=== PATIENT | male | born 1950 | race American Indian/Alaskan Native ===

== ENCOUNTER 2017-09-20 09:09 | Inpatient (IN) | payer MEDICARE ==
[2017-09-20 10:04] LABS: Basophils % (Auto) 0.7 % (0.0-1.8); Eosinophils % (Auto) 0.6 % (0.0-4.3); Hematocrit 33.1 % (35.5-45.6); Hemoglobin 10.3 gm/dl (11.8-15.2); Mean Corpuscular HGB Conc 31 % (32-34); Mean Corpuscular Hemoglobin 27 pg (28-32); Mean Corpuscular Volume 88 fl (84-94); Platelet Count 229 K/mm3 (140-440); Red Blood Count 3.78 M/mm3 (3.65-5.03); Red Cell Distribution Width 14.8 % (13.2-15.2); White Blood Count 13.7 K/mm3 (4.5-11.0)
[2017-09-20 10:17] LABS: Partial Thromboplastin Time 24.7 Sec. (24.2-36.6)
[2017-09-20 10:20] LABS: Alanine Aminotransferase 12 units/L (7-56); Albumin 3.2 g/dL (3.9-5); Albumin/Globulin Ratio 1.1 %; Alkaline Phosphatase 75 units/L (35-129); Anion Gap 20 mmol/L; BUN/Creatinine Ratio 40; Blood Urea Nitrogen 40 mg/dL (9-20); Calcium 8.3 mg/dL (8.4-10.2); Carbon Dioxide 22 mmol/L (22-30); Chloride 107.4 mmol/L (98-107); Glucose 129 mg/dL (75-100); Potassium 3.9 mmol/L (3.6-5.0); Sodium 145 mmol/L (137-145); Total Protein 6.2 g/dL (6.3-8.2)
[2017-09-20] MEDS ORDERED: NACL 0.9% 1000 ML 1,000 ML IV ONE (11:32)
[2017-09-20] MEDS ORDERED: PROTONIX IV ONE (11:32)
--- NOTE | 2017-09-20 12:27 | XRay Report ---
AP CHEST: HISTORY: Hypertension Compared to 06/20/16. Severe emphysematous changes are noted. No evidence for pneumonia, pleural effusion or pneumothorax. Normal heart size and pulmonary vascularity. The thoracic cage is intact. IMPRESSION: Emphysema. No acute process.
[2017-09-20] MEDS ORDERED: TYLENOL PO PRN (15:50)
[2017-09-20] MEDS ORDERED: PROVENTIL IH PRN (15:50)
[2017-09-20] MEDS ORDERED: ZOFRAN IV PRN (15:50)
[2017-09-20] MEDS ORDERED: DULCOLAX PR PRN (15:50)
[2017-09-20] MEDS ORDERED: MILK OF MAGNESIA PO PRN (15:50)
--- NOTE | 2017-09-20 19:26 | Emergency Department Report ---
ED General Adult HPI - General Chief complaint: GI Bleed Stated complaint: GI BLEED Time Seen by Provider: 09/20/17 11:32 Source: patient, EMS Mode of arrival: Stretcher Limitations: No Limitations - History of Present Illness Initial comments: The patient is a rather poor historian. He states that last night he vomited blood. This a.m. he noticed that it was quite dark. He states he's never had this before. He does not complain of abdominal pain. No he's been previously prescribed iron in the past. He appears to be on Plavix. He is a very poor historian and does not know the names of any of his medicines. He thinks he is on a blood thinner but I think this refers to Plavix. Patient states that 3 weeks ago he had a chest tube in his right lung as well as some kind of procedure on his lungs. He describes it as a removal of the "disc of the lung". In any case he has a history of COPD. He denies any previous history of endoscopy. He has had bronchoscopy apparently as well as a possible thorascopic procedure. -: hour(s) - Related Data Home Medications Medication Instructions Recorded Confirmed Last Taken Albuterol Sulfate [Albuterol 0.63% 1 puff INHALATION Q4H 09/20/17 09/20/17 Unknown NEBS] AtorvaSTATin [Lipitor] 20 mg PO DAILY 09/20/17 09/20/17 Unknown Clopidogrel [Plavix] 75 mg PO DAILY 09/20/17 09/20/17 Unknown Diltiazem [Cardizem] 90 mg PO TID 09/20/17 09/20/17 Unknown Fluticasone/Ivxiegkkvu84/21Mcg 1 puff IH BID 09/20/17 09/20/17 Unknown [Advair HFA 45/21 mcg] Gabapentin [Neurontin] 300 mg PO Q8H 09/20/17 09/20/17 Unknown Isosorbide Dinitrate [Isordil] 40 mg PO Q8H 09/20/17 09/20/17 Unknown Lisinopril [Zestril TAB] 40 mg PO DAILY 09/20/17 09/20/17 Unknown Sertraline [Zoloft] 25 mg PO DAILY 09/20/17 09/20/17 Unknown Tiotropium [Spiriva] 18 mcg IH DAILY 09/20/17 09/20/17 Unknown Previous Rx's Medication Instructions Recorded Last Taken Type Ferrous Sulfate [Feosol 325 MG tab] 325 mg PO DAILY #30 tablet 12/03/15 Unknown Rx Allergies Allergy/AdvReac Type Severity Reaction Status Date / Time No Known Allergies Allergy Verified 11/26/15 18:55 ED Review of Systems ROS: Stated complaint: GI BLEED Other details as noted in HPI Constitutional: denies: chills, fever Eyes: denies: eye pain, eye discharge, vision change ENT: denies: ear pain, throat pain Respiratory: denies: cough, shortness of breath, wheezing Cardiovascular: denies: chest pain, palpitations Endocrine: no symptoms reported Gastrointestinal: vomiting, hematemesis, melena. denies: abdominal pain, nausea , diarrhea Genitourinary: denies: urgency, dysuria Musculoskeletal: denies: back pain, joint swelling, arthralgia Skin: denies: rash, lesions Neurological: denies: headache, weakness, paresthesias Psychiatric: denies: anxiety, depression Hematological/Lymphatic: denies: easy bleeding, easy bruising ED Past Medical Hx - Past Medical History Hx Hypertension: Yes Hx CVA: Yes (Right eye affected) Hx Heart Attack/AMI: Yes Hx Congestive Heart Failure: No Hx Diabetes: No Hx Deep Vein Thrombosis: No Hx Asthma: No Hx COPD: Yes Additional medical history: Emphysema. CAD - Surgical History Hx Coronary Stent: Yes Hx Pacemaker: No Hx Internal Defibrillator: No Additional Surgical History: Eye surgery - Social History Smoking Status: Unknown if ever smoked Substance Use Type: None - Medications Home Medications: Home Medications Medication Instructions Recorded Confirmed Last Taken Type Ferrous Sulfate [Feosol 325 MG tab] 325 mg PO DAILY #30 tablet 12/03/15 Unknown Rx Albuterol Sulfate [Albuterol 0.63% 1 puff INHALATION Q4H 09/20/17 09/20/17 Unknown History NEBS] AtorvaSTATin [Lipitor] 20 mg PO DAILY 09/20/17 09/20/17 Unknown History Clopidogrel [Plavix] 75 mg PO DAILY 09/20/17 09/20/17 Unknown History Diltiazem [Cardizem] 90 mg PO TID 09/20/17 09/20/17 Unknown History Fluticasone/Dgoaivdtnf61/21Mcg 1 puff IH BID 09/20/17 09/20/17 Unknown History [Advair HFA 45/21 mcg] Gabapentin [Neurontin] 300 mg PO Q8H 09/20/17 09/20/17 Unknown History Isosorbide Dinitrate [Isordil] 40 mg PO Q8H 09/20/17 09/20/17 Unknown History Lisinopril [Zestril TAB] 40 mg PO DAILY 09/20/17 09/20/17 Unknown History Sertraline [Zoloft] 25 mg PO DAILY 09/20/17 09/20/17 Unknown History Tiotropium [Spiriva] 18 mcg IH DAILY 09/20/17 09/20/17 Unknown History ED Physical Exam - General Limitations: No Limitations General appearance: alert, in no apparent distress - Head Head exam: Present: atraumatic, normocephalic - Eye Eye exam: Present: normal appearance, PERRL, EOMI. Absent: scleral icterus - ENT ENT exam: Present: mucous membranes moist - Neck Neck exam: Present: normal inspection - Respiratory Respiratory exam: Present: normal lung sounds bilaterally. Absent: respiratory distress - Cardiovascular Cardiovascular Exam: Present: regular rate, normal rhythm. Absent: systolic murmur, diastolic murmur, rubs, gallop - GI/Abdominal GI/Abdominal exam: Present: soft, normal bowel sounds. Absent: distended, tenderness, guarding, rebound, rigid - Rectal Rectal exam: Present: deferred - Extremities Exam Extremities exam: Present: normal inspection - Back Exam Back exam: Present: normal inspection - Neurological Exam Neurological exam: Present: alert, oriented X3, CN II-XII intact. Absent: motor sensory deficit - Psychiatric Psychiatric exam: Present: normal affect, normal mood - Skin Skin exam: Present: warm, dry, intact, normal color. Absent: rash ED Course Vital Signs 09/20/17 09/20/17 09/20/17 09:35 10:30 11:30 Temperature 98.4 F Pulse Rate 78 68 73 Respiratory 16 16 16 Rate Blood Pressure 123/57 Blood Pressure 97/44 102/50 [Right] O2 Sat by Pulse 97 100 100 Oximetry 09/20/17 09/20/17 09/20/17 12:02 13:30 18:28 Temperature 98.5 F 99.4 F Pulse Rate 78 82 Respiratory 16 16 Rate Blood Pressure Blood Pressure 103/49 102/51 [Right] O2 Sat by Pulse 100 100 Oximetry - Reevaluation(s) Reevaluation #1: IV fluids Protonix, admission to the hospital service for further care and evaluation of apparent upper GI bleeding. 09/20/17 19:26 ED Medical Decision Making - Lab Data Result diagrams: 09/20/17 09:41 09/20/17 09:41 Laboratory Results - last 24 hr 09/20/17 09/20/17 09/20/17 09:41 09:41 09:41 WBC 13.7 H RBC 3.78 Hgb 10.3 L Hct 33.1 L MCV 88 MCH 27 L MCHC 31 L RDW 14.8 Plt Count 229 Lymph % (Auto) 16.2 [place] % (Auto) 4.1 Eos % (Auto) 0.6 Baso % (Auto) 0.7 Lymph # 2.2 [place] # 0.6 Eos # 0.1 Baso # 0.1 Seg Neutrophils % 78.4 H Seg Neutrophils # 10.7 H PT 13.7 INR 1.00 APTT 24.7 Sodium 145 Potassium 3.9 Chloride 107.4 H Carbon Dioxide 22 Anion Gap 20 BUN 40 H Creatinine 1.0 Estimated GFR > 60 BUN/Creatinine Ratio 40 Glucose 129 H Calcium 8.3 L Total Bilirubin 0.30 AST 11 ALT 12 Alkaline Phosphatase 75 Total Protein 6.2 L Albumin 3.2 L Albumin/Globulin Ratio 1.1 Lipase Blood Type Antibody Screen 09/20/17 09/20/17 09:41 09:41 WBC RBC Hgb Hct MCV MCH MCHC RDW Plt Count Lymph % (Auto) [place] % (Auto) Eos % (Auto) Baso % (Auto) Lymph # [place] # Eos # Baso # Seg Neutrophils % Seg Neutrophils # PT INR APTT Sodium Potassium Chloride Carbon Dioxide Anion Gap BUN Creatinine Estimated GFR BUN/Creatinine Ratio Glucose Calcium Total Bilirubin AST ALT Alkaline Phosphatase Total Protein Albumin Albumin/Globulin Ratio Lipase 9 L Blood Type A POSITIVE Antibody Screen Negative - EKG Data -: EKG Interpreted by Me EKG shows normal: sinus rhythm, axis, intervals, QRS complexes, ST-T waves - EKG Data Interpretation: other (1 PVC noted. Somewhat low voltage. Left anterior fascicular block.) - Radiology Data interpreted by me: Chest x-ray perhaps shows some volume loss on the right and chronic changes. No acute processes seen. Critical care attestation.: If time is entered above; I have spent that time in minutes in the direct care of this critically ill patient, excluding procedure time. ED Disposition Clinical Impression: Upper GI bleeding, Prerenal azotemia Anemia Qualifiers: Anemia type: unspecified type Qualified Code(s): D64.9 - Anemia, unspecified Disposition: OP ADMIT IP TO THIS HOSP Is pt being admited?: Yes Does the pt Need Aspirin: No (contraindicated GI bleeding on Plavix) Condition: Stable Referrals: PRIMARY CARE, [Primary Care Provider] - 3-5 Days
[2017-09-20] MEDS: ZITHROMAX 500 MG in NACL 0.9% 250ML 250 ML IV SCH (20:48)
[2017-09-20] MEDS: MORPHINE IV PRN (21:58)
[2017-09-21] MEDS: MORPHINE IV PRN ×4 (02:07→21:38)
[2017-09-21] MEDS ORDERED: MORPHINE IM ONE (02:34)
[2017-09-21 04:35] LABS: Creatine Kinase MB 1.9 ng/mL (0.0-4.0)
[2017-09-21 05:05] LABS: Creatine Kinase 90 units/L (55-170)
--- NOTE | 2017-09-21 07:23 | History and Physical Report ---
History of Present Illness Date of admission: 09/20/17 15:50 Chief complaint: Barbara been coughing History of present illness: 66 YO Male with COPD, CVA, CAD s/p stent placement, [place] presents to ED for evaluation. Pt states that he has experienced productive cough with increased volume of clear sputum as well as shortness of breath over the past week, with worsening symptoms over the past 2 days. Pt states that he "vomited blood" overnight and presents to ED for evaluation. Pt denies fever, chills, CP, Palpitations, Abdominal pain, BRBPR, recent ill contacts, prolonged travel/ immobility, leg swelling, calf pain, individual/family history of DVT/PE. Pt stats that he had a lung procedure 3 weeks ago at [facility]. Pt describes VATS as well as a bronchoscopy. Pt seen and evaluated in ED and found to have COPD exacerbation. Pt admitted to medical floor. Past History Past Medical History: acute [place], CAD, COPD, stroke Past Surgical History: Other (Stent, VATS) Social history: single Family history: hypertension Medications and Allergies Allergies Allergy/AdvReac Type Severity Reaction Status Date / Time No Known Allergies Allergy Verified 11/26/15 18:55 Home Medications Medication Instructions Recorded Confirmed Last Taken Type Ferrous Sulfate [Feosol 325 MG tab] 325 mg PO DAILY #30 tablet 12/03/15 Unknown Rx Albuterol Sulfate [Albuterol 0.63% 1 puff INHALATION Q4H 09/20/17 09/20/17 Unknown History NEBS] AtorvaSTATin [Lipitor] 20 mg PO DAILY 09/20/17 09/20/17 Unknown History Clopidogrel [Plavix] 75 mg PO DAILY 09/20/17 09/20/17 Unknown History Diltiazem [Cardizem] 90 mg PO TID 09/20/17 09/20/17 Unknown History Fluticasone/Eunujepeqs50/21Mcg 1 puff IH BID 09/20/17 09/20/17 Unknown History [Advair HFA 45/21 mcg] Gabapentin [Neurontin] 300 mg PO Q8H 09/20/17 09/20/17 Unknown History Isosorbide Dinitrate [Isordil] 40 mg PO Q8H 09/20/17 09/20/17 Unknown History Lisinopril [Zestril TAB] 40 mg PO DAILY 09/20/17 09/20/17 Unknown History Sertraline [Zoloft] 25 mg PO DAILY 09/20/17 09/20/17 Unknown History Tiotropium [Spiriva] 18 mcg IH DAILY 09/20/17 09/20/17 Unknown History Active Meds: Active Medications Acetaminophen (Tylenol) 650 mg PO Q4H PRN PRN Reason: Pain MILD(1-3)/Fever >100.5/FINNEGAN Albuterol (Proventil) 2.5 mg IH Q4HRT PRN PRN Reason: Shortness Of Breath Last Admin: 09/20/17 21:20 Dose: 2.5 mg Bisacodyl (Dulcolax) 10 mg ND QDAY PRN PRN Reason: Constipation unrelieved by [facility] Azithromycin 500 mg/ Sodium (Chloride) 250 mls @ 250 mls/hr IV Q24H RICARDO Last Admin: 09/20/17 20:48 Dose: 250 mls/hr Magnesium Hydroxide (Milk Of Magnesia) 30 ml PO Q4H PRN PRN Reason: Constipation Morphine Sulfate (Morphine) 2 mg IV Q4H PRN PRN Reason: Pain, Moderate (4-6) Last Admin: 09/21/17 02:07 Dose: 2 mg Ondansetron HCl (Zofran) 4 mg IV Q8H PRN PRN Reason: N/V unrelieved by Reglan Review of Systems Constitutional: other (vomited blood) Ears, nose, mouth and throat: no ear pain, no ear discharge, no tinnitis, no decreased hearing Cardiovascular: no chest pain, no orthopnea, no palpitations, no rapid/ irregular heart beat, no edema Respiratory: cough with sputum, excessive sputum, shortness of breath Gastrointestinal: no abdominal pain, no nausea, no vomiting, no diarrhea, no constipation, no change in bowel habits, no hematemesis Genitourinary Male: no hematuria, no flank pain, no discharge Rectal: no pain, no incontinence, no bleeding Musculoskeletal: no neck stiffness, no neck pain, no shooting arm pain, no arm numbness/tingling Integumentary: no rash, no pruritis, no redness, no sores, no wounds Neurological: no transient paralysis, no paralysis, no weakness, no parathesias , no numbness Psychiatric: no anxiety, no memory loss, no change in sleep habits, no sleep disturbances, no insomnia, no hypersomnia Endocrine: no cold intolerance, no heat intolerance, no polyphagia, no excessive thirst, no polydipsia, no polyuria Hematologic/Lymphatic: no easy bruising, no easy bleeding Allergic/Immunologic: no urticaria, no allergic rhinitis, no wheezing Exam - Constitutional Vitals: Temp Pulse Resp BP Pulse Ox 98.8 F 89 20 110/51 95 09/21/17 04:04 09/21/17 04:00 09/21/17 04:04 09/21/17 04:04 09/21/17 04:00 General appearance: Present: mild distress - EENT Eyes: Present: PERRL ENT: hearing intact, clear oral mucosa - Neck Neck: Present: supple, normal ROM - Respiratory Respiratory effort: normal Respiratory: bilateral: CTA - Cardiovascular Heart Sounds: Present: S1 & S2. Absent: rub, click - Extremities Extremities: pulses symmetrical, No edema Peripheral Pulses: within normal limits - Abdominal General gastrointestinal: Present: soft, non-tender, non-distended, normal bowel sounds Male genitourinary: Present: normal - Integumentary Integumentary: Present: clear, warm, dry - Musculoskeletal Musculoskeletal: gait normal, strength equal bilaterally - Psychiatric Psychiatric: appropriate mood/affect, intact judgment & insight - Neurologic Neurologic: CNII-XII intact, moves all extremities Results - Labs CBC & Chem 7: 09/20/17 09:41 09/20/17 09:41 Labs: Abnormal lab results 09/20/17 09/20/17 09/20/17 Range/Units 09:41 09:41 09:41 WBC 13.7 H (4.5-11.0) K/mm3 Hgb 10.3 L (11.8-15.2) gm/dl Hct 33.1 L (35.5-45.6) % MCH 27 L (28-32) pg MCHC 31 L (32-34) % Seg Neutrophils % 78.4 H (40.0-70.0) % Seg Neutrophils # 10.7 H (1.8-7.7) K/mm3 Chloride 107.4 H (98-107) mmol/L BUN 40 H (9-20) mg/dL Glucose 129 H (75-100) mg/dL Calcium 8.3 L (8.4-10.2) mg/dL Total Protein 6.2 L (6.3-8.2) g/dL Albumin 3.2 L (3.9-5) g/dL Lipase 9 L (13-60) units/L Assessment and Plan - Patient Problems (1) COPD exacerbation Current Visit: No Status: Acute Plan to address problem: Supplemental oxygen, nebs, IV steroid therapy, incentive spirometry, NIPPV as clinically indicated (2) CAD (coronary artery disease) Current Visit: Yes Status: Acute Qualifiers: Coronary Disease-Associated Artery/Lesion type: [place] artery [place] vs. transplanted heart: [place] heart Associated angina: without angina Qualified Code(s): I25.10 - Atherosclerotic heart disease of [place] coronary artery without angina pectoris Plan to address problem: Statin therapy, low cholesterol diet, risk factor reduction, (3) Upper GI bleeding Current Visit: Yes Status: Acute Plan to address problem: Suspect possible remnant from VATS/Bronchoscopy. No recurrent bleeding, CT angio chest, (4) Acute respiratory failure Current Visit: No Status: Acute Plan to address problem: Supplemental oxygen, nebs, aspiration precautions, incentive spirometry, (5) DVT prophylaxis Current Visit: Yes Status: Acute
[2017-09-21 07:37] LABS: Creatine Kinase MB 1.8 ng/mL (0.0-4.0)
[2017-09-21 08:03] LABS: Creatine Kinase 86 units/L (55-170)
[2017-09-21] MEDS ORDERED: NACL ONE (08:20)
--- NOTE | 2017-09-21 08:53 | Cat Scan Report ---
CTA CHEST: HISTORY: Dyspnea. COMPARISON: 06/16/16. TECHNIQUE: Helical CT in 1.25mm intervals following IV contrast. Pulmonary embolus protocol. Sagittal and coronal reformatted images. Rotational MIP images. FINDINGS: Contrast bolus is satisfactory. No pulmonary embolus is identified. Thyroid gland: Normal. Tracheobronchial tree: Normal. Esophagus: Normal. Heart: Normal. Pericardium: Normal. Mediastinum: Normal. Lung Minor: Severe emphysematous changes are identified bilaterally. No evidence for mass, pneumonia or pneumothorax. Pleural Spaces: Small layering right pleural effusion is noted. Musculoskeletal: No fracture or suspicious bony lesion is identified. IMPRESSION: No evidence for pulmonary embolus. Severe emphysema. Small right pleural effusion.
--- NOTE | 2017-09-21 14:21 | Progress Note ---
Assessment and Plan Assessment and plan: 66 YO Male with COPD, CVA, CAD s/p stent placement, [place] presents to ED for evaluation. Pt states that he has experienced productive cough with increased volume of clear sputum as well as shortness of breath over the past week, with worsening symptoms over the past 2 days. Pt states that he "vomited blood" overnight and presents to ED for evaluation. Pt denies fever, chills, CP, Palpitations, Abdominal pain, BRBPR, recent ill contacts, prolonged travel/ immobility, leg swelling, calf pain, individual/family history of DVT/PE. Pt stats that he had a lung procedure 3 weeks ago at [facility]. Pt describes VATS as well as a bronchoscopy. Pt seen and evaluated in ED and found to have COPD exacerbation. Upper GI bleeding Suspect possible remnant from VATS/Bronchoscopy. Chest CTA revealed emphysema and small right pleural effusion, no evidence of pulmonary embolus GI consulted Anemia ? from GI bleed GI consulted, will transfuse if Hgb <7 COPD exacerbation Supplemental oxygen PRN Pt on Duoneb and albuterol PRN Incentive spirometry, NIPPV as clinically indicated CAD (coronary artery disease) Continue statin therapy low cholesterol diet, risk factor reduction Acute respiratory failure Supplemental oxygen, nebs, aspiration precautions, incentive spirometry Chest Pain Z[place]ma WNL S/p TX and stents cardiology consulted Mild protein malnutrition Nutrition consulted DVT prophylaxis SCDs History Interval history: Patient was seen and examined. He complains of substernal chest pain 7-8 out of 10 sharp 1 day with no radiation. Patient states that he's never experienced this pain before. He denies shortness of breath, nausea, vomiting. Hospitalist Physical - Constitutional Vitals: Temp Pulse Resp BP Pulse Ox 99.1 F 77 18 110/51 98 09/21/17 13:03 09/21/17 13:03 09/21/17 13:03 09/21/17 13:03 09/21/17 13:03 General appearance: Present: no acute distress - EENT Eyes: Present: PERRL, EOM intact ENT: hearing intact, clear oral mucosa - Neck Neck: Present: supple, normal ROM - Respiratory Respiratory effort: normal Respiratory: bilateral: CTA - Cardiovascular Rhythm: regular Heart Sounds: Present: S1 & S2 - Extremities Extremities: no ischemia, No edema Peripheral Pulses: within normal limits - Abdominal General gastrointestinal: soft, non-tender - Integumentary Integumentary: Present: clear, warm, dry - Psychiatric Psychiatric: appropriate mood/affect, cooperative - Neurologic Neurologic: CNII-XII intact, moves all extremities - Allied Health Allied health notes reviewed: nursing Results - Labs CBC & Chem 7: 09/20/17 09:41 12 09:41 Labs: Laboratory Last Values WBC 13.7 K/mm3 (4.5-11.0) H 09/20/17 09:41 RBC 3.78 M/mm3 (3.65-5.03) 09/20/17 09:41 Hgb 10.3 gm/dl (11.8-15.2) L 09/20/17 09:41 Hct 33.1 % (35.5-45.6) L 09/20/17 09:41 MCV 88 fl (84-94) 09/20/17 09:41 MCH 27 pg (28-32) L 09/20/17 09:41 MCHC 31 % (32-34) L 09/20/17 09:41 RDW 14.8 % (13.2-15.2) 09/20/17 09:41 Plt Count 229 K/mm3 (140-440) 09/20/17 09:41 Lymph % (Auto) 16.2 % (13.4-35.0) 09/20/17 09:41 [place] % (Auto) 4.1 % (0.0-7.3) 09/20/17 09:41 Eos % (Auto) 0.6 % (0.0-4.3) 09/20/17 09:41 Baso % (Auto) 0.7 % (0.0-1.8) 09/20/17 09:41 Lymph # 2.2 K/mm3 (1.2-5.4) 09/20/17 09:41 [place] # 0.6 K/mm3 (0.0-0.8) 09/20/17 09:41 Eos # 0.1 K/mm3 (0.0-0.4) 09/20/17 09:41 Baso # 0.1 K/mm3 (0.0-0.1) 09/20/17 09:41 Seg Neutrophils % 78.4 % (40.0-70.0) H 09/20/17 09:41 Seg Neutrophils # 10.7 K/mm3 (1.8-7.7) H 09/20/17 09:41 PT 13.7 Sec. (12.2-14.9) 09/20/17 09:41 INR 1.00 (0.87-1.13) 09/20/17 09:41 APTT 24.7 Sec. (24.2-36.6) 09/20/17 09:41 Sodium 145 mmol/L (137-145) 09/20/17 09:41 Potassium 3.9 mmol/L (3.6-5.0) 09/20/17 09:41 Chloride 107.4 mmol/L (98-107) H 09/20/17 09:41 Carbon Dioxide 22 mmol/L (22-30) 09/20/17 09:41 Anion Gap 20 mmol/L 09/20/17 09:41 BUN 40 mg/dL (9-20) H 09/20/17 09:41 Creatinine 1.0 mg/dL (0.8-1.5) 09/20/17 09:41 Estimated GFR > 60 ml/min 09/20/17 09:41 BUN/Creatinine Ratio 40 % 09/20/17 09:41 Glucose 129 mg/dL (75-100) H 09/20/17 09:41 Calcium 8.3 mg/dL (8.4-10.2) L 09/20/17 09:41 Total Bilirubin 0.30 mg/dL (0.1-1.2) 09/20/17 09:41 AST 11 units/L (5-40) 09/20/17 09:41 ALT 12 units/L (7-56) 09/20/17 09:41 Alkaline Phosphatase 75 units/L (35-129) 09/20/17 09:41 Total Creatine Kinase 86 units/L (55-170) 09/21/17 06:59 CK-MB (CK-2) 1.8 ng/mL (0.0-4.0) 09/21/17 06:59 CK-MB (CK-2) Rel Index 2.0 (0-4) 09/21/17 06:59 Troponin T < 0.010 ng/mL (0.00-0.029) 09/21/17 06:59 Total Protein 6.2 g/dL (6.3-8.2) L 09/20/17 09:41 Albumin 3.2 g/dL (3.9-5) L 09/20/17 09:41 Albumin/Globulin Ratio 1.1 % 09/20/17 09:41 Lipase 9 units/L (13-60) L 09/20/17 09:41 Blood Type A POSITIVE 09/20/17 09:41 Antibody Screen Negative 09/20/17 09:41 - Imaging and Cardiology Chest x-ray: report reviewed
[2017-09-21] MEDS: DUONEB *Not for PRN Use IH SCH ×3 (14:55→23:15)
[2017-09-21] MEDS: ZITHROMAX 500 MG in NACL 0.9% 250ML 250 ML IV SCH (17:43)
[2017-09-21 22:30] LABS: Creatine Kinase MB 2.6 ng/mL (0.0-4.0)
[2017-09-21 22:31] LABS: Creatine Kinase 107 units/L (55-170)
[2017-09-22] MEDS: MORPHINE IV PRN (03:20)
[2017-09-22] MEDS: DUONEB *Not for PRN Use IH SCH ×3 (08:00→18:34)
[2017-09-22 08:51] LABS: Hematocrit 28.4 % (35.5-45.6); Hemoglobin 9.3 gm/dl (11.8-15.2); Mean Corpuscular HGB Conc 33 % (32-34); Mean Corpuscular Hemoglobin 29 pg (28-32); Mean Corpuscular Volume 88 fl (84-94); Platelet Count 189 K/mm3 (140-440); Red Blood Count 3.23 M/mm3 (3.65-5.03); Red Cell Distribution Width 14.7 % (13.2-15.2); White Blood Count 6.4 K/mm3 (4.5-11.0)
[2017-09-22] MEDS: NEURONTIN PO SCH ×2 (08:57→15:53)
[2017-09-22] MEDS: FEOSOL PO SCH (09:00)
[2017-09-22] MEDS: PROTONIX PO SCH (09:00)
[2017-09-22] MEDS: ZOLOFT PO SCH (09:00)
[2017-09-22 09:10] LABS: Anion Gap 15 mmol/L; BUN/Creatinine Ratio 17; Blood Urea Nitrogen 17 mg/dL (9-20); Calcium 8.4 mg/dL (8.4-10.2); Carbon Dioxide 26 mmol/L (22-30); Chloride 106.1 mmol/L (98-107); Glucose 121 mg/dL (75-100); Potassium 3.9 mmol/L (3.6-5.0); Sodium 143 mmol/L (137-145)
--- NOTE | 2017-09-22 09:15 | Gastroenterology Consultation ---
<SOFIA HOYT - Last Filed: 09/22/17 09:47> History of Present Illness - Reason for Consult Consult date: 09/22/17 GI bleed Requesting physician: MIGUEL HERBERT - History of Present Illness Patient is a 66 y/o male with PMH of COPD, CVA, CAD (s/p stent placement), OR, and VATS who presented to ED for evaluation for cough, SOB, and vomiting blood. This morning pt was resting in bed. He reports vomiting bright red blood and having BM with dark bloody stool 2 days ago. He denies any further episodes of vomiting blood or having a BM since admission. Tolerated diet this am. No hx of PUD disease, liver disease, or previous EGD. Takes daily ASA and Plavix at home. Admits to active substernal CP that is described as intermittent, sharp, non-radiating, and improved with pain medication. Cardiology consult is pending. Denies fever, wt loss, SOB, dizziness, hemoptysis, abd pain, N/V, dysphagia, diarrhea, constipation, or hematochezia. Past History Past Medical History: acute OR, CAD, COPD, stroke Past Surgical History: Other (Stent, VATS) Social history: single, lives with family. denies: smoking, alcohol abuse Family history: hypertension Medications and Allergies Allergies Allergy/AdvReac Type Severity Reaction Status Date / Time No Known Allergies Allergy Verified 11/26/15 18:55 Home Medications Medication Instructions Recorded Confirmed Last Taken Type Ferrous Sulfate [Feosol 325 MG tab] 325 mg PO DAILY #30 tablet 12/03/15 Unknown Rx Albuterol Sulfate [Albuterol 0.63% 1 puff INHALATION Q4H 09/20/17 09/20/17 Unknown History NEBS] AtorvaSTATin [Lipitor] 20 mg PO DAILY 09/20/17 09/20/17 Unknown History Clopidogrel [Plavix] 75 mg PO DAILY 09/20/17 09/20/17 Unknown History Diltiazem [Cardizem] 90 mg PO TID 09/20/17 09/20/17 Unknown History Fluticasone/Rtiodftgke32/21Mcg 1 puff IH BID 09/20/17 09/20/17 Unknown History [Advair HFA 45/21 mcg] Gabapentin [Neurontin] 300 mg PO Q8H 09/20/17 09/20/17 Unknown History Isosorbide Dinitrate [Isordil] 40 mg PO Q8H 09/20/17 09/20/17 Unknown History Lisinopril [Zestril TAB] 40 mg PO DAILY 09/20/17 09/20/17 Unknown History Sertraline [Zoloft] 25 mg PO DAILY 09/20/17 09/20/17 Unknown History Tiotropium [Spiriva] 18 mcg IH DAILY 09/20/17 09/20/17 Unknown History Active Meds: Active Medications Acetaminophen (Tylenol) 650 mg PO Q4H PRN PRN Reason: Pain MILD(1-3)/Fever >100.5/FINNEGAN Albuterol (Proventil) 2.5 mg IH Q4HRT PRN PRN Reason: Shortness Of Breath Last Admin: 09/20/17 21:20 Dose: 2.5 mg Albuterol/Ipratropium (Duoneb *Not For Prn Use*) 1 ampul IH Q8HRT [facility] Last Admin: 09/21/17 23:15 Dose: 1 ampul Arformoterol Tartrate (Brovana Nebu) 15 mcg IH Q12HRT [facility] Atorvastatin Calcium (Lipitor) 20 mg PO QHS [facility] Bisacodyl (Dulcolax) 10 mg ND QDAY PRN PRN Reason: Constipation unrelieved by [facility] Budesonide (Pulmicort) 0.5 mg IH Q12HRT [facility] Clopidogrel Bisulfate (Plavix) 75 mg PO DAILY [facility] Last Admin: 09/22/17 09:00 Dose: 75 mg Ferrous Sulfate (Feosol) 325 mg PO DAILY [facility] Last Admin: 09/22/17 09:00 Dose: 325 mg Gabapentin (Neurontin) 300 mg PO Q8H [facility] Last Admin: 09/22/17 08:57 Dose: 300 mg Magnesium Hydroxide (Milk Of Magnesia) 30 ml PO Q4H PRN PRN Reason: Constipation Morphine Sulfate (Morphine) 2 mg IV Q4H PRN PRN Reason: Pain, Moderate (4-6) Last Admin: 09/22/17 03:20 Dose: 2 mg Ondansetron HCl (Zofran) 4 mg IV Q8H PRN PRN Reason: N/V unrelieved by Reglan Last Admin: 09/21/17 21:39 Dose: 4 mg Pantoprazole Sodium (Protonix) 40 mg PO QDAY [facility] Last Admin: 09/22/17 09:00 Dose: 40 mg Sertraline HCl (Zoloft) 25 mg PO DAILY [facility] Last Admin: 09/22/17 09:00 Dose: 25 mg Review of Systems - Review of Systems All systems: negative Cardiovascular: chest pain Gastrointestinal: hematemesis, melena Exam - Constitutional Vital Signs: Temp Pulse Resp BP Pulse Ox 98.5 F 65 18 113/47 99 09/22/17 07:59 09/22/17 07:59 09/22/17 07:59 09/22/17 07:59 09/22/17 07:59 General appearance: no acute distress, well-nourished - EENT Eyes: PERRL, EOM intact ENT: hearing intact - Respiratory Respiratory: bilateral: diminished - Cardiovascular Rhythm: regular Heart Sounds: Present: S1 & S2 - Gastrointestinal General gastrointestinal: Present: soft, non-tender, non-distended, normal bowel sounds - Integumentary Integumentary: Present: warm, dry - Neurologic Neurological: alert and oriented x3 - Labs CBC & Chem 7: 09/22/17 08:38 09/22/17 08:38 Lab Results: Laboratory Results - last 24 hr 09/21/17 09/22/17 09/22/17 21:49 08:38 08:38 WBC 6.4 RBC 3.23 L Hgb 9.3 L Hct 28.4 L MCV 88 MCH 29 MCHC 33 RDW 14.7 Plt Count 189 Sodium 143 Potassium 3.9 Chloride 106.1 Carbon Dioxide 26 Anion Gap 15 BUN 17 Creatinine 1.0 Estimated GFR > 60 BUN/Creatinine Ratio 17 Glucose 121 H Calcium 8.4 Total Creatine Kinase 107 CK-MB (CK-2) 2.6 CK-MB (CK-2) Rel Index 2.4 Troponin T < 0.010 Assessment and Plan 1.GI bleed 2.hematemesis 3.melena 4.CP 5.COPD 6.CAD -cardiac enzymes negative -chest x-ray showed emphysema but no acute process -CTA negative for PE -WBC-WNL -afebrile -cardiac consult pending -HGB 9.3-trending down -continue to monitor H/H and transfuse as needed -hold blood thinning medications -no active signs of bleeding overnight or this am -continue PPI -NPO after MN for possible EGD in am pending cardiac clearance -continue supportive care -will follow <DEANN JONES - Last Filed: 09/22/17 23:07> Medications and Allergies Active Meds: Active Medications Acetaminophen (Tylenol) 650 mg PO Q4H PRN PRN Reason: Pain MILD(1-3)/Fever >100.5/FINNEGAN Albuterol (Proventil) 2.5 mg IH Q4HRT PRN PRN Reason: Shortness Of Breath Last Admin: 09/20/17 21:20 Dose: 2.5 mg Albuterol/Ipratropium (Duoneb *Not For Prn Use*) 1 ampul IH Q8HRT [facility] Last Admin: 09/22/17 18:34 Dose: 1 ampul Arformoterol Tartrate (Brovana Nebu) 15 mcg IH Q12HRT [facility] Last Admin: 09/22/17 10:22 Dose: 15 mcg Atorvastatin Calcium (Lipitor) 20 mg PO QHS [facility] Bisacodyl (Dulcolax) 10 mg ND QDAY PRN PRN Reason: Constipation unrelieved by MOM Budesonide (Pulmicort) 0.5 mg IH Q12HRT [facility] Last Admin: 09/22/17 10:22 Dose: 0.5 mg Ferrous Sulfate (Feosol) 325 mg PO DAILY [facility] Last Admin: 09/22/17 09:00 Dose: 325 mg Gabapentin (Neurontin) 300 mg PO Q8H [facility] Last Admin: 09/22/17 15:53 Dose: 300 mg Magnesium Hydroxide (Milk Of Magnesia) 30 ml PO Q4H PRN PRN Reason: Constipation Morphine Sulfate (Morphine) 2 mg IV Q4H PRN PRN Reason: Pain, Moderate (4-6) Last Admin: 09/22/17 03:20 Dose: 2 mg Ondansetron HCl (Zofran) 4 mg IV Q8H PRN PRN Reason: N/V unrelieved by Reglan Last Admin: 09/21/17 21:39 Dose: 4 mg Oxycodone/Acetaminophen (Percocet 5/325) 1 tab PO Q6H PRN PRN Reason: Pain, Moderate (4-6) Pantoprazole Sodium (Protonix) 40 mg PO QDAY [facility] Last Admin: 09/22/17 09:00 Dose: 40 mg Sertraline HCl (Zoloft) 25 mg PO DAILY [facility] Last Admin: 09/22/17 09:00 Dose: 25 mg Exam - Constitutional Vital Signs: Temp Pulse Resp BP Pulse Ox 98.6 F 76 18 121/48 98 09/22/17 15:25 09/22/17 18:49 09/22/17 18:49 09/22/17 15:25 09/22/17 15:25 - Labs CBC & Chem 7: 09/22/17 08:38 09/22/17 08:38 Lab Results: Laboratory Results - last 24 hr 09/22/17 09/22/17 08:38 08:38 WBC 6.4 RBC 3.23 L Hgb 9.3 L Hct 28.4 L MCV 88 MCH 29 MCHC 33 RDW 14.7 Plt Count 189 Sodium 143 Potassium 3.9 Chloride 106.1 Carbon Dioxide 26 Anion Gap 15 BUN 17 Creatinine 1.0 Estimated GFR > 60 BUN/Creatinine Ratio 17 Glucose 121 H Calcium 8.4 Assessment and Plan Patient seen and examined. Agree with note by Sofia Hoyt. C/o dysphagia, hematemesis, hematochezia and cp/sob. await cardiology eval. no bleeding x 2 days. will need eventual work-up for symptoms and anemia (egd/colonoscopy). Will follow and determine timing based on clinical course/progress.
--- NOTE | 2017-09-22 09:37 | Event Note ---
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 We will defer to them for cardiac care.
[2017-09-22] MEDS ORDERED: PLAVIX PO SCH (10:00)
[2017-09-22] MEDS: PULMICORT IH SCH (10:22)
[2017-09-22] MEDS: BROVANA NEBU IH SCH (10:22)
--- NOTE | 2017-09-22 11:10 | Consultation ---
History of Present Illness Consult date: 09/22/17 Consult reason: chest pain Past History Past Medical History: acute MD, CAD, COPD, stroke Past Surgical History: Other (Stent, VATS) Social history: single, lives with family. denies: smoking, alcohol abuse Family history: hypertension Medications and Allergies Allergies Allergy/AdvReac Type Severity Reaction Status Date / Time No Known Allergies Allergy Verified 11/26/15 18:55 Home Medications Medication Instructions Recorded Confirmed Last Taken Type Ferrous Sulfate [Feosol 325 MG tab] 325 mg PO DAILY #30 tablet 12/03/15 Unknown Rx Albuterol Sulfate [Albuterol 0.63% 1 puff INHALATION Q4H 09/20/17 09/20/17 Unknown History NEBS] AtorvaSTATin [Lipitor] 20 mg PO DAILY 09/20/17 09/20/17 Unknown History Clopidogrel [Plavix] 75 mg PO DAILY 09/20/17 09/20/17 Unknown History Diltiazem [Cardizem] 90 mg PO TID 09/20/17 09/20/17 Unknown History Fluticasone/Exbqcdyrjo33/21Mcg 1 puff IH BID 09/20/17 09/20/17 Unknown History [Advair HFA 45/21 mcg] Gabapentin [Neurontin] 300 mg PO Q8H 09/20/17 09/20/17 Unknown History Isosorbide Dinitrate [Isordil] 40 mg PO Q8H 09/20/17 09/20/17 Unknown History Lisinopril [Zestril TAB] 40 mg PO DAILY 09/20/17 09/20/17 Unknown History Sertraline [Zoloft] 25 mg PO DAILY 09/20/17 09/20/17 Unknown History Tiotropium [Spiriva] 18 mcg IH DAILY 09/20/17 09/20/17 Unknown History Active Meds: Active Medications Acetaminophen (Tylenol) 650 mg PO Q4H PRN PRN Reason: Pain MILD(1-3)/Fever >100.5/FINNEGAN Albuterol (Proventil) 2.5 mg IH Q4HRT PRN PRN Reason: Shortness Of Breath Last Admin: 09/20/17 21:20 Dose: 2.5 mg Albuterol/Ipratropium (Duoneb *Not For Prn Use*) 1 ampul IH Q8HRT [facility] Last Admin: 09/22/17 08:00 Dose: Not Given Arformoterol Tartrate (Brovana Nebu) 15 mcg IH Q12HRT [facility] Last Admin: 09/22/17 10:22 Dose: 15 mcg Atorvastatin Calcium (Lipitor) 20 mg PO QHS [facility] Bisacodyl (Dulcolax) 10 mg DC QDAY PRN PRN Reason: Constipation unrelieved by MOM Budesonide (Pulmicort) 0.5 mg IH Q12HRT [facility] Last Admin: 09/22/17 10:22 Dose: 0.5 mg Clopidogrel Bisulfate (Plavix) 75 mg PO DAILY [facility] Last Admin: 09/22/17 09:00 Dose: 75 mg Ferrous Sulfate (Feosol) 325 mg PO DAILY [facility] Last Admin: 09/22/17 09:00 Dose: 325 mg Gabapentin (Neurontin) 300 mg PO Q8H [facility] Last Admin: 09/22/17 08:57 Dose: 300 mg Magnesium Hydroxide (Milk Of Magnesia) 30 ml PO Q4H PRN PRN Reason: Constipation Morphine Sulfate (Morphine) 2 mg IV Q4H PRN PRN Reason: Pain, Moderate (4-6) Last Admin: 09/22/17 03:20 Dose: 2 mg Ondansetron HCl (Zofran) 4 mg IV Q8H PRN PRN Reason: N/V unrelieved by Reglan Last Admin: 09/21/17 21:39 Dose: 4 mg Oxycodone/Acetaminophen (Percocet 5/325) 1 tab PO Q6H PRN PRN Reason: Pain, Moderate (4-6) Pantoprazole Sodium (Protonix) 40 mg PO QDAY [facility] Last Admin: 09/22/17 09:00 Dose: 40 mg Sertraline HCl (Zoloft) 25 mg PO DAILY [facility] Last Admin: 09/22/17 09:00 Dose: 25 mg Physical Examination Vital Signs Temp Pulse Resp BP Pulse Ox 98.4 F 78 16 123/57 97 09/20/17 09:35 09/20/17 09:35 09/20/17 09:35 09/20/17 09:35 09/20/17 09:35 Results 09/22/17 08:38 09/22/17 08:38 Cardiac Enzymes 09/21/17 Range/Units 21:49 CK-MB (CK-2) 2.6 (0.0-4.0) ng/mL CBC 09/22/17 Range/Units 08:38 WBC 6.4 (4.5-11.0) K/mm3 RBC 3.23 L (3.65-5.03) M/mm3 Hgb 9.3 L (11.8-15.2) gm/dl Hct 28.4 L (35.5-45.6) % Plt Count 189 (140-440) K/mm3 Comprehensive Metabolic Panel 09/22/17 Range/Units 08:38 Sodium 143 (137-145) mmol/L Potassium 3.9 (3.6-5.0) mmol/L Chloride 106.1 (98-107) mmol/L Carbon Dioxide 26 (22-30) mmol/L BUN 17 (9-20) mg/dL Creatinine 1.0 (0.8-1.5) mg/dL Glucose 121 H (75-100) mg/dL Calcium 8.4 (8.4-10.2) mg/dL Assessment and Plan Patient was admitted with vomitting blood/also having diarrhoea with blood.Had some chest pain after vomitting bllod.Needs gi w/u. Hence consulatation. Patient had cardiac evaluation including dobutamine echo06/2017 which was unremarkable,also had cardiac cath 07/28 with patent left circumflex stent, distal LAD,small has 80% lesion>medical therapy.his Plavix d/c'd few months ago. EKG showing S.R,no acute changes,cardiac enzymes x 3 negative. Considering above patient is stable cardiac haile and may proceed with GI w/ u.Continue medical therapy.
--- NOTE | 2017-09-22 16:09 | Progress Note ---
<ROSALIO MORENO - Last Filed: 09/22/17 16:05> Assessment and Plan Assessment and plan: 66 YO Male with COPD, CVA, CAD s/p stent placement, DE presents to ED for evaluation. Pt states that he has experienced productive cough with increased volume of clear sputum as well as shortness of breath over the past week, with worsening symptoms over the past 2 days. Pt states that he "vomited blood" overnight and presents to ED for evaluation. Pt denies fever, chills, CP, Palpitations, Abdominal pain, BRBPR, recent ill contacts, prolonged travel/ immobility, leg swelling, calf pain, individual/family history of DVT/PE. Pt stats that he had a lung procedure 3 weeks ago at [facility]. Pt describes VATS as well as a bronchoscopy. Pt seen and evaluated in ED and found to have COPD exacerbation. Upper GI bleeding Suspect possible remnant from VATS/Bronchoscopy. Chest CTA revealed emphysema and small right pleural effusion, no evidence of pulmonary embolus GI following EGD to be completed tomorrow Anemia ? from GI bleed will transfuse if Hgb <7 COPD exacerbation Resolved Supplemental oxygen PRN Pt on Duoneb and albuterol PRN Incentive spirometry, NIPPV as clinically indicated CAD (coronary artery disease) Continue statin therapy low cholesterol diet, risk factor reduction Acute respiratory failure Resolved Supplemental oxygen, nebs, aspiration precautions, incentive spirometry Chronic respiratory failure currently at baseline Chest Pain Zulema WNL S/p DE and stents cardiology consulted GI prophylaxis Protonix Mild protein malnutrition Nutrition consulted DVT prophylaxis SCDs History Interval history: Patient was seen and examined. He denies chest pain shortness of breath, nausea , vomiting. Hospitalist Physical - Constitutional Vitals: Temp Pulse Resp BP Pulse Ox 98.5 F 66 16 113/47 97 09/22/17 07:59 09/22/17 10:34 09/22/17 10:34 09/22/17 07:59 09/22/17 10:15 General appearance: Present: no acute distress - EENT Eyes: Present: PERRL, EOM intact ENT: hearing intact, clear oral mucosa - Neck Neck: Present: supple, normal ROM - Respiratory Respiratory effort: normal - Cardiovascular Rhythm: regular Heart Sounds: Present: S1 & S2 - Extremities Extremities: no ischemia, No edema Peripheral Pulses: within normal limits - Abdominal General gastrointestinal: soft, non-tender - Integumentary Integumentary: Present: clear, warm - Psychiatric Psychiatric: appropriate mood/affect - Neurologic Neurologic: CNII-XII intact, moves all extremities - Allied Health Allied health notes reviewed: nursing Results - Labs CBC & Chem 7: 09/22/17 08:38 09/22/17 08:38 Labs: Laboratory Last Values WBC 6.4 K/mm3 (4.5-11.0) 09/22/17 08:38 RBC 3.23 M/mm3 (3.65-5.03) L 09/22/17 08:38 Hgb 9.3 gm/dl (11.8-15.2) L 09/22/17 08:38 Hct 28.4 % (35.5-45.6) L 09/22/17 08:38 MCV 88 fl (84-94) 09/22/17 08:38 MCH 29 pg (28-32) 09/22/17 08:38 MCHC 33 % (32-34) 09/22/17 08:38 RDW 14.7 % (13.2-15.2) 09/22/17 08:38 Plt Count 189 K/mm3 (140-440) 09/22/17 08:38 Lymph % (Auto) 16.2 % (13.4-35.0) 09/20/17 09:41 [place] % (Auto) 4.1 % (0.0-7.3) 09/20/17 09:41 Eos % (Auto) 0.6 % (0.0-4.3) 09/20/17 09:41 Baso % (Auto) 0.7 % (0.0-1.8) 09/20/17 09:41 Lymph # 2.2 K/mm3 (1.2-5.4) 09/20/17 09:41 [place] # 0.6 K/mm3 (0.0-0.8) 09/20/17 09:41 Eos # 0.1 K/mm3 (0.0-0.4) 09/20/17 09:41 Baso # 0.1 K/mm3 (0.0-0.1) 09/20/17 09:41 Seg Neutrophils % 78.4 % (40.0-70.0) H 09/20/17 09:41 Seg Neutrophils # 10.7 K/mm3 (1.8-7.7) H 09/20/17 09:41 PT 13.7 Sec. (12.2-14.9) 09/20/17 09:41 INR 1.00 (0.87-1.13) 09/20/17 09:41 APTT 24.7 Sec. (24.2-36.6) 09/20/17 09:41 Sodium 143 mmol/L (137-145) 09/22/17 08:38 Potassium 3.9 mmol/L (3.6-5.0) 09/22/17 08:38 Chloride 106.1 mmol/L (98-107) 09/22/17 08:38 Carbon Dioxide 26 mmol/L (22-30) 09/22/17 08:38 Anion Gap 15 mmol/L 09/22/17 08:38 BUN 17 mg/dL (9-20) 09/22/17 08:38 Creatinine 1.0 mg/dL (0.8-1.5) 09/22/17 08:38 Estimated GFR > 60 ml/min 09/22/17 08:38 BUN/Creatinine Ratio 17 % 09/22/17 08:38 Glucose 121 mg/dL (75-100) H 09/22/17 08:38 Calcium 8.4 mg/dL (8.4-10.2) 09/22/17 08:38 Total Bilirubin 0.30 mg/dL (0.1-1.2) 09/20/17 09:41 AST 11 units/L (5-40) 09/20/17 09:41 ALT 12 units/L (7-56) 09/20/17 09:41 Alkaline Phosphatase 75 units/L (35-129) 09/20/17 09:41 Total Creatine Kinase 107 units/L (55-170) 09/21/17 21:49 CK-MB (CK-2) 2.6 ng/mL (0.0-4.0) 09/21/17 21:49 CK-MB (CK-2) Rel Index 2.4 (0-4) 09/21/17 21:49 Troponin T < 0.010 ng/mL (0.00-0.029) 09/21/17 21:49 Total Protein 6.2 g/dL (6.3-8.2) L 09/20/17 09:41 Albumin 3.2 g/dL (3.9-5) L 09/20/17 09:41 Albumin/Globulin Ratio 1.1 % 09/20/17 09:41 Lipase 9 units/L (13-60) L 09/20/17 09:41 Blood Type A POSITIVE 09/20/17 09:41 Antibody Screen Negative 09/20/17 09:41 <MIGUEL HERBERT M - Last Filed: 09/22/17 22:46> Hospitalist Physical - Constitutional Vitals: Temp Pulse Resp BP Pulse Ox 98.6 F 76 18 121/48 98 09/22/17 15:25 09/22/17 18:49 09/22/17 18:49 09/22/17 15:25 09/22/17 15:25 Results - Labs CBC & Chem 7: 09/22/17 08:38 09/22/17 08:38 Labs: Laboratory Last Values WBC 6.4 K/mm3 (4.5-11.0) 09/22/17 08:38 RBC 3.23 M/mm3 (3.65-5.03) L 09/22/17 08:38 Hgb 9.3 gm/dl (11.8-15.2) L 09/22/17 08:38 Hct 28.4 % (35.5-45.6) L 09/22/17 08:38 MCV 88 fl (84-94) 09/22/17 08:38 MCH 29 pg (28-32) 09/22/17 08:38 MCHC 33 % (32-34) 09/22/17 08:38 RDW 14.7 % (13.2-15.2) 09/22/17 08:38 Plt Count 189 K/mm3 (140-440) 09/22/17 08:38 Lymph % (Auto) 16.2 % (13.4-35.0) 09/20/17 09:41 [place] % (Auto) 4.1 % (0.0-7.3) 09/20/17 09:41 Eos % (Auto) 0.6 % (0.0-4.3) 09/20/17 09:41 Baso % (Auto) 0.7 % (0.0-1.8) 09/20/17 09:41 Lymph # 2.2 K/mm3 (1.2-5.4) 09/20/17 09:41 [place] # 0.6 K/mm3 (0.0-0.8) 09/20/17 09:41 Eos # 0.1 K/mm3 (0.0-0.4) 09/20/17 09:41 Baso # 0.1 K/mm3 (0.0-0.1) 09/20/17 09:41 Seg Neutrophils % 78.4 % (40.0-70.0) H 09/20/17 09:41 Seg Neutrophils # 10.7 K/mm3 (1.8-7.7) H 09/20/17 09:41 PT 13.7 Sec. (12.2-14.9) 09/20/17 09:41 INR 1.00 (0.87-1.13) 09/20/17 09:41 APTT 24.7 Sec. (24.2-36.6) 09/20/17 09:41 Sodium 143 mmol/L (137-145) 09/22/17 08:38 Potassium 3.9 mmol/L (3.6-5.0) 09/22/17 08:38 Chloride 106.1 mmol/L (98-107) 09/22/17 08:38 Carbon Dioxide 26 mmol/L (22-30) 09/22/17 08:38 Anion Gap 15 mmol/L 09/22/17 08:38 BUN 17 mg/dL (9-20) 09/22/17 08:38 Creatinine 1.0 mg/dL (0.8-1.5) 09/22/17 08:38 Estimated GFR > 60 ml/min 09/22/17 08:38 BUN/Creatinine Ratio 17 % 09/22/17 08:38 Glucose 121 mg/dL (75-100) H 09/22/17 08:38 Calcium 8.4 mg/dL (8.4-10.2) 09/22/17 08:38 Total Bilirubin 0.30 mg/dL (0.1-1.2) 09/20/17 09:41 AST 11 units/L (5-40) 09/20/17 09:41 ALT 12 units/L (7-56) 09/20/17 09:41 Alkaline Phosphatase 75 units/L (35-129) 09/20/17 09:41 Total Creatine Kinase 107 units/L (55-170) 09/21/17 21:49 CK-MB (CK-2) 2.6 ng/mL (0.0-4.0) 09/21/17 21:49 CK-MB (CK-2) Rel Index 2.4 (0-4) 09/21/17 21:49 Troponin T < 0.010 ng/mL (0.00-0.029) 09/21/17 21:49 Total Protein 6.2 g/dL (6.3-8.2) L 09/20/17 09:41 Albumin 3.2 g/dL (3.9-5) L 09/20/17 09:41 Albumin/Globulin Ratio 1.1 % 09/20/17 09:41 Lipase 9 units/L (13-60) L 09/20/17 09:41 Blood Type A POSITIVE 09/20/17 09:41 Antibody Screen Negative 09/20/17 09:41
[2017-09-23] MEDS: PULMICORT IH SCH ×3 (00:20→19:30)
[2017-09-23] MEDS: BROVANA NEBU IH SCH ×3 (00:20→19:30)
[2017-09-23] MEDS: DUONEB *Not for PRN Use IH SCH ×4 (00:20→19:30)
--- NOTE | 2017-09-23 00:21 | Consultation ---
HISTORY OF PRESENT ILLNESS: The patient is a 66-year-old gentleman being followed in our office by Dr. Romero, presented to the Emergency Room with complaints that at around 7 o'clock on the morning of admission, he had vomited bright red blood and also he had a bloody stool at the same time. Prior to this, the patient did not have any chest pain. After vomiting, he had some chest pain. The patient has 3 sets done at this time. The patient needs endoscopy done. Hence, a Cardiology consultation. The patient had EKG performed at this time. At this admission, which showed sinus rhythm, otherwise unremarkable. Three sets of cardiac enzymes are unremarkable. The patient's past medical history is significant for history of essential hypertension, longstanding history of chronic smoking up to 3 years ago. The patient has severe COPD, being seen by Dr. Davila. Underwent right thoracotomy with thoracoscopic lung volume reduction surgery on 08/20/2017, at [facility] along with therapeutic bronchoscopy. The patient had a cardiac evaluation done prior to that and the patient had IV dobutamine. Echocardiogram performed on 06/28/2017, which was unremarkable with ejection fraction going up from 60-80%. He had cardiac catheterization performed on 07/07/2017, at [facility], which showed 20% left main lesion. LAD distally, very small vessel showed 80% lesion, patent stent in the circumflex, RCA is small. I advised medical therapy. The patient had history of myocardial infarction with placement of a stent in 2011; apparently, he had a TIA versus stroke at the same time. Considering the patient had stent in 2011, which is [id number] stent, it was planned to stop the Plavix by Dr. Romero in the past. PHYSICAL EXAMINATION: GENERAL: The patient appears to be comfortable, in no acute distress, well developed, well nourished. HEENT: Conjunctivae pink. Sclerae anicteric. NECK: Supple, no JVD. HEART: Regular, probably S4, no S3, no significant murmurs. LUNGS: Clear. ABDOMEN: Benign. EXTREMITIES: Without edema. NEUROLOGIC: Alert, oriented at this time. MEDICATIONS: The patient's medication at this time included atorvastatin 20 mg a day, Feosol 325 mg a day, gabapentin, and Protonix in addition to Zoloft. The patient was also on clopidogrel 75 mg a day. LABORATORY DATA: Showed three sets of cardiac enzymes to be unremarkable. Both CPK and MB are unremarkable. Hemoglobin is 10.3 on 09/20/2017 and 9.3 today. FINAL IMPRESSION: 1. Vomiting of blood and passing blood through the rectum. 2. Known coronary artery disease with circumflex stent placement for acute myocardial infarction in 2011. 3. Cardiac workup done including cardiac catheterization done on 07/07/2017, and plan is to continue medical therapy. 4. Status post right thoracoscopic lung volume reduction for severe emphysema on 08/20/2017, at [facility]. 5. History of chronic smoking, history of chronic obstructive pulmonary disease, followed by Dr. Davila. 6. Hypertension. 7. History of transient ischemic attack versus stroke in 2011. At this time, the patient's cardiac status appears to be stable. He can hold the aspirin and Plavix for now and cardiac status appears to be stable. No further testing necessary at this point. The patient is stable to proceed with endoscopy. Thank you very much, Dr. Lema for asking us to see the patient. JOB# [id number] EDWIN/ARNOLDO
[2017-09-23 09:41] LABS: Hematocrit 25.8 % (35.5-45.6); Hemoglobin 8.5 gm/dl (11.8-15.2); Mean Corpuscular HGB Conc 33 % (32-34); Mean Corpuscular Hemoglobin 29 pg (28-32); Mean Corpuscular Volume 87 fl (84-94); Platelet Count 191 K/mm3 (140-440); Red Blood Count 2.96 M/mm3 (3.65-5.03); White Blood Count 7.1 K/mm3 (4.5-11.0)
--- NOTE | 2017-09-23 09:56 | Progress Note ---
Assessment and Plan Upper GI bleeding Chest pain secondary to GI Acute on chronic respiratory History of respiratory failure with hypoxemia Coronary disease with patent circumflex stent Hypertension Hyperlipidemia Recommend hemoglobin is decreased patient's blood pressure is stable off of BP medications hold antiplatelets therapy until cleared by GI cardiac enzymes negative patient has stable coronary arterial disease with normal LV function Subjective Date of service: 09/23/17 Principal diagnosis: vomiting blood Interval history: pt has no chest pain and sob is the same, no more vomiting. Objective Vital Signs Temp Pulse Pulse Pulse Resp Resp Resp 09/23/17 08:21 98.9 F 72 18 09/23/17 07:54 09/23/17 07:53 84 18 09/23/17 04:20 99.2 F 18 09/23/17 00:22 80 16 09/23/17 00:00 82 16 09/22/17 22:00 09/22/17 19:40 98.6 F 72 18 09/22/17 18:49 76 18 09/22/17 18:35 80 18 09/22/17 15:25 98.6 F 76 20 09/22/17 10:34 66 16 09/22/17 10:15 09/22/17 10:10 66 16 09/22/17 10:00 69 66 16 16 Resp BP Pulse Ox 09/23/17 08:21 108/52 99 09/23/17 07:54 94 09/23/17 07:53 09/23/17 04:20 114/45 09/23/17 00:22 09/23/17 00:00 09/22/17 22:00 96 09/22/17 19:40 109/46 98 09/22/17 18:49 09/22/17 18:35 09/22/17 15:25 121/48 98 09/22/17 10:34 09/22/17 10:15 97 09/22/17 10:10 09/22/17 10:00 16 99 - Physical Examination General: Appears Well HEENT: Positive: PERRL, EOMI Neck: Positive: neck supple Cardiac: Positive: Reg Rate and Rhythm Lungs: Positive: Decreased Breath Sounds Neuro: Positive: Grossly Intact Abdomen: Positive: Soft Skin: Positive: Clear Extremities: - Labs and Meds CBC 09/23/17 Range/Units 09:20 WBC 7.1 (4.5-11.0) K/mm3 RBC 2.96 L (3.65-5.03) M/mm3 Hgb 8.5 L (11.8-15.2) gm/dl Hct 25.8 L (35.5-45.6) % Plt Count 191 (140-440) K/mm3 - Imaging and Cardiology Echo: report reviewed (2016 normal lv function and no significant regurgitations ) Cardiac cath: report reviewed (07/2017 left main 20% LAD patent distally small caliber 80% circumflex stent patent RCA small patent normal LV function) - Telemetry EKG Rhythm: Sinus Rhythm
[2017-09-23] MEDS: NEURONTIN PO SCH ×2 (11:03→17:11)
[2017-09-23] MEDS: ZOLOFT PO SCH (11:04)
[2017-09-23] MEDS: PROTONIX PO SCH (11:04)
[2017-09-23] MEDS: FEOSOL PO SCH (11:04)
--- NOTE | 2017-09-23 12:12 | Gastroenterology Progress Note ---
Assessment and Plan - Patient Problems (1) Anemia Current Visit: Yes Status: Chronic Qualifiers: Anemia type: unspecified type Qualified Code(s): D64.9 - Anemia, unspecified Plan to address problem: - Associated hematemesis/hematochezia on admit, but resolved (and recent VATS at [place]). - Clinically stable, and cardiac status good (discussed with Dr Romero). - Given need for chronic DAPT therapy, and anemia with CAD, will plan EGD/ colonoscopy. - Plavix and ASA on hold for now. Subjective Date of service: 09/23/17 Principal diagnosis: Anemia Interval history: The patient is ambulating (in wheelchair) in the halls without distress. No emesis/hematemesis, or blood in the stool today. He says his breathing is much improved, and he has no N/V/abdominal pain. Objective - Constitutional Vitals: Temp Pulse Resp BP Pulse Ox 98.9 F 72 18 108/52 99 09/23/17 08:21 09/23/17 08:21 09/23/17 08:21 09/23/17 08:21 09/23/17 08:21 General appearance: no acute distress - EENT Eyes: PERRL, EOM intact - Respiratory Respiratory effort: normal Respiratory: bilateral: CTA (On 1L O2) - Cardiovascular Rhythm: regular Heart Sounds: Present: S1 & S2 - Gastrointestinal General gastrointestinal: Present: soft, non-tender, non-distended - Labs CBC & Chem 7: 09/23/17 09:20 09/22/17 08:38 Labs: Laboratory Results - last 24 hr 09/23/17 09:20 WBC 7.1 RBC 2.96 L Hgb 8.5 L Hct 25.8 L MCV 87 MCH 29 MCHC 33 RDW 15.0 Plt Count 191
--- NOTE | 2017-09-23 15:01 | Progress Note ---
Assessment and Plan Assessment and plan: 66 YO Male with COPD, CVA, CAD s/p stent placement, [place], sp recent VATS procedure , Lung volume reduction surgery. PW hematemesis and hematochezia, and chest pain GIB- likely from Upper GI tract continue PPI, planned for EGD Acute blood loss Anemia will transfuse if Hgb <7 COPD not in exacerbation, continue chronic meds and nebs TID Chest pain Zulema WNL likely from inflammation of gullet after prolonged vomiting cardiology consult given hx of CAD CAD (coronary artery disease) Continue statin therapy low cholesterol diet, risk factor reduction cardiology consulted Relative Hypotension BP has been running low, hold all BP meds for now Acute respiratory failure Resolved Supplemental oxygen, nebs, aspiration precautions, incentive spirometry Chronic respiratory failure currently at baseline GI prophylaxis Protonix Mild protein malnutrition Nutrition consulted DVT prophylaxis SCDs History Interval history: denies any CP, SOB, diarrhea, blood in stool or dizzyness RN states that BP has been running low Hospitalist Physical - Constitutional Vitals: Temp Pulse Resp BP Pulse Ox 99.3 F 65 20 116/59 100 09/23/17 14:54 09/23/17 14:54 09/23/17 14:54 09/23/17 14:54 09/23/17 14:54 General appearance: Present: no acute distress - EENT Eyes: Present: PERRL, EOM intact ENT: hearing intact, clear oral mucosa - Neck Neck: Present: supple, normal ROM - Respiratory Respiratory: bilateral: diminished - Cardiovascular Rhythm: regular Heart Sounds: Present: S1 & S2 - Extremities Extremities: no ischemia Peripheral Pulses: within normal limits - Abdominal General gastrointestinal: soft, non-tender - Integumentary Integumentary: Present: clear, warm - Psychiatric Psychiatric: appropriate mood/affect, intact judgment & insight - Neurologic Neurologic: CNII-XII intact, moves all extremities Results - Labs CBC & Chem 7: 09/23/17 09:20 09/24/17 09:31 Labs: Laboratory Last Values WBC 7.1 K/mm3 (4.5-11.0) 09/23/17 09:20 RBC 2.96 M/mm3 (3.65-5.03) L 09/23/17 09:20 Hgb 8.5 gm/dl (11.8-15.2) L 09/23/17 09:20 Hct 25.8 % (35.5-45.6) L 09/23/17 09:20 MCV 87 fl (84-94) 09/23/17 09:20 MCH 29 pg (28-32) 09/23/17 09:20 MCHC 33 % (32-34) 09/23/17 09:20 RDW 15.0 % (13.2-15.2) 09/23/17 09:20 Plt Count 191 K/mm3 (140-440) 09/23/17 09:20 Lymph % (Auto) 16.2 % (13.4-35.0) 09/20/17 09:41 [place] % (Auto) 4.1 % (0.0-7.3) 09/20/17 09:41 Eos % (Auto) 0.6 % (0.0-4.3) 09/20/17 09:41 Baso % (Auto) 0.7 % (0.0-1.8) 09/20/17 09:41 Lymph # 2.2 K/mm3 (1.2-5.4) 09/20/17 09:41 [place] # 0.6 K/mm3 (0.0-0.8) 09/20/17 09:41 Eos # 0.1 K/mm3 (0.0-0.4) 09/20/17 09:41 Baso # 0.1 K/mm3 (0.0-0.1) 09/20/17 09:41 Seg Neutrophils % 78.4 % (40.0-70.0) H 09/20/17 09:41 Seg Neutrophils # 10.7 K/mm3 (1.8-7.7) H 09/20/17 09:41 PT 13.7 Sec. (12.2-14.9) 09/20/17 09:41 INR 1.00 (0.87-1.13) 09/20/17 09:41 APTT 24.7 Sec. (24.2-36.6) 09/20/17 09:41 Sodium 143 mmol/L (137-145) 09/22/17 08:38 Potassium 3.9 mmol/L (3.6-5.0) 09/22/17 08:38 Chloride 106.1 mmol/L (98-107) 09/22/17 08:38 Carbon Dioxide 26 mmol/L (22-30) 09/22/17 08:38 Anion Gap 15 mmol/L 09/22/17 08:38 BUN 17 mg/dL (9-20) 09/22/17 08:38 Creatinine 1.0 mg/dL (0.8-1.5) 09/22/17 08:38 Estimated GFR > 60 ml/min 09/22/17 08:38 BUN/Creatinine Ratio 17 % 09/22/17 08:38 Glucose 121 mg/dL (75-100) H 09/22/17 08:38 Calcium 8.4 mg/dL (8.4-10.2) 09/22/17 08:38 Total Bilirubin 0.30 mg/dL (0.1-1.2) 09/20/17 09:41 AST 11 units/L (5-40) 09/20/17 09:41 ALT 12 units/L (7-56) 09/20/17 09:41 Alkaline Phosphatase 75 units/L (35-129) 09/20/17 09:41 Total Creatine Kinase 107 units/L (55-170) 09/21/17 21:49 CK-MB (CK-2) 2.6 ng/mL (0.0-4.0) 09/21/17 21:49 CK-MB (CK-2) Rel Index 2.4 (0-4) 09/21/17 21:49 Troponin T < 0.010 ng/mL (0.00-0.029) 09/21/17 21:49 Total Protein 6.2 g/dL (6.3-8.2) L 09/20/17 09:41 Albumin 3.2 g/dL (3.9-5) L 09/20/17 09:41 Albumin/Globulin Ratio 1.1 % 09/20/17 09:41 Lipase 9 units/L (13-60) L 09/20/17 09:41 Blood Type A POSITIVE 09/20/17 09:41 Antibody Screen Negative 09/20/17 09:41
[2017-09-23] MEDS: PERCOCET 5/325 PO PRN (17:10)
[2017-09-23] MEDS ORDERED: GOLYTELY PO ONE (17:30)
[2017-09-24] MEDS: NEURONTIN PO SCH ×2 (00:29→08:00)
--- NOTE | 2017-09-24 07:53 | Anesthesia Consultation ---
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,no residual deficits) Hx Psychiatric Problems: No - Gastrointestinal Hx Gastroesophageal Reflux Disease: No - Endocrine Hx End Stage Renal Disease: No - Hematic Hx Anemia: Yes (Hgb 8.5, T&S available) - Other Systems Hx Alcohol Use: No Hx Substance Use: No Hx Cancer: No <JAMESON OLIVER - Last Filed: 09/24/17 12:58> Anesthesia Consult and Med Hx - Airway Anesthetic Teeth Evaluation: Edentulous ROM Head & Neck: Adequate Mental/Hyoid Distance: Adequate Mallampati Class: Class I Intubation Access Assessment: Probably Good - Pulmonary Exam CTA: Yes - Cardiac Exam Cardiac Exam: RRR - Pulmonary Hx Respiratory Symptoms: Yes (emphasema, VAT couple month ago) Home Oxygen Therapy: Yes (1L/min after lung sx) - Additional Comments Anesthesia Medical History Comments: NAC
[2017-09-24] MEDS: PULMICORT IH SCH ×2 (08:07→20:17)
[2017-09-24] MEDS: BROVANA NEBU IH SCH ×2 (08:07→20:17)
[2017-09-24] MEDS: DUONEB *Not for PRN Use IH SCH ×3 (08:08→20:18)
[2017-09-24 10:05] LABS: Anion Gap 15 mmol/L; BUN/Creatinine Ratio 8; Blood Urea Nitrogen 7 mg/dL (9-20); Calcium 8.6 mg/dL (8.4-10.2); Carbon Dioxide 27 mmol/L (22-30); Chloride 105.8 mmol/L (98-107); Glucose 105 mg/dL (75-100); Potassium 3.8 mmol/L (3.6-5.0); Sodium 144 mmol/L (137-145)
--- NOTE | 2017-09-24 10:05 | Progress Note ---
Assessment and Plan Upper GI bleeding Chest pain secondary to GI Acute on chronic respiratory History of respiratory failure with hypoxemia Coronary disease with patent circumflex stent Hypertension Hyperlipidemia Recommend hemoglobin is decreased patient's blood pressure is lower, off of BP medications, consider transfusion of one unit of prbc hold antiplatelets therapy until cleared by GI cardiac enzymes negative patient has stable coronary arterial disease with normal LV function Subjective Date of service: 09/24/17 Principal diagnosis: Anemia Interval history: pt denies any chest pain Objective Vital Signs Temp Pulse Pulse Resp Resp Resp BP 09/24/17 08:36 69 16 09/24/17 08:10 09/24/17 08:08 91 H 18 09/24/17 08:02 98.4 F 63 18 116/54 09/24/17 04:09 97.8 F 20 96/35 09/23/17 22:00 65 20 09/23/17 20:27 68 09/23/17 19:40 72 16 09/23/17 19:30 71 16 09/23/17 14:54 99.3 F 65 20 116/59 Pulse Ox 09/24/17 08:36 09/24/17 08:10 100 09/24/17 08:08 09/24/17 08:02 100 09/24/17 04:09 09/23/17 22:00 09/23/17 20:27 99 09/23/17 19:40 09/23/17 19:30 99 09/23/17 14:54 100 - Physical Examination General: Appears Well HEENT: Positive: PERRL, EOMI Neck: Positive: neck supple Cardiac: Positive: Regular Rate Lungs: Positive: Decreased Breath Sounds Neuro: Positive: Grossly Intact Abdomen: Positive: Soft Skin: Positive: Clear Extremities: Absent: edema - Imaging and Cardiology Echo: report reviewed (2016 normal lv function and no significant regurgitations ) Cardiac cath: report reviewed (07/2017 left main 20% LAD patent distally small caliber 80% circumflex stent patent RCA small patent normal LV function) - Telemetry EKG Rhythm: Sinus Rhythm (no afib noted on tele)
[2017-09-24] MEDS ORDERED: NACL 0.9% 500 ML 500 ML IV ONE ×2 (10:06→16:00)
[2017-09-24] MEDS: PROTONIX PO SCH (10:09)
[2017-09-24] MEDS: FEOSOL PO SCH (10:09)
[2017-09-24] MEDS: ZOLOFT PO SCH (10:10)
--- NOTE | 2017-09-24 10:13 | Progress Note ---
Assessment and Plan Assessment and plan: 66 YO Male with COPD, CVA, CAD s/p stent placement, [place], sp recent VATS procedure , Lung volume reduction surgery. PW hematemesis and hematochezia, and chest pain GIB- likely from Upper GI tract continue PPI, sp EGD and C scope, shows erosive gastritis and hemorrhoids Acute blood loss Anemia has been hypotensive, so will transfuse one unit prbc COPD not in exacerbation, continue chronic meds and nebs TID Chest pain Zulema WNL likely from inflammation of gullet after prolonged vomiting case dw cardiology, ok for GI procedures, may restart aspirin, hold plavix CAD (coronary artery disease) Continue statin therapy low cholesterol diet, risk factor reduction cardiology consulted Relative Hypotension BP has been running low, hold all BP meds for now Acute respiratory failure Resolved Supplemental oxygen, nebs, aspiration precautions, incentive spirometry Chronic respiratory failure currently at baseline GI prophylaxis Protonix Mild protein malnutrition Nutrition consulted DVT prophylaxis SCDs Tentative dc home tomorrow if hg stable History Interval history: denies any CP, SOB, diarrhea, blood in stool or dizzyness RN states that BP has been running low Hospitalist Physical - Physical exam Narrative exam: General appearance: Present: no acute distress - EENT Eyes: Present: PERRL, EOM intact ENT: hearing intact, clear oral mucosa - Neck Neck: Present: supple, normal ROM - Respiratory Respiratory: bilateral: diminished - Cardiovascular Rhythm: regular Heart Sounds: Present: S1 & S2 - Extremities Extremities: no ischemia Peripheral Pulses: within normal limits - Abdominal General gastrointestinal: soft, non-tender - Integumentary Integumentary: Present: clear, warm - Psychiatric Psychiatric: appropriate mood/affect, intact judgment & insight - Neurologic Neurologic: CNII-XII intact, moves all extremities - Constitutional Vitals: Temp Pulse Resp BP Pulse Ox 98.4 F 69 16 116/54 100 09/24/17 08:02 09/24/17 08:36 09/24/17 08:36 09/24/17 08:02 09/24/17 08:10 General appearance: Present: no acute distress Results - Labs CBC & Chem 7: 09/23/17 09:20 09/24/17 09:31 Labs: Laboratory Last Values WBC 7.1 K/mm3 (4.5-11.0) 09/23/17 09:20 RBC 2.96 M/mm3 (3.65-5.03) L 09/23/17 09:20 Hgb 8.5 gm/dl (11.8-15.2) L 09/23/17 09:20 Hct 25.8 % (35.5-45.6) L 09/23/17 09:20 MCV 87 fl (84-94) 09/23/17 09:20 MCH 29 pg (28-32) 09/23/17 09:20 MCHC 33 % (32-34) 09/23/17 09:20 RDW 15.0 % (13.2-15.2) 09/23/17 09:20 Plt Count 191 K/mm3 (140-440) 09/23/17 09:20 Lymph % (Auto) 16.2 % (13.4-35.0) 09/20/17 09:41 [place] % (Auto) 4.1 % (0.0-7.3) 09/20/17 09:41 Eos % (Auto) 0.6 % (0.0-4.3) 09/20/17 09:41 Baso % (Auto) 0.7 % (0.0-1.8) 09/20/17 09:41 Lymph # 2.2 K/mm3 (1.2-5.4) 09/20/17 09:41 [place] # 0.6 K/mm3 (0.0-0.8) 09/20/17 09:41 Eos # 0.1 K/mm3 (0.0-0.4) 09/20/17 09:41 Baso # 0.1 K/mm3 (0.0-0.1) 09/20/17 09:41 Seg Neutrophils % 78.4 % (40.0-70.0) H 09/20/17 09:41 Seg Neutrophils # 10.7 K/mm3 (1.8-7.7) H 09/20/17 09:41 PT 13.7 Sec. (12.2-14.9) 09/20/17 09:41 INR 1.00 (0.87-1.13) 09/20/17 09:41 APTT 24.7 Sec. (24.2-36.6) 09/20/17 09:41 Sodium 144 mmol/L (137-145) 09/24/17 09:31 Potassium 3.8 mmol/L (3.6-5.0) 09/24/17 09:31 Chloride 105.8 mmol/L (98-107) 09/24/17 09:31 Carbon Dioxide 27 mmol/L (22-30) 09/24/17 09:31 Anion Gap 15 mmol/L 09/24/17 09:31 BUN 7 mg/dL (9-20) L 09/24/17 09:31 Creatinine 0.9 mg/dL (0.8-1.5) 09/24/17 09:31 Estimated GFR > 60 ml/min 09/24/17 09:31 BUN/Creatinine Ratio 8 % 09/24/17 09:31 Glucose 105 mg/dL (75-100) H 09/24/17 09:31 Calcium 8.6 mg/dL (8.4-10.2) 09/24/17 09:31 Total Bilirubin 0.30 mg/dL (0.1-1.2) 09/20/17 09:41 AST 11 units/L (5-40) 09/20/17 09:41 ALT 12 units/L (7-56) 09/20/17 09:41 Alkaline Phosphatase 75 units/L (35-129) 09/20/17 09:41 Total Creatine Kinase 107 units/L (55-170) 09/21/17 21:49 CK-MB (CK-2) 2.6 ng/mL (0.0-4.0) 09/21/17 21:49 CK-MB (CK-2) Rel Index 2.4 (0-4) 09/21/17 21:49 Troponin T < 0.010 ng/mL (0.00-0.029) 09/21/17 21:49 Total Protein 6.2 g/dL (6.3-8.2) L 09/20/17 09:41 Albumin 3.2 g/dL (3.9-5) L 09/20/17 09:41 Albumin/Globulin Ratio 1.1 % 09/20/17 09:41 Lipase 9 units/L (13-60) L 09/20/17 09:41 Blood Type A POSITIVE 09/20/17 09:41 Antibody Screen Negative 09/20/17 09:41
[2017-09-24] MEDS ORDERED: DIPRIVAN 10 MG/ML IV ONE ×2 (12:00→12:33)
[2017-09-24] MEDS ORDERED: KETALAR ONE (12:02)
[2017-09-24] MEDS ORDERED: WATER FOR IRRIG STERILE ONE (12:32)
--- NOTE | 2017-09-24 12:55 | Post Operative Note ---
Pre-op diagnosis: Anemia, GI bleed Post-op diagnosis: other (Hiatal hernia, gastritis, poor prep of colon, no active bleeding) Findings: 1. No blood in upper or lower GI tract (copious green stool in colon) 2. Mild erosive gastritis, cold bx of antrum 3. Medium hiatal hernia 4. Poor visualization of the colon from the cecum to the sigmoid (poor prep); no blood/clots/obstructing lesions 5. Grade II Internal hemorrhoids Procedure: EGD with cold biopsy and Colonoscopy Anesthesia: MAC Surgeon: ESTEBAN CARTER Estimated blood loss: minimal Pathology: list (1. Gastric antrum) Specimen disposition: to lab Condition: stable Disposition: floor (Recs: 1. Resume regular diet. 2. F/U in the clinic in a few weeks to repeat colonoscopy (and ?get capsule endoscopy if negative). 3. MVI daily therapy, and protonix daily therapy. 4. OK to resume plavix and ASA 81mg; patient should avoid all other NSAIDs.)
--- NOTE | 2017-09-24 13:20 | Operative Report ---
PROCEDURE PERFORMED: Esophagogastroduodenoscopy with cold biopsy and colonoscopy. PREOPERATIVE DIAGNOSES: Cryptogenic gastrointestinal bleeding and anemia. POSTOPERATIVE DIAGNOSES: No obvious bleeding, gastritis, hiatal hernia, poor visualization of the colon. ENDOSCOPIST: Petros Liang MD INSTRUMENT: [employer] video endoscope. MEDICATIONS: MAC anesthesia by Anesthesia Services. COMPLICATIONS: No apparent complications. ESTIMATED BLOOD LOSS: Minimal. SPECIMENS: Gastric antrum for gastritis. IMPLANTS: None. ASSISTANTS: None. CONDITION AT COMPLETION: Stable. TECHNIQUE: The patient was informed of the risks and benefits of the procedure. He signed the informed consent to proceed. He was placed in left lateral decubitus position. The above sedative medications were given. His vital signs remained stable throughout the procedure. The instrument was advanced from the mouth to the second portion of the duodenum under direct visualization. At that point, the bowel was insufflated and the endoscope was slowly withdrawn. The quality of preparation was poor in the colon with semisolid green stool throughout, but no obvious blood. FINDINGS: 1. No blood in the upper or lower GI tract; there was copious green stool throughout the colon. 2. Mild erosive gastritis in the stomach, status post cold biopsy. 3. Medium size hiatal hernia, but no evidence of Saravanan's ulcers. 4. Poor visualization of the colon from the cecum to the sigmoid due to poor intake of the preparation; there were no obvious obstructing mass lesions or large polyps and there was no evidence of blood or blood clots. 5. Grade 2 internal hemorrhoids. RECOMMENDATIONS: 1. Resume regular diet. 2. Follow up in the clinic in a few weeks to repeat the colonoscopy, and possibly get a capsule endoscopy if this is negative. 3. Multivitamin daily therapy as well as Protonix daily therapy. 4. Okay to resume Plavix and aspirin 81 mg per day; the patient should avoid all other nonsteroidal anti-inflammatory drugs. 5. Okay to discharge the patient home when tolerating his diet and his blood counts are stable. JOB# [id number] GENA/ARNOLDO
[2017-09-24] MEDS: THERAGRAN-M Tab PO SCH (15:41)
[2017-09-24] MEDS: PERCOCET 5/325 PO PRN (22:30)
[2017-09-25 05:40] LABS: Basophils % (Auto) 0.8 % (0.0-1.8); Eosinophils % (Auto) 2.9 % (0.0-4.3); Hematocrit 29.9 % (35.5-45.6); Hemoglobin 9.7 gm/dl (11.8-15.2); Mean Corpuscular HGB Conc 32 % (32-34); Mean Corpuscular Hemoglobin 29 pg (28-32); Mean Corpuscular Volume 88 fl (84-94); Platelet Count 218 K/mm3 (140-440); Red Blood Count 3.41 M/mm3 (3.65-5.03); Red Cell Distribution Width 15.2 % (13.2-15.2); White Blood Count 7.8 K/mm3 (4.5-11.0)
[2017-09-25] MEDS: PULMICORT IH SCH (07:44)
[2017-09-25] MEDS: BROVANA NEBU IH SCH (07:44)
[2017-09-25] MEDS: DUONEB *Not for PRN Use IH SCH (08:00)
[2017-09-25] MEDS: PERCOCET 5/325 PO PRN (09:19)
[2017-09-25] MEDS: THERAGRAN-M Tab PO SCH (09:19)
[2017-09-25] MEDS: PROTONIX PO SCH (09:19)
[2017-09-25] MEDS: ZOLOFT PO SCH (09:19)
[2017-09-25] MEDS ORDERED: HALFPRIN EC PO SCH (10:00)
[2017-09-25] MEDS ORDERED: PLAVIX PO SCH (10:00)
--- NOTE | 2017-09-25 11:26 | Progress Note ---
Assessment and Plan 66 YO Male with COPD, CVA, CAD s/p stent placement, [place], sp recent VATS procedure , Lung volume reduction surgery. PW hematemesis and hematochezia, and chest pain GIB- likely from Upper GI tract continue PPI, sp EGD and C scope, shows erosive gastritis and hemorrhoids Acute blood loss Anemia has been hypotensive, so will transfuse one unit prbc COPD not in exacerbation, continue chronic meds and nebs TID Chest pain Zulema WNL likely from inflammation of gullet after prolonged vomiting case dw cardiology, ok for GI procedures, may restart aspirin, hold plavix CAD (coronary artery disease) Continue statin therapy low cholesterol diet, risk factor reduction cardiology consulted Relative Hypotension BP has been running low, hold all BP meds for now Acute respiratory failure Resolved Supplemental oxygen, nebs, aspiration precautions, incentive spirometry Chronic respiratory failure currently at baseline GI prophylaxis Protonix Mild protein malnutrition Nutrition consulted DVT prophylaxis SCDs Tentative dc home tomorrow if hg stable History Interval history: denies any CP, SOB, diarrhea, blood in stool or dizzyness RN states that BP has been running low S/p EGD on 09/24/17 Hospitalist Physical - Physical exam Narrative exam: General appearance: Present: no acute distress - EENT Eyes: Present: PERRL, EOM intact ENT: hearing intact, clear oral mucosa - Neck Neck: Present: supple, normal ROM - Respiratory Respiratory: bilateral: diminished - Cardiovascular Rhythm: regular Heart Sounds: Present: S1 & S2 - Extremities Extremities: no ischemia Peripheral Pulses: within normal limits - Abdominal General gastrointestinal: soft, non-tender - Integumentary Integumentary: Present: clear, warm - Psychiatric Psychiatric: appropriate mood/affect, intact judgment & insight - Neurologic Neurologic: CNII-XII intact, moves all extremities - Constitutional Vitals: Subjective Date of service: 09/25/17 Principal diagnosis: Anemia Objective - Constitutional Vitals: Vital Signs - 12hr 09/24/17 09/25/17 09/25/17 23:30 07:45 08:01 Temperature Pulse Rate Pulse Rate [ 88 Anterior Bilateral Throughout] Respiratory 18 Rate Respiratory 16 Rate [Anterior Bilateral Throughout] Blood Pressure O2 Sat by Pulse 97 Oximetry 09/25/17 08:04 Temperature 98.9 F Pulse Rate 60 Pulse Rate [ Anterior Bilateral Throughout] Respiratory 18 Rate Respiratory Rate [Anterior Bilateral Throughout] Blood Pressure 128/62 O2 Sat by Pulse 99 Oximetry - Labs CBC & Chem 7: 09/25/17 05:10 09/24/17 09:31 Labs: Abnormal lab results 09/24/17 09/25/17 Range/Units 10:25 05:10 RBC 3.41 L (3.65-5.03) M/mm3 Hgb 9.7 L (11.8-15.2) gm/dl Hct 29.9 L (35.5-45.6) % [place] % (Auto) 8.2 H (0.0-7.3) % Crossmatch See Detail
--- NOTE | 2017-09-25 11:33 | Progress Note ---
Assessment and Plan Upper GI bleeding Chest pain secondary to GI Acute on chronic respiratory History of respiratory failure with hypoxemia Coronary disease with patent circumflex stent Hypertension Hyperlipidemia Recommend hemoglobin has increased after one unit of packed red blood cells. Blood pressure is stable continue holding off his Cardizem and lisinopril as per GI may restart low-dose aspirin and PPI patient may be discharged from cardiovascular review Subjective Date of service: 09/25/17 Principal diagnosis: Anemia Interval history: pt has no chest pain or sob Objective Vital Signs Temp Pulse Pulse Resp Resp BP Pulse Ox 09/25/17 08:04 98.9 F 60 18 128/62 99 09/25/17 08:01 88 16 09/25/17 07:45 97 09/24/17 23:30 18 09/24/17 22:30 20 09/24/17 22:00 77 09/24/17 20:36 85 15 09/24/17 20:23 98.2 F 77 20 119/57 97 09/24/17 20:19 99 09/24/17 20:00 85 18 09/24/17 18:56 98.6 F 83 18 85/62 96 09/24/17 18:30 99.2 F 76 18 105/48 98 09/24/17 18:00 98.5 F 78 18 126/49 98 09/24/17 17:30 98.7 F 78 18 125/56 99 09/24/17 17:00 98.3 F 81 18 123/63 99 09/24/17 16:30 98.1 F 77 18 120/54 100 09/24/17 16:15 98.8 F 73 10 L 118/47 100 09/24/17 16:09 76 100 09/24/17 16:08 98.8 F 75 20 118/47 99 09/24/17 15:27 98.6 F 75 18 116/50 100 09/24/17 14:39 89 18 09/24/17 14:24 68 18 09/24/17 13:20 62 18 126/59 98 09/24/17 13:05 68 20 106/51 99 09/24/17 12:50 98.7 F 67 21 102/51 100 09/24/17 12:20 98.5 F 70 12 122/59 99 - Physical Examination General: Appears Well HEENT: Positive: PERRL, EOMI Neck: Positive: neck supple Cardiac: Positive: Reg Rate and Rhythm Lungs: Positive: Decreased Breath Sounds Neuro: Positive: Grossly Intact Abdomen: Positive: Soft Skin: Positive: Clear Extremities: Absent: edema - Labs and Meds CBC 09/25/17 Range/Units 05:10 WBC 7.8 (4.5-11.0) K/mm3 RBC 3.41 L (3.65-5.03) M/mm3 Hgb 9.7 L (11.8-15.2) gm/dl Hct 29.9 L (35.5-45.6) % Plt Count 218 (140-440) K/mm3 Lymph # 2.6 (1.2-5.4) K/mm3 [place] # 0.6 (0.0-0.8) K/mm3 Eos # 0.2 (0.0-0.4) K/mm3 Baso # 0.1 (0.0-0.1) K/mm3 - Imaging and Cardiology Echo: report reviewed (2016 normal lv function and no significant regurgitations ) Cardiac cath: report reviewed (07/2017 left main 20% LAD patent distally small caliber 80% circumflex stent patent RCA small patent normal LV function)
--- NOTE | 2017-09-25 11:39 | Discharge Summary ---
Providers - Providers Date of Admission: 09/20/17 15:50 Date of discharge: 09/25/17 Attending physician: STELLA RAMON 09/21/17 11:59 Consult to Physician [CONS] Routine Consulting Provider: DEANN JONES Reason For Exam: gib Place consult to:: answering service Notified:: yes Phone number called:: [phone] If yes, spoke with:: sarah Time called:: 07:44 Comment:: best 09/21/17 12:02 Consult to Physician [CONS] Routine Consulting Provider: LISA LEE Reason For Exam: chest pain Place consult to:: placed on list Notified:: yes Was contact made?: Yes Time called:: 09:38 09/21/17 15:00 Consult to Dietitian/Nutrition [CONS] Routine Physician Instructions: Reason For Exam: Reason for Consult: Malnutrition Primary care physician: [employer] Hospitalization Condition: Stable Pertinent studies: CXR Chest CTA Procedures: EGD/colonoscopy Hospital course: 66 YO Male with COPD, CVA, CAD s/p stent placement, [place], sp recent VATS procedure , Lung volume reduction surgery. Presented with hematemesis and hematochezia, and chest pain. Discharge diagnosis and management: /GIB- likely from Upper GI tract continue PPI, s/p EGD and Colonoscopy, showed erosive gastritis and hemorrhoids /Acute blood loss Anemia has been hypotensive, s/p transfusion of one unit PRBC /COPD not in exacerbation, continue chronic meds and nebs TID /Chest pain Zulema was WNL likely from errossive esophagitis due to inflammation of esophagus after prolonged vomiting, biopsy obtained during EGD Restarted on aspirin per GI recommendation after EGD/colonoscopy Cardiology consulted and recommended medical Mx and outpt follow up /CAD (coronary artery disease) Continue statin therapy low cholesterol diet, risk factor reduction cardiology consulted BB and ACEI will be on hold for discharge but will be readdressed as outpt /Relative Hypotension BP has been running low, held all BP meds on discharge /Acute on chronic respiratory failure Resolved, t baseline on discharge. Managed with Supplemental oxygen, nebs, aspiration precautions, incentive spirometry /GI prophylaxis Protonix /Mild protein malnutrition Nutrition consulted /DVT prophylaxis SCDs Hospitalist Physical - Physical exam Narrative exam: General appearance: Present: no acute distress - EENT Eyes: Present: PERRL, EOM intact ENT: hearing intact, clear oral mucosa - Neck Neck: Present: supple, normal ROM - Respiratory Respiratory: bilateral: diminished - Cardiovascular Rhythm: regular Heart Sounds: Present: S1 & S2 - Extremities Extremities: no ischemia Peripheral Pulses: within normal limits - Abdominal General gastrointestinal: soft, non-tender - Integumentary Integumentary: Present: clear, warm - Psychiatric Psychiatric: appropriate mood/affect, intact judgment & insight - Neurologic Neurologic: CNII-XII intact, moves all extremities - Constitutional Vitals: Disposition: DC- TO HOME OR SELFCARE Time spent for discharge: 32 minutes Core Measure Documentation - Palliative Care Palliative Care/ Comfort Measures: Not Applicable - Core Measures Any of the following diagnoses?: history only Exam - Constitutional Vitals: Temp Pulse Resp BP Pulse Ox 98.9 F 60 18 128/62 99 09/25/17 08:04 09/25/17 08:04 09/25/17 08:04 09/25/17 08:04 09/25/17 08:04 Plan Activity: advance as tolerated Weight Bearing Status: Weight Bear as Tolerated Diet: low fat, low salt Additional Instructions: f/u with cardiology and GI in one to two weeks Follow up with: PRIMARY CARE, [Primary Care Provider] - 3-5 Days Forms: Accompanied Note Prescriptions: Aspirin EC [Aspirin Enteric Coated TAB] 81 mg PO QDAY #30 tablet
[2017-09-25 13:36] VITALS: BP 103/81
== END 2017-09-25 16:27 | disposition home or self-care (01) | DRG 377 ==
LOC: ED 09:09 → 2B-ACE 15:50
PROVIDERS: ADMIT Internal Medicine; ATTEND Internal Medicine
PROC: 0DB78ZX Excision of Stomach, Pylorus, Via Natural or Artificial Opening Endoscopic, Diagnostic (ICD-10-PCS; principal; 2017-09-24)
PROC: 0DJD8ZZ Inspection of Lower Intestinal Tract, Via Natural or Artificial Opening Endoscopic (ICD-10-PCS; 2017-09-24)
PROC: 30233N1 Transfusion of Nonautologous Red Blood Cells into Peripheral Vein, Percutaneous Approach (ICD-10-PCS; 2017-09-24)
DX: K29.01 Acute gastritis with bleeding (principal); J96.20 Acute and chronic respiratory failure, unspecified whether with hypoxia or hypercapnia; D62 Acute posthemorrhagic anemia; E44.1 Mild protein-calorie malnutrition; I25.10 Atherosclerotic heart disease of native coronary artery without angina pectoris; J44.9 Chronic obstructive pulmonary disease, unspecified; I95.89 Other hypotension; R79.89 Other specified abnormal findings of blood chemistry; I10 Essential (primary) hypertension; E78.5 Hyperlipidemia, unspecified; K44.9 Diaphragmatic hernia without obstruction or gangrene; K64.8 Other hemorrhoids; Z95.5 Presence of coronary angioplasty implant and graft; Z86.73 Personal history of transient ischemic attack (TIA), and cerebral infarction without residual deficits; I25.2 Old myocardial infarction; Z68.27 Body mass index [BMI] 27.0-27.9, adult; Z79.899 Other long term (current) drug therapy; Z82.49 Family history of ischemic heart disease and other diseases of the circulatory system; Z87.891 Personal history of nicotine dependence
CPT/HCPCS: 36415; 71010; 71275; 80048; 80053; 82550; 82553; 83690; 84484; 85025; 85027; 85610; 85730; 86850; 86900; 86901; 86920; 88305; 88342; 93005; 93010; 94640; 94760; 96361; 96374; A9270-GY; C9113; J0456; J2270; J2405; J2704; J7030; J7040; J7050; P9016; Q9967

== ENCOUNTER 2017-10-25 08:02 | Day surgery (SDC) | payer MEDICARE ==
[2017-10-25] MEDS ORDERED: NACL 0.9% 1000 ML 1,000 ML IV SCH (09:00)
--- NOTE | 2017-10-25 09:58 | Anesthesia Day of Surgery ---
Anesthesia Day of Surgery - Day of Surgery Patient Examined: Yes Patient H&P Reviewed: Yes Patient is NPO: Yes
[2017-10-25] MEDS ORDERED: XYLOCAINE MPF 2% ONE (10:00)
--- NOTE | 2017-10-25 10:00 | Anesthesia Consultation ---
Anesthesia Consult and Med Hx Date of service: 10/25/17 - Airway Anesthetic Teeth Evaluation: Poor ROM Head & Neck: Adequate Mental/Hyoid Distance: Adequate Mallampati Class: Class II Intubation Access Assessment: Probably Good - Pulmonary Exam CTA: Yes - Cardiac Exam Cardiac Exam: RRR - Pre-Operative Health Status ASA Pre-Surgery Classification: ASA4 Proposed Anesthetic Plan: IV Sedation - Pulmonary Hx Smoking: Yes Hx Asthma: No Hx Respiratory Symptoms: Yes (emphasema, VAT couple month ago) SOB: (SOB with activity) COPD: Yes Hx Pneumonia: Yes (HX) Hx Sleep Apnea: No (low risk EPHRAIM) - Cardiovascular System Hx Hypertension: Yes Hx Coronary Artery Disease: Yes Hx Heart Attack/AMI: Yes (3 YR AGO stents placed) Hx Angina: Yes Hx Pacemaker: No Hx Internal Defibrillator: No - Central Nervous System CVA: Yes (HX) Hx Psychiatric Problems: No - Gastrointestinal Hx Gastroesophageal Reflux Disease: No - Endocrine Hx End Stage Renal Disease: No - Hematic Hx Anemia: Yes - Other Systems Hx Alcohol Use: No Hx Substance Use: No Hx Cancer: No
[2017-10-25] MEDS ORDERED: DIPRIVAN 10 MG/ML IV ONE ×2 (10:15)
[2017-10-25] MEDS ORDERED: WATER FOR IRRIG STERILE IR ONE (10:31)
--- NOTE | 2017-10-25 10:59 | Post Operative Note ---
Pre-op diagnosis: iron deficiency anemia, constipation, screening Post-op diagnosis: other (small colon polyp removed, internal hemorrhoids) Findings: Colonoscopy with polypectomy (biopsy) 1. one small colon polyp removed 2. Internal hemorrhoids Procedure: Colonsocopy with polypectomy with cold biopsy forcep Anesthesia: MAC Surgeon: DEANN JONES Estimated blood loss: minimal Pathology: list (Jar A - ascending colon polyp) Specimen disposition: to lab Condition: stable Disposition: same day
--- NOTE | 2017-10-25 11:03 | Operative Report ---
Operative Report Operative Report: COLONOSCOPY PROCEDURE NOTE Date of procedure: 10/25/2017 Endoscopist: Eladio Luque Pre-op diagnosis: iron deficiency anemia, constipation, screening colonoscopy Post-op diagnosis: small colon polyp x 1 removed, internal hemorrhoids Anesthesia: MAC Complications: no immediate complications Estimated blood loss: minimal Procedure: After consent was obtained, the patient was placed in the left lateral decubitus position. The fujinon colonoscope was inserted into the patient's rectum under direct vision, and advanced to the cecum without difficulty. The patient tolerated the procedure well. The patient's vital signs were monitored continuously throughout the procedure. The quality of prep was good. The views of the mucosa were good. Findings: One small (~2 mm) sessile polyp in the ascending colon, removed with cold forcep biopsy. The polyp was retrieved. Internal hemorrhoids (moderate-large sized) were visualized on retroflexion view. Otherwise, the colon appeared normal. Impression: 1. Small colon polyp removed with cold biopsy forceps. 2. Internal hemorrhoids Recommendations: -follow-up pathology -hold iron (labs showed elevated iron levels with improved hct); monitor labs off iron -repeat colonoscopy in 5 years -return to GI clinic in 1 month (or as scheduled)
[2017-10-25 11:24] VITALS: BP 106/55
--- NOTE | 2017-10-25 11:36 | Post Anesthesia Evaluation ---
- Post Anesthesia Evaluation Patient Participated: Yes Airway Patent: Yes Stable Respiratory Function: Yes Nausea/Vomiting: No Temp > 96.8F: Yes Pain Manageable: Yes Adequeate Hydration: Yes Anesthesia Complications: No
== END 2017-10-25 08:03 | disposition home or self-care (01) ==
LOC: GIO 08:02
PROVIDERS: ATTEND Internal Medicine Gastroenterology
DX: R10.13 Epigastric pain (principal); K63.5 Polyp of colon; D50.9 Iron deficiency anemia, unspecified; K64.8 Other hemorrhoids; J45.909 Unspecified asthma, uncomplicated; I10 Essential (primary) hypertension; I25.10 Atherosclerotic heart disease of native coronary artery without angina pectoris; I25.2 Old myocardial infarction; E78.00 Pure hypercholesterolemia, unspecified; J43.9 Emphysema, unspecified; B19.20 Unspecified viral hepatitis C without hepatic coma; F41.9 Anxiety disorder, unspecified; F32.9 Major depressive disorder, single episode, unspecified; Z95.5 Presence of coronary angioplasty implant and graft; Z87.891 Personal history of nicotine dependence; Z79.899 Other long term (current) drug therapy
CPT/HCPCS: 45380; 88305; J2704; J7030

== ENCOUNTER 2018-01-17 13:29 | Inpatient (IN) | payer MEDICARE ==
[2018-01-17 13:59] LABS: Hemoglobin 14.4 gm/dl (11.8-15.2); Mean Corpuscular HGB Conc 31 % (32-34); Mean Corpuscular Volume 81 fl (84-94); Platelet Count 301 K/mm3 (140-440); Red Blood Count 5.67 M/mm3 (3.65-5.03); Red Cell Distribution Width 15.8 % (13.2-15.2)
[2018-01-17 14:01] LABS: Mean Corpuscular Hemoglobin 25 pg (28-32)
[2018-01-17 14:13] LABS: BUN/Creatinine Ratio 8; Blood Urea Nitrogen 10 mg/dL (9-20); Calcium 8.9 mg/dL (8.4-10.2); Hemolysis Index 13
[2018-01-17] MEDS ORDERED: DELTASONE PO ONE (14:21)
[2018-01-17] MEDS ORDERED: DUONEB *Not for PRN Use IH ONE (14:21)
[2018-01-17] MEDS ORDERED: ZITHROMAX PO ONE (14:21)
[2018-01-17] MEDS ORDERED: PROVENTIL IH ONE (14:21)
--- NOTE | 2018-01-17 14:27 | XRay Report ---
AP CHEST: HISTORY: Short of breath Patchy infiltrate has developed in the lingula since 09/20/17. Underlying emphysema is noted with bullous changes in the left upper lobe. No pleural effusion or pneumothorax. Normal heart size. IMPRESSION: Emphysema. Lingular pneumonia.
[2018-01-17 14:37] LABS: Eosinophils % (Manual) 0 % (0.0-4.3); Total Cells Counted 100
[2018-01-17 14:38] LABS: RBC Morphology Normal
--- NOTE | 2018-01-17 15:51 | Emergency Department Report ---
ED Shortness of Breath HPI - General Chief Complaint: Dyspnea/Respdistress Stated Complaint: TROUBLE BREATHING Time Seen by Provider: 01/17/18 14:21 Source: patient Mode of arrival: Wheelchair Limitations: No Limitations - History of Present Illness Initial Comments: Progressive onset shortness of breath for the past 24 hours. Worse with exertion. Associated with productive cough. Also similar to his COPD. Patient is on 1-3 L nasal cannula at home. Afebrile. No chest pain. - Related Data Home Medications Medication Instructions Recorded Confirmed Last Taken Albuterol Sulfate [Albuterol 0.63% 1 puff INHALATION Q4H 09/20/17 01/17/1801/16 NEBS] Gabapentin [Neurontin] 300 mg PO Q8H 09/20/17 01/17/18 01/16/18 Tiotropium [Spiriva] 18 mcg IH DAILY 09/20/17 01/17/18 01/16/18 AtorvaSTATin [Lipitor] 20 mg PO QHS 01/17/18 01/17/18 01/16/18 Diltiazem [CarDIZEM] 90 mg PO Q8H 01/17/18 01/17/18 01/16/18 Linaclotide [Linzess] 145 mcg PO QDAY 01/17/18 01/17/18 01/16/18 Sertraline [Zoloft] 25 mg PO QDAY 01/17/18 01/17/18 01/16/18 guaiFENesin [Guaifenesin] 400 mg PO DAILY 01/17/18 01/17/18 01/16/18 Previous Rx's Medication Instructions Recorded Last Taken Type Aspirin EC [Aspirin Enteric Coated 81 mg PO QDAY #30 tablet 09/25/17 01/16/18 Rx TAB] Allergies Allergy/AdvReac Type Severity Reaction Status Date / Time No Known Allergies Allergy Verified 01/17/18 13:34 ED Review of Systems ROS: Stated complaint: TROUBLE BREATHING Other details as noted in HPI Comment: All other systems reviewed and negative Respiratory: cough, shortness of breath, SOB with exertion ED Past Medical Hx - Past Medical History Hx Hypertension: Yes Hx CVA: Yes (Right eye affected) Hx Heart Attack/AMI: Yes (3 YR AGO stents placed) Hx Congestive Heart Failure: No Hx Diabetes: No Hx Deep Vein Thrombosis: No Hx Asthma: No Hx COPD: Yes Additional medical history: Emphysema. CAD - Surgical History Hx Coronary Stent: Yes (X1) Hx Pacemaker: No Hx Internal Defibrillator: No Additional Surgical History: Eye surgery - Social History Smoking Status: Never Smoker Substance Use Type: None - Medications Home Medications: Home Medications Medication Instructions Recorded Confirmed Last Taken Type Albuterol Sulfate [Albuterol 0.63% 1 puff INHALATION Q4H 09/20/17 01/17/1801/16 History NEBS] Gabapentin [Neurontin] 300 mg PO Q8H 09/20/17 01/17/18 01/16/18 History Tiotropium [Spiriva] 18 mcg IH DAILY 09/20/17 01/17/18 01/16/18 History Aspirin EC [Aspirin Enteric Coated 81 mg PO QDAY #30 tablet 09/25/17 01/17/18 Rx TAB] AtorvaSTATin [Lipitor] 20 mg PO QHS 01/17/18 01/17/18 01/16/18 History Diltiazem [CarDIZEM] 90 mg PO Q8H 01/17/18 01/17/18 01/16/18 History Linaclotide [Linzess] 145 mcg PO QDAY 01/17/18 01/17/18 01/16/18 History Sertraline [Zoloft] 25 mg PO QDAY 01/17/18 01/17/18 01/16/18 History guaiFENesin [Guaifenesin] 400 mg PO DAILY 01/17/18 01/17/18 01/16/18 History ED Physical Exam - General Limitations: No Limitations General appearance: alert, in no apparent distress - Head Head exam: Present: atraumatic, normocephalic - Eye Eye exam: Present: normal appearance - ENT ENT exam: Present: mucous membranes moist - Neck Neck exam: Present: normal inspection - Respiratory Respiratory exam: Present: normal lung sounds bilaterally. Absent: respiratory distress - Cardiovascular Cardiovascular Exam: Present: regular rate, normal rhythm. Absent: systolic murmur, diastolic murmur, rubs, gallop - GI/Abdominal GI/Abdominal exam: Present: soft, normal bowel sounds. Absent: tenderness - Rectal Rectal exam: Present: deferred - Extremities Exam Extremities exam: Present: normal inspection. Absent: pedal edema - Back Exam Back exam: Present: normal inspection - Neurological Exam Neurological exam: Present: alert, oriented X3 - Psychiatric Psychiatric exam: Present: normal affect, normal mood - Skin Skin exam: Present: warm, dry, intact, normal color. Absent: rash ED Course Vital Signs 01/17/18 01/17/18 01/17/18 13:34 13:57 14:00 Temperature 98.9 F Pulse Rate 98 H 90 89 Respiratory 38 H 12 16 Rate Blood Pressure 141/81 139/80 Blood Pressure [Right] O2 Sat by Pulse 94 92 Oximetry 01/17/18 01/17/18 01/17/18 14:16 14:30 14:46 Temperature Pulse Rate 87 86 86 Respiratory 20 19 22 Rate Blood Pressure 139/80 139/80 139/80 Blood Pressure [Right] O2 Sat by Pulse 92 90 91 Oximetry 01/17/18 01/17/18 15:00 15:06 Temperature 98.3 F Pulse Rate 85 85 Respiratory 14 14 Rate Blood Pressure 130/79 Blood Pressure 130/79 [Right] O2 Sat by Pulse 92 92 Oximetry ED Medical Decision Making - Lab Data Result diagrams: 01/17/18 13:45 01/17/18 13:45 - EKG Data -: EKG Interpreted by Ks EKG shows normal: sinus rhythm, intervals Rate: normal - EKG Data Interpretation: other (Q waves in III, aVF, TWI in V4-6) - Radiology Data Radiology results: report reviewed, image reviewed - Medical Decision Making 67-year-old male multiple quantities of presents with progressive onset shortness of breath. Patient is on his baseline level of oxygen. Lab work is unremarkable. EKG is nonischemic with a negative troponin. Chest x-ray shows concern for the lingular pneumonia. Patient was given breathing treatments with improvement of symptoms. He'll be started on prednisone, rocephin, azithromycin for treatment of his pneumonia. He has been admitted for further management. Critical care attestation.: If time is entered above; I have spent that time in minutes in the direct care of this critically ill patient, excluding procedure time. ED Disposition Clinical Impression: COPD (chronic obstructive pulmonary disease) Pneumonia Qualifiers: Pneumonia type: due to unspecified organism Laterality: left Lung location: upper lobe of lung Qualified Code(s): J18.9 - Pneumonia, unspecified organism Disposition: OP ADMIT IP TO THIS HOSP Is pt being admited?: Yes Does the pt Need Aspirin: No Condition: Stable Instructions: Chronic Obstructive Pulmonary Disease (ED), Bacterial Pneumonia ( ED)
[2018-01-17] MEDS ORDERED: NACL 0.9% 1000 ML 1,000 ML IV ONE (16:05)
[2018-01-17] MEDS ORDERED: ROCEPHIN/NS 1 GM/50 ML 1 GM/50 ML BAG IV ONE (16:05)
--- NOTE | 2018-01-17 16:14 | History and Physical Report ---
History of Present Illness Chief complaint: I cant breathe at all, and i keep coughing History of present illness: 67 YO Male with COPD, Chronic Respiratory Failure on 1-3Liters of home oxygen, CVA, CAD s/p stent placement, [place] presents to ED for evaluation. Pt states that he has experienced productive cough with increased volume of clear sputum as well as shortness of breath over the past 1 day, with worsening symptoms over the same time period. Pt denies fever, chills, CP, Palpitations, Abdominal pain , BRBPR, recent ill contacts, prolonged travel/immobility, leg swelling, calf pain, individual/family history of DVT/PE. Pt seen and evaluated in ED and found to have evidence of Sepsis secondary to Pneumonia, and Acute Hypoxemic Respiratory failure. Pt admitted to medical floor. Past History Past Medical History: CAD, COPD, stroke Past Surgical History: Other (Cardiac Stent, VATS, Eye Surgery) Social history: single. denies: smoking, alcohol abuse, prescription drug abuse Family history: hypertension Medications and Allergies Allergies Allergy/AdvReac Type Severity Reaction Status Date / Time No Known Allergies Allergy Verified 01/17/18 13:34 Home Medications Medication Instructions Recorded Confirmed Last Taken Type Albuterol Sulfate [Albuterol 0.63% 1 puff INHALATION Q4H 09/20/17 01/17/1801/16 History NEBS] Gabapentin [Neurontin] 300 mg PO Q8H 09/20/17 01/17/18 01/16/18 History Tiotropium [Spiriva] 18 mcg IH DAILY 09/20/17 01/17/18 01/16/18 History Aspirin EC [Aspirin Enteric Coated 81 mg PO QDAY #30 tablet 09/25/17 01/17/18 Rx TAB] AtorvaSTATin [Lipitor] 20 mg PO QHS 01/17/18 01/17/18 01/16/18 History Diltiazem [CarDIZEM] 90 mg PO Q8H 01/17/18 01/17/18 01/16/18 History Linaclotide [Linzess] 145 mcg PO QDAY 01/17/18 01/17/18 01/16/18 History Sertraline [Zoloft] 25 mg PO QDAY 01/17/18 01/17/18 01/16/18 History guaiFENesin [Guaifenesin] 400 mg PO DAILY 01/17/18 01/17/18 01/16/18 History Active Meds: Active Medications Ceftriaxone Sodium (Rocephin/Ns 1 Gm/50 Ml) 1 gm in 50 mls @ 100 mls/hr IV ONCE ONE; Protocol Stop: 01/17/18 16:34 Sodium Chloride (Nacl 0.9% 1000 Ml) 1,000 mls @ 999 mls/hr IV BOLUS ONE Stop: 01/17/18 17:05 Review of Systems Constitutional: no weight loss, no weight gain, no fever, no chills Ears, nose, mouth and throat: no ear pain, no ear discharge, no tinnitis, no decreased hearing, no nose pain, no nasal congestion, no nasal discharge Cardiovascular: no chest pain, no orthopnea, no palpitations, no rapid/ irregular heart beat, no edema, no syncope Respiratory: cough, cough with sputum, excessive sputum, shortness of breath, dyspnea on exertion Gastrointestinal: no abdominal pain, no nausea, no vomiting, no diarrhea, no constipation Genitourinary Male: no dysuria, no hematuria, no flank pain, no discharge, no urinary frequency, no urinary hesitancy Rectal: no pain, no incontinence, no bleeding Musculoskeletal: no neck stiffness, no neck pain, no shooting arm pain, no arm numbness/tingling, no low back pain, no shooting leg pain Integumentary: no rash, no pruritis, no redness, no sores, no wounds, no jaundice Neurological: no transient paralysis, no paralysis, no weakness, no parathesias , no numbness, no tingling, no seizures, no syncope Psychiatric: no anxiety, no memory loss, no change in sleep habits, no sleep disturbances, no insomnia, no hypersomnia, no change in appetite, no change in libido, no suicidal ideation, no disorientation Endocrine: no cold intolerance, no heat intolerance, no polyphagia, no excessive thirst, no polydipsia, no polyuria, no nocturia, no excessive sweating Hematologic/Lymphatic: no easy bruising, no easy bleeding, no lymphadenopathy, no lymphedema Allergic/Immunologic: no urticaria, no allergic rhinitis, no wheezing, no persistent infections, no anaphylaxis, no angioedema Exam - Constitutional Vitals: Temp Pulse Resp BP Pulse Ox 98.3 F 85 14 130/79 92 01/17/18 15:06 01/17/18 15:06 01/17/18 15:06 01/17/18 15:06 01/17/18 15:06 General appearance: Present: mild distress, obese - EENT Eyes: Present: PERRL ENT: hearing intact, clear oral mucosa - Neck Neck: Present: supple, normal ROM - Respiratory Respiratory effort: labored Respiratory: bilateral: diminished, rhonchi - Cardiovascular Heart Sounds: Present: S1 & S2. Absent: rub, click - Extremities Extremities: pulses symmetrical, No edema Peripheral Pulses: abnormal (capillary refill greater than 3.6 seconds) - Abdominal General gastrointestinal: Present: soft, non-tender, non-distended, normal bowel sounds Male genitourinary: Present: normal - Integumentary Integumentary: Present: clear, warm, dry, clammy, decreased turgor - Musculoskeletal Musculoskeletal: gait normal, strength equal bilaterally - Psychiatric Psychiatric: appropriate mood/affect, intact judgment & insight - Neurologic Neurologic: CNII-XII intact, moves all extremities Results - Labs CBC & Chem 7: 01/17/18 13:45 01/17/18 13:45 Labs: Abnormal lab results 01/17/18 01/17/18 Range/Units 13:45 13:45 WBC 15.3 H (4.5-11.0) K/mm3 RBC 5.67 H (3.65-5.03) M/mm3 Hct 46.0 H (35.5-45.6) % MCV 81 L (84-94) fl MCH 25 L (28-32) pg MCHC 31 L (32-34) % RDW 15.8 H (13.2-15.2) % Seg Neuts % (Manual) 84.0 H (40.0-70.0) % Lymphocytes % (Manual) 9.0 L (13.4-35.0) % Seg Neutrophils # Man 12.9 H (1.8-7.7) K/mm3 Monocytes # (Manual) 0.9 H (0.0-0.8) K/mm3 Basophils # (Manual) 0.2 H (0.0-0.1) K/mm3 Potassium 3.0 L (3.6-5.0) mmol/L Glucose 154 H (75-100) mg/dL Assessment and Plan - Patient Problems (1) Sepsis Current Visit: No Status: Acute Qualifiers: Sepsis type: sepsis due to unspecified organism Qualified Code(s): A41.9 - Sepsis, unspecified organism Plan to address problem: IV antibiotics, serial lactic acid level, CBC, Urinalysis, Chest X ray, monitor uop q shift, blood cultures, supportive care. (2) Pneumonia Current Visit: Yes Status: Acute Qualifiers: Pneumonia type: due to unspecified organism Laterality: left Lung location: upper lobe of lung Qualified Code(s): J18.9 - Pneumonia, unspecified organism Plan to address problem: IV antibiotics, supplemental oxygen, nebulizer therapy, Chest x ray, CBC, (3) Acute respiratory failure Current Visit: No Status: Acute Qualifiers: Respiratory failure complication: hypoxia Qualified Code(s): J96.01 - Acute respiratory failure with hypoxia Plan to address problem: supplemental oxygen, nebulizer therapy, NIPPV as clinically indicated, pulse oximetry, incentive spirometry, early ambulation, (4) COPD exacerbation Current Visit: No Status: Acute Plan to address problem: IV antibiotics, supplemental oxygen, nebulizer therapy, supportive care. hold steroids for now, reassess in AM. (5) DVT prophylaxis Current Visit: No Status: Acute Plan to address problem: SCD to BLE while in bed
[2018-01-17] MEDS ORDERED: VANCOMYCIN VIAL IV ONE (16:15)
[2018-01-17] MEDS ORDERED: ZOFRAN IV PRN (16:15)
[2018-01-17] MEDS ORDERED: NACL 0.9% 1000 ML IV ONE (16:15)
[2018-01-17] MEDS ORDERED: PROVENTIL IH PRN (16:15)
[2018-01-17] MEDS ORDERED: TYLENOL PO PRN (16:15)
[2018-01-17] MEDS ORDERED: SODIUM CHLORIDE FLUSH SYRINGE 10 ML IV PRN (16:15)
[2018-01-17] MEDS ORDERED: cefTRIAXone 1 GM in NACL 0.9% 20 ML IV ONE (16:30)
[2018-01-17] MEDS ORDERED: VANCOMYCIN 2,000 MG in NACL 0.9% 500 ML 500 ML IV ONE (16:45)
[2018-01-17] MEDS ORDERED: VANCOMYCIN PHARMACY TO DOSE IV SCH (17:00)
[2018-01-17] MEDS ORDERED: NACL 0.9% 1000 ML 1,000 ML ONE (17:46)
[2018-01-17] MEDS: CARDIZEM PO SCH (18:45)
[2018-01-17] MEDS: NEURONTIN PO SCH (18:47)
[2018-01-17] MEDS: SODIUM CHLORIDE FLUSH SYRINGE 10 ML IV SCH (21:40)
[2018-01-18] MEDS: CARDIZEM PO SCH ×3 (01:45→16:43)
[2018-01-18] MEDS: NEURONTIN PO SCH ×3 (01:46→16:43)
[2018-01-18] MEDS ORDERED: VANCOMYCIN 1,500 MG in NACL 0.9% 500 ML 500 ML IV SCH (04:00)
[2018-01-18] MEDS: SODIUM CHLORIDE FLUSH SYRINGE 10 ML IV SCH (09:19)
[2018-01-18] MEDS: NON-FORMULARY PO SCH (09:21)
[2018-01-18] MEDS: HALFPRIN EC PO SCH (09:21)
[2018-01-18] MEDS: ZOLOFT PO SCH (09:22)
[2018-01-18] MEDS: ROBITUSSIN PO SCH (09:55)
[2018-01-18] MEDS: cefTRIAXone 2 GM in NACL 0.9% 20 ML IV SCH (09:58)
[2018-01-18] MEDS ORDERED: NON-FORMULARY (Linaclotide [Linzess] 145 MCG) PO SCH (10:00)
[2018-01-18] MEDS ORDERED: NON-FORMULARY (Guaifenesin [Guaifenesin] 400 MG) PO SCH (10:00)
[2018-01-18] MEDS ORDERED: ZITHROMAX 500 MG in NACL 0.9% 250ML 250 ML IV SCH (10:00)
[2018-01-18] MEDS ORDERED: ROCEPHIN/NS 2 GM/100 ML 2 GM/100 ML BAG IV SCH (10:00)
[2018-01-18] MEDS ORDERED: LINZESS PO SCH (10:00)
[2018-01-18 10:39] LABS: BUN/Creatinine Ratio 13; Blood Urea Nitrogen 13 mg/dL (9-20); Calcium 8.3 mg/dL (8.4-10.2); Hemolysis Index 8
--- NOTE | 2018-01-18 13:40 | Progress Note ---
Assessment and Plan / Sepsis likely From PNA treat with IV antibiotics, trend lactic acid /Community acquired Pneumonia cont IV antibiotics / Acute on chronic respiratory failure placed on supplemental oxygen, nebulizer therapy, NIPPV as clinically indicated , cont pulse oximetry, incentive spirometry, early ambulation, /COPD exacerbation cont IV antibiotics, supplemental oxygen, nebulizer therapy, supportive care. add low dose steroid /Hypokalemia , replete and replace /DVT prophylaxis SCD to BLE while in bed Brief history: 67 YO Male with COPD, Chronic Respiratory Failure on 1-3Liters of home oxygen, CVA, CAD s/p stent placement, [place] presents to ED for evaluation. Pt states that he has experienced productive cough with increased volume of clear sputum as well as shortness of breath over the past 1 day, with worsening symptoms over the same time period. Radiological test: Chest x-ray: Findings suggestive of emphysema and lingular pneumonia Hospitalist Physical exam: GENERAL: well-developed and well-nourished lying on bed appeared to be in no discomfort. HEENT: Normocephalic. Atraumatic. No conjunctival congestion or icterus. Patient has moist mucous membranes. NECK: Supple. Trachea midline. CHEST/LUNGS: Clear to auscultated bilaterally, breathing nonlabored. No wheezes crackles or rhonchi. HEART/CARDIOVASCULAR: Regular in rate and rhythm. S1 and S2 positive. ABDOMEN: Abdomen is soft, nontender. Patient has normal bowel sounds. SKIN: There is no rash. Warm and dry. NEURO: No focal motor deficit. Follows command. MUSCULOSKELETAL: No joint effusion or tenderness. EXTRIMITY: No edema, no cyanosis or clubbing. PSYCH: Cooperative. Subjective Date of service: 01/18/18 Interval history: Patient seen and examined. Medical records and medication list reviewed. No acute event overnight noted by the RN. Patient denies any chest pain . Has difficulty breathing on exertion. Patient is tolerating diet. Discussed plan of care at bedside with patient. Objective - Constitutional Vitals: Vital Signs - 12hr 01/18/18 01/18/18 01/18/18 01:45 03:23 06:36 Temperature 99.2 F 98.2 F Pulse Rate 81 75 67 Respiratory 22 16 Rate Blood Pressure 155/63 137/69 Blood Pressure 131/72 [Right] O2 Sat by Pulse 95 98 Oximetry 04/19/18 04/19/18 08:41 10:00 Temperature Pulse Rate 63 65 Respiratory Rate Blood Pressure 135/69 Blood Pressure [Right] O2 Sat by Pulse Oximetry - Labs CBC & Chem 7: 01/17/18 13:45 01/18/18 09:33 Labs: Abnormal lab results 01/17/18 01/17/18 01/17/18 Range/Units 13:45 13:45 20:57 WBC 15.3 H (4.5-11.0) K/mm3 RBC 5.67 H (3.65-5.03) M/mm3 Hct 46.0 H (35.5-45.6) % MCV 81 L (84-94) fl MCH 25 L (28-32) pg MCHC 31 L (32-34) % RDW 15.8 H (13.2-15.2) % Seg Neuts % (Manual) 84.0 H (40.0-70.0) % Lymphocytes % (Manual) 9.0 L (13.4-35.0) % Seg Neutrophils # Man 12.9 H (1.8-7.7) K/mm3 Monocytes # (Manual) 0.9 H (0.0-0.8) K/mm3 Basophils # (Manual) 0.2 H (0.0-0.1) K/mm3 Potassium 3.0 L (3.6-5.0) mmol/L Glucose 154 H (75-100) mg/dL Lactic Acid 3.30 H* (0.7-2.0) mmol/L Calcium (8.4-10.2) mg/dL 01/17/18 01/18/18 01/18/18 Range/Units 23:25 00:47 09:33 WBC (4.5-11.0) K/mm3 RBC (3.65-5.03) M/mm3 Hct (35.5-45.6) % MCV (84-94) fl MCH (28-32) pg MCHC (32-34) % RDW (13.2-15.2) % Seg Neuts % (Manual) (40.0-70.0) % Lymphocytes % (Manual) (13.4-35.0) % Seg Neutrophils # Man (1.8-7.7) K/mm3 Monocytes # (Manual) (0.0-0.8) K/mm3 Basophils # (Manual) (0.0-0.1) K/mm3 Potassium 3.1 L (3.6-5.0) mmol/L Glucose 188 H (75-100) mg/dL Lactic Acid 2.90 H* 2.80 H* (0.7-2.0) mmol/L Calcium 8.3 L (8.4-10.2) mg/dL
[2018-01-18] MEDS ORDERED: K-DUR PO ONE (16:00)
[2018-01-18] MEDS: HumuLIN R SUB-Q SCH ×2 (16:37→23:27)
[2018-01-18] MEDS ORDERED: PROVENTIL IH ONE (16:50)
[2018-01-18] MEDS: SPIRIVA IH SCH (17:30)
[2018-01-18] MEDS ORDERED: PROVENTIL IH PRN (17:36)
[2018-01-18] MEDS ORDERED: PROVENTIL IH SCH ×2 (20:00)
[2018-01-18] MEDS: PROVENTIL IH SCH (21:45)
[2018-01-18] MEDS: LOVENOX SUB-Q SCH (23:42)
[2018-01-19] MEDS: CARDIZEM PO SCH ×3 (04:15→16:37)
[2018-01-19] MEDS: NEURONTIN PO SCH ×3 (04:17→16:37)
[2018-01-19] MEDS: SODIUM CHLORIDE FLUSH SYRINGE 10 ML IV SCH ×3 (04:17→22:40)
[2018-01-19 06:10] LABS: Basophils # (Auto) 0.1 K/mm3 (0.0-0.1); Basophils % (Auto) 0.8 % (0.0-1.8); Eosinophils # (Auto) 0.1 K/mm3 (0.0-0.4); Eosinophils % (Auto) 0.7 % (0.0-4.3); Hematocrit 40.5 % (35.5-45.6); Hemoglobin 12.7 gm/dl (11.8-15.2); Lymphocytes # (Auto) 2.1 K/mm3 (1.2-5.4); Lymphocytes % (Auto) 16.5 % (13.4-35.0); Mean Corpuscular HGB Conc 31 % (32-34); Mean Corpuscular Volume 81 fl (84-94); Monocytes # (Auto) 0.5 K/mm3 (0.0-0.8); Monocytes % (Auto) 4.3 % (0.0-7.3); Platelet Count 265 K/mm3 (140-440); Red Blood Count 4.99 M/mm3 (3.65-5.03); Red Cell Distribution Width 15.6 % (13.2-15.2)
[2018-01-19 06:15] LABS: Mean Corpuscular Hemoglobin 26 pg (28-32)
[2018-01-19 06:34] LABS: BUN/Creatinine Ratio 12; Blood Urea Nitrogen 11 mg/dL (9-20); Calcium 8.3 mg/dL (8.4-10.2); Hemolysis Index 6
[2018-01-19] MEDS: HumuLIN R SUB-Q SCH ×4 (07:12→22:45)
[2018-01-19] MEDS ORDERED: K-DUR PO ONE (08:28)
[2018-01-19] MEDS: PROVENTIL IH SCH ×3 (09:03→19:50)
[2018-01-19] MEDS: cefTRIAXone 2 GM in NACL 0.9% 20 ML IV SCH (09:17)
[2018-01-19] MEDS: HALFPRIN EC PO SCH (09:18)
[2018-01-19] MEDS: NON-FORMULARY PO SCH (09:18)
[2018-01-19] MEDS: ZITHROMAX PO SCH (09:19)
[2018-01-19] MEDS: ZOLOFT PO SCH (09:19)
[2018-01-19] MEDS: ROBITUSSIN PO SCH (09:20)
[2018-01-19] MEDS: DELTASONE PO SCH (09:23)
[2018-01-19] MEDS: K-DUR PO SCH (09:23)
[2018-01-19] MEDS: SPIRIVA IH SCH (12:35)
--- NOTE | 2018-01-19 17:09 | Progress Note ---
Assessment and Plan / Sepsis likely From PNA treat with IV antibiotics, trend lactic acid /Community acquired Pneumonia cont IV antibiotics / Acute on chronic respiratory failure placed on supplemental oxygen, nebulizer therapy, NIPPV as clinically indicated , cont pulse oximetry, incentive spirometry, early ambulation, /COPD exacerbation cont IV antibiotics, supplemental oxygen, nebulizer therapy, supportive care. cont low dose steroid /Hypokalemia , replete and replace /DVT prophylaxis SCD to BLE while in bed Brief history: 67 YO Male with COPD, Chronic Respiratory Failure on 1-3Liters of home oxygen, CVA, CAD s/p stent placement, CA presents to ED for evaluation. Pt states that he has experienced productive cough with increased volume of clear sputum as well as shortness of breath over the past 1 day, with worsening symptoms over the same time period. Radiological test: Chest x-ray: Findings suggestive of emphysema and lingular pneumonia Hospitalist Physical exam: GENERAL: well-developed and well-nourished lying on bed appeared to be in no discomfort. HEENT: Normocephalic. Atraumatic. No conjunctival congestion or icterus. Patient has moist mucous membranes. NECK: Supple. Trachea midline. CHEST/LUNGS: coarse BS to auscultated mainly on left, breathing nonlabored. No wheezes crackles or rhonchi. HEART/CARDIOVASCULAR: Regular in rate and rhythm. S1 and S2 positive. ABDOMEN: Abdomen is soft, nontender. Patient has normal bowel sounds. SKIN: There is no rash. Warm and dry. NEURO: No focal motor deficit. Follows command. MUSCULOSKELETAL: No joint effusion or tenderness. EXTRIMITY: No edema, no cyanosis or clubbing. PSYCH: Cooperative. Subjective Date of service: 01/19/18 Interval history: Patient seen and examined. Medical records and medication list reviewed. No acute event overnight noted by the RN. Patient denies any chest pain . still Has difficulty breathing on ambulation. Patient is tolerating diet. Discussed plan of care at bedside with patient. Objective - Constitutional Vitals: Vital Signs - 12hr 01/19/18 01/19/18 01/19/18 06:40 08:30 09:03 Temperature 98.6 F Pulse Rate 68 74 Pulse Rate [ 69 Anterior Bilateral Throughout] Respiratory 18 Rate Respiratory 18 Rate [Anterior Bilateral Throughout] Blood Pressure 143/89 Blood Pressure 148/80 [Right] O2 Sat by Pulse 97 98 Oximetry 01/19/18 01/19/18 01/19/18 09:13 10:00 10:14 Temperature Pulse Rate 68 Pulse Rate [ 71 Anterior Bilateral Throughout] Respiratory 20 Rate Respiratory 18 Rate [Anterior Bilateral Throughout] Blood Pressure Blood Pressure [Right] O2 Sat by Pulse 97 Oximetry 01/19/18 01/19/18 01/19/18 12:35 12:40 13:39 Temperature Pulse Rate Pulse Rate [ 73 71 64 Anterior Bilateral Throughout] Respiratory Rate Respiratory 18 18 18 Rate [Anterior Bilateral Throughout] Blood Pressure Blood Pressure [Right] O2 Sat by Pulse Oximetry 01/19/18 01/19/18 01/19/18 13:49 14:00 16:37 Temperature 98.5 F Pulse Rate 65 64 Pulse Rate [ 63 Anterior Bilateral Throughout] Respiratory 20 Rate Respiratory 20 Rate [Anterior Bilateral Throughout] Blood Pressure 138/69 144/79 Blood Pressure [Right] O2 Sat by Pulse 97 Oximetry - Labs CBC & Chem 7: 01/19/18 05:50 01/20/18 05:02 Labs: Abnormal lab results 01/19/18 01/19/18 01/19/18 Range/Units 05:50 05:50 07:14 WBC 12.6 H (4.5-11.0) K/mm3 MCV 81 L (84-94) fl MCH 26 L (28-32) pg MCHC 31 L (32-34) % RDW 15.6 H (13.2-15.2) % Seg Neutrophils % 77.7 H (40.0-70.0) % Seg Neutrophils # 9.8 H (1.8-7.7) K/mm3 Potassium 3.1 L (3.6-5.0) mmol/L Glucose 121 H (75-100) mg/dL POC Glucose 114 H (70-105) Calcium 8.3 L (8.4-10.2) mg/dL 01/19/18 01/19/18 Range/Units 11:19 16:26 WBC (4.5-11.0) K/mm3 MCV (84-94) fl MCH (28-32) pg MCHC (32-34) % RDW (13.2-15.2) % Seg Neutrophils % (40.0-70.0) % Seg Neutrophils # (1.8-7.7) K/mm3 Potassium (3.6-5.0) mmol/L Glucose (75-100) mg/dL POC Glucose 161 H 233 H (70-105) Calcium (8.4-10.2) mg/dL
[2018-01-19] MEDS: LOVENOX SUB-Q SCH (22:00)
[2018-01-20] MEDS: CARDIZEM PO SCH ×2 (00:54→09:22)
[2018-01-20] MEDS: NEURONTIN PO SCH ×2 (02:00→11:16)
[2018-01-20 05:44] LABS: BUN/Creatinine Ratio 13; Blood Urea Nitrogen 12 mg/dL (9-20); Calcium 8.5 mg/dL (8.4-10.2); Hemolysis Index 9
[2018-01-20] MEDS: PROVENTIL IH SCH ×2 (07:19→13:02)
[2018-01-20 07:51] VITALS: BP 145/77
[2018-01-20] MEDS: HumuLIN R SUB-Q SCH ×2 (08:16→11:19)
[2018-01-20] MEDS: ZITHROMAX PO SCH (09:21)
[2018-01-20] MEDS: ROBITUSSIN PO SCH (09:21)
[2018-01-20] MEDS: K-DUR PO SCH (09:23)
[2018-01-20] MEDS: NON-FORMULARY PO SCH (09:23)
[2018-01-20] MEDS: ZOLOFT PO SCH (09:23)
[2018-01-20] MEDS: DELTASONE PO SCH (09:23)
[2018-01-20] MEDS: SODIUM CHLORIDE FLUSH SYRINGE 10 ML IV SCH (09:24)
[2018-01-20] MEDS: SPIRIVA IH SCH (10:46)
[2018-01-20] MEDS: HALFPRIN EC PO SCH (11:16)
[2018-01-20] MEDS: cefTRIAXone 2 GM in NACL 0.9% 20 ML IV SCH (11:16)
--- NOTE | 2018-01-20 13:40 | Discharge Summary ---
Providers - Providers Date of Admission: 01/17/18 16:15 Date of discharge: 01/20/18 Attending physician: STELLA RAMON 01/19/18 08:30 Physical Therapy Evaluation and Treat [CONS] Routine Comment: Reason For Exam: physical weakness Primary care physician: DOBBY LOOM CHAIN PEGGER Hospitalization Condition: Stable Hospital course: Brief history: 67 YO Male with COPD, Chronic Respiratory Failure on 1-3Liters of home oxygen, CVA, CAD s/p stent placement, [place] presents to ED for evaluation. Pt states that he has experienced productive cough with increased volume of clear sputum as well as shortness of breath over the past 1 day, with worsening symptoms over the same time period. In the ER chest x-ray showed lingular pneumonia. He was placed on IV antibiotics, low-dose steroids and periodic scheduled nebulizer breathing treatment. Patient on 1 L home oxygen chronically. He stated that he was on 3 L oxygen but recently had right upper lobectomy lung surgery and following the surgery he is tolerating 1 L home oxygen. Patient was monitored clinically, his symptom improvement with provided treatment. Physical therapy was consulted for possible physical debility. Patient ambulated well without being short of breath on oxygen. He was discharged home in stable condition. He'll follow-up with his PCP in 1 week. Discharge diagnosis and management: / Sepsis likely From PNA treated with IV antibiotics, trended lactic acid /Community acquired Pneumonia Placed on IV antibiotics / Acute on chronic respiratory failure placed on supplemental oxygen, nebulizer therapy, NIPPV as clinically indicated , Monitored with pulse oximetry, incentive spirometry, supportive care with early ambulation, /COPD exacerbation Treated with IV antibiotics, supplemental oxygen, nebulizer therapy, low dose steroid /Hypokalemia , repleted and replace /DVT prophylaxis SCD to BLE while in bed Radiological test: Chest x-ray: Findings suggestive of emphysema and lingular pneumonia Hospitalist Physical exam: GENERAL: well-developed and well-nourished lying on bed appeared to be in no discomfort. HEENT: Normocephalic. Atraumatic. No conjunctival congestion or icterus. Patient has moist mucous membranes. NECK: Supple. Trachea midline. CHEST/LUNGS: coarse BS to auscultated mainly on left, breathing nonlabored. No wheezes crackles or rhonchi. HEART/CARDIOVASCULAR: Regular in rate and rhythm. S1 and S2 positive. ABDOMEN: Abdomen is soft, nontender. Patient has normal bowel sounds. SKIN: There is no rash. Warm and dry. NEURO: No focal motor deficit. Follows command. MUSCULOSKELETAL: No joint effusion or tenderness. EXTRIMITY: No edema, no cyanosis or clubbing. PSYCH: Cooperative. Disposition: [id number]/TX-06 HOME UNDER [facility] Time spent for discharge: 32 minutes Core Measure Documentation - Palliative Care Palliative Care/ Comfort Measures: Not Applicable - Core Measures Any of the following diagnoses?: history only Exam - Constitutional Vitals: Temp Pulse Resp BP Pulse Ox 98.7 F 61 18 145/77 97 01/20/18 07:11 01/20/18 10:51 01/20/18 10:51 01/20/18 09:22 01/20/18 10:00 Plan Activity: advance as tolerated Weight Bearing Status: Non-Weight Bearing Diet: low fat, low salt Durable Medical Equipment Needed Upon Discharge: Oxygen Follow up with: PRIMARY CARE, [Primary Care Provider] - 7 Days Prescriptions: Levofloxacin [Levaquin] 750 mg PO QDAY #4 tablet predniSONE [Deltasone] 40 mg PO QDAY #5 tablet
== END 2018-01-20 15:46 | disposition home health service (06) | DRG 871 ==
LOC: ED 13:29 → 2B-ACE 16:15
PROVIDERS: ADMIT Internal Medicine; ATTEND Internal Medicine
DX: A41.9 Sepsis, unspecified organism (principal); J18.9 Pneumonia, unspecified organism; J96.21 Acute and chronic respiratory failure with hypoxia; J44.1 Chronic obstructive pulmonary disease with (acute) exacerbation; J44.0 Chronic obstructive pulmonary disease with (acute) lower respiratory infection; I25.10 Atherosclerotic heart disease of native coronary artery without angina pectoris; E87.6 Hypokalemia; I10 Essential (primary) hypertension; Z86.73 Personal history of transient ischemic attack (TIA), and cerebral infarction without residual deficits; Z95.5 Presence of coronary angioplasty implant and graft; Z79.899 Other long term (current) drug therapy; I25.2 Old myocardial infarction; Z82.49 Family history of ischemic heart disease and other diseases of the circulatory system
CPT/HCPCS: 36415; 71045; 80048; 82140; 82962; 83036; 85007; 85025; 87040; 87205; 93005; 93010; 94640; 94760; 96361; 96365; 96375; A9270-GY; G8978-GP; G8979-GP; J0456; J0696; J1650; J1815; J3370; J7030; J7040; J7050; J7512

== ENCOUNTER 2018-10-25 09:55 | Day surgery (SDC) | payer MEDICARE ==
--- NOTE | 2018-10-25 10:53 | Anesthesia Consultation ---
Anesthesia Consult and Med Hx Date of service: 10/25/18 - Airway Anesthetic Teeth Evaluation: Good ROM Head & Neck: Adequate Mental/Hyoid Distance: Adequate Mallampati Class: Class III Intubation Access Assessment: Possibly Difficult - Pulmonary Exam CTA: Yes - Cardiac Exam Cardiac Exam: RRR - Pre-Operative Health Status ASA Pre-Surgery Classification: ASA4 Proposed Anesthetic Plan: MAC - Pulmonary Hx Smoking: Yes Hx Asthma: Yes Hx Respiratory Symptoms: Yes (emphasema, VATS 3mos ago) COPD: Yes Home Oxygen Therapy: Yes (1L) Hx Sleep Apnea: No (low risk EPHRAIM) - Cardiovascular System Hx Hypertension: Yes Hx Coronary Artery Disease: Yes (stent placed 1.5yrs ago; on ASA 81 qDay) Hx Heart Attack/AMI: Yes (3 yrs ago) Hx Angina: Yes (burning epigastric pain after eating) Hx Cardia Arrhythmia: No Hx Pacemaker: No Hx Internal Defibrillator: No - Central Nervous System CVA: Yes (3 yrs ago) Hx Psychiatric Problems: No - Gastrointestinal Hx Gastroesophageal Reflux Disease: Yes - Endocrine Hx Renal Disease: No Hx Liver Disease: No Hx Insulin Dependent Diabetes: Yes Hx Thyroid Disease: No - Other Systems Hx Substance Use: Yes Hx Obesity: No - Additional Comments Anesthesia Medical History Comments: In pre-procedure area, patient complains of burning epigastric pain. Nonradiating, no associated symptoms. Pain is similar to pain experienced after eating associated with esophageal disease. Currently low suspicion for cardiac etiology but will obtain 12-lead EKG prior to procedure given significant cardiac history. No hx anesthetic complications.
--- NOTE | 2018-10-25 10:53 | Anesthesia Day of Surgery ---
Anesthesia Day of Surgery - Day of Surgery Patient Examined: Yes Patient H&P Reviewed: Yes Patient is NPO: Yes
[2018-10-25] MEDS ORDERED: NACL 0.9% 1000 ML 1,000 ML IV SCH (11:00)
[2018-10-25] MEDS ORDERED: DIPRIVAN 10 MG/ML IV ONE (11:38)
--- NOTE | 2018-10-25 11:59 | Post Operative Note ---
Date of procedure: 10/25/18 Pre-op diagnosis: dysphagia Post-op diagnosis: same Findings: 1. Severe ulcerative esophagitis. Biopsied 2. Peptic stricture. Dilated 3. Hiatal hernia Procedure: EGD with biopsy and dilatation Anesthesia: MAC Surgeon: DEANN JONES Estimated blood loss: minimal Pathology: list (Jar A - esophageal biopsies) Specimen disposition: to lab Condition: stable Disposition: same day
--- NOTE | 2018-10-25 12:02 | Operative Report ---
Operative Report Operative Report: Esophagogastroduodenoscopy Procedure Report with Balloon dilatation and Biopsy Endoscopist: Eladio Luque Date of procedure: 10/25/2018 Pre-op diagnosis/indication: Dysphagia Post-op diagnosis: Severe ulcerative esophagitis, peptic stricture MEDICATIONS: MAC COMPLICATIONS: No immediate complications ESTIMATED BLOOD LOSS: Minimal DESCRIPTION OF PROCEDURE: After consent was obtained, the patient was placed in the left lateral decubitis position. The upper fujinon endoscope was passed with direct vision through the mouth and advanced to the 2nd portion of the duodenum without difficulty. The mucosal views were good. The patient tolerated the procedure well. The patient's vital signs were monitored continuously throughout the procedure. FINDINGS: There was severe ulcerative esophagitis with spontaneous bleeding throughout the esophagus. Biopsies were obtained. There was a peptic stricture in the lower third of the esophagus. Balloon dilatation was performed with 18-19-20mm balloon without immediate complications. There was a moderate sized hiatal hernia. The stomach and duodenum appeared normal. IMPRESSION: 1. Severe ulcerative esophagitis. Biopsied. 2. Peptic stricture. Dilated as above. 3. Hiatal hernia RECOMMENDATIONS: -follow-up pathology -increase PPI to BID dosing -follow-up in GI clinic as scheduled
[2018-10-25 12:55] VITALS: BP 126/57
== END 2018-10-25 09:56 | disposition home or self-care (01) ==
LOC: GIO 09:55
PROVIDERS: ATTEND Internal Medicine Gastroenterology
DX: K22.2 Esophageal obstruction (principal); K44.9 Diaphragmatic hernia without obstruction or gangrene; K22.10 Ulcer of esophagus without bleeding; I10 Essential (primary) hypertension; I25.2 Old myocardial infarction; E78.5 Hyperlipidemia, unspecified; D64.9 Anemia, unspecified; J44.9 Chronic obstructive pulmonary disease, unspecified; E10.65 Type 1 diabetes mellitus with hyperglycemia; I25.118 Atherosclerotic heart disease of native coronary artery with other forms of angina pectoris; E78.00 Pure hypercholesterolemia, unspecified; F32.9 Major depressive disorder, single episode, unspecified; F41.9 Anxiety disorder, unspecified; Z79.899 Other long term (current) drug therapy; Z79.84 Long term (current) use of oral hypoglycemic drugs; Z79.82 Long term (current) use of aspirin; Z87.891 Personal history of nicotine dependence; Z86.73 Personal history of transient ischemic attack (TIA), and cerebral infarction without residual deficits; Z98.890 Other specified postprocedural states; Z84.1 Family history of disorders of kidney and ureter
CPT/HCPCS: 43239; 43249; 88305; 88312; 88342; 93005; 93010; C1726; J2704; J7030; 88341

== ENCOUNTER 2019-01-07 13:36 | Inpatient (IN) | payer MEDICARE ==
--- NOTE | 2019-01-07 14:12 | Emergency Department Report ---
Blank Doc - Documentation Documentation: This is a 68-year-old male that presents with CP with SOB. Also has upper abd ominal pain. This initial assessment/diagnostic orders/clinical plan/treatment(s) is/are subject to change based on patient's health status, clinical progression and re- assessment by fellow clinical providers in the ED. Further treatment and workup at subsequent clinical providers discretion. Patient/guardians urged not to elope from the ED as their condition may be serious if not clinically assessed and managed. Initial orders include: 1- Patient sent to [facility] for further evaluation and treatment 2- Labs 3- CXR 4- EKG
[2019-01-07 14:40] LABS: Basophils # (Auto) 0.1 K/mm3 (0.0-0.1); Basophils % (Auto) 1.5 % (0.0-1.8); Eosinophils # (Auto) 0.2 K/mm3 (0.0-0.4); Eosinophils % (Auto) 2.6 % (0.0-4.3); Hematocrit 41.8 % (35.5-45.6); Hemoglobin 13.8 gm/dl (11.8-15.2); Lymphocytes # (Auto) 2.3 K/mm3 (1.2-5.4); Lymphocytes % (Auto) 34.4 % (13.4-35.0); Mean Corpuscular HGB Conc 33 % (32-34); Mean Corpuscular Volume 81 fl (84-94); Monocytes # (Auto) 0.6 K/mm3 (0.0-0.8); Monocytes % (Auto) 8.2 % (0.0-7.3); Platelet Count 307 K/mm3 (140-440); Red Blood Count 5.17 M/mm3 (3.65-5.03); Red Cell Distribution Width 16.7 % (13.2-15.2)
[2019-01-07 14:53] LABS: INR 0.94 (0.87-1.13)
[2019-01-07 14:54] LABS: Partial Thromboplastin Time 30.3 Sec. (24.2-36.6)
[2019-01-07 15:08] LABS: Alanine Aminotransferase 10 units/L (7-56); BUN/Creatinine Ratio 11; Blood Urea Nitrogen 12 mg/dL (9-20); Calcium 8.5 mg/dL (8.4-10.2); Hemolysis Index 6
--- NOTE | 2019-01-07 16:22 | XRay Report ---
PROCEDURE: XR CHEST ROUTINE 2V TECHNIQUE: Frontal and lateral views of the chest HISTORY: Chest Pain COMPARISONS: 01/17/2018 FINDINGS: The cardiomediastinal silhouette is normal in appearance. Mild hyperinflation. Reticular scarring at the bilateral lung bases and in the left upper lobe. No fo lana consolidation. No pleural effusion or pneumothorax. No acute bony or soft tissue abnormality IMPRESSION: No acute cardiopulmonary disease. Findings of COPD. This document is electronically signed by Re Benz MD., January 07 2019 04:20:12 PM ET
[2019-01-07] MEDS ORDERED: ZOFRAN IV ONE (21:39)
[2019-01-07] MEDS ORDERED: SUBLIMAZE IV ONE (21:39)
[2019-01-07] MEDS ORDERED: NACL 0.9% 1000 ML 1,000 ML IV ONE (21:40)
--- NOTE | 2019-01-07 21:46 | Emergency Department Report ---
HPI - General Chief Complaint: Chest Pain Time Seen by Provider: 01/07/19 14:10 - HPI HPI: Room 26 The patient is a 68-year-old male presenting with chief complaint of abdominal pain and inability to tolerate solid food. The patient states for the past 2 weeks he's been unable to tolerate solid food as he vomits it back up 5 minutes after ingestion. Patient complains of constant mid epigastric pain described as sharp and burning in nature. The patient states his bowel movements have been liquid for approximately one week. Patient denies history of fever. The patient states when he is drinks water he is able to keep it down but solid food leads to nausea and vomiting Location: Abdomen Duration: 2 weeks Quality: Sharp/Burning Severity: 10 Modifying factors: [see above] Context: [see above] Mode of transportation: [not driving] ED Past Medical Hx - Past Medical History Hx Hypertension: Yes Hx CVA: Yes (Right eye affected) Hx Heart Attack/AMI: Yes (3 yrs ago) Hx Diabetes: Yes Hx Asthma: Yes Hx COPD: Yes (home o2) Additional medical history: Emphysema. CAD - Surgical History Hx Coronary Stent: Yes (stent x1) Additional Surgical History: Eye surgery, RUL removed, bilateral lung surgery - Family History Family history: no significant - Social History Smoking Status: Former Smoker (none 5 years) Substance Use Type: None (denies illicit drug use) - Medications Home Medications: Home Medications Medication Instructions Recorded Confirmed Last Taken Type Albuterol Sulfate [Ventolin Hfa] 2 puff IH Q4-6H PRN 05/15/18 10/25/18 10/24/18 History ALBUTEROL NEB's [Proventil 0.083% 2.5 mg IH Q6H PRN #30 nebu 05/19/18 10/25/18 10/24/18 Rx NEBS] Acetaminophen [Acetaminophen TAB] 650 mg PO Q4H PRN #10 tablet 05/19/18 10/25/18 10/24/18 Rx Aspirin EC [Aspirin Enteric Coated 81 mg PO QDAY #30 tablet 05/19/18 10/25/18 10/24/18 Rx TAB] AtorvaSTATin [Lipitor] 20 mg PO QHS #30 tablet 05/19/18 10/25/18 10/24/18 Rx Fluticasone/Salmeterol [Advair 2 puff IH BID #1 blst.w.dev 05/19/18 10/25/18 10/24/18 Rx Diskus 100-50 mcg] Gabapentin [Neurontin] 300 mg PO Q8HR #90 capsule 05/19/18 10/25/18 10/24/18 Rx Insulin Glargine,Hum.rec.anlog 25 units SQ QHS #1 vial 05/19/18 10/25/18 10/24/18 Rx [Lantus] Linaclotide [Linzess] 145 mcg PO QDAY #10 tab 05/19/18 10/25/18 10/24/18 Rx PARoxetine [Paxil] 20 mg PO DAILY #30 tablet 05/19/18 10/25/18 10/24/18 Rx Ranitidine HCl [Zantac] 300 mg PO QDAY #30 tab 05/19/18 10/25/18 10/24/18 Rx Sertraline [Zoloft] 25 mg PO QDAY #30 tab 05/19/18 10/25/18 10/24/18 Rx dilTIAZem [Cardizem] 90 mg PO Q8HR #90 tablet 05/19/18 10/25/18 10/24/18 Rx Insulin Aspart [Novolog] 1 unit SQ ACHS PRN #100 ml 05/21/18 10/25/18 10/24/18 Rx Umeclidinium [place] [Incruse 1 puff INHALATION DAILY 10/25/18 10/25/18 10/24/18 History Ellipta] ED Review of Systems ROS: Stated complaint: TOP STOMACH PAIN Other details as noted in HPI Constitutional: denies: fever Eyes: denies: eye pain ENT: denies: throat pain Respiratory: no symptoms reported Cardiovascular: denies: chest pain Endocrine: no symptoms reported Gastrointestinal: abdominal pain, nausea, vomiting Genitourinary: denies: dysuria Musculoskeletal: denies: back pain Neurological: denies: headache Physical Exam - Physical Exam Vital Signs: Vital Signs 01/07/19 01/07/19 01/07/19 14:07 20:53 21:00 Temperature 98.7 F Pulse Rate 72 78 Respiratory 16 22 Rate Blood Pressure 122/81 169/79 O2 Sat by Pulse 100 95 98 Oximetry 01/07/19 01/07/19 21:16 21:30 Temperature Pulse Rate 76 Respiratory 14 15 Rate Blood Pressure 197/90 180/91 O2 Sat by Pulse 100 99 Oximetry Physical Exam: GENERAL: The patient is well-developed well-nourished male lying on stretcher appearing to be in moderate discomfort. [] HEENT: Normocephalic. Atraumatic. Extraocular motions are intact. Patient has moist mucous membranes. NECK: Supple. Trachea midline CHEST/LUNGS: Clear to auscultation. There is no respiratory distress noted. HEART/CARDIOVASCULAR: Regular. There is no tachycardia. There is no gallop rub or murmur. ABDOMEN: Abdomen is soft, with tenderness to palpation only in the epigastric region. Patient has normal bowel sounds. There is no abdominal distention. SKIN: There is no rash. There is no edema. There is no diaphoresis. NEURO: The patient is awake, alert, and oriented. The patient is cooperative. The patient has normal speech MUSCULOSKELETAL: There is no evidence of acute injury. ED Course Vital Signs 01/07/19 01/07/19 01/07/19 14:07 20:53 21:00 Temperature 98.7 F Pulse Rate 72 78 Respiratory 16 22 Rate Blood Pressure 122/81 169/79 O2 Sat by Pulse 100 95 98 Oximetry 01/07/19 01/07/19 21:16 21:30 Temperature Pulse Rate 76 Respiratory 14 15 Rate Blood Pressure 197/90 180/91 O2 Sat by Pulse 100 99 Oximetry ED Medical Decision Making - Lab Data Result diagrams: 01/07/19 14:15 01/07/19 14:15 - EKG Data -: EKG Interpreted by Mn EKG shows normal: sinus rhythm Rate: normal - EKG Data When compared to previous EKG there are: previous EKG unavailable Interpretation: unchanged when compared t ( 10/25/2018), nonspecific ST-T wave cici (T-wave inversions in leads V3, V4, V5, V6) - Radiology Data Radiology results: report reviewed (CT Abd Pelvis), image reviewed (CT Abd/pel) [facility] [address] [place] [address] Cat Scan Report Signed Patient: JOSSELYN BULL R#: [id number] : 1950 Acct:[id number] Age/Sex: 68 / M ADM Date: 01/07/19 Loc: ED Attending Dr: Ordering Physician: TOMMY MOORE MD Date of Service: 01/07/19 Procedure(s): CT abdomen pelvis w con Accession Number(s): [id number] cc: TOMMY MOORE MD PROCEDURE: CT ABDOMEN PELVIS W CON TECHNIQUE: Computerized axial tomography of the abdomen and pelvis was performed without intravenous contrast. Individualize dose optimization techniques were utilized for this exam CT DOSE LENGTH PRODUCT: mGycm HISTORY: Pain. Nausea and vomiting COMPARISONS: May 15, 2018 . FINDINGS: Visualized lower thorax: Fibrotic densities in the lower lungs. Large hiatal hernia. Liver: Diffuse enlargement. No dominant mass or biliary dilatation. Spleen: Normal size and attenuation. Gallbladder and biliary system: Normal. Pancreas: Normal. Adrenals: Normal. Kidneys: Normal. GI tract: No dilated loops of large or small bowel. Appendix is not enlarged . Lymph nodes and mesentery: Normal. Vasculature: Atherosclerotic calcifications.. Bladder: Normal. Reproductive organs: Normal. Peritoneum: No free fluid. Musculoskeletal structures: Degenerative change. Other: None. IMPRESSION: Large hiatal hernia. Hepatomegaly. No biliary dilatation. Atherosclerosis. This document is electronically signed by Ede Padilla MD., January 07 2019 11:11:02 PM ET Transcribed By: BRP Dictated By: EDE PADILLA MD Electronically Authenticated By: EDE PADILLA MD Signed Date/Time: 01/07/192311 DD/ 39 TD/TT: 01/07/192240 - Differential Diagnosis small bowel obstruction, peptic stricture, pancreatitis Critical care attestation.: If time is entered above; I have spent that time in minutes in the direct care of this critically ill patient, excluding procedure time. ED Disposition Clinical Impression: Unable to eat solid foods, Nausea and vomiting, Acute abdominal pain, Hypokalemia Disposition: OP ADMIT IP TO THIS HOSP Is pt being admited?: Yes Does the pt Need Aspirin: No Condition: Stable Referrals: PATEL FULLER MD [Primary Care Provider] - 3-5 Days
--- NOTE | 2019-01-07 23:12 | Cat Scan Report ---
PROCEDURE: CT ABDOMEN PELVIS W CON TECHNIQUE: Computerized axial tomography of the abdomen and pelvis was performed without intravenous contrast. Individualize dose optimization techniques were utilized for this exam CT DOSE LENGTH PRODUCT: mGycm HISTORY: Pain. Nausea and vomiting COMPARISONS: May 15, 2018 . FINDINGS: Visualized lower thorax: Fibrotic densities in the lower lungs. Large hiatal hernia. Liver: Diffuse enlargement. No dominant mass or biliary dilatation. Spleen: Normal size and attenuation. Gallbladder and biliary system: Normal. Pancreas: Normal. Adrenals: Normal. Kidneys: Normal. GI tract: No dilated loops of large or small bowel. Appendix is not enlarged . Lymph nodes and mesentery: Normal. Vasculature: Atherosclerotic calcifications.. Bladder: Normal. Reproductive organs: Normal. Peritoneum: No free fluid. Musculoskeletal structures: Degenerative change. Other: None. IMPRESSION: Large hiatal hernia. Hepatomegaly. No biliary dilatation. Atherosclerosis. This document is electronically signed by Adonay Padilla MD., January 07 2019 11:11:02 PM ET
--- NOTE | 2019-01-07 23:40 | History and Physical Report ---
History of Present Illness Date of examination: 01/07/19 History of present illness: 68-year-old man with a history of CVA, coronary artery disease, COPD, chronic respiratory failure, diabetes, hypertension plus emergency room with complaints of dysphagia to solid food, stated food gets stuck in his mid chest causing di scomfort in his epigastric area. His symptoms have been ongoing for 2-3 weeks. Admits to nausea and vomiting Review of systems Constitutional: no weight loss, chills, fever Ears, eyes, nose, mouth and throat: no nasal congestion, no nasal discharge, no sinus pressure, no vision change, no red eye. Neck: No neck pain or rigidity. Cardiovascular: no palpitations Respiratory: no cough, shortness of breath Gastrointestinal: no hematochezia, abdominal pain Genitourinary : no frequency , no hematuria Musculoskeletal: no joint swelling or muscle ache Integumentary: no rash, no pruritis Neurological: no parathesias, no focal weakness Endocrine: no cold or heat intolerance, no polyuria or polydipsia Hematologic/Lymphatic: no easy bruising, no easy bleeding, no gland swelling Allergic/Immunologic: no urticaria, no angioedema. PAST MEDICAL HISTORY:CVA, coronary artery disease, COPD, chronic respiratory failure, diabetes, hypertension PAST SURGICAL HISTORY: Hernia SOCIAL HISTORY: Denies alcohol, drugs, tobacco FAMILY HISTORY: Hypertension Medications and Allergies Allergies Allergy/AdvReac Type Severity Reaction Status Date / Time No Known Allergies Allergy Verified 05/15/18 10:42 Home Medications Medication Instructions Recorded Confirmed Last Taken Type ALBUTEROL NEB's [Proventil 0.083% 2.5 mg IH Q6H PRN #30 nebu 05/19/18 01/09/19 10/24/18 Rx NEBS] AtorvaSTATin [Lipitor] 20 mg PO QHS #30 tablet 05/19/18 01/09/19 10/24/18 Rx Fluticasone/Salmeterol [Advair 2 puff IH BID #1 blst.w.dev 05/19/18 01/09/19 10/24/18 Rx Diskus 100-50 mcg] Linaclotide [Linzess] 145 mcg PO QDAY #10 tab 05/19/18 01/09/19 10/24/18 Rx Sertraline [Zoloft] 25 mg PO QDAY #30 tab 05/19/18 01/09/19 10/24/18 Rx dilTIAZem [Cardizem] 90 mg PO Q8HR #90 tablet 05/19/18 01/09/19 10/24/18 Rx Gabapentin [Neurontin] 100 mg PO Q8H 01/09/19 01/09/19 Unknown History Insulin Aspart [NovoLOG Flexpen] 6 units SQ AC 01/09/19 01/09/19 Unknown History Insulin Glargine,Hum.rec.anlog 35 units SQ HS 01/09/19 01/09/19 Unknown History [Lantus Solostar] Pantoprazole [Protonix] 40 mg PO BID #60 tablet 01/09/19 Unknown Rx Sucralfate [Carafate] 1 gm PO ACHS 30 Days oral.liqd 01/09/19 Unknown Rx Umeclidinium [place] [Incruse 1 puff IH DAILY 01/09/19 01/09/19 Unknown History Ellipta] Ventolin HFA 2 puff INHALATION Q4H PRN 01/09/19 01/09/19 Unknown History Active Meds: Active Medications Potassium Chloride (Kcl 10meq/100ml) 10 meq in 100 mls @ 100 mls/hr IV Q1H RICARDO Stop: 01/08/19 03:44 Exam - Physical Exam Narrative exam: General Apperance: The patient lying in bed, breathing comfortable HEENT: Normocephalic, atraumatic. Pupils equally round and reactive to light, EOMI, no sclericterus or JVD or thyromegaly or nodule. , no carotid bruit, mucous membranes moist, no exudate or erythema Heart: S1-S2, regular is rhythm Lungs: Clear to auscultation bilaterally, breathing comfortable Abdomen: Positive bowel sounds, soft, nontender, nondistended, no organomegaly Extremities: No edema cyanosis clubbing Skin: no rash, nodule, warm and dry Neuro: cranial nerves 2-12 intact, speech is fluent, motor/sensory intact - Constitutional Vitals: Temp Pulse Resp BP Pulse Ox 98.7 F 76 15 180/91 99 01/07/19 14:07 01/07/19 21:16 01/07/19 21:30 01/07/19 21:30 01/07/19 21:30 Results - Labs CBC & Chem 7: 01/09/19 04:38 04/10/19 04:38 Labs: Abnormal lab results 01/07/19 01/07/19 Range/Units 14:15 14:15 RBC 5.17 H (3.65-5.03) M/mm3 MCV 81 L (84-94) fl MCH 27 L (28-32) pg RDW 16.7 H (13.2-15.2) % [place] % (Auto) 8.2 H (0.0-7.3) % Potassium 3.0 L (3.6-5.0) mmol/L Glucose 107 H (75-100) mg/dL Lipase 11 L (13-60) units/L - Imaging and Cardiology Chest x-ray: image reviewed CT scan - abdomen: report reviewed CT Scan - head: report reviewed Assessment and Plan Assessment Dysphagia to solid CVA coronary artery disease COPD chronic respiratory failure diabetes hypertension Plan Admit medicine IV fluids, consult GI IV hydralazine as needed for blood pressure control Dvt to prophylaxis
[2019-01-08] MEDS ORDERED: APRESOLINE IV ONE (00:46)
[2019-01-08] MEDS: KCL 10MEQ/100ML 10 MEQ/100 ML BAG IV SCH ×4 (00:52→05:41)
[2019-01-08] MEDS ORDERED: APRESOLINE ONE (00:53)
[2019-01-08] MEDS ORDERED: KCL 10MEQ/100ML 10 MEQ/100 ML BAG IV ONE (00:53)
[2019-01-08] MEDS ORDERED: TYLENOL PO PRN (03:54)
[2019-01-08] MEDS ORDERED: SODIUM CHLORIDE FLUSH SYRINGE 10 ML IV PRN (03:54)
[2019-01-08] MEDS ORDERED: ZOFRAN IV PRN (03:54)
[2019-01-08] MEDS ORDERED: APRESOLINE IV PRN ×2 (03:56→06:40)
[2019-01-08] MEDS ORDERED: NACL 0.45% 1000 ML 1,000 ML IV SCH (04:00)
[2019-01-08 07:09] LABS: Hemoglobin 12.9 gm/dl (11.8-15.2)
[2019-01-08 07:10] LABS: Basophils % (Auto) 0.6 % (0.0-1.8); Eosinophils # (Auto) 0.2 K/mm3 (0.0-0.4); Hematocrit 40.1 % (35.5-45.6); Lymphocytes # (Auto) 1.9 K/mm3 (1.2-5.4); Lymphocytes % (Auto) 27.8 % (13.4-35.0); Mean Corpuscular HGB Conc 32 % (32-34); Mean Corpuscular Volume 82 fl (84-94); Monocytes # (Auto) 0.7 K/mm3 (0.0-0.8); Monocytes % (Auto) 10.2 % (0.0-7.3); Platelet Count 270 K/mm3 (140-440); Red Cell Distribution Width 16.6 % (13.2-15.2)
[2019-01-08 07:32] LABS: BUN/Creatinine Ratio 10; Blood Urea Nitrogen 9 mg/dL (9-20); Calcium 8.2 mg/dL (8.4-10.2); Hemolysis Index 9
[2019-01-08] MEDS: MORPHINE IV PRN ×2 (08:08→14:15)
[2019-01-08] MEDS ORDERED: PROVENTIL IH PRN (10:05)
[2019-01-08] MEDS ORDERED: PROAIR IH PRN (10:05)
--- NOTE | 2019-01-08 10:09 | Progress Note ---
Assessment and Plan Assessment and plan: --Dysphagia; nothing by mouth status Follow-up GI evaluation and recommendation, follow endoscopy --History of esophageal stricture; status post dilatation GI following --Hypertension; moderate control, continue current antihypertensives and when necessary medications --Type 2 diabetes mellitus; Accu-Chek sliding scale coverage and ADA diet Insulin as needed --Diabetic neuropathy; on gabapentin --Dyslipidemia; continue lipid-lowering medication when patient is able to eat --History of COPD; oxygen nebulizers as needed --History of depression; continue antidepression medications --DVT prophylaxis; Lovenox Monitor the patient closely and adjust the management as needed Follow-up GI evaluation, endoscopy, possible discharge in 1-2 days if stable Plan of care reviewed with the patient and his nurse History Interval history: Patient seen and examined medical records reviewed Patient is admitted with dysphagia and GI evaluated the patient Possible endoscopy today, patient had esophageal strictures status post ventilation in the past Alert awake oriented 3, Vital signs noted Hospitalist Physical - Constitutional Vitals: Temp Pulse Resp BP Pulse Ox 99.2 F 68 18 124/94 98 01/08/19 08:23 01/08/19 08:23 01/08/19 08:23 01/08/19 08:23 01/08/19 08:23 General appearance: Present: no acute distress, well-nourished - EENT Eyes: Present: PERRL, EOM intact - Neck Neck: Present: supple, normal ROM - Respiratory Respiratory effort: normal Respiratory: bilateral: diminished, negative: rales, rhonchi, wheezing - Cardiovascular Rhythm: regular Heart Sounds: Present: S1 & S2 - Extremities Extremities: no ischemia, No edema - Abdominal General gastrointestinal: soft, non-tender, non-distended, normal bowel sounds - Integumentary Integumentary: Present: clear, warm - Psychiatric Psychiatric: appropriate mood/affect, cooperative - Neurologic Neurologic: moves all extremities Results - Labs CBC & Chem 7: 01/08/19 05:12 01/08/19 05:12 Labs: Laboratory Last Values WBC 6.7 K/mm3 (4.5-11.0) 01/08/19 05:12 RBC 4.90 M/mm3 (3.65-5.03) 01/08/19 05:12 Hgb 12.9 gm/dl (11.8-15.2) 01/08/19 05:12 Hct 40.1 % (35.5-45.6) 01/08/19 05:12 MCV 82 fl (84-94) L 01/08/19 05:12 MCH 26 pg (28-32) L 01/08/19 05:12 MCHC 32 % (32-34) 01/08/19 05:12 RDW 16.6 % (13.2-15.2) H 01/08/19 05:12 Plt Count 270 K/mm3 (140-440) 01/08/19 05:12 Lymph % (Auto) 27.8 % (13.4-35.0) 01/08/19 05:12 [place] % (Auto) 10.2 % (0.0-7.3) H 01/08/19 05:12 Eos % (Auto) 3.0 % (0.0-4.3) 01/08/19 05:12 Baso % (Auto) 0.6 % (0.0-1.8) 01/08/19 05:12 Lymph # 1.9 K/mm3 (1.2-5.4) 01/08/19 05:12 [place] # 0.7 K/mm3 (0.0-0.8) 01/08/19 05:12 Eos # 0.2 K/mm3 (0.0-0.4) 01/08/19 05:12 Baso # 0.0 K/mm3 (0.0-0.1) 01/08/19 05:12 Seg Neutrophils % 58.4 % (40.0-70.0) 01/08/19 05:12 Seg Neutrophils # 3.9 K/mm3 (1.8-7.7) 01/08/19 05:12 PT 13.1 Sec. (12.2-14.9) 01/07/19 14:15 INR 0.94 (0.87-1.13) 01/07/19 14:15 APTT 30.3 Sec. (24.2-36.6) 01/07/19 14:15 Sodium 147 mmol/L (137-145) H 01/08/19 05:12 Potassium 3.4 mmol/L (3.6-5.0) L 01/08/19 05:12 Chloride 108.8 mmol/L (98-107) H 01/08/19 05:12 Carbon Dioxide 25 mmol/L (22-30) 01/08/19 05:12 Anion Gap 17 mmol/L 01/08/19 05:12 BUN 9 mg/dL (9-20) 01/08/19 05:12 Creatinine 0.9 mg/dL (0.8-1.5) 01/08/19 05:12 Estimated GFR > 60 ml/min 01/08/19 05:12 BUN/Creatinine Ratio 10 % 01/08/19 05:12 Glucose 92 mg/dL (75-100) 01/08/19 05:12 POC Glucose 118 (70-105) H 01/07/19 22:49 Calcium 8.2 mg/dL (8.4-10.2) L 01/08/19 05:12 Total Bilirubin 0.50 mg/dL (0.1-1.2) 01/07/19 14:15 AST 14 units/L (5-40) 01/07/19 14:15 ALT 10 units/L (7-56) 01/07/19 14:15 Alkaline Phosphatase 99 units/L (35-129) 01/07/19 14:15 Troponin T < 0.010 ng/mL (0.00-0.029) 01/07/19 19:16 Total Protein 7.2 g/dL (6.3-8.2) 01/07/19 14:15 Albumin 4.0 g/dL (3.9-5) 01/07/19 14:15 Albumin/Globulin Ratio 1.3 % 01/07/19 14:15 Lipase 11 units/L (13-60) L 01/07/19 14:15 Active Medications - Current Medications Current Medications: Generic Name Dose Route Start Last Admin Trade Name Freq PRN Reason Stop Dose Admin Acetaminophen 650 mg 01/08/19 03:54 Tylenol PO Q4H PRN Pain MILD(1-3)/Fever >100.5/FINNEGAN Enoxaparin Sodium 40 mg 01/08/19 10:00 Lovenox SUB-Q QDAY RICARDO Hydralazine HCl 5 mg 01/08/19 03:56 Apresoline IV Q6H PRN Hypertension Hydralazine HCl 5 mg 01/08/19 06:40 Apresoline IV Q6H PRN Hypertension Sodium Chloride 1,000 mls @ 50 mls/hr 01/08/19 04:00 01/08/19 07:54 Nacl 0.45% 1000 Ml IV 50 mls/hr DIRECT RICARDO Administration Morphine Sulfate 2 mg 01/08/19 03:54 01/08/19 08:08 Morphine IV 2 mg Q4H PRN Administration Pain, Moderate (4-6) Ondansetron HCl 4 mg 01/08/19 03:54 Zofran IV Q4H PRN Nausea And Vomiting Sodium Chloride 10 ml 01/08/19 10:00 Sodium Chloride Flush Syringe 10 Ml IV BID RICARDO Sodium Chloride 10 ml 01/08/19 03:54 Sodium Chloride Flush Syringe 10 Ml IV PRN PRN LINE FLUSH
--- NOTE | 2019-01-08 10:59 | Gastroenterology Consultation ---
<AGUILAR QUINN - Last Filed: 01/08/19 11:24> History of Present Illness - Reason for Consult Consult date: 01/08/19 dysphagia, N/V Requesting physician: TOMMY MOORE - History of Present Illness Patient is a 68 y/o male with PMH of CVA, CAD, COPD, DM, and HTN who presented to ED with c/o epigastric pain and difficulty swallowing with inability to tolerate PO intake due to vomiting it back up ~5 mins after ingestion to which GI has been consulted. Patient is previously known to our service and is followed by Dr. Luque. He has a hx of a peptic structure with last EGD approximately 3 months ago on 10/25/2018 that revealed severe ulcerative esophagitis (bx results negative), hiatal hernia, and peptic structure that was dilated with 18-19-20 balloon. This morning patient was resting in bed w/o acute distress. He reports his dysphagia improved after dilation but began to reoccur about 1 month ago and has progressively gotten worse. Dysphagia is to solids only. Tolerates liquids. Admits to associated epigastric pain and N/V after PO intake but states weight has been stable. Denies fever, CP, SOB, odynophagia, signs of bleeding, or LGI symptoms. Has been compliant with taking daily PPI at home. Takes daily ASA but no other NSAIDs or blood thinning medications. Past History Past Medical History: other (as per HPI) Past Surgical History: Other (Coronary Stent, Eye surgery, RUL removed, bilateral lung surgery) Social history: other (former smoker) Family history: hypertension Medications and Allergies Allergies Allergy/AdvReac Type Severity Reaction Status Date / Time No Known Allergies Allergy Verified 05/15/18 10:42 Home Medications Medication Instructions Recorded Confirmed Last Taken Type Albuterol Sulfate [Ventolin Hfa] 2 puff IH Q4-6H PRN 05/15/18 10/25/18 10/24/18 History ALBUTEROL NEB's [Proventil 0.083% 2.5 mg IH Q6H PRN #30 nebu 05/19/18 10/25/18 10/24/18 Rx NEBS] Acetaminophen [Acetaminophen TAB] 650 mg PO Q4H PRN #10 tablet 05/19/18 10/25/18 10/24/18 Rx Aspirin EC [Aspirin Enteric Coated 81 mg PO QDAY #30 tablet 05/19/18 10/25/18 10/24/18 Rx TAB] AtorvaSTATin [Lipitor] 20 mg PO QHS #30 tablet 05/19/18 10/25/18 10/24/18 Rx Fluticasone/Salmeterol [Advair 2 puff IH BID #1 blst.w.dev 05/19/18 10/25/18 10/24/18 Rx Diskus 100-50 mcg] Gabapentin [Neurontin] 300 mg PO Q8HR #90 capsule 05/19/18 10/25/18 10/24/18 Rx Insulin Glargine,Hum.rec.anlog 25 units SQ QHS #1 vial 05/19/18 10/25/18 10/24/18 Rx [Lantus] Linaclotide [Linzess] 145 mcg PO QDAY #10 tab 05/19/18 10/25/18 10/24/18 Rx PARoxetine [Paxil] 20 mg PO DAILY #30 tablet 05/19/18 10/25/18 10/24/18 Rx Ranitidine HCl [Zantac] 300 mg PO QDAY #30 tab 05/19/18 10/25/18 10/24/18 Rx Sertraline [Zoloft] 25 mg PO QDAY #30 tab 05/19/18 10/25/18 10/24/18 Rx dilTIAZem [Cardizem] 90 mg PO Q8HR #90 tablet 05/19/18 10/25/18 10/24/18 Rx Insulin Aspart [Novolog] 1 unit SQ ACHS PRN #100 ml 05/21/18 10/25/18 10/24/18 Rx Umeclidinium [place] [Incruse 1 puff INHALATION DAILY 10/25/18 10/25/18 10/24/18 History Ellipta] Active Meds: Active Medications Acetaminophen (Tylenol) 650 mg PO Q4H PRN PRN Reason: Pain MILD(1-3)/Fever >100.5/[place]NEGAN Albuterol (Proventil) 2.5 mg IH Q6H PRN PRN Reason: Shortness Of Breath Arformoterol Tartrate (Brovana Nebu) 15 mcg IH Q12HRT RICARDO Budesonide (Pulmicort) 0.5 mg IH Q12HRT RICARDO Enoxaparin Sodium (Lovenox) 40 mg SUB-Q QDAY [facility] Hydralazine HCl (Apresoline) 5 mg IV Q6H PRN PRN Reason: Hypertension Hydralazine HCl (Apresoline) 5 mg IV Q6H PRN PRN Reason: Hypertension Dextrose (D5w) 1,000 mls @ 100 mls/hr IV DIRECT RICARDO Morphine Sulfate (Morphine) 2 mg IV Q4H PRN PRN Reason: Pain, Moderate (4-6) Last Admin: 01/08/19 08:08 Dose: 2 mg Documented by: Ondansetron HCl (Zofran) 4 mg IV Q4H PRN PRN Reason: Nausea And Vomiting Sodium Chloride (Sodium Chloride Flush Syringe 10 Ml) 10 ml IV BID RICARDO Sodium Chloride (Sodium Chloride Flush Syringe 10 Ml) 10 ml IV PRN PRN PRN Reason: LINE FLUSH medications reviewed/updated as required Review of Systems - Review of Systems All systems: negative Gastrointestinal: abdominal pain (epigastric), vomiting, other (dysphagia) Exam - Constitutional Vital Signs: Temp Pulse Resp BP Pulse Ox 99.2 F 68 18 124/94 98 01/08/19 08:23 01/08/19 08:23 01/08/19 08:23 01/08/19 08:23 01/08/19 08:23 General appearance: no acute distress - EENT Eyes: PERRL, EOM intact ENT: hearing intact - Respiratory Respiratory: bilateral: diminished - Cardiovascular Rhythm: regular - Gastrointestinal General gastrointestinal: Present: tender (mild TTP in epigastric area), non- distended, normal bowel sounds - Neurologic Neurological: alert and oriented x3 - Labs CBC & Chem 7: 01/08/19 05:12 01/08/19 05:12 Lab Results: Laboratory Results - last 24 hr 01/07/19 01/07/19 01/07/19 14:15 14:15 14:15 WBC 6.8 RBC 5.17 H Hgb 13.8 Hct 41.8 MCV 81 L MCH 27 L MCHC 33 RDW 16.7 H Plt Count 307 Lymph % (Auto) 34.4 [place] % (Auto) 8.2 H Eos % (Auto) 2.6 Baso % (Auto) 1.5 Lymph # 2.3 [place] # 0.6 Eos # 0.2 Baso # 0.1 Seg Neutrophils % 53.3 Seg Neutrophils # 3.6 PT 13.1 INR 0.94 APTT 30.3 Sodium 145 Potassium 3.0 L Chloride 106.5 Carbon Dioxide 26 Anion Gap 16 BUN 12 Creatinine 1.1 Estimated GFR > 60 BUN/Creatinine Ratio 11 Glucose 107 H POC Glucose Calcium 8.5 Total Bilirubin 0.50 AST 14 ALT 10 Alkaline Phosphatase 99 Troponin T < 0.010 Total Protein 7.2 Albumin 4.0 Albumin/Globulin Ratio 1.3 Lipase 11 L 01/07/19 01/07/19 01/08/19 19:16 22:49 05:12 WBC 6.7 RBC 4.90 Hgb 12.9 Hct 40.1 MCV 82 L MCH 26 L MCHC 32 RDW 16.6 H Plt Count 270 Lymph % (Auto) 27.8 [place] % (Auto) 10.2 H Eos % (Auto) 3.0 Baso % (Auto) 0.6 Lymph # 1.9 [place] # 0.7 Eos # 0.2 Baso # 0.0 Seg Neutrophils % 58.4 Seg Neutrophils # 3.9 PT INR APTT Sodium Potassium Chloride Carbon Dioxide Anion Gap BUN Creatinine Estimated GFR BUN/Creatinine Ratio Glucose POC Glucose 118 H Calcium Total Bilirubin AST ALT Alkaline Phosphatase Troponin T < 0.010 Total Protein Albumin Albumin/Globulin Ratio Lipase 01/08/19 05:12 WBC RBC Hgb Hct MCV MCH MCHC RDW Plt Count Lymph % (Auto) [place] % (Auto) Eos % (Auto) Baso % (Auto) Lymph # [place] # Eos # Baso # Seg Neutrophils % Seg Neutrophils # PT INR APTT Sodium 147 H Potassium 3.4 L Chloride 108.8 H Carbon Dioxide 25 Anion Gap 17 BUN 9 Creatinine 0.9 Estimated GFR > 60 BUN/Creatinine Ratio 10 Glucose 92 POC Glucose Calcium 8.2 L Total Bilirubin AST ALT Alkaline Phosphatase Troponin T Total Protein Albumin Albumin/Globulin Ratio Lipase Assessment and Plan 1.dysphagia 2.epigastric pain 3.inability to tolerate PO/vomiting 4.H/o esophageal stricture -INR 0.94 -WBC and H/H WNL -LFTs and lipase WNL -abd CT w/o acute process (large hiatal hernia, hepatomegaly, and atherosclerosi s) -EGD 10/25/2018 showed severe ulcerative esophagitis, moderate hiatal hernia, and peptic stricture -bx results negative -patient with a hx of dysphagia 2/2 esophageal stricture which improved after dilation in October as above but started to reoccur ~1 month ago with solids and has progressively worsened with now associated epigastric pain and vomiting after PO ingestion -etiology-likely 2/2 known peptic stricture -will schedule for EGD today with possible dilation -Keep NPO -resume daily PPI -continue supportive care -will follow <KATERINA WIGGINS - Last Filed: 01/08/19 21:05> Medications and Allergies Active Meds: Active Medications Acetaminophen (Tylenol) 650 mg PO Q4H PRN PRN Reason: Pain MILD(1-3)/Fever >100.5/[place]NE[place] Albuterol (Proventil) 2.5 mg IH Q6H PRN PRN Reason: Shortness Of Breath Arformoterol Tartrate (Brovana Nebu) 15 mcg IH Q12HRT RICARDO Last Admin: 01/08/19 11:31 Dose: 15 mcg Documented by: Budesonide (Pulmicort) 0.5 mg IH Q12HRT RICARDO Last Admin: 01/08/19 11:31 Dose: 0.5 mg Documented by: Enoxaparin Sodium (Lovenox) 40 mg SUB-Q QDAY RICARDO Last Admin: 01/08/19 13:47 Dose: Not Given Documented by: Guaifenesin (Guaifenesin Dm Syrup) 10 ml PO Q6HR PRN PRN Reason: Cough Last Admin: 01/08/19 14:31 Dose: 10 ml Documented by: Hydralazine HCl (Apresoline) 5 mg IV Q6H PRN PRN Reason: Hypertension Hydralazine HCl (Apresoline) 5 mg IV Q6H PRN PRN Reason: Hypertension Dextrose (D5w) 1,000 mls @ 100 mls/hr IV DIRECT RICARDO Last Admin: 01/08/19 11:13 Dose: 100 mls/hr Documented by: Sodium Chloride (Nacl 0.9% 1000 Ml) 1,000 mls @ 50 mls/hr IV DIRECT RICARDO Last Admin: 01/08/19 12:12 Dose: 50 mls/hr Documented by: Morphine Sulfate (Morphine) 2 mg IV Q4H PRN PRN Reason: Pain, Moderate (4-6) Last Admin: 01/08/19 14:15 Dose: 2 mg Documented by: Ondansetron HCl (Zofran) 4 mg IV Q4H PRN PRN Reason: Nausea And Vomiting Pantoprazole Sodium (Protonix) 40 mg IV BID [facility] Last Admin: 01/08/19 14:03 Dose: 40 mg Documented by: Sodium Chloride (Sodium Chloride Flush Syringe 10 Ml) 10 ml IV BID [facility] Last Admin: 01/08/19 14:06 Dose: 10 ml Documented by: Sodium Chloride (Sodium Chloride Flush Syringe 10 Ml) 10 ml IV PRN PRN PRN Reason: LINE FLUSH Sucralfate (Carafate) 1 gm PO ACHS [facility] Exam - Constitutional Vital Signs: Temp Pulse Resp BP Pulse Ox 98.0 F 67 18 162/89 97 01/08/19 19:49 01/08/19 13:38 01/08/19 19:49 01/08/19 19:49 01/08/19 15:00 - Labs CBC & Chem 7: 01/08/19 05:12 01/08/19 05:12 Lab Results: Laboratory Results - last 24 hr 01/07/19 01/08/19 01/08/19 22:49 05:12 05:12 WBC 6.7 RBC 4.90 Hgb 12.9 Hct 40.1 MCV 82 L MCH 26 L MCHC 32 RDW 16.6 H Plt Count 270 Lymph % (Auto) 27.8 [place] % (Auto) 10.2 H Eos % (Auto) 3.0 Baso % (Auto) 0.6 Lymph # 1.9 [place] # 0.7 Eos # 0.2 Baso # 0.0 Seg Neutrophils % 58.4 Seg Neutrophils # 3.9 Sodium 147 H Potassium 3.4 L Chloride 108.8 H Carbon Dioxide 25 Anion Gap 17 BUN 9 Creatinine 0.9 Estimated GFR > 60 BUN/Creatinine Ratio 10 Glucose 92 POC Glucose 118 H Calcium 8.2 L Assessment and Plan Patient seen and examined. I have reviewed the advanced practitioner's evaluation, assessment, and plan, and agree with them. I note the following additions: Patient with worsening dysphagia again, he reports had moderate improvement after initial dilation but symptoms returned. Abdomen soft and +BS. Differential includes ring/web/inflammation. Will proceed with EGD with likely dilation of the esophagus for further evaluation and treatment.
[2019-01-08] MEDS: D5W 1,000 ML IV SCH ×2 (11:13→23:02)
[2019-01-08] MEDS: PULMICORT IH SCH ×2 (11:31→21:23)
[2019-01-08] MEDS: BROVANA NEBU IH SCH ×2 (11:31→21:23)
[2019-01-08] MEDS ORDERED: NACL 0.9% 1000 ML 1,000 ML IV SCH (12:00)
[2019-01-08] MEDS ORDERED: VERSED ONE (12:26)
[2019-01-08] MEDS ORDERED: XYLOCAINE 2% INFILTRATI ONE (12:26)
[2019-01-08] MEDS ORDERED: DIPRIVAN 10 MG/ML IV ONE (12:26)
--- NOTE | 2019-01-08 12:46 | Operative Report ---
Operative Report Operative Report: DATE OF SERVICE: 01/08/19 SURGEON: Donaldo Ramos MD EGD with biopsy REPORT PREOPERATIVE DIAGNOSIS and POSTOPERATIVE DIAGNOSIS: dysphagia ESTIMATED BLOOD LOSS: minimal DESCRIPTION OF PROCEDURE: A high-resolution EGD scope was passed through the oropharynx, esophagus, stomach, and second portion of duodenum. The scope was carefully withdrawn. Retroflexion was performed in the stomach. At the end of the procedure, the scope was cleaned using normal technique. Vital signs monitored continuously throughout. SEDATION: Provided by Anesthesiology Services. COMPLICATIONS: None. FINDINGS: * No gross lesions in duodenum * Moderate erosive gastritis of the antrum. Biopsies were taken to rule out H. P ylori infection. A total of 6 biopsies were taken, 2 from the antrum, 1 from the incisura, 2 from the body. * Large 5cm hiatal hernia * GE junction at 39cm from the incisors * Severe LA Grade D esophagitis of the distal 7cm of the esophagus with spontaneous bleeding, severe friability and erythema and edema. Multiple biopsies taken. No rings/webs/strictures seen and did not have appearance of malignancy, most likely just severe acid reflux. Given extreme friability did not attempt dilation. * Remainder of the exam is normal RECOMMENDATIONS: * f/u path * full liquid diet * BID IV PPI order placed (once tolerating oral intake better can switch to PO BID dosing) * Carafate slurry 4 times daily (order placed) * Patient will follow up with Dr. Eladio Luque in 2 weeks
--- NOTE | 2019-01-08 13:37 | Anesthesia Day of Surgery ---
Anesthesia Day of Surgery - Day of Surgery Patient Examined: Yes Patient H&P Reviewed: Yes Patient is NPO: Yes Beta Blockers: No Cardiac Clearance: No
--- NOTE | 2019-01-08 13:38 | Anesthesia Consultation ---
Anesthesia Consult and Med Hx Date of service: 01/08/19 - Airway Anesthetic Teeth Evaluation: Edentulous ROM Head & Neck: Adequate Mental/Hyoid Distance: Adequate Mallampati Class: Class II Intubation Access Assessment: Probably Good - Pulmonary Exam CTA: Yes - Cardiac Exam Cardiac Exam: No Murmur - Pre-Operative Health Status ASA Pre-Surgery Classification: ASA3 Proposed Anesthetic Plan: MAC - Pulmonary Hx Smoking: Yes Hx Asthma: Yes Hx Respiratory Symptoms: Yes (emphysema, VATS 3mos ago) COPD: Yes (home o2) Hx Sleep Apnea: No (low risk EPHRAIM) - Cardiovascular System Hx Hypertension: Yes Hx Coronary Artery Disease: Yes (stent placed 4yrs ago; on ASA 81 qDay) Hx Heart Attack/AMI: Yes (4 yrs ago) Hx Angina: Yes (burning epigastric pain after eating) Hx Cardia Arrhythmia: No Hx Pacemaker: No Hx Internal Defibrillator: No - Central Nervous System CVA: Yes (3 yrs ago) Hx Psychiatric Problems: No - Gastrointestinal Hx Gastroesophageal Reflux Disease: Yes - Endocrine Hx Insulin Dependent Diabetes: Yes Hx Thyroid Disease: No - Hematic Hx Anemia: Yes - Other Systems Hx Substance Use: Yes Hx Obesity: No
[2019-01-08] MEDS: LOVENOX SUB-Q SCH (13:47)
[2019-01-08] MEDS: PROTONIX IV SCH ×2 (14:03→21:12)
[2019-01-08] MEDS: SODIUM CHLORIDE FLUSH SYRINGE 10 ML IV SCH ×2 (14:06→21:13)
[2019-01-08] MEDS: CARAFATE PO SCH ×2 (21:12)
[2019-01-08] MEDS ORDERED: FLUTICASONE IH SCH (22:00)
[2019-01-08] MEDS ORDERED: SALMETEROL IH SCH (22:00)
[2019-01-09] MEDS: MORPHINE IV PRN (00:40)
[2019-01-09 05:49] LABS: Basophils % (Auto) 0.6 % (0.0-1.8); Eosinophils # (Auto) 0.2 K/mm3 (0.0-0.4); Eosinophils % (Auto) 3.6 % (0.0-4.3); Hematocrit 39.1 % (35.5-45.6); Hemoglobin 12.7 gm/dl (11.8-15.2); Lymphocytes # (Auto) 2.2 K/mm3 (1.2-5.4); Lymphocytes % (Auto) 40.3 % (13.4-35.0); Mean Corpuscular HGB Conc 32 % (32-34); Mean Corpuscular Volume 82 fl (84-94); Monocytes # (Auto) 0.4 K/mm3 (0.0-0.8); Platelet Count 244 K/mm3 (140-440); Red Blood Count 4.76 M/mm3 (3.65-5.03); Red Cell Distribution Width 16.5 % (13.2-15.2)
[2019-01-09 06:06] LABS: BUN/Creatinine Ratio 7; Blood Urea Nitrogen 7 mg/dL (9-20); Calcium 8.4 mg/dL (8.4-10.2); Hemolysis Index 10
[2019-01-09] MEDS: CARAFATE PO SCH ×2 (07:42→11:48)
[2019-01-09 08:12] VITALS: BP 145/77
[2019-01-09] MEDS: PULMICORT IH SCH (08:15)
[2019-01-09] MEDS: BROVANA NEBU IH SCH (08:15)
[2019-01-09] MEDS: D5W 1,000 ML IV SCH (08:45)
[2019-01-09] MEDS: LOVENOX SUB-Q SCH (08:59)
[2019-01-09] MEDS: PROTONIX IV SCH (08:59)
[2019-01-09] MEDS: SODIUM CHLORIDE FLUSH SYRINGE 10 ML IV SCH (08:59)
--- NOTE | 2019-01-09 10:07 | Gastroenterology Progress Note ---
<AGUILAR QUINN - Last Filed: 01/09/19 10:08> Assessment and Plan 1.dysphagia 2.epigastric pain 3.inability to tolerate PO/vomiting 4.H/o esophageal stricture -WBC and H/H WNL -LFTs and lipase WNL -abd CT w/o acute process (large hiatal hernia, hepatomegaly, and atherosclerosis) -EGD 10/25/2018 showed severe ulcerative esophagitis, moderate hiatal hernia, and peptic stricture (bx results negative) -patient with a hx of dysphagia 2/2 esophageal stricture which improved after dilation in October as above but started to reoccur ~1 month ago with solids and has progressively worsened with now associated epigastric pain and vomiting after PO ingestion -s/p repeat EGD yesterday that showed moderate erosive gastritis, large 5cm hiatal hernia, and severe LA Grade D esophagitis of the distal esophagus with spontaneous bleeding/severe friability/erythema/edema (dilation not attempted) -bx results pending-f/u in clinic -clinically, patient reports some mild continued epigastric discomfort but is tolerating clear liquids with no N/V. -advance diet to full liquids and then to soft if tolerated, if can't tolerate stay on liquids until symptoms improve (consider supplements with ensure if needed) -continue PPI BID -continue Carafate -GERD diet/lifestyle modification discussed with patient -continue supportive care -patient is okay to be d/c per GI standpoint on current medications with f/u in clinic with Dr. Luque in ~2 weeks -will sign off, please call if needed Subjective Date of service: 01/09/19 Principal diagnosis: dysphagia, N/V Interval history: No acute distress. Tolerating clear liquids. Objective - Constitutional Vitals: Temp Pulse Resp BP Pulse Ox 98.1 F 63 18 145/77 97 01/09/19 07:43 01/09/19 07:43 01/09/19 07:43 01/09/19 07:43 01/09/19 07:43 General appearance: no acute distress - Respiratory Respiratory: bilateral: CTA - Cardiovascular Rhythm: regular - Gastrointestinal General gastrointestinal: Present: soft, non-tender, non-distended, normal bowel sounds - Neurologic Neurological: alert and oriented x3 - Labs CBC & Chem 7: 01/09/19 04:38 01/09/19 04:38 Labs: Laboratory Results - last 24 hr 01/08/19 01/09/19 01/09/19 22:06 04:38 04:38 WBC 5.5 RBC 4.76 Hgb 12.7 Hct 39.1 MCV 82 L MCH 27 L MCHC 32 RDW 16.5 H Plt Count 244 Lymph % (Auto) 40.3 H [place] % (Auto) 8.0 H Eos % (Auto) 3.6 Baso % (Auto) 0.6 Lymph # 2.2 [place] # 0.4 Eos # 0.2 Baso # 0.0 Seg Neutrophils % 47.5 Seg Neutrophils # 2.6 Sodium 142 Potassium 3.0 L Chloride 105.1 Carbon Dioxide 27 Anion Gap 13 BUN 7 L Creatinine 1.0 Estimated GFR > 60 BUN/Creatinine Ratio 7 Glucose 102 H POC Glucose 136 H Calcium 8.4 <KATERINA WIGGISN - Last Filed: 01/09/19 17:00> Assessment and Plan I have reviewed the advanced practitioner's evaluation, assessment, and plan, and agree with them. Objective - Constitutional Vitals: Temp Pulse Resp BP Pulse Ox 98.1 F 72 18 145/77 99 01/09/19 07:43 01/09/19 15:00 01/09/19 07:50 01/09/19 07:43 01/09/19 15:00 - Labs CBC & Chem 7: 01/09/19 04:38 01/09/19 04:38 Labs: Laboratory Results - last 24 hr 01/08/19 01/09/19 01/09/19 22:06 04:38 04:38 WBC 5.5 RBC 4.76 Hgb 12.7 Hct 39.1 MCV 82 L MCH 27 L MCHC 32 RDW 16.5 H Plt Count 244 Lymph % (Auto) 40.3 H [place] % (Auto) 8.0 H Eos % (Auto) 3.6 Baso % (Auto) 0.6 Lymph # 2.2 [place] # 0.4 Eos # 0.2 Baso # 0.0 Seg Neutrophils % 47.5 Seg Neutrophils # 2.6 Sodium 142 Potassium 3.0 L Chloride 105.1 Carbon Dioxide 27 Anion Gap 13 BUN 7 L Creatinine 1.0 Estimated GFR > 60 BUN/Creatinine Ratio 7 Glucose 102 H POC Glucose 136 H Calcium 8.4
--- NOTE | 2019-01-09 13:59 | Discharge Summary ---
Providers - Providers Date of Admission: 01/07/19 23:39 Date of discharge: 01/09/19 Attending physician: JOSIAH MCCRACKEN 01/07/19 23:28 Consult to Physician [CONS] Urgent Comment: called answ. serv./best Consulting Provider: DEANN JONES Physician Instructions: Reason For Exam: unable to tolerate solid food, nausea vomiting Primary care physician: PATEL FULLER MD Hospitalization Reason for admission: Dysphagia Condition: Stable Pertinent studies: CT abdomen and pelvis; large hiatal hernia hepatomegaly no biliary dilatation atherosclerosis chest x-ray; no acute abnormality. Findings of COPD, Procedures: EGD:01/08/2019 No gross lesions in duodenum * Moderate erosive gastritis of the antrum. Biopsies were taken to rule out H. Pylori infection. A total of 6 biopsies were taken, 2 from the antrum, 1 from the incisura, 2 from the body. * Large 5cm hiatal hernia * GE junction at 39cm from the incisors * Severe LA Grade D esophagitis of the distal 7cm of the esophagus with spontaneous bleeding, severe friability and erythema and edema. Multiple biopsies taken. No rings/webs/strictures seen and did not have appearance of malignancy, most likely just severe acid reflux. Given extreme friability did not attempt dilation. * Remainder of the exam is normal Hospital course: 68-year-old male patient with significant past medical history of esophageal stricture status post dilation in the past, hypertension type 2 diabetes mellitus coronary artery disease CVA was admitted through emergency room with the complaints of dysphagia to solid foods., The patient was symptomatically managed evaluation. She underwent EGD, with findings as mentioned above Started on clear liquids and rest to advance the diet as tolerated Today patient is comfortable tolerating clear to full liquids, no new complaints Vital signs reviewed physical examination at time of discharge is unremarkable Cleared by GI with recommendations of PPI twice a day and Carafate follow-up in the office in 2 weeks for further evaluation and management and to follow the biopsy results, Patient is hemodynamically and clinically stable at discharge Discharge diagnosis: --Dysphagia; nothing by mouth status Follow-up GI evaluation and recommendation, follow endoscopy --History of esophageal stricture; status post dilatation in the past --Hypertension; moderate control,on antihypertensives --Type 2 diabetes mellitus; Accu-Chek sliding scale coverage and ADA diet Insulin as needed --Diabetic neuropathy; on gabapentin --Dyslipidemia; continue lipid-lowering medication when patient is able to eat --History of COPD; oxygen nebulizers as needed --History of depression; continue antidepression medications Above GI to discharge Advance diet as tolerated Follow outpatient in 1-2 weeks Disposition: DC-01 TO HOME OR SELFCARE Time spent for discharge: 32 min Core Measure Documentation - Palliative Care Palliative Care/ Comfort Measures: Not Applicable - Core Measures Any of the following diagnoses?: none Exam - Constitutional Vitals: Temp Pulse Resp BP Pulse Ox 98.1 F 74 18 145/77 97 01/09/19 07:43 01/09/19 07:50 01/09/19 07:50 01/09/19 07:43 01/09/19 10:00 General appearance: Present: no acute distress, well-nourished - EENT Eyes: Present: PERRL, EOM intact - Neck Neck: Present: supple, normal ROM - Respiratory Respiratory effort: normal Respiratory: bilateral: diminished, negative: rales, rhonchi, wheezing - Extremities Extremities: no ischemia, pulses intact - Abdominal General gastrointestinal: Present: soft, non-tender, non-distended, normal bowel sounds - Integumentary Integumentary: Present: clear, warm - Musculoskeletal Musculoskeletal: strength equal bilaterally - Psychiatric Psychiatric: appropriate mood/affect, cooperative - Neurologic Neurologic: CNII-XII intact, moves all extremities Plan Activity: no restrictions Diet: other (soft diet and advance as tolerated) Additional Instructions: If you have severe difficulty swallowing or intractable nausea and vomiting contact M.D. or go to emergency room Follow up with: PATEL FULLER MD [Primary Care Provider] - 3-5 Days DEANN JONES MD [Staff Physician] - 7 Days Prescriptions: Sucralfate [Carafate] 1 gm PO ACHS 30 Days oral.liqd Pantoprazole [Protonix] 40 mg PO BID #60 tablet
[2019-01-09] MEDS ORDERED: K-DUR PO ONE (14:00)
== END 2019-01-09 16:00 | disposition home or self-care (01) | DRG 392 ==
LOC: ED 13:36 → 2B-ACE 23:39
PROVIDERS: ADMIT Internal Medicine; ATTEND Internal Medicine
PROC: 0DB58ZX Excision of Esophagus, Via Natural or Artificial Opening Endoscopic, Diagnostic (ICD-10-PCS; principal; 2019-01-08)
PROC: 0DB78ZX Excision of Stomach, Pylorus, Via Natural or Artificial Opening Endoscopic, Diagnostic (ICD-10-PCS; 2019-01-08)
PROC: 0DB68ZX Excision of Stomach, Via Natural or Artificial Opening Endoscopic, Diagnostic (ICD-10-PCS; 2019-01-08)
DX: K29.70 Gastritis, unspecified, without bleeding (principal); J96.10 Chronic respiratory failure, unspecified whether with hypoxia or hypercapnia; E87.0 Hyperosmolality and hypernatremia; R13.10 Dysphagia, unspecified; E87.6 Hypokalemia; I25.2 Old myocardial infarction; J43.9 Emphysema, unspecified; I25.10 Atherosclerotic heart disease of native coronary artery without angina pectoris; E11.40 Type 2 diabetes mellitus with diabetic neuropathy, unspecified; K44.9 Diaphragmatic hernia without obstruction or gangrene; K20.9 Esophagitis, unspecified; Z95.5 Presence of coronary angioplasty implant and graft; Z87.891 Personal history of nicotine dependence; Z79.4 Long term (current) use of insulin; Z86.73 Personal history of transient ischemic attack (TIA), and cerebral infarction without residual deficits
CPT/HCPCS: 36415; 71046; 74177; 80048; 80053; 82962; 83690; 84484; 85025; 85610; 85730; 87116; 88305; 88312; 88341; 88342; 93005; 93010; 94640; 94760; G0378; C9113; J0360; J1650; J2250; J2270; J2405; J2704; J3010; J3480; J7030; J7070; Q9967

== ENCOUNTER 2019-05-22 06:51 | Day surgery (SDC) | payer MEDICARE ==
[2019-05-22] MEDS ORDERED: NACL 0.9% 1000 ML 1,000 ML IV SCH (07:00)
[2019-05-22] MEDS ORDERED: WATER FOR IRRIG STERILE IR ONE (07:29)
[2019-05-22] MEDS ORDERED: WATER FOR IRRIG STERILE ONE (07:30)
--- NOTE | 2019-05-22 07:51 | Anesthesia Consultation ---
Anesthesia Consult and Med Hx Date of service: 05/22/19 - Airway Anesthetic Teeth Evaluation: Edentulous ROM Head & Neck: Adequate Mental/Hyoid Distance: Adequate Mallampati Class: Class II Intubation Access Assessment: Probably Good - Pre-Operative Health Status ASA Pre-Surgery Classification: ASA3 Proposed Anesthetic Plan: MAC - Pulmonary Hx Smoking: Yes (quit smoking 5 years ago) Hx Asthma: Yes Hx Respiratory Symptoms: Yes (emphysema, VATS 2016) SOB: (SOB with activity) COPD: Yes (off O2) Hx Pneumonia: Yes Hx Sleep Apnea: No (low risk EPHRAIM) - Cardiovascular System Hx Hypertension: Yes Hx Coronary Artery Disease: Yes Hx Heart Attack/AMI: Yes (4 yrs ago) Hx Angina: No Hx Percutaneous Transluminal Coronary Angioplasty (PTCA): Yes (2016) Hx Cardia Arrhythmia: No Hx Pacemaker: No Hx Internal Defibrillator: No - Central Nervous System CVA: Yes (3 yrs ago) Hx Psychiatric Problems: No - Gastrointestinal Hx Gastroesophageal Reflux Disease: Yes (difficulty swallowing) - Endocrine Hx Renal Disease: No Hx End Stage Renal Disease: No Hx Liver Disease: No Hx Insulin Dependent Diabetes: Yes Hx Thyroid Disease: No - Hematic Hx Anemia: Yes - Other Systems Hx Alcohol Use: No Hx Substance Use: Yes Hx Cancer: No Hx Obesity: No
--- NOTE | 2019-05-22 07:54 | Anesthesia Day of Surgery ---
Anesthesia Day of Surgery - Day of Surgery Patient Examined: Yes Patient H&P Reviewed: Yes Patient is NPO: Yes
[2019-05-22] MEDS ORDERED: DIPRIVAN 10 MG/ML IV ONE (08:37)
[2019-05-22] MEDS ORDERED: XYLOCAINE 2% INFILTRATI ONE (08:37)
--- NOTE | 2019-05-22 09:03 | Post Operative Note ---
Date of procedure: 05/22/19 Pre-op diagnosis: Dysphagia Post-op diagnosis: other (Peptic stricture lower esophagus s/p dilatation, large hiatal hernia) Findings: EGD with balloon dilatation There was mild peptic stricture in the lower esophagus which was traversed without difficulty. Balloon dilatation was performed up to 20 mm. Esophagits. Large hiatal hernia. Procedure: EGD with balloon dilatation Anesthesia: MAC Surgeon: DEANN JONES Estimated blood loss: none Pathology: none Specimen disposition: to lab Condition: stable Disposition: same day
--- NOTE | 2019-05-22 09:07 | Operative Report ---
Operative Report Operative Report: Esophagogastroduodenoscopy Procedure Note with Balloon Dilatation Date of procedure: 05/22/2019 Endoscopist: Eladio Luque Pre-op diagnosis/indication: Dysphagia Post-op diagnosis: Peptic stricture s/p balloon dilatation, large hiatal hernia MEDICATIONS: MAC COMPLICATIONS: No immediate complications ESTIMATED BLOOD LOSS: Minimal DESCRIPTION OF PROCEDURE: After consent was obtained, the patient was placed in the left lateral decubitis position. The olympus endoscope was inserted into the patient's mouth under direct vision and advanced to the 2nd portion of the duodenum without difficulty. The patient tolerated the procedure well. The views of the mucosa were good. The patient's vital signs were monitored continuously throughout the procedure. FINDINGS: There was a mild peptic stricture in the lower esophagus. This was traversed without difficulty. Balloon dilatation was performed with 18-19-20 mm balloon. There was moderately severe esophagitis in the lower third of the esophagus There was a large hiatal hernia. The stomach otherwise appeared normal. The duodenum appeared normal. IMPRESSION: 1. Mild peptic stricture s/p balloon dilatation as above. 2. Esophagitis 3. Large hiatal hernia RECOMMENDATIONS: -continue PPI BID dosing
[2019-05-22 10:01] VITALS: BP 152/85
[2019-05-22] MEDS ORDERED: NACL 0.9% 1000 ML 1,000 ML ONE (13:20)
== END 2019-05-22 10:00 | disposition home or self-care (01) ==
LOC: GIO 06:51
PROVIDERS: ATTEND Internal Medicine Gastroenterology
DX: K22.2 Esophageal obstruction (principal); K20.9 Esophagitis, unspecified; K44.9 Diaphragmatic hernia without obstruction or gangrene; I25.2 Old myocardial infarction; I10 Essential (primary) hypertension; E78.5 Hyperlipidemia, unspecified; I25.10 Atherosclerotic heart disease of native coronary artery without angina pectoris; D64.9 Anemia, unspecified; J43.9 Emphysema, unspecified; E10.65 Type 1 diabetes mellitus with hyperglycemia; E78.00 Pure hypercholesterolemia, unspecified; K21.9 Gastro-esophageal reflux disease without esophagitis; F32.9 Major depressive disorder, single episode, unspecified; F41.9 Anxiety disorder, unspecified; Z79.899 Other long term (current) drug therapy; Z79.4 Long term (current) use of insulin; Z87.891 Personal history of nicotine dependence; Z98.890 Other specified postprocedural states; Z86.73 Personal history of transient ischemic attack (TIA), and cerebral infarction without residual deficits
CPT/HCPCS: 43249; 82962; C1726; J2704; J7030

== ENCOUNTER 2019-10-29 18:13 | Emergency (ER) | payer MEDICARE ==
--- NOTE | 2019-10-29 20:32 | Event Note ---
ED Screening Note Date of service: 10/29/19 Time: 20:29 ED Screening Note: 68 y o m presents with epigastric pain with elevated pressure PMH: HTN, DM,COPD, hx of stroke, Acid reflux This initial assessment/diagnostic orders/clinical plan/treatment(s) is/are subject to change based on patients health status, clinical progression and re- assessment by fellow clinical providers in the ED. Further treatment and workup at subsequent clinical providers discretion. Patient/guardian urged not to elope from the ED as their condition may be serious if not clinically assessed and managed. Initial orders include: labs, ekg
[2019-10-29] MEDS ORDERED: ASPIRIN 325 MG TAB PO ONE (20:33)
--- NOTE | 2019-10-29 20:58 | XRay Report ---
CHEST 2 VIEWS INDICATION / CLINICAL INFORMATION: Chest Pain. COMPARISON: 01/07/2019. FINDINGS: SUPPORT DEVICES: None. HEART / MEDIASTINUM: The heart size and pulmonary vasculature are normal. The aorta is normal in [place]. LUNGS / PLEURA: There are surgical changes with associated scarring in both upper lung zones, greater on the left. The lungs are otherwise clear. No pneumothorax. ADDITIONAL FINDINGS: No significant additional findings. IMPRESSION:Surgical changes and scarring in both upper lobes without acute abnormality or other lerma e. Signer Name: Fei Hollingsworth MD Signed: 10/29/2019 8:53 PM Workstation Name: [id number]
[2019-10-29 21:05] LABS: Basophils # (Auto) 0.2 K/mm3 (0.0-0.1); Basophils % (Auto) 1.9 % (0.0-1.8); Eosinophils # (Auto) 0.1 K/mm3 (0.0-0.4); Eosinophils % (Auto) 1.4 % (0.0-4.3); Hematocrit 42.8 % (35.5-45.6); Hemoglobin 13.8 gm/dl (11.8-15.2); Lymphocytes # (Auto) 2.9 K/mm3 (1.2-5.4); Lymphocytes % (Auto) 33.2 % (13.4-35.0); Mean Corpuscular HGB Conc 32 % (32-34); Mean Corpuscular Volume 82 fl (84-94); Monocytes # (Auto) 0.8 K/mm3 (0.0-0.8); Monocytes % (Auto) 8.7 % (0.0-7.3); Platelet Count 276 K/mm3 (140-440); Red Blood Count 5.23 M/mm3 (3.65-5.03); Red Cell Distribution Width 17.2 % (13.2-15.2)
[2019-10-29 21:25] LABS: BUN/Creatinine Ratio 12; Blood Urea Nitrogen 13 mg/dL (9-20); Calcium 9.1 mg/dL (8.4-10.2); Hemolysis Index 10
[2019-10-29] MEDS ORDERED: ONDANSETRON 4 MG/2 ML INJ IV ONE (22:47)
[2019-10-29] MEDS ORDERED: FAMOTIDINE 20 MG/2 ML INJ IV ONE (22:47)
[2019-10-29] MEDS ORDERED: SODIUM CHLORIDE 0.9% 250ML 250 ML IV ONE (22:47)
[2019-10-29] MEDS ORDERED: MORPHINE 4 MG/1 ML INJ IV ONE (22:47)
[2019-10-29] MEDS ORDERED: SUCRALFATE 1 GM/10 ML ORAL LIQD PO ONE (22:47)
[2019-10-29] MEDS ORDERED: POTASSIUM CHLORIDE ER 20 MEQ TAB PO ONE (22:49)
--- NOTE | 2019-10-29 22:49 | Emergency Department Report ---
ED General Adult HPI - General Chief complaint: High BP Stated complaint: HIGH BP Time Seen by Provider: 10/29/19 22:12 Source: patient Mode of arrival: Ambulatory Limitations: No Limitations - History of Present Illness Initial comments: Cardiology: Dr Natalie Romero Gastroenterology: Dr. Luque Past medical history: COPD, chronic respiratory failure on 3 L of home oxygen, stroke, depression, CAD with stent placement, hypertension, endoscopically proven moderate erosive antral gastritis, large 5 cm hiatal hernia, severe esophagitis The patient is a 68-year-old gentleman. The patient presents to the ER today with complaint of nontraumatic epigastric and some central chest pain. The pain is burning and aching, and moves some epigastric region to the substernal region. This is been going on for a week. There is no vomiting, diaphoresis, or exertional shortness of breath which is new or different. The patient denies headache, neck pain, cough which is new, denies lower abdominal pain, and urinary symptoms. He had his blood pressure checked today at a firehouse, and he found it to be elevated. He endorses compliance with his outpatient medications. No recent travel, surgeries. -: Gradual, days(s), week(s) (1) Location: chest, abdomen Radiation: other Quality: aching Consistency: intermittent Improves with: none Worsens with: none - Related Data Home Medications Medication Instructions Recorded Confirmed Last Taken Albuterol Sulfate [Proair 2 puff IH Q6HR 10/29/19 10/29/19 Unknown Digihaler] AtorvaSTATin [Lipitor] 20 mg PO QDAY 10/29/19 10/29/19 Unknown Fluticasone/Salmeterol(Nf) [Advair 2 puff IH BID 10/29/19 10/29/19 Unknown HFA 115-21 mcg] Insulin Aspart (Nf) [NovoLOG 6 units SQ AC 10/29/19 10/29/19 Unknown Flexpen] Insulin Glargine,Hum.rec.anlog 35 unit SQ QHS 10/29/19 10/29/19 Unknown [Lantus Solostar] Olmesartan (Nf) [Benicar (Nf)] 40 mg PO QDAY 10/29/19 10/29/19 Unknown Sertraline [Zoloft] 25 mg PO QDAY 10/29/19 10/29/19 Unknown Umeclidinium Brm/Vilanterol Tr 1 each IH Q24H 10/29/19 10/29/19 Unknown [Anoro Ellipta 62.5-25 Mcg INH] dilTIAZem [CarDIZEM] 90 mg PO Q8H 10/29/19 10/29/19 Unknown Allergies Allergy/AdvReac Type Severity Reaction Status Date / Time No Known Allergies Allergy Verified 05/15/18 10:42 ED Review of Systems ROS: Stated complaint: HIGH BP Other details as noted in HPI Constitutional: denies: fever Eyes: denies: eye discharge ENT: denies: epistaxis Respiratory: denies: wheezing Cardiovascular: chest pain. denies: syncope Gastrointestinal: abdominal pain. denies: vomiting, hematemesis, melena, hematochezia Genitourinary: denies: dysuria Musculoskeletal: as per HPI Skin: denies: lesions Neurological: weakness Psychiatric: anxiety Hematological/Lymphatic: denies: easy bleeding ED Past Medical Hx - Past Medical History Hx Hypertension: Yes Hx CVA: Yes (Right eye affected) Hx Heart Attack/AMI: Yes (4 yrs ago) Hx Congestive Heart Failure: No Hx Diabetes: Yes Hx Deep Vein Thrombosis: No Hx GERD: Yes Hx Liver Disease: No Hx Renal Disease: No Hx Asthma: Yes Hx COPD: Yes (off O2) Additional medical history: Emphysema. CAD - Surgical History Hx Coronary Stent: Yes Hx Pacemaker: No Hx Internal Defibrillator: No Additional Surgical History: Eye surgery, RUL removed, bilateral lung surgery - Social History Smoking Status: Former Smoker Substance Use Type: None - Medications Home Medications: Home Medications Medication Instructions Recorded Confirmed Last Taken Type Albuterol Sulfate [Proair 2 puff IH Q6HR 10/29/19 10/29/19 Unknown History Digihaler] AtorvaSTATin [Lipitor] 20 mg PO QDAY 10/29/19 10/29/19 Unknown History Fluticasone/Salmeterol(Nf) [Advair 2 puff IH BID 10/29/19 10/29/19 Unknown History HFA 115-21 mcg] Insulin Aspart (Nf) [NovoLOG 6 units SQ AC 10/29/19 10/29/19 Unknown History Flexpen] Insulin Glargine,Hum.rec.anlog 35 unit SQ QHS 10/29/19 10/29/19 Unknown History [Lantus Solostar] Olmesartan (Nf) [Benicar (Nf)] 40 mg PO QDAY 10/29/19 10/29/19 Unknown History Sertraline [Zoloft] 25 mg PO QDAY 10/29/19 10/29/19 Unknown History Umeclidinium Brm/Vilanterol Tr 1 each IH Q24H 10/29/19 10/29/19 Unknown History [Anoro Ellipta 62.5-25 Mcg INH] dilTIAZem [CarDIZEM] 90 mg PO Q8H 10/29/19 10/29/19 Unknown History ED Physical Exam - General Limitations: No Limitations General appearance: alert, in no apparent distress - Head Head exam: Present: atraumatic, normocephalic - Eye Eye exam: Present: normal appearance, EOMI. Absent: nystagmus - ENT ENT exam: Present: normal exam, normal orophraynx, mucous membranes moist, normal external ear exam - Neck Neck exam: Present: normal inspection, full ROM. Absent: tenderness, meningismus - Respiratory Respiratory exam: Present: normal lung sounds bilaterally. Absent: respiratory distress - Cardiovascular Cardiovascular Exam: Present: regular rate, normal rhythm, normal heart sounds. Absent: bradycardia, tachycardia, irregular rhythm, systolic murmur, diastolic murmur, rubs, gallop - GI/Abdominal GI/Abdominal exam: Present: soft. Absent: distended, tenderness, guarding, rebound, rigid, pulsatile mass - Rectal Rectal exam: Present: deferred - Extremities Exam Extremities exam: Present: normal inspection, full ROM, other (2+ pulses noted in the bilateral upper and lower extremities. There is no long bony tenderness. The pelvis is stable. The muscular compartments are soft. There is no palpable cord. There is no redness, pus or streaking.). Absent: calf tenderness - Back Exam Back exam: Present: normal inspection, full ROM. Absent: tenderness, CVA tende rness (R), CVA tenderness (L), paraspinal tenderness, vertebral tenderness - Neurological Exam Neurological exam: Present: alert, other (there is no facial droop. Tongue is midline. Extraocular movements are intact bilaterally. Walking with a steady gait. Speaking in full sentences. Normal appropriate thought content. 5 out of 5 strength in 4 extremities. Sensation is intact to light touch in 4 extremities.). Absent: motor sensory deficit - Psychiatric Psychiatric exam: Present: anxious - Skin Skin exam: Present: warm, dry, intact, normal color. Absent: rash ED Course Vital Signs 10/29/19 10/29/19 10/29/19 20:28 20:31 22:04 Temperature 98.6 F Pulse Rate 66 68 Respiratory 17 Rate Blood Pressure 167/85 167/85 O2 Sat by Pulse 95 97 95 Oximetry 10/29/19 10/29/19 22:16 23:30 Temperature Pulse Rate 62 62 Respiratory 16 18 Rate Blood Pressure 167/83 167/87 O2 Sat by Pulse 97 96 Oximetry - Reevaluation(s) Reevaluation #1: 10/30/19 02:13 Patient reassessed multiple times. EKG unchanged 2. Troponin negative 2. He is asking to eat, and he appears quite comfortable, no active vomiting. Vital signs have remained stable and over 7.5 hours of observation Patient will be discharged with instructions to follow up with outpatient primary care, GI, and/or cardiology. ED Medical Decision Making - Lab Data Result diagrams: 10/29/19 20:54 10/29/19 20:54 Vital Signs 10/29/19 20:31 Temperature 98.6 F Pulse Rate 68 Respiratory 17 Rate Blood Pressure 167/85 O2 Sat by Pulse 97 Oximetry Lab Results 10/29/19 10/29/19 10/29/19 Range/Units 20:54 20:54 23:23 WBC 8.7 (4.5-11.0) K/mm3 RBC 5.23 H (3.65-5.03) M/mm3 Hgb 13.8 (11.8-15.2) gm/dl Hct 42.8 (35.5-45.6) % MCV 82 L (84-94) fl MCH 26 L (28-32) pg MCHC 32 (32-34) % RDW 17.2 H (13.2-15.2) % Plt Count 276 (140-440) K/mm3 Lymph % (Auto) 33.2 (13.4-35.0) % Collier % (Auto) 8.7 H (0.0-7.3) % Eos % (Auto) 1.4 (0.0-4.3) % Baso % (Auto) 1.9 H (0.0-1.8) % Lymph # 2.9 (1.2-5.4) K/mm3 Collier # 0.8 (0.0-0.8) K/mm3 Eos # 0.1 (0.0-0.4) K/mm3 Baso # 0.2 H (0.0-0.1) K/mm3 Seg Neutrophils % 54.8 (40.0-70.0) % Seg Neutrophils # 4.8 (1.8-7.7) K/mm3 PT 13.3 (12.2-14.9) Sec. INR 1.00 (0.87-1.13) D-Dimer 317.87 H (0-234) ng/mlDDU Sodium 143 (137-145) mmol/L Potassium 3.2 L (3.6-5.0) mmol/L Chloride 104.3 (98-107) mmol/L Carbon Dioxide 26 (22-30) mmol/L Anion Gap 16 mmol/L BUN 13 (9-20) mg/dL Creatinine 1.1 (0.8-1.5) mg/dL Estimated GFR > 60 ml/min BUN/Creatinine Ratio 12 % Glucose 101 H (75-100) mg/dL Calcium 9.1 (8.4-10.2) mg/dL Magnesium (1.7-2.3) mg/dL Total Bilirubin (0.1-1.2) mg/dL Direct Bilirubin (0-0.2) mg/dL Indirect Bilirubin mg/dL AST (5-40) units/L ALT (7-56) units/L Alkaline Phosphatase (35-129) units/L Total Creatine Kinase (55-170) units/L Troponin T < 0.010 (0.00-0.029) ng/mL Total Protein (6.3-8.2) g/dL Albumin (3.9-5) g/dL Albumin/Globulin Ratio % Lipase (13-60) units/L // Range/Units 23:23 WBC (4.5-11.0) K/mm3 RBC (3.65-5.03) M/mm3 Hgb (11.8-15.2) gm/dl Hct (35.5-45.6) % MCV (84-94) fl MCH (28-32) pg MCHC (32-34) % RDW (13.2-15.2) % Plt Count (140-440) K/mm3 Lymph % (Auto) (13.4-35.0) % Collier % (Auto) (0.0-7.3) % Eos % (Auto) (0.0-4.3) % Baso % (Auto) (0.0-1.8) % Lymph # (1.2-5.4) K/mm3 Collier # (0.0-0.8) K/mm3 Eos # (0.0-0.4) K/mm3 Baso # (0.0-0.1) K/mm3 Seg Neutrophils % (40.0-70.0) % Seg Neutrophils # (1.8-7.7) K/mm3 PT (12.2-14.9) Sec. INR (0.87-1.13) D-Dimer (0-234) ng/mlDDU Sodium (137-145) mmol/L Potassium (3.6-5.0) mmol/L Chloride (98-107) mmol/L Carbon Dioxide (22-30) mmol/L Anion Gap mmol/L BUN (9-20) mg/dL Creatinine (0.8-1.5) mg/dL Estimated GFR ml/min BUN/Creatinine Ratio % Glucose (75-100) mg/dL Calcium (8.4-10.2) mg/dL Magnesium 2.10 (1.7-2.3) mg/dL Total Bilirubin 0.30 (0.1-1.2) mg/dL Direct Bilirubin < 0.2 (0-0.2) mg/dL Indirect Bilirubin 0.1 mg/dL AST 17 (5-40) units/L ALT 14 (7-56) units/L Alkaline Phosphatase 110 (35-129) units/L Total Creatine Kinase 244 H (55-170) units/L Troponin T < 0.010 (0.00-0.029) ng/mL Total Protein 6.9 (6.3-8.2) g/dL Albumin 4.1 (3.9-5) g/dL Albumin/Globulin Ratio 1.5 % Lipase 12 L (13-60) units/L - EKG Data -: EKG Interpreted by Nv EKG shows normal: sinus rhythm Rate: normal - EKG Data When compared to previous EKG there are: no significant change 10/30/19 00:41 Patient had 2 EKGs today, both were unchanged from prior EKG from December 2018, neither EKG consistent with STEMI EKG #1 shows a sinus rhythm, 62 bpm, there is a left axis deviation, left anterior fascicular block, low voltage in the lateral leads. The EKG is not consistent with STEMI. EKG #2 was unchanged. Rate 61 bpm. Minimal motion artifact noted. Low voltage in lateral leads. Unchanged from priors, not a STEMI - Radiology Data Radiology results: report reviewed, image reviewed Print Report Referring Physician: STANLEY HOYOS Patient Name: JOSSELYN BULL Date of : 1950 Sex: Male Report Date: 2019-10-29 Report Status: Finalized Findings [facility] [address] [place] [address] XRay Report Signed Patient: JOSSELYN BULL R#: [id number] : 1950 Acct:[id number] Age/Sex: 68 / M ADM Date: 10/29/19 Loc: ED Attending Dr: Ordering Physician: MICHAEL DAS Date of Service: 10/29/19 Procedure(s): XR chest routine 2V Accession Number(s): [id number] cc: MICHAEL DAS Fluoro Time In Minutes: CHEST 2 VIEWS INDICATION / CLINICAL INFORMATION: Chest Pain. COMPARISON: 01/07/2019. FINDINGS: SUPPORT DEVICES: None. HEART / MEDIASTINUM: The heart size and pulmonary vasculature are normal. The aorta is normal in caliber. LUNGS / PLEURA: There are surgical changes with associated scarring in both upper lung zones, greater on the left. The lungs are otherwise clear. No pneumothorax. ADDITIONAL FINDINGS: No significant additional findings. IMPRESSION:Surgical changes and scarring in both upper lobes without acute abnormality or other change. Signer Name: Fei Hollingsworth MD Signed: 10/29/2019 8:53 PM Workstation Name: [id number] Transcribed By: RT Dictated By: Fei Hollingsworth MD Electronically Authenticated By: Fei Hollingsworth MD Signed Date/Time: 10/29/192052 Print Report Referring Physician: SPRING JACK Patient Name: JOSSELYN BULL Date of : 1950 Sex: Male Report Date: 2019-10-30 Report Status: Finalized Findings [address] [address] Cat Scan Report Signed Patient: JOSSELYN BULL R#: [id number] : 1950 Acct:[id number] Age/Sex: 68 / M ADM Date: 10/29/19 Loc: ED Attending Dr: Ordering Physician: SPRING JACK MD Date of Service: 10/29/19 Procedure(s): CT angio chest Accession Number(s): [id number] cc: SPRING JACK MD CTA of the chest with 3D Reconstruction Indication: ,Radiating Chest Pain, HTN, and abdominal pain Technique: TECHNIQUE: Axial CT images were obtained through the chest after injection of 100 cc of Omnipaque 350 IV contrast. 3 plane MIP reconstructions were produced. All CT scans at this location are performed using CT dose reduction for ALARA by means of automated exposure control. COMPARISON: Report from a CT scan dated 09/21/2017. Images are not available for direct comparison. Automatic exposure control was utilized in an attempt to reduce radiation dose. Findings: Pulmonary arteries: The main pulmonary artery and right and left pulmonary artery branches fill satisfactorily with contrast. No pulmonary embolus is seen. Lungs: There are prominent bullae and blebs in the lungs appear lobe predominant. There is some peripheral interstitial disease in the right lower lobe. There is linear scarring in the upper lung zones. Mediastinum: There is a hiatal hernia. Aorta: Normal in diameter. No dissection seen within limits of this exam. Atherosclerotic calcifications are noted in the aorta and coronary arteries. Heart size is normal Impression: No pulmonary embolus is seen There are severe chronic changes of emphysema again noted. Scarring in the lungs. There is a hiatal hernia. Signer Name: Joseluis oMseley MD Signed: 10/30/2019 1:24 AM Workstation Name: [id number] [address] [address] Cat Scan Report Signed Patient: JOSSELYN BULL R#: [id number] : 1950 Acct:[id number] Age/Sex: 68 / M ADM Date: 10/29/19 Loc: ED Attending Dr: Ordering Physician: SPRING JCAK MD Date of Service: 10/29/19 Procedure(s): CT abdomen pelvis w con Accession Number(s): [id number] cc: SPRING JACK MD CT abdomen pelvis w con INDICATION: Radiating Chest Pain, HTN, and abdominal pain. TECHNIQUE: All CT scans at this location are performed using the following dose modulation technique: Automated exposure control. Helical slices were obtained through the abdomen and pelvis following the administration 100 cc of Omnipaque 350 COMPARISON: 01/07/2019 FINDINGS: Abdomen: There is a hiatal hernia. Liver, spleen, pancreas, adrenal glands, and kidneys are essentially unchanged. Atherosclerotic calcifications are noted in the aorta, mesenteric vessels, renal arteries and iliac arteries. There is ectasia of the infrarenal abdominal aorta which measures up to 2.7 cm. The appendix is unremarkable. There is a moderate amount stool throughout the colon. Pelvis: Vascular calcifications are noted. There is no inflammatory change. There are no abnormal fluid collections. On review of bone windows, no acute osseous abnormalities are seen. IMPRESSION: 1. There is no obstruction, inflammation, or free air. There is a hiatal hernia. There is atherosclerotic disease. Signer Name: Joseluis Moseley MD Signed: 10/30/2019 1:27 AM Workstation Name: [id number] - Medical Decision Making Differential diagnosis, including not limited to: GERD, gastritis, hiatal hernia, pneumonia, aortic disease, pulmonary embolism, acute coronary syndrome, hypertension Assessment and plan: 68-year-old gentleman with 1 week of intermittent burning epigastric pain, most likely related to his chronic GI issues. He is currently afebrile with reassuring vital signs, and appears comfortable at the moment, and is playing on a site of the phone. His vascular risk factor profile is reviewed and appreciated, EKG unchanged 2 and unchanged from prior, troponin negative 2. X-ray of the chest is unremarkable. Given hypertension, advanced age, description of migratory pain, elevated d-dimer, (I do find the patient to be low pretest probability for pulmonary embolism), we obtained a CT scan of the chest, and CT scan abdomen and pelvis to exclude emergent surgical pathology. Patient is asking to eat at this time. I contacted covering cardiology, Dr. Collins, and we discussed the patient's history, physical, laboratory studies and EKG. Given chronicity of symptoms, known chronic medical disease, objective testing at this time, we agree that the patient is unlikely to benefit from hospitalization if CT scan and laboratory studies unremarkable for significant findings, and the aforementioned bi consultant agrees that the patient may follow-up in the outpatient cardiology office to be evaluated if necessary. At the moment, we'll waiting for CT scan to result. Critical care attestation.: If time is entered above; I have spent that time in minutes in the direct care of this critically ill patient, excluding procedure time. ED Disposition Clinical Impression: Hypertension Abdominal pain Qualifiers: Abdominal location: epigastric Qualified Code(s): R10.13 - Epigastric pain Disposition: - TO HOME OR SELFCARE Is pt being admited?: No Does the pt Need Aspirin: No Condition: Stable Additional Instructions: Continue outpatient medications, with the exception of metformin. If patient takes this medication, do not take it for the next 2 days Otherwise, continue current outpatient medications. Avoid consumption of Motrin, ibuprofen, Naprosyn, Aleve, heavy and/or spicy foods. Recommend follow up with outpatient primary care or cardiology within the next 3-5 days. Recommend follow up with outpatient gastroenterology within the next 3-4 weeks. Patient may take [id number] Tylenol, alternating with [id number]-dmd-[id number] Pepcid, as needed for burning stomach pain. Please return to the emergency room right away with new, worsening or different symptoms, or symptoms not present on the initial emergency room evaluation. Referrals: PATEL FULLER MD [Primary Care Provider] - 3-5 Days CELIA COLLINS MD [Staff Physician] - 3-5 Days DEANN LUQUE MD [Staff Physician] - 3-5 Days
[2019-10-29] MEDS: POTASSIUM CHLORIDE 10 MEQ 10 MEQ/100 ML BAG IV SCH (23:25)
[2019-10-30] LABS: Alanine Aminotransferase 14 units/L (7-56); Albumin 4.1 g/dL (3.9-5)
[2019-10-30 00:01] LABS: Bilirubin,Direct < 0.2 mg/dL (0-0.2)
[2019-10-30] MEDS: POTASSIUM CHLORIDE 10 MEQ 10 MEQ/100 ML BAG IV SCH (01:06)
--- NOTE | 2019-10-30 01:29 | Cat Scan Report ---
CTA of the chest with 3D Reconstruction Indication: ,Radiating Chest Pain, HTN, and abdominal pain Technique: TECHNIQUE: Axial CT images were obtained through the chest after injection of 100 cc of Omnipaque 350 IV contrast. 3 plane MIP reconstructions were produced. All CT scans at this location are performed using CT dose reduction for ALARA by means of automated exposure control. COMPARISON: Report from a CT scan dated 09/21/2017. Images are not available for direct comparison. Automatic exposure control was utilized in an attempt to reduce radiation dose. Findings: Pulmonary arteries: The main pulmonary artery and right and left pulmonary artery branches fill satis factorily with contrast. No pulmonary embolus is seen. Lungs: There are prominent bullae and blebs in the lungs appear lobe predominant. There is some perip heral interstitial disease in the right lower lobe. There is linear scarring in the upper lung zones. Mediastinum: There is a hiatal hernia. Aorta: Normal in diameter. No dissection seen within limits of this exam. Atherosclerotic calcificat ions are noted in the aorta and coronary arteries. Heart size is normal Impression: No pulmonary embolus is seen There are severe chronic changes of emphysema again noted. Scarring in the lungs. There is a hiatal hernia. Signer Name: Joesluis Moseley MD Signed: 10/30/2019 1:24 AM Workstation Name: [id number]
--- NOTE | 2019-10-30 01:32 | Cat Scan Report ---
CT abdomen pelvis w con INDICATION: Radiating Chest Pain, HTN, and abdominal pain. TECHNIQUE: All CT scans at this location are performed using the following dose modulation technique: Automated exposure control. Helical slices were obtained through the abdomen and pelvis following the administr ation 100 cc of Omnipaque 350 COMPARISON: 01/07/2019 FINDINGS: Abdomen: There is a hiatal hernia. Liver, spleen, pancreas, adrenal glands, and kidneys are essential ly unchanged. Atherosclerotic calcifications are noted in the aorta, mesenteric vessels, renal arteri es and iliac arteries. There is ectasia of the infrarenal abdominal aorta which measures up to 2.7 cm . The appendix is unremarkable. There is a moderate amount stool throughout the colon. Pelvis: Vascular calcifications are noted. There is no inflammatory change. There are no abnormal flu id collections. On review of bone windows, no acute osseous abnormalities are seen. IMPRESSION: 1. There is no obstruction, inflammation, or free air. There is a hiatal hernia. There is atherosclerotic disease. Signer Name: Joseluis Moseley MD Signed: 10/30/2019 1:27 AM Workstation Name: [id number]
[2019-10-30 02:25] VITALS: BP 168/84
[2019-10-30] MEDS ORDERED: ONDANSETRON 4 MG/2 ML INJ ONE (02:34)
[2019-10-30] MEDS ORDERED: ONDANSETRON 4 MG/2 ML INJ IV ONE (02:47)
== END 2019-10-30 02:55 | disposition home or self-care (01) ==
LOC: ED 18:13
DX: R10.13 Epigastric pain (principal); R07.89 Other chest pain; R42 Dizziness and giddiness; I10 Essential (primary) hypertension; I25.2 Old myocardial infarction; K21.9 Gastro-esophageal reflux disease without esophagitis; J44.9 Chronic obstructive pulmonary disease, unspecified; Z86.73 Personal history of transient ischemic attack (TIA), and cerebral infarction without residual deficits; Z95.5 Presence of coronary angioplasty implant and graft; Z87.891 Personal history of nicotine dependence; Z98.890 Other specified postprocedural states; Z79.899 Other long term (current) drug therapy
CPT/HCPCS: 36415; 71046; 71275; 74177; 80048; 80076; 82550; 83690; 83735; 84484; 85025; 85379; 85610; 93005; 93010; 96361; 96374; 96375; 96376; 99285; J2270; J2405; J3480; J7050; Q9967

== ENCOUNTER 2020-07-21 14:57 | Observation (INO) | payer MEDICARE ==
[2020-07-21] MEDS ORDERED: ASPIRIN 81 MG TAB CHEW PO ONE (15:09)
--- NOTE | 2020-07-21 15:12 | Event Note ---
ED Screening Note Date of service: 07/21/20 Time: 15:10 ED Screening Note: c/o chest pain x last night admitted to [place] 2 weeks ago-states he was told he has a small blockage hx of heart stent +SOB This initial assessment/diagnostic orders/clinical plan/treatment(s) is/are subject to change based on patients health status, clinical progression and re- assessment by fellow clinical providers in the ED. Further treatment and workup at subsequent clinical providers discretion. Patient/guardian urged not to elope from the ED as their condition may be serious if not clinically assessed and managed. Initial orders include: aspirin CXR labs EKG
[2020-07-21 15:49] LABS: Basophils # (Auto) 0.1 K/mm3 (0.0-0.1); Basophils % (Auto) 0.6 % (0.0-1.8); Eosinophils # (Auto) 0.1 K/mm3 (0.0-0.4); Eosinophils % (Auto) 0.4 % (0.0-4.3); Hematocrit 41.4 % (35.5-45.6); Hemoglobin 13.2 gm/dl (11.8-15.2); Lymphocytes # (Auto) 1.5 K/mm3 (1.2-5.4); Lymphocytes % (Auto) 10.6 % (13.4-35.0); Mean Corpuscular HGB Conc 32 % (32-34); Mean Corpuscular Volume 82 fl (84-94); Monocytes # (Auto) 0.8 K/mm3 (0.0-0.8); Monocytes % (Auto) 5.4 % (0.0-7.3); Platelet Count 259 K/mm3 (140-440); Red Blood Count 5.03 M/mm3 (3.65-5.03); Red Cell Distribution Width 16.5 % (13.2-15.2)
[2020-07-21 16:19] LABS: Alanine Aminotransferase 20 units/L (7-56); Albumin 3.8 g/dL (3.9-5); BUN/Creatinine Ratio 10; Blood Urea Nitrogen 14 mg/dL (9-20); Calcium 8.7 mg/dL (8.4-10.2); Hemolysis Index 4
[2020-07-21] MEDS ORDERED: NITROGLYCERIN 0.4 MG TAB SUBL SL PRN (16:28)
--- NOTE | 2020-07-21 16:35 | XRay Report ---
CHEST 1 VIEW INDICATION: Chest Pain. COMPARISON: 10/29/2019 FINDINGS: Support devices: None. Heart: Within normal limits. Lungs/Pleura: Moderate emphysematous changes are suspected. There is subtle patchy infiltrate in the lingula concerning for pneumonia. No pleural effusion or pneumothorax. Additional findings: None. IMPRESSION: Emphysema. Lingular pneumonia. Signer Name: Juanito Cruz Jr, MD Signed: 07/21/2020 4:30 PM Workstation Name: [id number]
--- NOTE | 2020-07-21 18:28 | Cat Scan Report ---
CT CHEST WITHOUT CONTRAST INDICATION / CLINICAL INFORMATION: chest pain/pneumonia. TECHNIQUE: Axial CT images were obtained through the chest without contrast. All CT scans at this location are p erformed using CT dose reduction for ALARA by means of automated exposure control. COMPARISON: None available. FINDINGS: HEART: No significant abnormality. THORACIC AORTA: No significant abnormality. MEDIASTINUM and COLTON: Multiple small mediastinal lymph nodes are again noted unchanged from previous exam. LUNGS: Diffuse chronic lung disease with extensive blebs and bullae again noted. Interval development superimposed airspace changes left upper lobe PLEURA: No significant pleural effusion. No pneumothorax. ADDITIONAL FINDINGS: Large hiatal hernia UPPER ABDOMEN: No significant abnormality. SKELETAL SYSTEM: No significant abnormality. IMPRESSION: 1. Superimposed left upper lobe airspace process consistent with pneumonia. Signer Name: Julien Perla MD Signed: 07/21/2020 6:23 PM Workstation Name: [id number]
--- NOTE | 2020-07-21 18:57 | Emergency Department Report ---
ED General Adult HPI - General Chief complaint: Chest Pain Stated complaint: CHEST PAINS Time Seen by Provider: 07/21/20 15:09 Source: patient Mode of arrival: Ambulatory Limitations: No Limitations - History of Present Illness Initial comments: Patient presents to the emergency department with chief complaint of diffuse chest pain that started yesterday evening. Patient states he was admitted to the hospital at [place] for chest pain 2 weeks ago and was discharged after overnight stay. Patient states he has [facility]. Patient denies any nausea vomiting and states he was given aspirin in triage. Patient not abdominal pain, shortness breath, or headache. Patient states I just do not feel well. -: Sudden Location: chest Radiation: non-radiation Severity scale (0 -10): 7 Quality: dull Consistency: constant Improves with: none Worsens with: none Associated Symptoms: denies other symptoms Treatments Prior to Arrival: none - Related Data Home Medications Medication Instructions Recorded Confirmed Last Taken Albuterol Sulfate [Proair 2 puff IH Q6HR 10/29/19 10/29/19 Unknown Digihaler] AtorvaSTATin [Lipitor] 20 mg PO QDAY 10/29/19 10/29/19 Unknown Fluticasone/Salmeterol(Nf) [Advair 2 puff IH BID 10/29/19 10/29/19 Unknown HFA 115-21 mcg] Insulin Aspart (Nf) [NovoLOG 6 units SQ AC 10/29/19 10/29/19 Unknown Flexpen] Insulin Glargine,Hum.rec.anlog 35 unit SQ QHS 10/29/19 10/29/19 Unknown [Lantus Solostar] Olmesartan (Nf) [Benicar (Nf)] 40 mg PO QDAY 10/29/19 10/29/19 Unknown Sertraline [Zoloft] 25 mg PO QDAY 10/29/19 10/29/19 Unknown Umeclidinium Brm/Vilanterol Tr 1 each IH Q24H 10/29/19 10/29/19 Unknown [Anoro Ellipta 62.5-25 Mcg INH] dilTIAZem [CarDIZEM] 90 mg PO Q8H 10/29/19 10/29/19 Unknown Allergies Allergy/AdvReac Type Severity Reaction Status Date / Time No Known Allergies Allergy Verified 07/21/20 16:12 ED Review of Systems ROS: Stated complaint: CHEST PAINS Other details as noted in HPI Comment: All other systems reviewed and negative Constitutional: denies: chills, fever Eyes: denies: eye pain, eye discharge, vision change ENT: denies: ear pain, throat pain Respiratory: denies: cough, shortness of breath, wheezing Cardiovascular: chest pain. denies: palpitations Endocrine: no symptoms reported Gastrointestinal: denies: abdominal pain, nausea, diarrhea Genitourinary: denies: urgency, dysuria Musculoskeletal: denies: back pain, joint swelling, arthralgia Skin: denies: rash, lesions Neurological: denies: headache, weakness, paresthesias Psychiatric: denies: anxiety, depression Hematological/Lymphatic: denies: easy bleeding, easy bruising ED Past Medical Hx - Past Medical History Hx Hypertension: Yes Hx CVA: Yes (Right eye affected) Hx Heart Attack/AMI: Yes (4 yrs ago) Hx Congestive Heart Failure: No Hx Diabetes: Yes Hx Deep Vein Thrombosis: No Hx GERD: Yes Hx Liver Disease: No Hx Renal Disease: No Hx Asthma: Yes Hx COPD: Yes (off O2) Additional medical history: Emphysema. CAD - Surgical History Hx Coronary Stent: Yes Hx Pacemaker: No Hx Internal Defibrillator: No Additional Surgical History: Eye surgery, RUL removed, bilateral lung surgery - Social History Smoking Status: Never Smoker - Medications Home Medications: Home Medications Medication Instructions Recorded Confirmed Last Taken Type Albuterol Sulfate [Proair 2 puff IH Q6HR 10/29/19 10/29/19 Unknown History Digihaler] AtorvaSTATin [Lipitor] 20 mg PO QDAY 10/29/19 10/29/19 Unknown History Fluticasone/Salmeterol(Nf) [Advair 2 puff IH BID 10/29/19 10/29/19 Unknown History HFA 115-21 mcg] Insulin Aspart (Nf) [NovoLOG 6 units SQ AC 10/29/19 10/29/19 Unknown History Flexpen] Insulin Glargine,Hum.rec.anlog 35 unit SQ QHS 10/29/19 10/29/19 Unknown History [Lantus Solostar] Olmesartan (Nf) [Benicar (Nf)] 40 mg PO QDAY 10/29/19 10/29/19 Unknown History Sertraline [Zoloft] 25 mg PO QDAY 10/29/19 10/29/19 Unknown History Umeclidinium Brm/Vilanterol Tr 1 each IH Q24H 10/29/19 10/29/19 Unknown History [Anoro Ellipta 62.5-25 Mcg INH] dilTIAZem [CarDIZEM] 90 mg PO Q8H 10/29/19 10/29/19 Unknown History ED Physical Exam - General Limitations: No Limitations General appearance: alert, in no apparent distress - Head Head exam: Present: atraumatic, normocephalic - Eye Eye exam: Present: normal appearance, PERRL, EOMI - ENT ENT exam: Present: mucous membranes moist - Neck Neck exam: Present: normal inspection - Respiratory Respiratory exam: Present: normal lung sounds bilaterally. Absent: respiratory distress - Cardiovascular Cardiovascular Exam: Present: regular rate, normal rhythm. Absent: systolic murmur, diastolic murmur, rubs, gallop - GI/Abdominal GI/Abdominal exam: Present: soft, normal bowel sounds. Absent: distended, tenderness - Rectal Rectal exam: Present: deferred - Extremities Exam Extremities exam: Present: normal inspection - Back Exam Back exam: Present: normal inspection - Neurological Exam Neurological exam: Present: alert, oriented X3, CN II-XII intact. Absent: motor sensory deficit - Psychiatric Psychiatric exam: Present: normal affect, normal mood - Skin Skin exam: Present: warm, dry, intact, normal color. Absent: rash ED Course Vital Signs 07/21/20 07/21/20 15:06 15:46 Temperature 100.4 F H Pulse Rate 68 65 Respiratory 20 10 L Rate Blood Pressure 138/102 145/73 O2 Sat by Pulse 97 96 Oximetry ED Medical Decision Making - Lab Data Result diagrams: 07/21/20 15:30 07/21/20 15:30 - EKG Data -: EKG Interpreted by Nc EKG shows normal: sinus rhythm Rate: normal - Radiology Data Radiology results: report reviewed - Medical Decision Making Discussed results with patient CT of the chest done to evaluate for pneumonia after review of chest x-ray IV antibiotics given as well as lactic acid and blood cultures were obtained Critical care attestation.: If time is entered above; I have spent that time in minutes in the direct care of this critically ill patient, excluding procedure time. ED Disposition Clinical Impression: Pneumonia, Chest pain Disposition: [id number] OP ADMIT IP TO THIS HOSP Is pt being admited?: Yes Does the pt Need Aspirin: No (Patient received aspirin in triage per patient) Condition: Stable Instructions: Chest Pain (ED), Bacterial Pneumonia (ED) Referrals: PRIMARY CARE,MD [Primary Care Provider] - 3-5 Days
[2020-07-21] MEDS ORDERED: CEFEPIME/NS 2 GM/100 ML 2 GM/100 ML BAG IV ONE ×2 (19:07→19:52)
[2020-07-21] MEDS ORDERED: oxyCODONE 5 MG TAB PO PRN (23:17)
[2020-07-21] MEDS ORDERED: ACETAMINOPHEN 325 MG TAB PO PRN (23:25)
[2020-07-21] MEDS ORDERED: oxyCODONE /ACETAMINOPHEN 5-325MG TAB PO PRN (23:25)
[2020-07-21] MEDS ORDERED: ONDANSETRON 4 MG/2 ML INJ IV PRN (23:25)
[2020-07-21] MEDS ORDERED: FLUTICASONE IH SCH (23:30)
[2020-07-21] MEDS ORDERED: SODIUM CHLORIDE 0.9% 1000 ML 1,000 ML IV SCH (23:30)
[2020-07-21] MEDS ORDERED: NON-FORMULARY EACH (Umeclidinium Brm/Vilanterol Tr [Anoro Ellipta 62.5-25 Mcg Inh] 1 EACH) IH SCH (23:30)
[2020-07-21] MEDS ORDERED: SALMETEROL IH SCH (23:30)
[2020-07-21] MEDS ORDERED: FAMOTIDINE 20 MG/2 ML INJ IV SCH (23:45)
[2020-07-22] MEDS ORDERED: ALBUTEROL SULFATE IH SCH
[2020-07-22 05:02] LABS: Basophils # (Auto) 0.1 K/mm3 (0.0-0.1); Basophils % (Auto) 0.8 % (0.0-1.8); Eosinophils # (Auto) 0.1 K/mm3 (0.0-0.4); Eosinophils % (Auto) 1.2 % (0.0-4.3); Hematocrit 38.2 % (35.5-45.6); Hemoglobin 12.4 gm/dl (11.8-15.2); Lymphocytes # (Auto) 2.8 K/mm3 (1.2-5.4); Lymphocytes % (Auto) 26.7 % (13.4-35.0); Mean Corpuscular HGB Conc 33 % (32-34); Mean Corpuscular Volume 82 fl (84-94); Monocytes % (Auto) 9.3 % (0.0-7.3); Platelet Count 224 K/mm3 (140-440); Red Blood Count 4.65 M/mm3 (3.65-5.03); Red Cell Distribution Width 16.3 % (13.2-15.2)
[2020-07-22 05:14] LABS: Alanine Aminotransferase 17 units/L (7-56); Albumin 3.3 g/dL (3.9-5); BUN/Creatinine Ratio 11; Blood Urea Nitrogen 15 mg/dL (9-20); Calcium 8.4 mg/dL (8.4-10.2); Hemolysis Index 4
[2020-07-22] MEDS: ALBUTEROL 2.5 MG/3 ML NEBU IH SCH ×4 (05:27→21:03)
[2020-07-22] MEDS ORDERED: REGADENOSON 0.4 MG/5 ML INJ IV ONE (06:35)
--- NOTE | 2020-07-22 07:04 | History and Physical Report ---
History of Present Illness Date of examination: 07/21/20 Date of admission: 07/21/20 19:23 Chief complaint: Chest pain since seen History of present illness: 69-year-old male with extensive coronary artery disease and stents in the past comes in for retrosternal chest pain since morning. Chest pain is about 6 on a scale of 1-10. Patient was recently admitted to [facility] 2 weeks ago and had overnight stay. The records are not available. Patient is a poor historian. Chest pain is retrosternal sharp and intermittent in character no diaphoresis no shortness of breath no radiation. No palpitations. No orthopnea. Patient has no fever and exposure to coronavirus. - Past Medical History Hx Hypertension: Yes Hx CVA: Yes (Right eye affected) Hx Heart Attack/AMI: Yes (4 yrs ago) Hx Congestive Heart Failure: No Hx Diabetes: Yes Hx Deep Vein Thrombosis: No Hx GERD: Yes Hx Liver Disease: No Hx Renal Disease: No Hx Asthma: Yes Hx COPD: Yes (off O2) Additional medical history: Emphysema. CAD - Surgical History Hx Coronary Stent: Yes Hx Pacemaker: No Hx Internal Defibrillator: No Additional Surgical History: Eye surgery, RUL removed, bilateral lung surgery - Social History Smoking Status: Never Smoker - Medications Home Medications: Home Medications Medication Instructions Recorded Confirmed Last Taken Type Albuterol Sulfate [Proair 2 puff IH Q6HR 10/29/19 10/29/19 Unknown History Digihaler] AtorvaSTATin [Lipitor] 20 mg PO QDAY 10/29/19 10/29/19 Unknown History Fluticasone/Salmeterol(Nf) [Advair 2 puff IH BID 10/29/19 10/29/19 Unknown History HFA 115-21 mcg] Insulin Aspart (Nf) [NovoLOG 6 units SQ AC 10/29/19 10/29/19 Unknown History Flexpen] Insulin Glargine,Hum.rec.anlog 35 unit SQ QHS 10/29/19 10/29/19 Unknown History [Lantus Solostar] Olmesartan (Nf) [Benicar (Nf)] 40 mg PO QDAY 10/29/19 10/29/19 Unknown History Sertraline [Zoloft] 25 mg PO QDAY 10/29/19 10/29/19 Unknown History Umeclidinium Brm/Vilanterol Tr 1 each IH Q24H 10/29/19 10/29/19 Unknown History [Anoro Ellipta 62.5-25 Mcg INH] dilTIAZem [CarDIZEM] 90 mg PO Q8H 10/29/19 10/29/19 Unknown History Review of Systems ROS: Stated complaint: CHEST PAINS Other details as noted in HPI Comment: All other systems reviewed and negative Constitutional: denies: chills, fever Eyes: denies: eye pain, eye discharge, vision change ENT: denies: ear pain, throat pain Respiratory: denies: cough, shortness of breath, wheezing Cardiovascular: chest pain. denies: palpitations Endocrine: no symptoms reported Gastrointestinal: denies: abdominal pain, nausea, diarrhea Genitourinary: denies: urgency, dysuria Musculoskeletal: denies: back pain, joint swelling, arthralgia Skin: denies: rash, lesions Neurological: denies: headache, weakness, paresthesias Psychiatric: denies: anxiety, depression Hematological/Lymphatic: denies: easy bleeding, easy bruising Medications and Allergies Allergies Allergy/AdvReac Type Severity Reaction Status Date / Time No Known Allergies Allergy Verified 07/21/20 16:12 Home Medications Medication Instructions Recorded Confirmed Last Taken Type Albuterol Sulfate [Proair 2 puff IH Q6HR 10/29/19 07/21/20 Unknown History Digihaler] AtorvaSTATin [Lipitor] 20 mg PO QDAY 10/29/19 07/21/20 Unknown History Fluticasone/Salmeterol(Nf) [Advair 2 puff IH BID 10/29/19 07/21/20 Unknown History HFA 115-21 mcg] Insulin Aspart (Nf) [NovoLOG 6 units SQ AC 10/29/19 07/21/20 Unknown History Flexpen] Insulin Glargine,Hum.rec.anlog 35 unit SQ QHS 10/29/19 07/21/20 Unknown History [Lantus Solostar] Olmesartan (Nf) [Benicar (Nf)] 40 mg PO QDAY 10/29/19 07/21/20 Unknown History Sertraline [Zoloft] 25 mg PO QDAY 10/29/19 07/21/20 Unknown History Umeclidinium Brm/Vilanterol Tr 1 each IH Q24H 10/29/19 07/21/20 Unknown History [Anoro Ellipta 62.5-25 Mcg INH] dilTIAZem [CarDIZEM] 90 mg PO Q8H 10/29/19 07/21/20 Unknown History Metoprolol Xl [Metoprolol 50 mg PO QDAY 07/21/20 07/21/20 Unknown History SUCCINATE ER TAB] Sildenafil Citrate [Viagra] 25 mg PO DAILY 07/21/20 07/21/20 Unknown History oxyCODONE [roxiCODONE] 5 mg PO Q8HR PRN 07/21/20 07/21/20 Unknown History Active Meds: Active Medications Acetaminophen (Tylenol) 650 mg PO Q4H PRN PRN Reason: Pain MILD(1-3)/Fever >100.5/FINNEGAN Albuterol (Proventil) 2.5 mg IH Q6HRT [facility] Last Admin: 07/22/20 05:27 Dose: Not Given Documented by: Arformoterol Tartrate (Brovana Nebu) 15 mcg IH Q12HRT [facility] Atorvastatin Calcium (Lipitor) 20 mg PO QDAY [facility] Budesonide (Pulmicort) 0.5 mg IH Q12HRT [facility] Diltiazem HCl (Cardizem) 90 mg PO Q8H [facility] Last Admin: 07/22/20 01:13 Dose: 90 mg Documented by: Famotidine (Pepcid) 20 mg IV BID [facility] Last Admin: 07/22/20 00:44 Dose: Not Given Documented by: Heparin Sodium (Porcine) (Heparin) 5,000 unit SUB-Q Q12HR [facility] Hydromorphone HCl (Dilaudid) 0.5 mg IV Q3H PRN PRN Reason: Pain , Severe (7-10) Sodium Chloride (Nacl 0.9% 1000 Ml) 1,000 mls @ 75 mls/hr IV DIRECT [facility] Last Admin: 07/22/20 01:14 Dose: 75 mls/hr Documented by: Insulin Glargine (Lantus) 35 units SUB-Q QHS [facility] Insulin Human Lispro (Humalog) 0 unit SUB-Q ACHS [facility]; Protocol Losartan Potassium (Cozaar) 50 mg PO QDAY [facility] Metoprolol Succinate (Metoprolol Xl) 50 mg PO QDAY [facility] Miscellaneous Medication (Umeclidinium Brm/Vilanterol Tr [Anoro Ellipta 62.5-25 Mcg Inh]) 1 each IH Q24H [facility] Nitroglycerin (Nitrostat) 0.4 mg SL .Q5MIN PRN PRN Reason: Chest Pain Ondansetron HCl (Zofran) 4 mg IV Q8H PRN PRN Reason: Nausea And Vomiting Oxycodone HCl (Roxicodone) 5 mg PO Q8H PRN PRN Reason: PAIN (BREAKTHRU>(7-11)) Oxycodone/Acetaminophen (Percocet 5/325) 1 tab PO Q6H PRN PRN Reason: Pain, Moderate (4-6) Sertraline HCl (Zoloft) 25 mg PO QDAY [facility] Sodium Chloride (Sodium Chloride Flush Syringe 10 Ml) 10 ml IV BID [facility] Sodium Chloride (Sodium Chloride Flush Syringe 10 Ml) 10 ml IV PRN PRN PRN Reason: LINE FLUSH Exam - Constitutional Vitals: Temp Pulse Resp BP Pulse Ox 98.8 F 62 18 162/68 92 07/22/20 04:11 07/22/20 04:53 07/22/20 04:11 07/22/20 04:11 07/22/20 04:11 General appearance: Present: no acute distress, well-nourished - EENT Eyes: Present: PERRL ENT: hearing intact, clear oral mucosa - Neck Neck: Present: supple, normal ROM - Respiratory Respiratory effort: normal Respiratory: bilateral: CTA - Cardiovascular Heart rate: 78 Rhythm: regular Heart Sounds: Present: S1 & S2. Absent: rub, click - Extremities Extremities: pulses symmetrical, No edema Peripheral Pulses: within normal limits - Abdominal General gastrointestinal: Present: soft, non-tender, non-distended, normal bowel sounds Male genitourinary: Present: normal - Integumentary Integumentary: Present: clear, warm, dry - Musculoskeletal Musculoskeletal: gait normal, strength equal bilaterally - Psychiatric Psychiatric: appropriate mood/affect, intact judgment & insight - Neurologic Neurologic: CNII-XII intact, moves all extremities HEART Score - HEART Score History: Highly suspicious Age: > 65 Risk factors: > 3 risk factors or hx of atherosclerotic disease Troponin: Troponin T < 0.010 ng/mL (0.00-0.029) 07/22/20 04:23 - Critical Actions Critical Actions: 4-6 pts:12-16.6% risk of adverse cardiac event. Should be admitted Results - Labs CBC & Chem 7: 07/22/20 04:23 07/22/20 04:23 Labs: Laboratory Last Values WBC 10.5 K/mm3 (4.5-11.0) 07/22/20 04:23 RBC 4.65 M/mm3 (3.65-5.03) 07/22/20 04:23 Hgb 12.4 gm/dl (11.8-15.2) 07/22/20 04:23 Hct 38.2 % (35.5-45.6) 07/22/20 04:23 MCV 82 fl (84-94) L 07/22/20 04:23 MCH 27 pg (28-32) L 07/22/20 04:23 MCHC 33 % (32-34) 07/22/20 04:23 RDW 16.3 % (13.2-15.2) H 07/22/20 04:23 Plt Count 224 K/mm3 (140-440) 07/22/20 04:23 Lymph % (Auto) 26.7 % (13.4-35.0) 07/22/20 04:23 [place] % (Auto) 9.3 % (0.0-7.3) H 07/22/20 04:23 Eos % (Auto) 1.2 % (0.0-4.3) 07/22/20 04:23 Baso % (Auto) 0.8 % (0.0-1.8) 07/22/20 04:23 Lymph # (Auto) 2.8 K/mm3 (1.2-5.4) 07/22/20 04:23 [place]vin # (Auto) 1.0 K/mm3 (0.0-0.8) H 07/22/20 04:23 Eos # (Auto) 0.1 K/mm3 (0.0-0.4) 07/22/20 04:23 Baso # (Auto) 0.1 K/mm3 (0.0-0.1) 07/22/20 04:23 Seg Neutrophils % 62.0 % (40.0-70.0) 07/22/20 04:23 Seg Neutrophils # 6.5 K/mm3 (1.8-7.7) 07/22/20 04:23 Sodium 144 mmol/L (137-145) 07/22/20 04:23 Potassium 3.5 mmol/L (3.6-5.0) L 07/22/20 04:23 Chloride 108.7 mmol/L (98-107) H 07/22/20 04:23 Carbon Dioxide 24 mmol/L (22-30) 07/22/20 04:23 Anion Gap 15 mmol/L 07/22/20 04:23 BUN 15 mg/dL (9-20) 07/22/20 04:23 Creatinine 1.4 mg/dL (0.8-1.3) H 07/22/20 04:23 Estimated GFR > 60 ml/min 07/22/20 04:23 BUN/Creatinine Ratio 11 % 07/22/20 04:23 Glucose 104 mg/dL (75-100) H 07/22/20 04:23 Hemoglobin A1c 7.0 % (4-6) H 07/22/20 00:09 Lactic Acid 0.80 mmol/L (0.7-2.0) 07/21/20 18:15 Calcium 8.4 mg/dL (8.4-10.2) 07/22/20 04:23 Total Bilirubin 0.50 mg/dL (0.1-1.2) 07/22/20 04:23 AST 12 units/L (5-40) 07/22/20 04:23 ALT 17 units/L (7-56) 07/22/20 04:23 Alkaline Phosphatase 80 units/L (35-129) 07/22/20 04:23 Troponin T < 0.010 ng/mL (0.00-0.029) 07/22/20 04:23 Total Protein 6.3 g/dL (6.3-8.2) 07/22/20 04:23 Albumin 3.3 g/dL (3.9-5) L 07/22/20 04:23 Albumin/Globulin Ratio 1.1 % 07/22/20 04:23 Microbiology: Microbiology 07/21/20 18:15 Peripheral/Venous Blood Culture - Preliminary Culture in Progress 07/21/20 18:21 Peripheral/Venous Blood Culture - Preliminary Culture in Progress - Imaging and Cardiology EKG: report reviewed (Sinus rhythm no acute ST-T wave changes) Chest x-ray: report reviewed (No acute findings) Park/IV: Voiding Method Urinal IV Catheter Type [Right Peripheral IV Antecubital] Assessment and Plan Advance Directives: Yes (Full code) VTE prophylaxis?: Chemical Plan of care discussed with patient/family: Yes - Patient Problems (1) Acute coronary syndrome Current Visit: Yes Status: Acute Plan to address problem: Patient to get serial troponins and Lexiscan in the morning Cardiology consult requested Serial troponins (2) Hypertension Current Visit: Yes Status: Chronic Qualifiers: Hypertension type: essential hypertension Qualified Code(s): I10 - Essential (primary) hypertension Plan to address problem: Continue antihypertensives (3) COPD (chronic obstructive pulmonary disease) Current Visit: No Status: Chronic Plan to address problem: Duo nebs as needed (4) CVA (cerebral infarction) Onset Date: 03/23/14 Current Visit: No Status: Chronic (5) CAD (coronary artery disease) Current Visit: No Status: Chronic Qualifiers: Coronary Disease-Associated Artery/Lesion type: [place] artery [place] vs. transplanted heart: [place] heart Plan to address problem: Had 2 stents in the past, continue aspirin (6) Hyperlipemia Current Visit: No Status: Chronic Qualifiers: Hyperlipidemia type: mixed hyperlipidemia Plan to address problem: Continue statins (7) T2DM (type 2 diabetes mellitus) Current Visit: Yes Status: Chronic Plan to address problem: Check hemoglobin A1c and coverage for now continue home medications (8) DVT prophylaxis Current Visit: No Status: Acute Plan to address problem: On heparin and GI prophylaxis
[2020-07-22] MEDS: INSULIN LISPRO 100 UNIT/ML VIAL 3 mL SUB-Q SCH ×4 (07:30→22:26)
[2020-07-22] MEDS: BUDESONIDE 0.5 MG/2 ML NEBU IH SCH ×2 (09:03→21:03)
[2020-07-22] MEDS: ARFORMOTEROL 15 MCG/2 ML NEBU IH SCH ×2 (09:03→21:03)
[2020-07-22] MEDS ORDERED: SILDENAFIL CITRATE 25 MG PO SCH (10:00)
[2020-07-22] MEDS ORDERED: FAMOTIDINE 20 MG TAB PO SCH (10:00)
[2020-07-22] MEDS: HEPARIN 5,000 UNIT/1 ML VIAL SUB-Q SCH ×2 (10:31→21:09)
[2020-07-22] MEDS: LOSARTAN 50 MG TAB PO SCH (10:31)
[2020-07-22] MEDS: SERTRALINE 25 MG TAB PO SCH (10:32)
[2020-07-22] MEDS: METOPROLOL SUCCINATE XL 50 MG TAB PO SCH (10:34)
[2020-07-22] MEDS: HYDROmorphone 1 MG/1 ML INJ IV PRN (11:04)
--- NOTE | 2020-07-22 11:31 | Consultation ---
History of Present Illness Consult date: 07/22/20 Requesting physician: BALTA BARNEY Consult reason: chest pain History of present illness: The pt is a 69 YO male with a past medial history significant for advanced COPD, s/p VATS surgery NO longer on home O2, CAD, HTN, HLP, DVT, TIA. He is followed in our office by Dr. Romero. He presented with c/o chest pain for several days prior to arrival. He describes his chest pain as an intermittent midsternal burning which has no clear aggravating or alleviating factors. He denies any associated SOB, palpitations, n/v, diaphoresis, dizziness or syncope. Of note, pt was recently hospitalized at [facility] for evaluation of chest pain in 07/2020. He underwent stress testing on 07/11/2020 which showed no significant ischemia, apical ischemia c/w small vessel disease. tte done 01/2020 showed EF 55-60%, mild MR and TR, mild pulm HTN RVSP 40mmHg. Past History Past Medical History: other (as per HPI) Medications and Allergies Allergies Allergy/AdvReac Type Severity Reaction Status Date / Time No Known Allergies Allergy Verified 07/21/20 16:12 Home Medications Medication Instructions Recorded Confirmed Last Taken Type Albuterol Sulfate [Proair 2 puff IH Q6HR 10/29/19 07/21/20 Unknown History Digihaler] AtorvaSTATin [Lipitor] 20 mg PO QDAY 10/29/19 07/21/20 Unknown History Fluticasone/Salmeterol(Nf) [Advair 2 puff IH BID 10/29/19 07/21/20 Unknown History HFA 115-21 mcg] Insulin Aspart (Nf) [NovoLOG 6 units SQ AC 10/29/19 07/21/20 Unknown History Flexpen] Insulin Glargine,Hum.rec.anlog 35 unit SQ QHS 10/29/19 07/21/20 Unknown History [Lantus Solostar] Olmesartan (Nf) [Benicar (Nf)] 40 mg PO QDAY 10/29/19 07/21/20 Unknown History Sertraline [Zoloft] 25 mg PO QDAY 10/29/19 07/21/20 Unknown History Umeclidinium Brm/Vilanterol Tr 1 each IH Q24H 10/29/19 07/21/20 Unknown History [Anoro Ellipta 62.5-25 Mcg INH] dilTIAZem [CarDIZEM] 90 mg PO Q8H 10/29/19 07/21/20 Unknown History Metoprolol Xl [Metoprolol 50 mg PO QDAY 07/21/20 07/21/20 Unknown History SUCCINATE ER TAB] Sildenafil Citrate [Viagra] 25 mg PO DAILY 07/21/20 07/21/20 Unknown History oxyCODONE [roxiCODONE] 5 mg PO Q8HR PRN 07/21/20 07/21/20 Unknown History Active Meds: Active Medications Acetaminophen (Tylenol) 650 mg PO Q4H PRN PRN Reason: Pain MILD(1-3)/Fever >100.5/FINNEGAN Albuterol (Proventil) 2.5 mg IH Q6HRT [facility] Last Admin: 07/22/20 09:03 Dose: Not Given Documented by: Arformoterol Tartrate (Brovana Nebu) 15 mcg IH Q12HRT [facility] Last Admin: 07/22/20 09:03 Dose: 15 mcg Documented by: Atorvastatin Calcium (Lipitor) 20 mg PO QDAY [facility] Last Admin: 07/22/20 10:37 Dose: 20 mg Documented by: Budesonide (Pulmicort) 0.5 mg IH Q12HRT [facility] Last Admin: 07/22/20 09:03 Dose: 0.5 mg Documented by: Diltiazem HCl (Cardizem) 90 mg PO Q8H [facility] Last Admin: 07/22/20 10:35 Dose: Not Given Documented by: Heparin Sodium (Porcine) (Heparin) 5,000 unit SUB-Q Q12HR [facility] Last Admin: 07/22/20 10:31 Dose: 5,000 unit Documented by: Hydromorphone HCl (Dilaudid) 0.5 mg IV Q3H PRN PRN Reason: Pain , Severe (7-10) Last Admin: 07/22/20 11:04 Dose: 0.5 mg Documented by: Sodium Chloride (Nacl 0.9% 1000 Ml) 1,000 mls @ 75 mls/hr IV DIRECT RICARDO Insulin Glargine (Lantus) 35 units SUB-Q QHS [facility] Insulin Human Lispro (Humalog) 0 unit SUB-Q ACHS [facility]; Protocol Last Admin: 07/22/20 07:30 Dose: Not Given Documented by: Losartan Potassium (Cozaar) 50 mg PO QDAY [facility] Last Admin: 07/22/20 10:31 Dose: 50 mg Documented by: Metoprolol Succinate (Metoprolol Xl) 50 mg PO QDAY [facility] Last Admin: 07/22/20 10:34 Dose: Not Given Documented by: Miscellaneous Medication (Umeclidinium Brm/Vilanterol Tr [Anoro Ellipta 62.5-25 Mcg Inh]) 1 each IH Q24H [facility] Ondansetron HCl (Zofran) 4 mg IV Q8H PRN PRN Reason: Nausea And Vomiting Oxycodone HCl (Roxicodone) 5 mg PO Q8H PRN PRN Reason: PAIN (BREAKTHRU>(7-11)) Oxycodone/Acetaminophen (Percocet 5/325) 1 tab PO Q6H PRN PRN Reason: Pain, Moderate (4-6) Pantoprazole Sodium (Protonix) 40 mg IV QDAY [facility] Sertraline HCl (Zoloft) 25 mg PO QDAY [facility] Last Admin: 07/22/20 10:32 Dose: 25 mg Documented by: Sodium Chloride (Sodium Chloride Flush Syringe 10 Ml) 10 ml IV BID [facility] Last Admin: 07/22/20 10:33 Dose: 10 ml Documented by: Sodium Chloride (Sodium Chloride Flush Syringe 10 Ml) 10 ml IV PRN PRN PRN Reason: LINE FLUSH Review of Systems Constitutional: no weight loss, no weight gain, no fever, no chills, no sweats Ears, nose, mouth and throat: no ear pain, no nose pain, no sinus pressure, no sinus pain Cardiovascular: chest pain, no orthopnea, no palpitations, no rapid/irregular heart beat, no edema, no syncope, no lightheadedness, no shortness of breath, no dyspnea on exertion Respiratory: no cough, no shortness of breath, no dyspnea on exertion, no congestion, no wheezing, no pain on inspiration Gastrointestinal: no abdominal pain, no nausea, no vomiting, no diarrhea, no constipation, no change in bowel habits Genitourinary Male: no dysuria, no hematuria, no flank pain, no discharge, no urinary frequency, no urinary hesitancy Musculoskeletal: no neck stiffness, no neck pain, no shooting arm pain, no arm numbness/tingling, no low back pain, no shooting leg pain Integumentary: no rash, no pruritis, no redness, no sores, no wounds Neurological: no head injury, no paralysis, no weakness, no parathesias, no numbness, no tingling, no seizures, no syncope Psychiatric: no anxiety Endocrine: no cold intolerance, no heat intolerance Hematologic/Lymphatic: no easy bruising, no easy bleeding Allergic/Immunologic: no urticaria Physical Examination Vital Signs Temp Pulse Resp BP Pulse Ox 100.4 F H 68 20 138/102 97 07/21/20 15:06 07/21/20 15:06 07/21/20 15:06 07/21/20 15:06 07/21/20 15:06 General appearance: no acute distress HEENT: Positive: PERRL, Normocephaly, Mucus Membranes Moist Neck: Positive: neck supple, trachea midline Cardiac: Positive: Reg Rate and Rhythm, S1/S2 Lungs: Positive: Decreased Breath Sounds Neuro: Positive: Grossly Intact Abdomen: Negative: Tender Skin: Negative: Rash Musculoskeletal: No Pain Extremities: Absent: edema Results 07/22/20 04:23 07/22/20 04:23 Cardiac Enzymes 07/21/20 07/22/20 Range/Units 15:30 04:23 AST 16 12 (5-40) units/L CBC 07/21/20 07/22/20 Range/Units 15:30 04:23 WBC 14.2 H 10.5 (4.5-11.0) K/mm3 RBC 5.03 4.65 (3.65-5.03) M/mm3 Hgb 13.2 12.4 (11.8-15.2) gm/dl Hct 41.4 38.2 (35.5-45.6) % Plt Count 259 224 (140-440) K/mm3 Lymph # (Auto) 1.5 2.8 (1.2-5.4) K/mm3 [place] # (Auto) 0.8 1.0 H (0.0-0.8) K/mm3 Eos # (Auto) 0.1 0.1 (0.0-0.4) K/mm3 Baso # (Auto) 0.1 0.1 (0.0-0.1) K/mm3 Comprehensive Metabolic Panel 07/21/20 07/22/20 Range/Units 15:30 04:23 Sodium 143 144 (137-145) mmol/L Potassium 3.5 L 3.5 L (3.6-5.0) mmol/L Chloride 107.0 108.7 H (98-107) mmol/L Carbon Dioxide 24 24 (22-30) mmol/L BUN 14 15 (9-20) mg/dL Creatinine 1.4 H 1.4 H (0.8-1.3) mg/dL Glucose 101 H 104 H (75-100) mg/dL Calcium 8.7 8.4 (8.4-10.2) mg/dL AST 16 12 (5-40) units/L ALT 20 17 (7-56) units/L Alkaline Phosphatase 87 80 (35-129) units/L Total Protein 7.0 6.3 (6.3-8.2) g/dL Albumin 3.8 L 3.3 L (3.9-5) g/dL - Imaging and Cardiology Echo: report reviewed (01/2020 showed EF 55-60%, mild MR and TR, mild pulm HTN R VSP 40mmHg. ) EKG: report reviewed, image reviewed EKG interpretations - Telemetry EKG Rhythm: Sinus Rhythm - EKG Sinus rhythms and dysrhythmias: sinus rhythm Assessment and Plan Pt's chest pain appears atypical - ? GI in origin. AMI r/o. Pt was recently hospitalized at [facility] for evaluation of chest pain in 07/2020. He underwent stress testing on 07/11/2020 which showed no significant ischemia, apical ischemia c/w small vessel disease. tte done 01/2020 showed EF 55-60%, mild MR and TR, mild pulm HTN RVSP 40mmHg. No plans for additional cardiac w/u at this time. Cont home cardiac regimen. Initiate PPI. GI consultation pending. Will follow. The patient has been seen in conjunction with Dr. Romero who agrees with the assessment and plan of care. - Patient Problems (1) Chest pain Current Visit: Yes Status: Acute (2) CAD (coronary artery disease) Current Visit: Yes Status: Chronic Qualifiers: Coronary Disease-Associated Artery/Lesion type: barrow artery [place] vs. transplanted heart: barrow heart Associated angina: without angina Qualified Code(s): I25.10 - Atherosclerotic heart disease of barrow coronary artery without angina pectoris (3) COPD exacerbation Current Visit: Yes Status: Chronic (4) History of lobectomy of lung Current Visit: Yes Status: Chronic (5) Hypertension Current Visit: Yes Status: Chronic Qualifiers: Hypertension type: essential hypertension Qualified Code(s): I10 - Essential (primary) hypertension (6) Hyperlipemia Current Visit: Yes Status: Chronic Qualifiers: Hyperlipidemia type: mixed hyperlipidemia Qualified Code(s): E78.2 - Mixed hyperlipidemia (7) History of TIA (transient ischemic attack) Current Visit: Yes Status: Chronic (8) History of DVT (deep vein thrombosis) Current Visit: Yes Status: Chronic
[2020-07-22] MEDS ORDERED: PANTOPRAZOLE 40 MG INJ IV SCH (12:00)
--- NOTE | 2020-07-22 12:18 | Progress Note ---
Assessment and Plan Assessment and plan: (1) Acute coronary syndrome Current Visit: Yes Status: Acute Plan to address problem: -Patient was evaluated by cardiology and recommend no further cardiac work-up -Patient was also complaining chest pain Epigastric burning -Cardiology recommend GI consult and GI consulted -I put the patient on Protonix (2) Hypertension Current Visit: Yes Status: Chronic Qualifiers: Hypertension type: essential hypertension Qualified Code(s): I10 - Essential (primary) hypertension Plan to address problem: Continue antihypertensives Continue overnight but the last reading is high likely due to the chest pain Will monitor and adjust BP medications as needed (3) COPD (chronic obstructive pulmonary disease) Current Visit: No Status: Chronic Plan to address problem: Duo nebs as needed (4) CVA (cerebral infarction) Onset Date: 03/23/14 Current Visit: No Status: Chronic (5) CAD (coronary artery disease) Current Visit: No Status: Chronic Qualifiers: Coronary Disease-Associated Artery/Lesion type: redding artery [place] vs. transplanted heart: redding heart Plan to address problem: Had 2 stents in the past, continue aspirin (6) Hyperlipemia Current Visit: No Status: Chronic Qualifiers: Hyperlipidemia type: mixed hyperlipidemia Plan to address problem: Continue statins (7) T2DM (type 2 diabetes mellitus) Current Visit: Yes Status: Chronic Plan to address problem: A1c is 7 and blood sugar is well controlled Continue sliding scale insulin (8) DVT prophylaxis Current Visit: No Status: Acute Plan to address problem: On heparin and GI prophylaxis Disposition; patient will have EGD tomorrow. History Interval history: Patient was seen and evaluated this morning Patient is complaining chest pain and burning Hospitalist Physical - Physical exam Narrative exam: Not in cardiopulmonary distress. The patient appeared well nourished and normally developed. Vital signs as documented. Head exam is unremarkable. No scleral icterus . Neck is without jugular venous distension, thyromegaly, or carotid bruits. Lungs are clear to auscultation. Cardiac exam reveals regular rate and Rhythm. Abdominal exam reveals normal bowel sounds, nontender, no organomegaly. Extremities are nonedematous and both femoral and pedal pulses are normal. GRAIN SACKER: Alert and oriented 3. No focal weakness. - Constitutional Vitals: Temp Pulse Resp BP Pulse Ox 97.5 F L 55 L 16 164/75 97 07/22/20 11:09 07/22/20 11:42 07/22/20 11:09 07/22/20 11:42 07/22/20 11:09 General appearance: Present: no acute distress, well-nourished HEART Score - HEART Score Age: > 65 Risk factors: > 3 risk factors or hx of atherosclerotic disease Troponin: Troponin T < 0.010 ng/mL (0.00-0.029) 07/22/20 04:23 - Critical Actions Critical Actions: 4-6 pts:12-16.6% risk of adverse cardiac event. Should be admitted Results - Labs CBC & Chem 7: 07/22/20 04:23 07/22/20 04:23 Labs: Laboratory Last Values WBC 10.5 K/mm3 (4.5-11.0) 07/22/20 04:23 RBC 4.65 M/mm3 (3.65-5.03) 07/22/20 04:23 Hgb 12.4 gm/dl (11.8-15.2) 07/22/20 04:23 Hct 38.2 % (35.5-45.6) 07/22/20 04:23 MCV 82 fl (84-94) L 07/22/20 04:23 MCH 27 pg (28-32) L 07/22/20 04:23 MCHC 33 % (32-34) 07/22/20 04:23 RDW 16.3 % (13.2-15.2) H 07/22/20 04:23 Plt Count 224 K/mm3 (140-440) 07/22/20 04:23 Lymph % (Auto) 26.7 % (13.4-35.0) 07/22/20 04:23 [place] % (Auto) 9.3 % (0.0-7.3) H 07/22/20 04:23 Eos % (Auto) 1.2 % (0.0-4.3) 07/22/20 04:23 Baso % (Auto) 0.8 % (0.0-1.8) 07/22/20 04:23 Lymph # (Auto) 2.8 K/mm3 (1.2-5.4) 07/22/20 04:23 [place] # (Auto) 1.0 K/mm3 (0.0-0.8) H 07/22/20 04:23 Eos # (Auto) 0.1 K/mm3 (0.0-0.4) 07/22/20 04:23 Baso # (Auto) 0.1 K/mm3 (0.0-0.1) 07/22/20 04:23 Seg Neutrophils % 62.0 % (40.0-70.0) 07/22/20 04:23 Seg Neutrophils # 6.5 K/mm3 (1.8-7.7) 07/22/20 04:23 Sodium 144 mmol/L (137-145) 07/22/20 04:23 Potassium 3.5 mmol/L (3.6-5.0) L 07/22/20 04:23 Chloride 108.7 mmol/L (98-107) H 07/22/20 04:23 Carbon Dioxide 24 mmol/L (22-30) 07/22/20 04:23 Anion Gap 15 mmol/L 07/22/20 04:23 BUN 15 mg/dL (9-20) 07/22/20 04:23 Creatinine 1.4 mg/dL (0.8-1.3) H 07/22/20 04:23 Estimated GFR > 60 ml/min 07/22/20 04:23 BUN/Creatinine Ratio 11 % 07/22/20 04:23 Glucose 104 mg/dL (75-100) H 07/22/20 04:23 POC Glucose 124 mg/dL (70-105) H 07/22/20 08:23 Hemoglobin A1c 7.0 % (4-6) H 07/22/20 00:09 Lactic Acid 0.80 mmol/L (0.7-2.0) 07/21/20 18:15 Calcium 8.4 mg/dL (8.4-10.2) 07/22/20 04:23 Total Bilirubin 0.50 mg/dL (0.1-1.2) 07/22/20 04:23 AST 12 units/L (5-40) 07/22/20 04:23 ALT 17 units/L (7-56) 07/22/20 04:23 Alkaline Phosphatase 80 units/L (35-129) 07/22/20 04:23 Troponin T < 0.010 ng/mL (0.00-0.029) 07/22/20 04:23 Total Protein 6.3 g/dL (6.3-8.2) 07/22/20 04:23 Albumin 3.3 g/dL (3.9-5) L 07/22/20 04:23 Albumin/Globulin Ratio 1.1 % 07/22/20 04:23 Microbiology: Microbiology 07/21/20 18:15 Peripheral/Venous Blood Culture - Preliminary Culture in Progress 07/21/20 18:21 Peripheral/Venous Blood Culture - Preliminary Culture in Progress [place]/IV: Voiding Method Urinal IV Catheter Type [Right Peripheral IV Antecubital] Active Medications - Current Medications Current Medications: Generic Name Dose Route Start Last Admin Trade Name Freq PRN Reason Stop Dose Admin Acetaminophen 650 mg 07/21/20 23:25 Tylenol PO Q4H PRN Pain MILD(1-3)/Fever >100.5/FINNEGAN Albuterol 2.5 mg 07/22/20 02:00 07/22/20 09:03 Proventil IH Not Given Q6HRT RICARDO Arformoterol Tartrate 15 mcg 07/22/20 08:00 07/22/20 09:03 Brovana Nebu IH 15 mcg Q12HRT RICARDO Administration Aspirin 81 mg 07/22/20 13:00 Baby Aspirin PO QDAY RICARDO Atorvastatin Calcium 20 mg 07/22/20 10:00 07/22/20 10:37 Lipitor PO 20 mg QDAY RICARDO Administration Budesonide 0.5 mg 07/22/20 08:00 07/22/20 09:03 Pulmicort IH 0.5 mg Q12HRT RICARDO Administration Diltiazem HCl 90 mg 07/22/20 00:00 07/22/20 10:35 Cardizem PO Not Given Q8H [facility] Heparin Sodium (Porcine) 5,000 unit 07/22/20 10:00 07/22/20 10:31 Heparin SUB-Q 5,000 unit Q12HR RICARDO Administration Hydromorphone HCl 0.5 mg 07/21/20 23:25 07/22/20 11:04 Dilaudid IV 0.5 mg Q3H PRN Administration Pain , Severe (7-10) Sodium Chloride 1,000 mls @ 75 mls/hr 07/22/20 07:15 Nacl 0.9% 1000 Ml IV DIRECT [facility] Insulin Glargine 35 units 07/22/20 22:00 Lantus SUB-Q QHS [facility] Insulin Human Lispro 0 unit 07/22/20 07:30 07/22/20 07:30 Humalog SUB-Q Not Given ACHS [facility] Protocol Losartan Potassium 50 mg 07/22/20 10:00 07/22/20 10:31 Cozaar PO 50 mg QDAY RICARDO Administration Metoprolol Succinate 50 mg 07/22/20 10:00 07/22/20 10:34 Metoprolol Xl PO Not Given QDAY [facility] Miscellaneous Medication 1 each 07/21/20 23:30 Umeclidinium Brm/Vilanterol Tr [Anoro Ellipta 62.5-25 Mcg Inh] IH Q24H [facility] Ondansetron HCl 4 mg 07/21/20 23:25 Zofran IV Q8H PRN Nausea And Vomiting Oxycodone HCl 5 mg 07/21/20 23:17 Roxicodone PO Q8H PRN PAIN (BREAKTHRU>(7-11)) Oxycodone/Acetaminophen 1 tab 07/21/20 23:25 Percocet 5/325 PO Q6H PRN Pain, Moderate (4-6) Pantoprazole Sodium 40 mg 07/22/20 12:00 Protonix IV QDAY RICARDO Sertraline HCl 25 mg 07/22/20 10:00 07/22/20 10:32 Zoloft PO 25 mg QDAY [facility]ICARDO Administration Sodium Chloride 10 ml 07/22/20 10:00 07/22/20 10:33 Sodium Chloride Flush Syringe 10 Ml IV 10 ml BID [facility]O Administration Sodium Chloride 10 ml 07/21/20 23:25 Sodium Chloride Flush Syringe 10 Ml IV PRN PRN LINE FLUSH
[2020-07-22] MEDS: ASPIRIN 81 MG TAB CHEW PO SCH (15:34)
[2020-07-22] MEDS: SODIUM CHLORIDE 0.9% 1000 ML 1,000 ML IV SCH (15:38)
[2020-07-22] MEDS ORDERED: PANTOPRAZOLE 40 MG TAB PO SCH (16:30)
--- NOTE | 2020-07-22 18:38 | Gastroenterology Consultation ---
History of Present Illness - Reason for Consult Consult date: 07/22/20 Chest pain Requesting physician: PARTH SHELBY - History of Present Illness This is a very pleasant 69-year-old gentleman well-known to our service normally follows with Dr. Eladio Luque who presents with atypical chest pain and epigastric pain Patient reports for last 2 weeks having substernal burning which radiates down to the epigastric area severe better with the medication he received here in the hospital he reports thinks it may be little bit worse with eating, intermittent, associated with mild reflux symptoms he reports not having dysphagia symptoms though once he does eat the food feels like it sits in the pit of his stomach Patient has had multiple upper endoscopies last performed 1 year ago showed very mild nonobstructing Schatzki ring which was dilated as well as reflux eso phagitis, the upper endoscopy before that a year and a half ago showed severe esophagitis Hx Hypertension: Yes Hx CVA: Yes (Right eye affected) Hx Heart Attack/AMI: Yes (4 yrs ago) Hx Congestive Heart Failure: No Hx Diabetes: Yes Hx Deep Vein Thrombosis: No Hx GERD: Yes Hx Liver Disease: No Hx Renal Disease: No Hx Asthma: Yes Hx COPD: Yes (off O2) Additional medical history: Emphysema. CAD - Surgical History Hx Coronary Stent: Yes Hx Pacemaker: No Hx Internal Defibrillator: No Additional Surgical History: Eye surgery, RUL removed, bilateral lung surgery - Social History Smoking Status: Former smoker Obtained/updated/reviewed patient's current medications Past History Past Medical History: other (as per HPI) Medications and Allergies Allergies Allergy/AdvReac Type Severity Reaction Status Date / Time No Known Allergies Allergy Verified 07/21/20 16:12 Home Medications Medication Instructions Recorded Confirmed Last Taken Type Albuterol Sulfate [Proair 2 puff IH Q6HR 10/29/19 07/21/20 Unknown History Digihaler] AtorvaSTATin [Lipitor] 20 mg PO QDAY 10/29/19 07/21/20 Unknown History Fluticasone/Salmeterol(Nf) [Advair 2 puff IH BID 10/29/19 07/21/20 Unknown History HFA 115-21 mcg] Insulin Aspart (Nf) [NovoLOG 6 units SQ AC 10/29/19 07/21/20 Unknown History Flexpen] Insulin Glargine,Hum.rec.anlog 35 unit SQ QHS 10/29/19 07/21/20 Unknown History [Lantus Solostar] Olmesartan (Nf) [Benicar (Nf)] 40 mg PO QDAY 10/29/19 07/21/20 Unknown History Sertraline [Zoloft] 25 mg PO QDAY 10/29/19 07/21/20 Unknown History Umeclidinium Brm/Vilanterol Tr 1 each IH Q24H 10/29/19 07/21/20 Unknown History [Anoro Ellipta 62.5-25 Mcg INH] dilTIAZem [CarDIZEM] 90 mg PO Q8H 10/29/19 07/21/20 Unknown History Metoprolol Xl [Metoprolol 50 mg PO QDAY 07/21/20 07/21/20 Unknown History SUCCINATE ER TAB] Sildenafil Citrate [Viagra] 25 mg PO DAILY 07/21/20 07/21/20 Unknown History oxyCODONE [roxiCODONE] 5 mg PO Q8HR PRN 07/21/20 07/21/20 Unknown History Active Meds: Active Medications Acetaminophen (Tylenol) 650 mg PO Q4H PRN PRN Reason: Pain MILD(1-3)/Fever >100.5/FINNEGAN Albuterol (Proventil) 2.5 mg IH Q6HRT PENDING SALE TO [facility] Last Admin: 07/22/20 14:52 Dose: 2.5 mg Documented by: Arformoterol Tartrate (Brovana Nebu) 15 mcg IH Q12HRT PENDING SALE TO [facility] Last Admin: 07/22/20 09:03 Dose: 15 mcg Documented by: Aspirin (Baby Aspirin) 81 mg PO QDAY PENDING SALE TO [facility] Last Admin: 07/22/20 15:34 Dose: 81 mg Documented by: Atorvastatin Calcium (Lipitor) 20 mg PO QDAY PENDING SALE TO [facility] Last Admin: 07/22/20 10:37 Dose: 20 mg Documented by: Budesonide (Pulmicort) 0.5 mg IH Q12HRT PENDING SALE TO [facility] Last Admin: 07/22/20 09:03 Dose: 0.5 mg Documented by: Diltiazem HCl (Cardizem) 90 mg PO Q8H PENDING SALE TO [facility] Last Admin: 07/22/20 17:50 Dose: Not Given Documented by: Heparin Sodium (Porcine) (Heparin) 5,000 unit SUB-Q Q12HR PENDING SALE TO [facility] Last Admin: 07/22/20 10:31 Dose: 5,000 unit Documented by: Hydromorphone HCl (Dilaudid) 0.5 mg IV Q3H PRN PRN Reason: Pain , Severe (7-10) Last Admin: 07/22/20 11:04 Dose: 0.5 mg Documented by: Sodium Chloride (Nacl 0.9% 1000 Ml) 1,000 mls @ 75 mls/hr IV DIRECT RICARDO Last Admin: 07/22/20 15:38 Dose: 75 mls/hr Documented by: Levofloxacin/Dextrose (Levaquin 750mg/150ml) 750 mg in 150 mls @ 100 mls/hr IV Q24HR PENDING SALE TO [facility]; Protocol Last Admin: 07/22/20 17:48 Dose: 100 mls/hr Documented by: Insulin Glargine (Lantus) 35 units SUB-Q QHS RICARDO Insulin Human Lispro (Humalog) 0 unit SUB-Q ACHS PENDING SALE TO [facility]; Protocol Last Admin: 07/22/20 18:36 Dose: 3 unit Documented by: Losartan Potassium (Cozaar) 50 mg PO QDAY PENDING SALE TO [facility] Last Admin: 07/22/20 10:31 Dose: 50 mg Documented by: Metoprolol Succinate (Metoprolol Xl) 50 mg PO QDAY PENDING SALE TO [facility] Last Admin: 07/22/20 10:34 Dose: Not Given Documented by: Miscellaneous Medication (Umeclidinium Brm/Vilanterol Tr [Anoro Ellipta 62.5-25 Mcg Inh]) 1 each IH Q24H PENDING SALE TO [facility] Ondansetron HCl (Zofran) 4 mg IV Q8H PRN PRN Reason: Nausea And Vomiting Oxycodone HCl (Roxicodone) 5 mg PO Q8H PRN PRN Reason: PAIN (BREAKTHRU>(7-11)) Oxycodone/Acetaminophen (Percocet 5/325) 1 tab PO Q6H PRN PRN Reason: Pain, Moderate (4-6) Last Admin: 07/22/20 15:33 Dose: 1 tab Documented by: Pantoprazole Sodium (Protonix) 40 mg IV BID PENDING SALE TO [facility] Sertraline HCl (Zoloft) 25 mg PO QDAY PENDING SALE TO [facility] Last Admin: 07/22/20 10:32 Dose: 25 mg Documented by: Sodium Chloride (Sodium Chloride Flush Syringe 10 Ml) 10 ml IV BID PENDING SALE TO [facility] Last Admin: 07/22/20 10:33 Dose: 10 ml Documented by: Sodium Chloride (Sodium Chloride Flush Syringe 10 Ml) 10 ml IV PRN PRN PRN Reason: LINE FLUSH Sucralfate (Carafate) 1 gm PO Q6HR PENDING SALE TO [facility] Review of Systems - Review of Systems All systems: negative (10 Systems reviewed and negative except as mentioned above in the history of present illness) Exam - Constitutional Vital Signs: Temp Pulse Resp BP Pulse Ox 97.9 F 49 L 20 140/68 94 07/22/20 15:33 07/22/20 17:50 07/22/20 15:33 07/22/20 17:50 07/22/20 15:33 General appearance: no acute distress - EENT Eyes: EOM intact ENT: hearing intact - Neck Neck: supple - Respiratory Respiratory effort: normal - Cardiovascular Rhythm: regular - Gastrointestinal General gastrointestinal: Present: soft, other (Epigastric tenderness to palpation which is mild) - Integumentary Integumentary: Present: dry - Musculoskeletal Musculoskeletal: normal - Neurologic Neurological: alert and oriented x3 - Psychiatric Psychiatric: appropriate mood/affect - Labs CBC & Chem 7: 07/22/20 04:23 07/22/20 04:23 Lab Results: Laboratory Results - last 24 hr 07/21/20 07/21/20 07/21/20 18:15 18:15 21:44 WBC RBC Hgb Hct MCV MCH MCHC RDW Plt Count Lymph % (Auto) [place] % (Auto) Eos % (Auto) Baso % (Auto) Lymph # (Auto) [place] # (Auto) Eos # (Auto) Baso # (Auto) Seg Neutrophils % Seg Neutrophils # Sodium Potassium Chloride Carbon Dioxide Anion Gap BUN Creatinine Estimated GFR BUN/Creatinine Ratio Glucose POC Glucose Hemoglobin A1c Lactic Acid 0.80 Calcium Total Bilirubin AST ALT Alkaline Phosphatase Troponin T < 0.010 < 0.010 Total Protein Albumin Albumin/Globulin Ratio Nasal Screen MRSA (PCR) 07/22/20 07/22/20 07/22/20 00:09 00:09 04:23 WBC 10.5 RBC 4.65 Hgb 12.4 Hct 38.2 MCV 82 L MCH 27 L MCHC 33 RDW 16.3 H Plt Count 224 Lymph % (Auto) 26.7 [place] % (Auto) 9.3 H Eos % (Auto) 1.2 Baso % (Auto) 0.8 Lymph # (Auto) 2.8 [place] # (Auto) 1.0 H Eos # (Auto) 0.1 Baso # (Auto) 0.1 Seg Neutrophils % 62.0 Seg Neutrophils # 6.5 Sodium Potassium Chloride Carbon Dioxide Anion Gap BUN Creatinine Estimated GFR BUN/Creatinine Ratio Glucose POC Glucose Hemoglobin A1c 7.0 H Lactic Acid Calcium Total Bilirubin AST ALT Alkaline Phosphatase Troponin T < 0.010 Total Protein Albumin Albumin/Globulin Ratio Nasal Screen MRSA (PCR) 07/22/20 07/22/20 07/22/20 04:23 04:23 08:23 WBC RBC Hgb Hct MCV MCH MCHC RDW Plt Count Lymph % (Auto) [place] % (Auto) Eos % (Auto) Baso % (Auto) Lymph # (Auto) [place] # (Auto) Eos # (Auto) Baso # (Auto) Seg Neutrophils % Seg Neutrophils # Sodium 144 Potassium 3.5 L Chloride 108.7 H Carbon Dioxide 24 Anion Gap 15 BUN 15 Creatinine 1.4 H Estimated GFR > 60 BUN/Creatinine Ratio 11 Glucose 104 H POC Glucose 124 H Hemoglobin A1c Lactic Acid Calcium 8.4 Total Bilirubin 0.50 AST 12 ALT 17 Alkaline Phosphatase 80 Troponin T < 0.010 Total Protein 6.3 Albumin 3.3 L Albumin/Globulin Ratio 1.1 Nasal Screen MRSA (PCR) 07/22/20 Unknown WBC RBC Hgb Hct MCV MCH MCHC RDW Plt Count Lymph % (Auto) [place] % (Auto) Eos % (Auto) Baso % (Auto) Lymph # (Auto) [place] # (Auto) Eos # (Auto) Baso # (Auto) Seg Neutrophils % Seg Neutrophils # Sodium Potassium Chloride Carbon Dioxide Anion Gap BUN Creatinine Estimated GFR BUN/Creatinine Ratio Glucose POC Glucose Hemoglobin A1c Lactic Acid Calcium Total Bilirubin AST ALT Alkaline Phosphatase Troponin T Total Protein Albumin Albumin/Globulin Ratio Nasal Screen MRSA (PCR) Negative Assessment and Plan -Differential diagnosis now that cardiac etiology has been ruled out is atypical chest pain due to severe acid reflux. We will increase patient's acid reflux medication increasing PPI to twice daily dosing and will add on Carafate. However, given he does have recurrent stricturing disease of the esophagus as well as esophagitis in the past will make patient n.p.o. past midnight and evaluate the response to his medication. If he does start to improve then can cancel the EGD and he can be discharged home with outpatient follow-up with Dr. Luque. If however he does not improve at all with a new medication, then will recommend upper endoscopy tomorrow. - Patient Problems (1) GERD with esophagitis Current Visit: Yes Status: Acute (2) Abdominal pain Current Visit: No Status: Acute Qualifiers: Abdominal location: epigastric Qualified Code(s): R10.13 - Epigastric pain (3) Atypical chest pain Current Visit: No Status: Acute
[2020-07-22] MEDS: SUCRALFATE 1 GM/10 ML ORAL LIQD PO SCH ×2 (20:40→23:44)
[2020-07-22] MEDS: PANTOPRAZOLE 40 MG INJ IV SCH (21:11)
[2020-07-22] MEDS ORDERED: INSULIN GLARGINE 100 UNITS/ML SUB-Q SCH (22:00)
[2020-07-22] MEDS ORDERED: INSULIN GLARGINE HUM REC ANLOG 35 UNIT SQ SCH (22:00)
[2020-07-23] MEDS: HYDROmorphone 1 MG/1 ML INJ IV PRN (00:25)
[2020-07-23] MEDS: ALBUTEROL 2.5 MG/3 ML NEBU IH SCH ×3 (02:03→13:13)
[2020-07-23] MEDS: SUCRALFATE 1 GM/10 ML ORAL LIQD PO SCH ×3 (06:18→16:01)
[2020-07-23] MEDS: ARFORMOTEROL 15 MCG/2 ML NEBU IH SCH (07:52)
[2020-07-23] MEDS: BUDESONIDE 0.5 MG/2 ML NEBU IH SCH (07:53)
[2020-07-23] MEDS: PANTOPRAZOLE 40 MG INJ IV SCH (09:57)
[2020-07-23] MEDS ORDERED: levoFLOXacin 750 MG TAB PO SCH (10:00)
[2020-07-23] MEDS: SODIUM CHLORIDE 0.9% 1000 ML 1,000 ML IV SCH (10:00)
[2020-07-23 10:59] LABS: BUN/Creatinine Ratio 14; Blood Urea Nitrogen 15 mg/dL (9-20); Calcium 8.3 mg/dL (8.4-10.2); Hemolysis Index 6
--- NOTE | 2020-07-23 11:01 | Progress Note ---
Assessment and Plan Pt's chest pain appears atypical - ? GI in origin. AMI r/o. Pt was recently hospitalized at [facility] for evaluation of chest pain in 07/2020. He underwent stress testing on 07/11/2020 which showed no significant ischemia, apical ischemia c/w small vessel disease. tte done 01/2020 showed EF 55-60%, mild MR and TR, mild pulm HTN RVSP 40mmHg. No plans for additional cardiac w/u at this time. Cont home cardiac regimen. GI team is following. Pt is feeling better today, for possible EGD today. tele reviewed - in SB HR 55 with HR low 48bpm overnight, 13 beat run NSVT noted yesterday evening, pt asymptomatic. Cont Toprol. Currently stable cardiac status. Nothing further to add from cardiac perspective at this time. Will sign off. Follow up in our [place] office with Dr. Romero on 08/10/2020 @ 2:15PM. The patient has been seen in conjunction with Dr. Romero who agrees with the assessment and plan of care. - Patient Problems (1) Chest pain Current Visit: Yes Status: Acute (2) CAD (coronary artery disease) Current Visit: Yes Status: Chronic Qualifiers: Coronary Disease-Associated Artery/Lesion type: [place] artery [place] vs. transplanted heart: [place] heart Associated angina: without angina Qualified Code(s): I25.10 - Atherosclerotic heart disease of [place] coronary artery without angina pectoris (3) COPD exacerbation Current Visit: Yes Status: Chronic (4) History of lobectomy of lung Current Visit: Yes Status: Chronic (5) Hypertension Current Visit: Yes Status: Chronic Qualifiers: Hypertension type: essential hypertension Qualified Code(s): I10 - Essential (primary) hypertension (6) Hyperlipemia Current Visit: Yes Status: Chronic Qualifiers: Hyperlipidemia type: mixed hyperlipidemia Qualified Code(s): E78.2 - Mixed hyperlipidemia (7) History of TIA (transient ischemic attack) Current Visit: Yes Status: Chronic (8) History of DVT (deep vein thrombosis) Current Visit: Yes Status: Chronic Subjective Date of service: 07/23/20 Principal diagnosis: cp Interval history: pt resting in bed, feeling better today, for possible EGD today. tele reviewed - in SB HR 55 with HR low 48bpm overnight, 13 beat run NSVT noted yesterday evening, pt asymptomatic. Objective Last Vital Signs Temp 98.4 F 07/23/20 07:11 Pulse 61 07/23/20 07:52 Resp 18 07/23/20 07:52 BP 126/54 07/23/20 07:11 Pulse Ox 95 07/23/20 08:39 - Physical Examination General: No Apparent Distress HEENT: Positive: PERRL, Normocephaly, Mucus Membranes Moist Neck: Positive: neck supple, trachea midline Cardiac: Positive: Reg Rate and Rhythm, S1/S2 Lungs: Positive: Decreased Breath Sounds Neuro: Positive: Grossly Intact Abdomen: Negative: Tender Skin: Negative: Rash Musculoskeletal: No Pain Extremities: Absent: edema - Imaging and Cardiology EKG: report reviewed, image reviewed Echo: report reviewed (01/2020 showed EF 55-60%, mild MR and TR, mild pulm HTN RVSP 40mmHg. ) - EKG Sinus rhythms and dysrhythmias: sinus rhythm
--- NOTE | 2020-07-23 12:02 | Discharge Summary ---
Providers - Providers Date of Admission: 07/21/20 19:23 Date of discharge: 07/23/20 Attending physician: PARTH SHELBY MD 07/21/20 23:25 Consult to Physician [CONS] Routine Comment: Consulting Provider: AMAN CAIN Physician Instructions: Reason For Exam: Acute coronary syndrome 07/22/20 10:07 Consult to Physician [CONS] Routine Comment: Consulting Provider: KATERINA WIGGINS Physician Instructions: Reason For Exam: burning in the epigastric/chest Primary care physician: COOLER WORKER Hospitalization Reason for admission: Chest pain, esophagitis, pneumonia Condition: Stable Pertinent studies: EGD Hospital course: History of present illness: 69-year-old male with extensive coronary artery disease and stents in the past comes in for retrosternal chest pain since morning. Chest pain is about 6 on a scale of 1-10. Patient was recently admitted to [place] 2 weeks ago and had overnight stay. The records are not available. Patient is a poor historian. Chest pain is retrosternal sharp and intermittent in character no diaphoresis no shortness of breath no radiation. No palpitations. No orthopnea. Patient has no fever and exposure to coronavirus. Patient was admitted to the floor and was seen and evaluated by cardiology a nd recommend no further work-up and continue the current medication regimens. Patient has pneumonia on CAT scan and was given IV Levaquin while inpatient and was discharged with p.o. Levaquin. Patient was complaining burning on the epigastric area and was evaluated by GI and EGD was done and significant for large hiatal hernia and Dr. Wiggins recommend patient need to see Dr. Otto with surgery saw as an outpatient for evaluation hiatal surgery. Patient was given PPI and sucralfate which helps with his symptoms. Patient was hemodynamically stable at the time of discharge patient. Patient's questions and concerns were addressed at the bedside. Patient advised to follow-up with Dr. Otto. Disposition: - TO HOME OR SELFCARE Time spent for discharge: 32 minutes - Discharge Diagnoses (1) Acute coronary syndrome Status: Acute (2) Chest pain Status: Acute (3) GERD with esophagitis Status: Acute (4) Pneumonia Status: Acute (5) CAD (coronary artery disease) Status: Chronic Qualifiers: Coronary Disease-Associated Artery/Lesion type: [place] artery [place] vs. transplanted heart: [place] heart Associated angina: without angina Qualified Code(s): I25.10 - Atherosclerotic heart disease of [place] coronary artery without angina pectoris Core Measure Documentation - Palliative Care Palliative Care/ Comfort Measures: Not Applicable - Core Measures Any of the following diagnoses?: none Exam - Physical Exam Narrative exam: Not in cardiopulmonary distress. The patient appeared well nourished and normally developed. Vital signs as documented. Head exam is unremarkable. No scleral icterus . Neck is without jugular venous distension, thyromegaly, or carotid bruits. Lungs are clear to auscultation. Cardiac exam reveals regular rate and Rhythm. Abdominal exam reveals normal bowel sounds, nontender, no organomegaly. Extremities are nonedematous and both femoral and pedal pulses are normal. BUSINESS TEAM LEADER: Alert and oriented 3. No focal weakness. - Constitutional Vitals: Temp Pulse Resp BP Pulse Ox 98.6 F 56 L 16 140/70 96 07/23/20 11:36 07/23/20 11:36 07/23/20 11:36 07/23/20 11:36 07/23/20 11:36 Plan Activity: no restrictions Weight Bearing Status: Full Weight Bearing Diet: low cholesterol, low salt Additional Instructions: Follow with Dr. Otto with surgery [facility] for evaluation of hiatal hernia. Follow up with: PRIMARY CAREMD [Primary Care Provider] - 3-5 Days Prescriptions: Sucralfate [Carafate] 1 gm PO ACHS #120 tablet levoFLOXacin [Levaquin TAB] 750 mg PO Q24HR #5 tablet Pantoprazole [Protonix TAB] 40 mg PO BID #60 tablet
--- NOTE | 2020-07-23 14:21 | Anesthesia Consultation ---
Anesthesia Consult and Med Hx Date of service: 07/23/20 - Airway Anesthetic Teeth Evaluation: Edentulous ROM Head & Neck: Adequate Mental/Hyoid Distance: Adequate Mallampati Class: Class II Intubation Access Assessment: Probably Good - Pulmonary Exam CTA: Yes - Cardiac Exam Cardiac Exam: RRR - Pre-Operative Health Status ASA Pre-Surgery Classification: ASA3 Proposed Anesthetic Plan: MAC - Pre-Anesthesia Comment Pre-Anesthesia Comments: EF 55-60% - Pulmonary Hx Smoking: Yes (quit smoking 5 years ago) Hx Asthma: Yes Hx Respiratory Symptoms: Yes (emphysema, VATS 2017) SOB: (SOB with activity) COPD: Yes Hx Pneumonia: Yes Hx Sleep Apnea: No - Cardiovascular System Hx Hypertension: Yes Hx Coronary Artery Disease: Yes Hx Heart Attack/AMI: Yes Hx Angina: Yes (cardiac etiology ruled out, EGD plan) Hx Percutaneous Transluminal Coronary Angioplasty (PTCA): Yes (2016) Hx Cardia Arrhythmia: Yes (NSVT) - Central Nervous System CVA: Yes (right eye affected ) - Gastrointestinal Hx Gastroesophageal Reflux Disease: Yes (difficulty swallowing) - Endocrine Hx Insulin Dependent Diabetes: Yes - Hematic Hx Anemia: Yes - Other Systems Hx Substance Use: Yes
[2020-07-23] MEDS ORDERED: propofoL 200 MG/20 ML VIAL IV ONE (14:28)
[2020-07-23] MEDS ORDERED: LIDOCAINE MPF (2%) 20 MG/1 ML VIAL 5 ML ONE (14:28)
--- NOTE | 2020-07-23 14:29 | Anesthesia Day of Surgery ---
Anesthesia Day of Surgery - Day of Surgery Patient Examined: Yes Patient H&P Reviewed: Yes Patient is NPO: Yes Beta Blockers: No (scheduled. floor documents hr low) Cardiac Clearance: Yes
[2020-07-23] MEDS ORDERED: SODIUM CHLORIDE 0.9% 1000 ML 1,000 ML IV SCH (14:30)
[2020-07-23] MEDS ORDERED: SODIUM CHLORIDE 0.9% 1000 ML 1,000 ML ONE (14:31)
--- NOTE | 2020-07-23 14:58 | Operative Report ---
Operative Report Operative Report: DOS: 07/23/20 SURGEON: Donaldo Ramos MD EGD WITH BIOPSY REPORT PREOPERATIVE DIAGNOSIS and POSTOPERATIVE DIAGNOSIS: Chest pain, reflux ESTIMATED BLOOD LOSS: Minimal DESCRIPTION OF PROCEDURE: A high-resolution EGD scope was passed through the oropharynx, esophagus, stomach, and second portion of duodenum. The scope was carefully withdrawn. Retroflexion was performed in the stomach. At the end of the procedure, the scope was cleaned using normal technique. Vital signs monitored continuously throughout. SEDATION: Provided by Anesthesiology Services. COMPLICATIONS: None. FINDINGS: * No gross lesions entire examined duodenum * Minimal gastritis in the stomach, diffuse * Very large hiatal hernia at least 6 cm in length * GE junction located approximately 35 cm from incisors * Possible Sparks's esophagus C0 M1, random four-quadrant biopsies obtained using cold biopsy forceps RECOMMENDATIONS: Symptoms appear to be related to combination of patient reflux as well as a large hiatal hernia. Continue Carafate and PPI, patient to be discharged with outpatient follow-up with surgeon for evaluation for hernia repair
--- NOTE | 2020-07-23 15:03 | Post Anesthesia Evaluation ---
- Post Anesthesia Evaluation Patient Participated: Yes Airway Patent: Yes Stable Respiratory Function: Yes Nausea/Vomiting: No Temp > 96.8F: Yes Pain Manageable: Yes Adequeate Hydration: Yes Anesthesia Complications: No Block Receding Appropriately: Not Applicable Patient on Ventilator: No
[2020-07-23] MEDS: INSULIN LISPRO 100 UNIT/ML VIAL 3 mL SUB-Q SCH ×2 (16:00→16:03)
[2020-07-23] MEDS: METOPROLOL SUCCINATE XL 50 MG TAB PO SCH (16:01)
[2020-07-23] MEDS: LOSARTAN 50 MG TAB PO SCH (16:01)
[2020-07-23] MEDS: SERTRALINE 25 MG TAB PO SCH (16:01)
[2020-07-23] MEDS: HEPARIN 5,000 UNIT/1 ML VIAL SUB-Q SCH (16:02)
[2020-07-23] MEDS: ASPIRIN 81 MG TAB CHEW PO SCH (16:02)
[2020-07-23 16:17] VITALS: BP 146/70
== END 2020-07-23 17:38 | disposition home or self-care (01) ==
LOC: ED 14:57 → 3A 19:23 → 4A 23:46
PROVIDERS: ADMIT Internal Medicine; ATTEND Internal Medicine
DX: K21.00 Gastro-esophageal reflux disease with esophagitis, without bleeding (principal); R07.89 Other chest pain; I24.9 Acute ischemic heart disease, unspecified; J18.9 Pneumonia, unspecified organism; I25.10 Atherosclerotic heart disease of native coronary artery without angina pectoris; I10 Essential (primary) hypertension; J44.1 Chronic obstructive pulmonary disease with (acute) exacerbation; E78.2 Mixed hyperlipidemia; Z90.2 Acquired absence of lung [part of]; Z86.73 Personal history of transient ischemic attack (TIA), and cerebral infarction without residual deficits; Z86.718 Personal history of other venous thrombosis and embolism; Z79.51 Long term (current) use of inhaled steroids; Z79.899 Other long term (current) drug therapy
CPT/HCPCS: 36415; 43239; 71045; 71250; 80048; 80053; 82140; 82962; 83036; 84484; 85025; 87040; 87641; 88305; 93005; 94640; 94760; 96361; 96365; 96367; 96372; 96375; 96376; A9270; C9113; G0378; J0692; J1170; J1644; J1956; J2405; J2704; J7030

== ENCOUNTER 2020-12-23 10:48 | Emergency (ER) | payer MEDICARE ==
[2020-12-23] MEDS ORDERED: LIDOCAINE (1%) 10 MG/1 ML VIAL 20 ML MDV INFILTRATI ONE (11:10)
--- NOTE | 2020-12-23 11:11 | Event Note ---
ED Screening Note Date of service: 12/23/20 Time: 11:10 ED Screening Note: +Paronychia This initial assessment/diagnostic orders/clinical plan/treatment(s) is/are subject to change based on patients health status, clinical progression and re- assessment by fellow clinical providers in the ED. Further treatment and workup at subsequent clinical providers discretion. Patient/guardian urged not to elope from the ED as their condition may be serious if not clinically assessed and managed. Initial orders include: I&D in ACC
--- NOTE | 2020-12-23 12:15 | Emergency Department Report ---
- General Chief complaint: Skin/Abscess/Foreign Body Stated complaint: LFET THUMB SWELLING Time Seen by Provider: 12/23/20 11:10 Source: patient Mode of arrival: Ambulatory Limitations: No Limitations - History of Present Illness Initial comments: Is a very pleasant 70-year-old male who presents to the emergency department chief complaint of swelling and pain at the tip of his left thumb over the past week. Patient reports the swelling is increasing is a constant throbbing that he rates as an 8 out of 10 in severity. He denies any injuries. He denies any associated fever, chills, night sweats, headache, dizziness, blurry vision, nausea, vomiting, diarrhea, chest pain, shortness of breath, weakness or any other associated symptoms. - Related Data Home Medications Medication Instructions Recorded Confirmed Last Taken Albuterol Sulfate [Proair 2 puff IH Q6HR 10/29/19 07/21/20 Unknown Digihaler] AtorvaSTATin [Lipitor] 20 mg PO QDAY 10/29/19 07/21/20 Unknown Fluticasone/Salmeterol(Nf) [Advair 2 puff IH BID 10/29/19 07/21/20 Unknown HFA 115-21 mcg] Insulin Aspart (Nf) [NovoLOG 6 units SQ AC 10/29/19 07/21/20 Unknown Flexpen] Insulin Glargine,Hum.rec.anlog 35 unit SQ QHS 10/29/19 07/21/20 Unknown [Lantus Solostar] Olmesartan (Nf) [Benicar] 40 mg PO QDAY 10/29/19 07/21/20 Unknown Sertraline [Zoloft] 25 mg PO QDAY 10/29/19 07/21/20 Unknown Umeclidinium Brm/Vilanterol Tr 1 each IH Q24H 10/29/19 07/21/20 Unknown [Anoro Ellipta 62.5-25 Mcg INH] dilTIAZem [Cardizem] 90 mg PO Q8H 10/29/19 07/21/20 Unknown Metoprolol Xl [Metoprolol 50 mg PO QDAY 07/21/20 07/21/20 Unknown SUCCINATE ER TAB] Sildenafil Citrate [Viagra] 25 mg PO DAILY 07/21/20 07/21/20 Unknown oxyCODONE [roxiCODONE] 5 mg PO Q8HR PRN 07/21/20 07/21/20 Unknown Previous Rx's Medication Instructions Recorded Last Taken Type Pantoprazole [Protonix TAB] 40 mg PO BID #60 tablet 07/23/20 Unknown Rx Sucralfate [Carafate] 1 gm PO ACHS #120 tablet 07/23/20 Unknown Rx levoFLOXacin [Levaquin TAB] 750 mg PO Q24HR #5 tablet 07/23/20 Unknown Rx Amoxicillin/Potassium Clav 1 each PO BID #14 tablet 12/23/20 Unknown Rx [Augmentin 875-125 Tablet] Allergies Allergy/AdvReac Type Severity Reaction Status Date / Time No Known Allergies Allergy Verified 12/23/20 10:52 Abscess Boil HPI - HPI Chief Complaint: Skin/Abscess/Foreign Body Stated Complaint: LFET THUMB SWELLING Time Seen by Provider: 12/23/20 11:10 Home Medications: Home Medications Medication Instructions Recorded Confirmed Last Taken Albuterol Sulfate [Proair 2 puff IH Q6HR 10/29/19 07/21/20 Unknown Digihaler] AtorvaSTATin [Lipitor] 20 mg PO QDAY 10/29/19 07/21/20 Unknown Fluticasone/Salmeterol(Nf) [Advair 2 puff IH BID 10/29/19 07/21/20 Unknown HFA 115-21 mcg] Insulin Aspart (Nf) [NovoLOG 6 units SQ AC 10/29/19 07/21/20 Unknown Flexpen] Insulin Glargine,Hum.rec.anlog 35 unit SQ QHS 10/29/19 07/21/20 Unknown [Lantus Solostar] Olmesartan (Nf) [Benicar] 40 mg PO QDAY 10/29/19 07/21/20 Unknown Sertraline [Zoloft] 25 mg PO QDAY 10/29/19 07/21/20 Unknown Umeclidinium Brm/Vilanterol Tr 1 each IH Q24H 10/29/19 07/21/20 Unknown [Anoro Ellipta 62.5-25 Mcg INH] dilTIAZem [Cardizem] 90 mg PO Q8H 10/29/19 07/21/20 Unknown Metoprolol Xl [Metoprolol 50 mg PO QDAY 07/21/20 07/21/20 Unknown SUCCINATE ER TAB] Sildenafil Citrate [Viagra] 25 mg PO DAILY 07/21/20 07/21/20 Unknown oxyCODONE [roxiCODONE] 5 mg PO Q8HR PRN 07/21/20 07/21/20 Unknown Previous Rx's Medication Instructions Recorded Last Taken Type Pantoprazole [Protonix TAB] 40 mg PO BID #60 tablet 07/23/20 Unknown Rx Sucralfate [Carafate] 1 gm PO ACHS #120 tablet 07/23/20 Unknown Rx levoFLOXacin [Levaquin TAB] 750 mg PO Q24HR #5 tablet 07/23/20 Unknown Rx Amoxicillin/Potassium Clav 1 each PO BID #14 tablet 12/23/20 Unknown Rx [Augmentin 875-125 Tablet] Allergies/Adverse Reactions: Allergies Allergy/AdvReac Type Severity Reaction Status Date / Time No Known Allergies Allergy Verified 12/23/20 10:52 ED Review of Systems ROS: Stated complaint: LFET THUMB SWELLING Other details as noted in HPI Comment: All other systems reviewed and negative Constitutional: denies: chills, fever Eyes: denies: eye pain, eye discharge, vision change ENT: denies: ear pain, throat pain Respiratory: denies: cough, shortness of breath, wheezing Cardiovascular: denies: chest pain, palpitations Endocrine: no symptoms reported Gastrointestinal: denies: abdominal pain, nausea, diarrhea Genitourinary: denies: urgency, dysuria Musculoskeletal: denies: back pain, joint swelling, arthralgia Skin: as per HPI, other. denies: rash, lesions Neurological: denies: headache, weakness, paresthesias Psychiatric: denies: anxiety, depression Hematological/Lymphatic: denies: easy bleeding, easy bruising ED Past Medical Hx - Past Medical History Hx Hypertension: Yes Hx CVA: Yes (Right eye affected) Hx Heart Attack/AMI: Yes Hx Congestive Heart Failure: Yes Hx Diabetes: Yes Hx Deep Vein Thrombosis: Yes Hx GERD: Yes Hx Liver Disease: No Hx Renal Disease: No Hx Asthma: Yes Hx COPD: Yes Additional medical history: Emphysema. CAD - Surgical History Hx Coronary Stent: Yes Hx Pacemaker: No Hx Internal Defibrillator: No Additional Surgical History: Eye surgery, RUL removed, bilateral lung surgery - Social History Smoking Status: Never Smoker Substance Use Type: None - Medications Home Medications: Home Medications Medication Instructions Recorded Confirmed Last Taken Type Albuterol Sulfate [Proair 2 puff IH Q6HR 10/29/19 07/21/20 Unknown History Digihaler] AtorvaSTATin [Lipitor] 20 mg PO QDAY 10/29/19 07/21/20 Unknown History Fluticasone/Salmeterol(Nf) [Advair 2 puff IH BID 10/29/19 07/21/20 Unknown History HFA 115-21 mcg] Insulin Aspart (Nf) [NovoLOG 6 units SQ AC 10/29/19 07/21/20 Unknown History Flexpen] Insulin Glargine,Hum.rec.anlog 35 unit SQ QHS 10/29/19 07/21/20 Unknown History [Lantus Solostar] Olmesartan (Nf) [Benicar] 40 mg PO QDAY 10/29/19 07/21/20 Unknown History Sertraline [Zoloft] 25 mg PO QDAY 10/29/19 07/21/20 Unknown History Umeclidinium Brm/Vilanterol Tr 1 each IH Q24H 10/29/19 07/21/20 Unknown History [Anoro Ellipta 62.5-25 Mcg INH] dilTIAZem [Cardizem] 90 mg PO Q8H 10/29/19 07/21/20 Unknown History Metoprolol Xl [Metoprolol 50 mg PO QDAY 07/21/20 07/21/20 Unknown History SUCCINATE ER TAB] Sildenafil Citrate [Viagra] 25 mg PO DAILY 07/21/20 07/21/20 Unknown History oxyCODONE [roxiCODONE] 5 mg PO Q8HR PRN 07/21/20 07/21/20 Unknown History Pantoprazole [Protonix TAB] 40 mg PO BID #60 tablet 07/23/20 Unknown Rx Sucralfate [Carafate] 1 gm PO ACHS #120 tablet 07/23/20 Unknown Rx levoFLOXacin [Levaquin TAB] 750 mg PO Q24HR #5 tablet 07/23/20 Unknown Rx Amoxicillin/Potassium Clav 1 each PO BID #14 tablet 12/23/20 Unknown Rx [Augmentin 875-125 Tablet] ED Physical Exam - General Limitations: No Limitations General appearance: alert, in no apparent distress - Head Head exam: Present: atraumatic, normocephalic - Eye Eye exam: Present: normal appearance, PERRL, EOMI Pupils: Present: normal accommodation - ENT ENT exam: Present: normal exam, normal orophraynx, mucous membranes moist - Neck Neck exam: Present: normal inspection, full ROM. Absent: tenderness, meningismus - Respiratory Respiratory exam: Present: normal lung sounds bilaterally. Absent: respiratory distress, wheezes, rales, rhonchi, stridor - Cardiovascular Cardiovascular Exam: Present: regular rate, normal rhythm, normal heart sounds. Absent: systolic murmur, diastolic murmur, rubs, gallop - GI/Abdominal GI/Abdominal exam: Present: soft, normal bowel sounds. Absent: tenderness, guarding, rebound, rigid - Rectal Rectal exam: Present: deferred - Extremities Exam Extremities exam: Present: normal inspection, full ROM, tenderness (Tenderness to palpation with a large 3 to 4 cm paronychia on the lateral nailbed. No deformity. Full active range of motion.). Absent: calf tenderness - Back Exam Back exam: Present: normal inspection, full ROM. Absent: tenderness, muscle spasm, paraspinal tenderness, vertebral tenderness - Neurological Exam Neurological exam: Present: alert, oriented X3, normal gait - Psychiatric Psychiatric exam: Present: normal affect, normal mood - Skin Skin exam: Present: warm, dry, intact, normal color. Absent: rash ED Course Vital Signs 12/23/20 10:56 Temperature 98.6 F Pulse Rate 63 Respiratory 20 Rate Blood Pressure 158/86 O2 Sat by Pulse 95 Oximetry - I & D Left Finger Type of Procedure: Complex Site: Left thumb Blade Size: 11 I & D Procedure: betadine prep, sterile drapes applied, sterile dressing applied Progress: Patient was first thoroughly cleaned the skin with Betadine prep. 1% lidocaine without epinephrine was then injected in the base of the thumb on both sides to perform a digital block for anesthesia. I then used an 11 blade to make a 1 cm incision over the area of most fluctuance. The wound was then copiously irrigated with with normal saline. The wound was probed and deloculated and irrigated again. Patient tolerated this very well. Less than 5 mL of blood loss. ED Medical Decision Making - Medical Decision Making Paronychia was drained successfully. I recommended the patient do warm soapy water soaks 5 minutes every hour. Patient was sent home with antibiotics and recommend follow-up with primary care doctor return to the ER with any change or worsening symptoms. He verbalized understand the diagnosis, treatment plan and follow-up instructions all his questions were answered. - Differential Diagnosis Paronychia, felon, cellulitis Critical care attestation.: If time is entered above; I have spent that time in minutes in the direct care of this critically ill patient, excluding procedure time. ED Disposition Clinical Impression: Paronychia Disposition: DC-01 TO HOME OR SELFCARE Is pt being admited?: No Condition: Stable Instructions: Paronychia Prescriptions: Amoxicillin/Potassium Clav [Augmentin 875-125 Tablet] 1 each PO BID #14 tablet Referrals: PATEL FULLER MD [Primary Care Provider] - 3-5 Days Time of Disposition: 12:23
[2020-12-23 12:33] VITALS: BP 141/81
== END 2020-12-23 12:33 | disposition home or self-care (01) ==
LOC: ED 10:48
DX: L03.012 Cellulitis of left finger (principal); I11.0 Hypertensive heart disease with heart failure; I50.9 Heart failure, unspecified; I25.2 Old myocardial infarction; K21.9 Gastro-esophageal reflux disease without esophagitis; Z79.899 Other long term (current) drug therapy; Z79.4 Long term (current) use of insulin
CPT/HCPCS: 99282

== ENCOUNTER 2021-01-04 15:50 | Inpatient (IN) | payer MEDICARE ==
--- NOTE | 2021-01-04 16:36 | Event Note ---
ED Screening Note Date of service: 01/04/21 Time: 16:34 ED Screening Note: Pt c/o SOB and intermittent substernal CP; Onset monday He reports 3-4 episodes vomiting yesterday and mild intermittent cough pmhx -- CAD with stent placement; DM; HTN; HPLD; No tobacco He denies any abd pain, calf pain or swelling This initial assessment/diagnostic orders/clinical plan/treatment(s) is/are subject to change based on patients health status, clinical progression and re- assessment by fellow clinical providers in the ED. Further treatment and workup at subsequent clinical providers discretion. Patient/guardian urged not to elope from the ED as their condition may be serious if not clinically assessed and managed. Initial orders include: Chest pain order set
--- NOTE | 2021-01-04 17:14 | XRay Report ---
CHEST 2 VIEWS INDICATION / CLINICAL INFORMATION: Dyspnea. COMPARISON: 07/13/2020 FINDINGS: SUPPORT DEVICES: None. HEART / MEDIASTINUM: No significant abnormality. LUNGS / PLEURA: Bilateral parenchymal opacities appear slightly improved. Lingular pneumonia appears improved since prior exam. Chronic interstitial changes seen. No pneumothorax. ADDITIONAL FINDINGS: No significant additional findings. IMPRESSION: 1. No acute findings. Signer Name: Vishal Crow MD Signed: 01/04/2021 5:08 PM Workstation Name: [id number]
[2021-01-04 17:31] LABS: Basophils # (Auto) 0.1 K/mm3 (0.0-0.1); Basophils % (Auto) 0.8 % (0.0-1.8); Eosinophils % (Auto) 0.1 % (0.0-4.3); Hematocrit 44.1 % (35.5-45.6); Hemoglobin 14.3 gm/dl (11.8-15.2); Mean Corpuscular HGB Conc 33 % (32-34); Mean Corpuscular Volume 79 fl (84-94); Monocytes # (Auto) 0.7 K/mm3 (0.0-0.8); Monocytes % (Auto) 9.9 % (0.0-7.3); Platelet Count 235 K/mm3 (140-440); Red Blood Count 5.59 M/mm3 (3.65-5.03); Red Cell Distribution Width 17.3 % (13.2-15.2)
[2021-01-04 17:41] LABS: INR 0.98 (0.87-1.13)
[2021-01-04 17:42] LABS: Partial Thromboplastin Time 36.8 Sec. (24.2-36.6)
[2021-01-04 17:59] LABS: Albumin 3.8 g/dL (3.9-5); Calcium 8.5 mg/dL (8.4-10.2)
[2021-01-04] MEDS ORDERED: DOXYCYCLINE 100 MG CAP PO ONE (19:36)
[2021-01-04] MEDS ORDERED: IPRATROPIUM/ALBUTEROL SULFATE 3 ML AMPUL.NEB IH ONE (19:36)
[2021-01-04] MEDS ORDERED: predniSONE 20 MG TAB PO ONE (19:51)
--- NOTE | 2021-01-04 20:31 | Emergency Department Report ---
ED Shortness of Breath HPI - General Chief Complaint: Dyspnea/Respdistress Stated Complaint: WEAKNESS/DYSNEA Time Seen by Provider: 01/04/21 19:34 Source: patient Mode of arrival: Ambulatory Limitations: No Limitations - History of Present Illness Initial Comments: CC: Shortness of breath weakness, vomiting HPI: This is a 70-year-old male with history of COPD/emphysema, heart failure, diabetes mellitus, CVA, DVT, GERD, coronary artery disease, hypertension, upper GI bleed who presents with shortness of breath weakness vomiting since yesterday. Nonproductive cough. Symptoms began yesterday. He did not attempt home nebulizer treatment. Prior to bilateral lung surgery a year and a half ago he required home oxygen. He no longer has home oxygen. 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 He denies current chest pain. Denies lack of t aste or smell. He denies abdominal pain. He did go to [employer] on yesterday. He stated his symptoms started while he was at [employer]. He has not received Covid 19 vaccination. He states that he has intermittent chest pain nonspecific. +chest pain not associated with exertion, he describes mild tightness without radiation. His PCP is Dr. Wilfredo Gomez. MD Complaint: shortness of breath, cough, chest pain -: Gradual, days(s) (1 day) Severity: severe Consistency: constant Improves With: rest Worsens With: nothing Known History Of: COPD, asthma, congestive heart failure, diabetes, other (Coronary artery disease) Associated Symptoms: cough, nausea/vomiting - Related Data Home Medications Medication Instructions Recorded Confirmed Last Taken Albuterol Sulfate [Proair 2 puff IH Q6HR 10/29/19 07/21/20 Unknown Digihaler] AtorvaSTATin [Lipitor] 20 mg PO QDAY 10/29/19 07/21/20 Unknown Fluticasone/Salmeterol(Nf) [Advair 2 puff IH BID 10/29/19 07/21/20 Unknown HFA 115-21 mcg] Insulin Aspart (Nf) [NovoLOG 6 units SQ AC 10/29/19 07/21/20 Unknown Flexpen] Insulin Glargine,Hum.rec.anlog 35 unit SQ QHS 10/29/19 07/21/20 Unknown [Lantus Solostar] Olmesartan (Nf) [Benicar] 40 mg PO QDAY 10/29/19 07/21/20 Unknown Sertraline [Zoloft] 25 mg PO QDAY 10/29/19 07/21/20 Unknown Umeclidinium Brm/Vilanterol Tr 1 each IH Q24H 10/29/19 07/21/20 Unknown [Anoro Ellipta 62.5-25 Mcg INH] dilTIAZem [Cardizem] 90 mg PO Q8H 10/29/19 07/21/20 Unknown Metoprolol Xl [Metoprolol 50 mg PO QDAY 07/21/20 07/21/20 Unknown SUCCINATE ER TAB] Sildenafil Citrate [Viagra] 25 mg PO DAILY 07/21/20 07/21/20 Unknown oxyCODONE [roxiCODONE] 5 mg PO Q8HR PRN 07/21/20 07/21/20 Unknown Previous Rx's Medication Instructions Recorded Last Taken Type Pantoprazole [Protonix TAB] 40 mg PO BID #60 tablet 07/23/20 Unknown Rx Sucralfate [Carafate] 1 gm PO ACHS #120 tablet 07/23/20 Unknown Rx levoFLOXacin [Levaquin TAB] 750 mg PO Q24HR #5 tablet 07/23/20 Unknown Rx Amoxicillin/Potassium Clav 1 each PO BID #14 tablet 12/23/20 Unknown Rx [Augmentin 875-125 Tablet] Allergies Allergy/AdvReac Type Severity Reaction Status Date / Time No Known Allergies Allergy Verified 01/04/21 15:54 ED Review of Systems ROS: Stated complaint: WEAKNESS/DYSNEA Other details as noted in HPI Comment: All other systems reviewed and negative Constitutional: malaise. denies: fever ENT: denies: throat pain Respiratory: cough, shortness of breath, wheezing Cardiovascular: chest pain Gastrointestinal: nausea, vomiting. denies: diarrhea ED Past Medical Hx - Past Medical History Previous Medical History?: Yes Hx Hypertension: Yes Hx CVA: Yes (Right eye affected) Hx Heart Attack/AMI: Yes Hx Congestive Heart Failure: Yes Hx Diabetes: Yes Hx Deep Vein Thrombosis: Yes Hx GERD: Yes Hx Liver Disease: No Hx Renal Disease: No Hx Asthma: Yes Hx COPD: Yes Additional medical history: Emphysema. CAD - Surgical History Hx Coronary Stent: Yes Hx Pacemaker: No Hx Internal Defibrillator: No Additional Surgical History: Eye surgery, RUL removed, bilateral lung surgery - Social History Smoking Status: Never Smoker Substance Use Type: None - Medications Home Medications: Home Medications Medication Instructions Recorded Confirmed Last Taken Type Albuterol Sulfate [Proair 2 puff IH Q6HR 10/29/19 07/21/20 Unknown History Digihaler] AtorvaSTATin [Lipitor] 20 mg PO QDAY 10/29/19 07/21/20 Unknown History Fluticasone/Salmeterol(Nf) [Advair 2 puff IH BID 10/29/19 07/21/20 Unknown His tory HFA 115-21 mcg] Insulin Aspart (Nf) [NovoLOG 6 units SQ AC 10/29/19 07/21/20 Unknown History Flexpen] Insulin Glargine,Hum.rec.anlog 35 unit SQ QHS 10/29/19 07/21/20 Unknown History [Lantus Solostar] Olmesartan (Nf) [Benicar] 40 mg PO QDAY 10/29/19 07/21/20 Unknown History Sertraline [Zoloft] 25 mg PO QDAY 10/29/19 07/21/20 Unknown History Umeclidinium Brm/Vilanterol Tr 1 each IH Q24H 10/29/19 07/21/20 Unknown History [Anoro Ellipta 62.5-25 Mcg INH] dilTIAZem [Cardizem] 90 mg PO Q8H 10/29/19 07/21/20 Unknown History Metoprolol Xl [Metoprolol 50 mg PO QDAY 07/21/20 07/21/20 Unknown History SUCCINATE ER TAB] Sildenafil Citrate [Viagra] 25 mg PO DAILY 07/21/20 07/21/20 Unknown History oxyCODONE [roxiCODONE] 5 mg PO Q8HR PRN 07/21/20 07/21/20 Unknown History Pantoprazole [Protonix TAB] 40 mg PO BID #60 tablet 07/23/20 Unknown Rx Sucralfate [Carafate] 1 gm PO ACHS #120 tablet 07/23/20 Unknown Rx levoFLOXacin [Levaquin TAB] 750 mg PO Q24HR #5 tablet 07/23/20 Unknown Rx Amoxicillin/Potassium Clav 1 each PO BID #14 tablet 12/23/20 Unknown Rx [Augmentin 875-125 Tablet] ED Physical Exam - General Limitations: No Limitations General appearance: alert, in no apparent distress, anxious - Head Head exam: Present: atraumatic, normocephalic - Eye Eye exam: Present: normal appearance - ENT ENT exam: Present: mucous membranes moist - Neck Neck exam: Present: normal inspection, full ROM - Respiratory Respiratory exam: Present: normal lung sounds bilaterally. Absent: respiratory distress, wheezes, rales, rhonchi, accessory muscle use, decreased breath sounds, prolonged expiratory - Cardiovascular Cardiovascular Exam: Present: regular rate, normal rhythm, normal heart sounds. Absent: systolic murmur, diastolic murmur, rubs, gallop - GI/Abdominal GI/Abdominal exam: Present: soft, normal bowel sounds. Absent: distended, tenderness, guarding, rebound - Rectal Rectal exam: Present: deferred - Extremities Exam Extremities exam: Present: normal inspection - Neurological Exam Neurological exam: Present: alert, oriented X3 - Psychiatric Psychiatric exam: Present: normal affect, normal mood - Skin Skin exam: Present: warm, dry, intact, normal color. Absent: rash ED Course Vital Signs 01/04/21 01/04/21 01/04/21 15:57 19:26 19:30 Temperature 98.6 F Pulse Rate 67 55 L 55 L Pulse Rate [ Bilateral Throughout] Respiratory 24 14 12 Rate Respiratory Rate [Bilateral Throughout] Blood Pressure 128/69 Blood Pressure 107/63 [Right] O2 Sat by Pulse 95 95 94 Oximetry 01/04/21 01/04/21 01/04/21 19:46 19:55 20:00 Temperature Pulse Rate 54 L 56 L Pulse Rate [ 145 H Bilateral Throughout] Respiratory 9 L 13 Rate Respiratory 20 Rate [Bilateral Throughout] Blood Pressure 128/69 128/69 Blood Pressure [Right] O2 Sat by Pulse 94 94 Oximetry 01/04/21 01/04/21 20:16 20:30 Temperature Pulse Rate 61 64 Pulse Rate [ Bilateral Throughout] Respiratory 9 L 19 Rate Respiratory Rate [Bilateral Throughout] Blood Pressure 139/76 139/76 Blood Pressure [Right] O2 Sat by Pulse 94 91 Oximetry ED Medical Decision Making - Lab Data Result diagrams: 01/04/21 17:11 01/04/21 20:32 Laboratory Results - last 24 hr 01/04/21 01/04/21 01/04/21 17:11 17:11 17:11 WBC 7.3 RBC 5.59 H Hgb 14.3 Hct 44.1 MCV 79 L MCH 26 L MCHC 33 RDW 17.3 H Plt Count 235 Lymph % (Auto) 27.0 [place] % (Auto) 9.9 H Eos % (Auto) 0.1 Baso % (Auto) 0.8 Lymph # (Auto) 2.0 [place] # (Auto) 0.7 Eos # (Auto) 0.0 Baso # (Auto) 0.1 Seg Neutrophils % 62.2 Seg Neutrophils # 4.5 PT 12.8 INR 0.98 APTT 36.8 H Sodium 140 Potassium 3.2 L Chloride 103.5 Carbon Dioxide 25 Anion Gap 15 BUN 17 Creatinine 1.7 H Estimated GFR 48 BUN/Creatinine Ratio 10 Glucose 90 Calcium 8.5 Magnesium 1.90 Total Bilirubin 0.20 AST 33 ALT 31 Alkaline Phosphatase 82 Troponin T Total Protein 7.3 Albumin 3.8 L Albumin/Globulin Ratio 1.1 Lipase 17 01/04/21 01/04/21 17:11 19:10 WBC RBC Hgb Hct MCV MCH MCHC RDW Plt Count Lymph % (Auto) [place] % (Auto) Eos % (Auto) Baso % (Auto) Lymph # (Auto) [place] # (Auto) Eos # (Auto) Baso # (Auto) Seg Neutrophils % Seg Neutrophils # PT INR APTT Sodium Potassium Chloride Carbon Dioxide Anion Gap BUN Creatinine Estimated GFR BUN/Creatinine Ratio Glucose Calcium Magnesium Total Bilirubin AST ALT Alkaline Phosphatase Troponin T < 0.010 < 0.010 Total Protein Albumin Albumin/Globulin Ratio Lipase - EKG Data -: EKG Interpreted by Ct EKG shows normal: sinus rhythm, axis, intervals, QRS complexes Rate: normal - EKG Data Interpretation: nonspecific ST-T wave cici 01/04/21 20:30 EKG obtained 1602 EKG interpreted by [place] Normal sinus rhythm rate 60 bpm left axis deviation normal intervals no ST elevation nonspecific T wave pattern - Radiology Data Radiology results: report reviewed Chest radiograph 2 views: Bilateral parenchymal opacities appear slightly improved, lingular pneumonia appears improved since prior exam, chronic interstitial changes, no acute findings, no pneumothorax - Medical Decision Making Shortness of breath weakness vomiting: Additional diagnosis includes COVID-19 infection, acute coronary syndrome, COPD exacerbation: Contact droplet precautions instituted. Antibiotic and steroid therapy as well as nebulizer treatments initiated emergency department. Troponin x2 negative. Presentation atypical for ACS however patient does have extensive history. With exertion patient does have hypoxia 89% on room air. Patient is admitted for further treatment evaluation. Critical care attestation.: If time is entered above; I have spent that time in minutes in the direct care of this critically ill patient, excluding procedure time. ED Disposition Clinical Impression: COPD exacerbation, CAD (coronary artery disease), Atypical chest pain, Suspected COVID-19 virus infection Disposition: OP ADMIT IP TO THIS HOSP Is pt being admited?: Yes Does the pt Need Aspirin: No Condition: Stable Instructions: Chronic Obstructive Pulmonary Disease (ED)
[2021-01-04] MEDS ORDERED: dexAMETHasone 20 MG/5 ML VIAL IV ONE (20:45)
[2021-01-04 21:08] LABS: C-Reactive Protein 1.7 mg/dL (0.00-1.30)
[2021-01-04] MEDS ORDERED: ONDANSETRON 4 MG/2 ML INJ IV PRN (22:33)
[2021-01-04] MEDS ORDERED: ALBUTEROL 2.5 MG/3 ML NEBU IH PRN (22:33)
[2021-01-04] MEDS ORDERED: ACETAMINOPHEN 325 MG TAB PO PRN (22:33)
[2021-01-04] MEDS ORDERED: DEXTROSE 50% IN WATER (25GM) 50 ML SYRINGE IV PRN (22:33)
[2021-01-04] MEDS ORDERED: dexAMETHasone 4 MG/ML VIAL IV SCH (22:39)
--- NOTE | 2021-01-04 22:45 | History and Physical Report ---
History of Present Illness Date of examination: 01/04/21 Date of admission: 01/04/21 21:27 Chief complaint: Shortness of breath Respiratory distress History of present illness: 70-year-old male with past medical history of of COPD/emphysema, heart failure, diabetes mellitus, CVA, DVT, GERD, coronary artery disease, hypertension, upper GI bleed who presents with shortness of breath , weakness vomiting since yesterday. Patient complained of nonproductive cough since yesterday. He did not attempt home nebulizer treatment. Prior to bilateral lung surgery a year and a half ago he required home oxygen. He no longer has home oxygen. He does not follow regularly with pilot. He denies current chest pain. Denies lack of taste or smell. He denies abdominal pain. He did go to [facility] on yesterday. He stated his symptoms started while he was at [facility]. He has not received Covid 19 vaccination. He states that he has intermittent chest pain nonspecific. +chest pain not associated with exertion, he describes mild tightness without radiation. In the emergency room patient is found to have acute COPD exacerbation and Covid like symptom Past History Past Medical History: CAD, COPD, diabetes, DVT, GERD, heart failure, hypertension, stroke Medications and Allergies Allergies Allergy/AdvReac Type Severity Reaction Status Date / Time No Known Allergies Allergy Verified 01/04/21 15:54 Home Medications Medication Instructions Recorded Confirmed Last Taken Type Albuterol Sulfate [Proair 2 puff IH Q6HR 10/29/19 07/21/20 Unknown History Digihaler] AtorvaSTATin [Lipitor] 20 mg PO QDAY 10/29/19 07/21/20 Unknown History Fluticasone/Salmeterol(Nf) [Advair 2 puff IH BID 10/29/19 07/21/20 Unknown History HFA 115-21 mcg] Insulin Aspart (Nf) [NovoLOG 6 units SQ AC 10/29/19 07/21/20 Unknown History Flexpen] Insulin Glargine,Hum.rec.anlog 35 unit SQ QHS 10/29/19 07/21/20 Unknown History [Lantus Solostar] Olmesartan (Nf) [Benicar] 40 mg PO QDAY 10/29/19 07/21/20 Unknown History Sertraline [Zoloft] 25 mg PO QDAY 10/29/19 07/21/20 Unknown History Umeclidinium Brm/Vilanterol Tr 1 each IH Q24H 10/29/19 07/21/20 Unknown History [Anoro Ellipta 62.5-25 Mcg INH] dilTIAZem [Cardizem] 90 mg PO Q8H 10/29/19 07/21/20 Unknown History Metoprolol Xl [Metoprolol 50 mg PO QDAY 07/21/20 07/21/20 Unknown History SUCCINATE ER TAB] Sildenafil Citrate [Viagra] 25 mg PO DAILY 07/21/20 07/21/20 Unknown History oxyCODONE [roxiCODONE] 5 mg PO Q8HR PRN 07/21/20 07/21/20 Unknown History Pantoprazole [Protonix TAB] 40 mg PO BID #60 tablet 07/23/20 Unknown Rx Sucralfate [Carafate] 1 gm PO ACHS #120 tablet 07/23/20 Unknown Rx levoFLOXacin [Levaquin TAB] 750 mg PO Q24HR #5 tablet 07/23/20 Unknown Rx Amoxicillin/Potassium Clav 1 each PO BID #14 tablet 12/23/20 Unknown Rx [Augmentin 875-125 Tablet] Active Meds: Active Medications Acetaminophen (Acetaminophen 325 Mg Tab) 650 mg PO Q4H PRN PRN Reason: Pain MILD(1-3)/Fever >100.5/FINNEGAN Albuterol (Albuterol 2.5 Mg/3 Ml Nebu) 2.5 mg IH Q4HRT PRN PRN Reason: Shortness Of Breath Atorvastatin Calcium (Atorvastatin 20 Mg Tab) 20 mg PO QDAY RICARDO Dexamethasone (Dexamethasone 4 Mg/Ml Vial) 6 mg IV DAILY ONE Stop: 01/04/21 22:40 Dextrose (Dextrose 50% In Water (25gm) 50 Ml Syringe) 50 ml IV Q30MIN PRN; Protocol PRN Reason: Hypoglycemia Diltiazem HCl (Diltiazem 90 Mg Tab) 90 mg PO Q8H RICARDO Docusate Sodium (Docusate Sodium 100 Mg Cap) 100 mg PO BID RICARDO Famotidine (Famotidine 20 Mg Tab) 20 mg PO BID RICARDO Heparin Sodium (Porcine) (Heparin 5,000 Unit/1 Ml Vial) 5,000 unit SUB-Q Q8HR RICARDO Ceftriaxone Sodium (Rocephin/Ns 2 Gm/100 Ml) 2 gm in 100 mls @ 200 mls/hr IV Q24H RICARDO; Protocol Azithromycin (Zithromax/Ns) 500 mg in 250 mls @ 250 mls/hr IV Q24H RICARDO; Protocol Metoprolol Succinate (Metoprolol Succinate Xl 50 Mg Tab) 50 mg PO QDAY RICARDO Miscellaneous Medication (Fluticasone/Salmeterol(Nf) [Advair Hfa 115-21 Mcg]) 2 puff IH BID RICARDO Miscellaneous Medication (Insulin Aspart (Nf)) 6 units SQ AC RICARDO Miscellaneous Medication (Insulin Glargine,Hum.Rec.Anlog [Lantus Solostar]) 35 unit SQ QHS RICARDO Miscellaneous Medication (Olmesartan (Nf)) 40 mg PO QDAY RICARDO Ondansetron HCl (Ondansetron 4 Mg/2 Ml Inj) 4 mg IV Q8H PRN PRN Reason: Nausea And Vomiting Pantoprazole Sodium (Pantoprazole 40 Mg Tab) 40 mg PO BID RICARDO Sertraline HCl (Sertraline 25 Mg Tab) 25 mg PO QDAY RICARDO Sodium Chloride (Sodium Chloride 0.9% 10 Ml Flush Syringe) 10 ml IV BID RICARDO Sodium Chloride (Sodium Chloride 0.9% 10 Ml Flush Syringe) 10 ml IV PRN PRN PRN Reason: LINE FLUSH Sucralfate (Sucralfate 1 Gm Tab) 1 gm PO ACHS [facility] Review of Systems Cardiovascular: shortness of breath Respiratory: cough, shortness of breath, dyspnea on exertion Exam - Constitutional Vitals: Temp Pulse Resp BP Pulse Ox 98.6 F 75 17 155/81 88 01/04/21 15:57 01/04/21 22:30 01/04/21 22:30 01/04/21 22:30 01/04/21 22:16 General appearance: Present: no acute distress, mild distress, well-nourished - EENT Eyes: Present: PERRL ENT: hearing intact, clear oral mucosa - Neck Neck: Present: supple, normal ROM - Respiratory Respiratory effort: normal Respiratory: bilateral: wheezing - Cardiovascular Heart Sounds: Present: S1 & S2. Absent: rub, click - Extremities Extremities: pulses symmetrical, No edema Peripheral Pulses: within normal limits - Abdominal General gastrointestinal: Present: soft, non-tender, non-distended, normal bowel sounds Male genitourinary: Present: normal - Integumentary Integumentary: Present: clear, warm, dry - Musculoskeletal Musculoskeletal: gait normal, strength equal bilaterally - Psychiatric Psychiatric: appropriate mood/affect, intact judgment & insight - Neurologic Neurologic: CNII-XII intact, moves all extremities HEART Score - HEART Score Troponin: Troponin T < 0.010 ng/mL (0.00-0.029) 01/04/21 19:10 Results - Labs CBC & Chem 7: 01/04/21 17:11 01/04/21 20:32 Labs: Laboratory Last Values WBC 7.3 K/mm3 (4.5-11.0) 01/04/21 17:11 RBC 5.59 M/mm3 (3.65-5.03) H 01/04/21 17:11 Hgb 14.3 gm/dl (11.8-15.2) 01/04/21 17:11 Hct 44.1 % (35.5-45.6) 01/04/21 17:11 MCV 79 fl (84-94) L 01/04/21 17:11 MCH 26 pg (28-32) L 01/04/21 17:11 MCHC 33 % (32-34) 01/04/21 17:11 RDW 17.3 % (13.2-15.2) H 01/04/21 17:11 Plt Count 235 K/mm3 (140-440) 01/04/21 17:11 Lymph % (Auto) 27.0 % (13.4-35.0) 01/04/21 17:11 [place] % (Auto) 9.9 % (0.0-7.3) H 01/04/21 17:11 Eos % (Auto) 0.1 % (0.0-4.3) 01/04/21 17:11 Baso % (Auto) 0.8 % (0.0-1.8) 01/04/21 17:11 Lymph # (Auto) 2.0 K/mm3 (1.2-5.4) 01/04/21 17:11 [place] # (Auto) 0.7 K/mm3 (0.0-0.8) 01/04/21 17:11 Eos # (Auto) 0.0 K/mm3 (0.0-0.4) 01/04/21 17:11 Baso # (Auto) 0.1 K/mm3 (0.0-0.1) 01/04/21 17:11 Seg Neutrophils % 62.2 % (40.0-70.0) 01/04/21 17:11 Seg Neutrophils # 4.5 K/mm3 (1.8-7.7) 01/04/21 17:11 PT 12.8 Sec. (12.2-14.9) 01/04/21 17:11 INR 0.98 (0.87-1.13) 01/04/21 17:11 APTT 36.8 Sec. (24.2-36.6) H 01/04/21 17:11 D-Dimer 368.18 ng/mlDDU (0-234) H 01/04/21 20:32 Sodium 140 mmol/L (137-145) 01/04/21 17:11 Potassium 3.2 mmol/L (3.6-5.0) L 01/04/21 17:11 Chloride 103.5 mmol/L (98-107) 01/04/21 17:11 Carbon Dioxide 25 mmol/L (22-30) 01/04/21 17:11 Anion Gap 15 mmol/L 01/04/21 17:11 BUN 17 mg/dL (9-20) 01/04/21 17:11 Creatinine 1.7 mg/dL (0.8-1.3) H 01/04/21 17:11 Estimated GFR 48 ml/min 01/04/21 17:11 BUN/Creatinine Ratio 10 % 01/04/21 17:11 Glucose 103 mg/dL (75-100) H 01/04/21 20:32 Calcium 8.5 mg/dL (8.4-10.2) 01/04/21 17:11 Magnesium 1.90 mg/dL (1.7-2.3) 01/04/21 17:11 Ferritin 108.3 ng/mL (30.0-300.0) 01/04/21 20:32 Total Bilirubin 0.20 mg/dL (0.1-1.2) 01/04/21 17:11 AST 33 units/L (5-40) 01/04/21 17:11 ALT 31 units/L (7-56) 01/04/21 17:11 Alkaline Phosphatase 82 units/L (35-129) 01/04/21 17:11 Lactate Dehydrogenase 235 units/L (91-180) H 01/04/21 20:32 Troponin T < 0.010 ng/mL (0.00-0.029) 01/04/21 19:10 C-Reactive Protein 1.70 mg/dL (0.00-1.30) H 01/04/21 20:32 NT-Pro-B Natriuret Pep 174.1 pg/mL (0-900) 01/04/21 19:40 Total Protein 7.3 g/dL (6.3-8.2) 01/04/21 17:11 Albumin 3.8 g/dL (3.9-5) L 01/04/21 17:11 Albumin/Globulin Ratio 1.1 % 01/04/21 17:11 Lipase 17 units/L (13-60) 01/04/21 17:11 - Imaging and Cardiology Chest x-ray: image reviewed Assessment and Plan VTE prophylaxis?: Chemical Plan of care discussed with patient/family: Yes - Patient Problems (1) COPD exacerbation Current Visit: Yes Status: Acute Plan to address problem: Admit the patient to the medical telemetry. Oxygen per nasal penetrator per minute. DuoNeb by nebulizer every 4 hours as needed. Rocephin 1 g IV daily and Zithromax 500 mg IV daily. Decadron 6 mg IV daily. We will continue the home medication (2) Suspected COVID-19 virus infection Current Visit: Yes Status: Acute Plan to address problem: Oxygen per nasal penetrator per minute. DuoNeb by nebulizer every 4 hours as needed. Rocephin 1 g IV daily and Zithromax 500 mg IV daily. Decadron 6 mg IV daily. We will follow the Covid inflammatory markers and follow the Covid test (3) CAD (coronary artery disease) Current Visit: Yes Status: Chronic Plan to address problem: Aspirin 81 mg p.o. daily and Lipitor 40 mg p.o. daily. We will continue the home medication. We will do the serial troponin (4) Acute coronary syndrome Current Visit: No Status: Acute (5) Acute respiratory failure Current Visit: No Status: Acute Qualifiers: Plan to address problem: Admit the patient to the medical telemetry. Oxygen per nasal penetrator per minute. DuoNeb by nebulizer every 4 hours as needed. Rocephin 1 g IV daily and Zithromax 500 mg IV daily. Decadron 6 mg IV daily. (6) DVT (deep venous thrombosis) Current Visit: No Status: Acute Plan to address problem: Patient has history of DVT. We put the patient on heparin 5000 units subcu every 8 hours (7) DVT prophylaxis Current Visit: No Status: Acute (8) Diabetes type 1, uncontrolled Current Visit: No Status: Acute Plan to address problem: Put the patient on 1800 kcal ADA diet. Insulin aspart 6 units subcu AC and insulin glargine 35 units subcu nightly. Recheck CBC BMP in the morning (9) GERD with esophagitis Current Visit: No Status: Acute Plan to address problem: Protonix 40 mg p.o. twice daily (10) HTN (hypertension), benign Current Visit: No Status: Acute Plan to address problem: We will put the patient on metoprolol XL 50 mg p.o. daily and losartan 50 mg p.o. daily. We will monitor the blood pressure closely
[2021-01-04] MEDS ORDERED: AZITHROMYCIN/NS 500 MG/250 ML 500 MG/250 ML BAG IV SCH (23:00)
[2021-01-05] MEDS: cefTRIAXone/NS 2 GM/100 ML 2 GM/100 ML BAG IV SCH ×2 (00:08→09:05)
[2021-01-05 05:33] LABS: BUN/Creatinine Ratio 14; Blood Urea Nitrogen 19 mg/dL (9-20); Calcium 8.4 mg/dL (8.4-10.2); Hemolysis Index 6
[2021-01-05 05:35] LABS: Basophils # (Auto) 0.1 K/mm3 (0.0-0.1); Basophils % (Auto) 1.6 % (0.0-1.8); Hematocrit 43.4 % (35.5-45.6); Lymphocytes # (Auto) 0.7 K/mm3 (1.2-5.4); Lymphocytes % (Auto) 18.6 % (13.4-35.0); Mean Corpuscular HGB Conc 32 % (32-34); Mean Corpuscular Volume 80 fl (84-94); Monocytes # (Auto) 0.1 K/mm3 (0.0-0.8); Monocytes % (Auto) 2.3 % (0.0-7.3); Platelet Count 263 K/mm3 (140-440); Red Blood Count 5.44 M/mm3 (3.65-5.03); Red Cell Distribution Width 17.5 % (13.2-15.2)
[2021-01-05] MEDS: HEPARIN 5,000 UNIT/1 ML VIAL SUB-Q SCH ×3 (05:55→21:16)
[2021-01-05] MEDS: BUDESONIDE 0.5 MG/2 ML NEBU IH SCH ×2 (07:28→20:00)
[2021-01-05] MEDS: ARFORMOTEROL 15 MCG/2 ML NEBU IH SCH ×2 (07:28→20:00)
[2021-01-05] MEDS: SERTRALINE 25 MG TAB PO SCH (09:05)
[2021-01-05] MEDS: DOCUSATE SODIUM 100 MG CAP PO SCH ×2 (09:05→21:15)
[2021-01-05] MEDS: INSULIN LISPRO 100 UNIT/ML SUB-Q SCH ×3 (09:05→17:25)
[2021-01-05] MEDS: PANTOPRAZOLE 40 MG TAB PO SCH ×2 (09:05→21:15)
[2021-01-05] MEDS: dexAMETHasone 4 MG/ML VIAL IV SCH (09:05)
[2021-01-05] MEDS: ASPIRIN 81 MG TAB CHEW PO SCH (09:05)
[2021-01-05] MEDS: METOPROLOL SUCCINATE XL 50 MG TAB PO SCH (09:05)
[2021-01-05] MEDS: SUCRALFATE 1 GM TAB PO SCH ×4 (09:05→21:16)
[2021-01-05] MEDS ORDERED: FAMOTIDINE 20 MG TAB PO SCH (10:00)
[2021-01-05] MEDS ORDERED: NON-FORMULARY EACH (Fluticasone/Salmeterol(Nf) [Advair Hfa 115-21 Mcg] 115 MCG/PUFF Hfa.Ae IH SCH (10:00)
--- NOTE | 2021-01-05 10:36 | Electrocardiograph Report ---
[facility] Test Date: 2021-01-04 Test Time: 16:02:03 Pat Name: JOSSELYN BULL Department: Room: A354 2 Gender: M Bobbin Winder: ISAI : [id number] Requested By: DUSTIN GRANDE Order Number: [id number] Reading MD: Sudeep Fritz Measurements Intervals [place] Rate: 63 P: 119 CA: 162 QRS: -32 QRSD: 100 T: 171 QT: 384 QTc: 394 Interpretive Statements Sinus rhythm Left axis deviation Nonspecific T abnormalities, lateral leads No previous ECG available for comparison Electronically Signed On 01-05-2021 10:36:47 EDT by Sudeep Fritz
[2021-01-05] MEDS: LOSARTAN 50 MG TAB PO SCH (10:38)
--- NOTE | 2021-01-05 10:53 | Progress Note ---
Assessment and Plan Assessment and plan: #Acute hypoxic respiratory failure Continue oxygen supplementation #Pneumonia Continue ceftriaxone and azithromycin Procalcitonin 0.59 Awaiting COVID-19 test Oxygen supplementation #Acute COPD exacerbation Continue oxygen supplementation Decadron 6 mg IV daily #History of coronary artery disease Continue aspirin and Lipitor #DM Insulin and Lantus #GERD Protonix #Hypertension Metoprolol 50 mg daily Losartan 50 mg daily Continue to monitor blood pressure #DVT prophylaxis Heparin History Interval history: 01/05. Patient feels better. Remains on oxygen. Awaiting COVID-19 test. On antibiotics and steroids. Hospitalist Physical - Physical exam Narrative exam: VITAL SIGNS: Reviewed. GENERAL: Awake HEAD: No signs of head trauma. EYES: Pupils are equal. Extraocular motions intact. MOUTH: Oropharynx is normal. NECK: No adenopathy, no JVD. CHEST: Chest with diminished breath sounds bilaterally. No wheezes, rales, or rhonchi. CARDIAC: normal S1 and S2, without murmurs, gallops, or rubs. ABDOMEN: Soft, non tender and non distended. No rebound or guarding, and no masses palpated. Bowel Sounds normal. MUSCULOSKELETAL: No edema NEUROLOGIC EXAM: Alert and oriented x3. No focal neurologic deficits SKIN: No obvious lesions - Constitutional Vitals: Temp Pulse Resp BP Pulse Ox 98.5 F 68 20 141/74 99 01/05/21 05:48 01/05/21 10:38 01/05/21 07:36 01/05/21 10:38 01/05/21 07:40 HEART Score - HEART Score Troponin: Troponin T < 0.010 ng/mL (0.00-0.029) 01/04/21 22:49 Results - Labs CBC & Chem 7: 01/05/21 04:57 01/05/21 04:57 Labs: Laboratory Last Values WBC 4.0 K/mm3 (4.5-11.0) L 01/05/21 04:57 RBC 5.44 M/mm3 (3.65-5.03) H 01/05/21 04:57 Hgb 14.0 gm/dl (11.8-15.2) 01/05/21 04:57 Hct 43.4 % (35.5-45.6) 01/05/21 04:57 MCV 80 fl (84-94) L 01/05/21 04:57 MCH 26 pg (28-32) L 01/05/21 04:57 MCHC 32 % (32-34) 01/05/21 04:57 RDW 17.5 % (13.2-15.2) H 01/05/21 04:57 Plt Count 263 K/mm3 (140-440) 01/05/21 04:57 Lymph % (Auto) 18.6 % (13.4-35.0) 01/05/21 04:57 [place] % (Auto) 2.3 % (0.0-7.3) 01/05/21 04:57 Eos % (Auto) 0.0 % (0.0-4.3) 01/05/21 04:57 Baso % (Auto) 1.6 % (0.0-1.8) 01/05/21 04:57 Lymph # (Auto) 0.7 K/mm3 (1.2-5.4) L 01/05/21 04:57 [place] # (Auto) 0.1 K/mm3 (0.0-0.8) 01/05/21 04:57 Eos # (Auto) 0.0 K/mm3 (0.0-0.4) 01/05/21 04:57 Baso # (Auto) 0.1 K/mm3 (0.0-0.1) 01/05/21 04:57 Seg Neutrophils % 77.5 % (40.0-70.0) H 01/05/21 04:57 Seg Neutrophils # 3.1 K/mm3 (1.8-7.7) 01/05/21 04:57 PT 12.8 Sec. (12.2-14.9) 01/04/21 17:11 INR 0.98 (0.87-1.13) 01/04/21 17:11 APTT 36.8 Sec. (24.2-36.6) H 01/04/21 17:11 D-Dimer 368.18 ng/mlDDU (0-234) H 01/04/21 20:32 Sodium 139 mmol/L (137-145) 01/05/21 04:57 Potassium 4.3 mmol/L (3.6-5.0) D 01/05/21 04:57 Chloride 101.8 mmol/L (98-107) 01/05/21 04:57 Carbon Dioxide 25 mmol/L (22-30) 01/05/21 04:57 Anion Gap 17 mmol/L 01/05/21 04:57 BUN 19 mg/dL (9-20) 01/05/21 04:57 Creatinine 1.4 mg/dL (0.8-1.3) H 01/05/21 04:57 Estimated GFR > 60 ml/min 01/05/21 04:57 BUN/Creatinine Ratio 14 % 01/05/21 04:57 Glucose 182 mg/dL (75-100) H 01/05/21 04:57 POC Glucose 149 mg/dL (70-105) H 01/05/21 07:55 Calcium 8.4 mg/dL (8.4-10.2) 01/05/21 04:57 Magnesium 1.90 mg/dL (1.7-2.3) 01/04/21 17:11 Ferritin 108.3 ng/mL (30.0-300.0) 01/04/21 20:32 Total Bilirubin 0.20 mg/dL (0.1-1.2) 01/04/21 17:11 AST 33 units/L (5-40) 01/04/21 17:11 ALT 31 units/L (7-56) 01/04/21 17:11 Alkaline Phosphatase 82 units/L (35-129) 01/04/21 17:11 Lactate Dehydrogenase 235 units/L (91-180) H 01/04/21 20:32 Troponin T < 0.010 ng/mL (0.00-0.029) 01/04/21 22:49 C-Reactive Protein 1.70 mg/dL (0.00-1.30) H 01/04/21 20:32 NT-Pro-B Natriuret Pep 174.1 pg/mL (0-900) 01/04/21 19:40 Total Protein 7.3 g/dL (6.3-8.2) 01/04/21 17:11 Albumin 3.8 g/dL (3.9-5) L 01/04/21 17:11 Albumin/Globulin Ratio 1.1 % 01/04/21 17:11 Lipase 17 units/L (13-60) 01/04/21 17:11 Procalcitonin 0.59 ng/mL (<0.15) 01/04/21 20:32 Active Medications - Current Medications Current Medications: Generic Name Dose Route Start Last Admin Trade Name Freq PRN Reason Stop Dose Admin Acetaminophen 650 mg 01/04/21 22:33 Acetaminophen 325 Mg Tab PO Q4H PRN Pain MILD(1-3)/Fever >100.5/FINNEGAN Albuterol 2.5 mg 01/04/21 22:33 Albuterol 2.5 Mg/3 Ml Nebu IH Q4HRT PRN Shortness Of Breath Arformoterol Tartrate 15 mcg 01/05/21 08:00 01/05/21 07:28 Arformoterol 15 Mcg/2 Ml Nebu IH 15 mcg Q12HRT RICARDO Administration Aspirin 81 mg 01/05/21 10:00 01/05/21 09:05 Aspirin 81 Mg Tab Chew PO 81 mg QDAY RICARDO Administration Atorvastatin Calcium 20 mg 01/05/21 10:00 01/05/21 09:05 Atorvastatin 20 Mg Tab PO 20 mg QDAY RICARDO Administration Azithromycin 500 mg 01/05/21 22:00 Azithromycin 250 Mg Tab PO 01/08/21 22:01 QHS RICARDO Budesonide 0.5 mg 01/05/21 08:00 01/05/21 07:28 Budesonide 0.5 Mg/2 Ml Nebu IH 0.5 mg Q12HRT RICARDO Administration Dexamethasone 6 mg 01/05/21 10:00 01/05/21 09:05 Dexamethasone 4 Mg/Ml Vial IV 01/13/21 10:01 6 mg DAILY RICARDO Administration Dextrose 0 ml 01/04/21 22:33 Dextrose 50% In Water (25gm) 50 Ml Syringe IV Q30MIN PRN Hypoglycemia Protocol Diltiazem HCl 90 mg 01/05/21 00:00 01/05/21 09:05 Diltiazem 90 Mg Tab PO 90 mg Q8H RICARDO Administration Docusate Sodium 100 mg 01/05/21 10:00 01/05/21 09:05 Docusate Sodium 100 Mg Cap PO 100 mg BID RICARDO Administration Heparin Sodium (Porcine) 5,000 unit 01/05/21 06:00 01/05/21 05:55 Heparin 5,000 Unit/1 Ml Vial SUB-Q 5,000 unit Q8HR RICARDO Administration Ceftriaxone Sodium 2 gm in 100 mls @ 200 mls/hr 01/04/21 23:00 01/05/21 09:05 Rocephin/Ns 2 Gm/100 Ml IV 200 mls/hr Q24HR RICARDO Administration Protocol Insulin Glargine 35 units 01/05/21 22:00 Insulin Glargine 100 Units/Ml SUB-Q QHS RICARDO Insulin Human Lispro 6 unit 01/05/21 07:30 01/05/21 09:05 Insulin Lispro 100 Unit/Ml SUB-Q 6 unit AC RICARDO Administration Losartan Potassium 50 mg 01/05/21 10:00 01/05/21 10:38 Losartan 50 Mg Tab PO 50 mg QDAY RICARDO Administration Metoprolol Succinate 50 mg 01/05/21 08:00 01/05/21 09:05 Metoprolol Succinate Xl 50 Mg Tab PO 50 mg QDAY@0800 RICARDO Administration Ondansetron HCl 4 mg 01/04/21 22:33 Ondansetron 4 Mg/2 Ml Inj IV Q8H PRN Nausea And Vomiting Pantoprazole Sodium 40 mg 01/05/21 10:00 01/05/21 09:05 Pantoprazole 40 Mg Tab PO 40 mg BID RICADRO Administration Sertraline HCl 25 mg 01/05/21 10:00 Sertraline 25 Mg Tab PO QDAY RICARDO Sodium Chloride 10 ml 01/05/21 10:00 01/05/21 09:05 Sodium Chloride 0.9% 10 Ml Flush Syringe IV 10 ml BID RICARDO Administration Sodium Chloride 10 ml 01/04/21 22:33 Sodium Chloride 0.9% 10 Ml Flush Syringe IV PRN PRN LINE FLUSH Sucralfate 1 gm 01/05/21 07:30 01/05/21 09:05 Sucralfate 1 Gm Tab PO 1 gm ACHS RICARDO Administration
[2021-01-05] MEDS: AZITHROMYCIN 250 MG TAB PO SCH (21:15)
[2021-01-05] MEDS: INSULIN GLARGINE 100 UNITS/ML SUB-Q SCH (21:16)
[2021-01-06] MEDS: HEPARIN 5,000 UNIT/1 ML VIAL SUB-Q SCH ×3 (05:53→21:40)
[2021-01-06] MEDS: INSULIN LISPRO 100 UNIT/ML SUB-Q SCH ×3 (08:41→17:50)
[2021-01-06] MEDS: SUCRALFATE 1 GM TAB PO SCH ×4 (08:42→21:40)
[2021-01-06] MEDS: ASPIRIN 81 MG TAB CHEW PO SCH (09:17)
[2021-01-06] MEDS: DOCUSATE SODIUM 100 MG CAP PO SCH ×2 (09:17→21:40)
[2021-01-06] MEDS: PANTOPRAZOLE 40 MG TAB PO SCH ×2 (09:17→21:40)
[2021-01-06] MEDS: LOSARTAN 50 MG TAB PO SCH (09:19)
[2021-01-06] MEDS: METOPROLOL SUCCINATE XL 50 MG TAB PO SCH (09:19)
[2021-01-06] MEDS: cefTRIAXone/NS 2 GM/100 ML 2 GM/100 ML BAG IV SCH (09:20)
[2021-01-06] MEDS: dexAMETHasone 4 MG/ML VIAL IV SCH (09:20)
[2021-01-06] MEDS: SERTRALINE 25 MG TAB PO SCH (09:20)
--- NOTE | 2021-01-06 09:23 | Discharge Summary ---
Providers - Providers Date of Admission: 01/05/21 16:20 Date of discharge: 01/07/21 Attending physician: AUREA MEJÍA 01/05/21 16:38 Consult to Physician [CONS] Routine Comment: Consulting Provider: TYRA ARAUZ Physician Instructions: Reason For Exam: COVID-19 infection Primary care physician: COMPUTATIONAL GENETICIST Hospitalization Condition: Stable Hospital course: 70-year-old male with past medical history of of COPD/emphysema, heart failure, diabetes mellitus, CVA, DVT, GERD, coronary artery disease, hypertension, upper GI bleed who presents with shortness of breath , weakness vomiting since yesterday. Patient complained of nonproductive cough since yesterday. He did not attempt home nebulizer treatment. Prior to bilateral lung surgery a year and a half ago he required home oxygen. He no longer has home oxygen. He does not follow regularly with kitchen hand. He denies current chest pain. Denies lack of taste or smell. He denies abdominal pain. [facility] He stated his symptoms started while he was at [facility]. He has not received Covid 19 vaccination. He states that he has intermittent chest pain nonspecific. +chest pain not associated with exertion, he describes mild tightness without radiation. In the emergency room patient is found to have acute COPD exacerbation and Covid like symptoms. Hospital course 01/05. He was started on steroids and oxygen supplementation. COVID-19 test was sent and it came out positive. Procalcitonin is >0.25. He remains on antibi otics. 01/06. COVID-19 test positive. ID has been consulted. Patient had a walk test on oxygen saturation remained 93% and above. Plan to monitor overnight and if still stable by tomorrow, patient will be discharged home on steroids. Patient agrees with plan 01/07. He is doing well. Will discharge home on steroids and levaquin. He will continue to monitor his sats at home. He agrees with plan Disposition: -01 TO HOME OR SELFCARE Final Discharge Diagnosis (Prints w/discharge instructions): COVID-19 pneumonia Time spent for discharge: 30 mins - Discharge Diagnoses (1) Pneumonia due to COVID-19 virus Status: Acute (2) COPD exacerbation Status: Acute (3) RACHEL (acute kidney injury) Status: Acute Comment: Likely vasomotor nephropathy Core Measure Documentation - Palliative Care Palliative Care/ Comfort Measures: Not Applicable - Core Measures Any of the following diagnoses?: none Exam - Constitutional Vitals: Temp Pulse Resp BP Pulse Ox 98.7 F 64 18 129/65 94 01/06/21 06:56 01/06/21 06:56 01/06/21 06:56 01/06/21 09:19 01/06/21 06:56 Plan Activity: no restrictions Diet: low salt Additional Instructions: Continue dexamethasone. Continue antibiotics. Follow up with PCP in 2 weeks Follow up with: PRIMARY CARE, [Primary Care Provider] - 7 Days Prescriptions: Dexamethasone [Decadron] 6 mg PO DAILY #9 tablet levoFLOXacin [Levaquin TAB] 750 mg PO Q24HR #6 tablet
[2021-01-06] MEDS: ARFORMOTEROL 15 MCG/2 ML NEBU IH SCH ×2 (09:41→20:27)
[2021-01-06] MEDS: BUDESONIDE 0.5 MG/2 ML NEBU IH SCH ×2 (09:41→20:27)
--- NOTE | 2021-01-06 10:53 | Progress Note ---
Assessment and Plan Assessment and plan: #Acute hypoxic respiratory failure Resolved #COVID-19 pneumonia Continue ceftriaxone and azithromycin Continue dexamethasone Not a candidate for remdesivir as he has no resting hypoxia. ID follow-up Trend inflammatory markers #Acute COPD exacerbation Continue oxygen supplementation Decadron 6 mg IV daily #History of coronary artery disease Continue aspirin and Lipitor #DM Insulin and Lantus #GERD Protonix #Hypertension Metoprolol 50 mg daily Losartan 50 mg daily Continue to monitor blood pressure #DVT prophylaxis Heparin History Interval history: 01/05. Patient feels better. Remains on oxygen. Awaiting COVID-19 test. On antibiotics and steroids. 01/06. COVID-19 test positive. ID has been consulted. Patient had a walk test on oxygen saturation remained 93% and above. Plan to monitor overnight and if still stable by tomorrow, patient will be discharged home on steroids. Patient agrees with plan Hospitalist Physical - Physical exam Narrative exam: VITAL SIGNS: Reviewed. GENERAL: Awake HEAD: No signs of head trauma. EYES: Pupils are equal. Extraocular motions intact. MOUTH: Oropharynx is normal. NECK: No adenopathy, no JVD. CHEST: Chest with diminished breath sounds bilaterally. No wheezes, rales, or rhonchi. CARDIAC: normal S1 and S2, without murmurs, gallops, or rubs. ABDOMEN: Soft, non tender and non distended. No rebound or guarding, and no masses palpated. Bowel Sounds normal. MUSCULOSKELETAL: No edema NEUROLOGIC EXAM: Alert and oriented x3. No focal neurologic deficits SKIN: No obvious lesions - Constitutional Vitals: Temp Pulse Resp BP Pulse Ox 98.7 F 64 18 129/65 94 01/06/21 06:56 01/06/21 06:56 01/06/21 06:56 01/06/21 09:19 01/06/21 06:56 HEART Score - HEART Score Troponin: Troponin T < 0.010 ng/mL (0.00-0.029) 01/04/21 22:49 Results - Labs CBC & Chem 7: 01/05/21 04:57 01/05/21 04:57 Labs: Laboratory Last Values WBC 4.0 K/mm3 (4.5-11.0) L 01/05/21 04:57 RBC 5.44 M/mm3 (3.65-5.03) H 01/05/21 04:57 Hgb 14.0 gm/dl (11.8-15.2) 01/05/21 04:57 Hct 43.4 % (35.5-45.6) 01/05/21 04:57 MCV 80 fl (84-94) L 01/05/21 04:57 MCH 26 pg (28-32) L 01/05/21 04:57 MCHC 32 % (32-34) 01/05/21 04:57 RDW 17.5 % (13.2-15.2) H 01/05/21 04:57 Plt Count 263 K/mm3 (140-440) 01/05/21 04:57 Lymph % (Auto) 18.6 % (13.4-35.0) 01/05/21 04:57 [place] % (Auto) 2.3 % (0.0-7.3) 01/05/21 04:57 Eos % (Auto) 0.0 % (0.0-4.3) 01/05/21 04:57 Baso % (Auto) 1.6 % (0.0-1.8) 01/05/21 04:57 Lymph # (Auto) 0.7 K/mm3 (1.2-5.4) L 01/05/21 04:57 [place] # (Auto) 0.1 K/mm3 (0.0-0.8) 01/05/21 04:57 Eos # (Auto) 0.0 K/mm3 (0.0-0.4) 01/05/21 04:57 Baso # (Auto) 0.1 K/mm3 (0.0-0.1) 01/05/21 04:57 Seg Neutrophils % 77.5 % (40.0-70.0) H 01/05/21 04:57 Seg Neutrophils # 3.1 K/mm3 (1.8-7.7) 01/05/21 04:57 PT 12.8 Sec. (12.2-14.9) 01/04/21 17:11 INR 0.98 (0.87-1.13) 01/04/21 17:11 APTT 36.8 Sec. (24.2-36.6) H 01/04/21 17:11 D-Dimer 368.18 ng/mlDDU (0-234) H 01/04/21 20:32 Sodium 139 mmol/L (137-145) 01/05/21 04:57 Potassium 4.3 mmol/L (3.6-5.0) D 01/05/21 04:57 Chloride 101.8 mmol/L (98-107) 01/05/21 04:57 Carbon Dioxide 25 mmol/L (22-30) 01/05/21 04:57 Anion Gap 17 mmol/L 01/05/21 04:57 BUN 19 mg/dL (9-20) 01/05/21 04:57 Creatinine 1.4 mg/dL (0.8-1.3) H 01/05/21 04:57 Estimated GFR > 60 ml/min 01/05/21 04:57 BUN/Creatinine Ratio 14 % 01/05/21 04:57 Glucose 182 mg/dL (75-100) H 01/05/21 04:57 POC Glucose 145 mg/dL (70-105) H 01/06/21 08:16 Calcium 8.4 mg/dL (8.4-10.2) 01/05/21 04:57 Magnesium 1.90 mg/dL (1.7-2.3) 01/04/21 17:11 Ferritin 108.3 ng/mL (30.0-300.0) 01/04/21 20:32 Total Bilirubin 0.20 mg/dL (0.1-1.2) 01/04/21 17:11 AST 33 units/L (5-40) 01/04/21 17:11 ALT 31 units/L (7-56) 01/04/21 17:11 Alkaline Phosphatase 82 units/L (35-129) 01/04/21 17:11 Lactate Dehydrogenase 235 units/L (91-180) H 01/04/21 20:32 Troponin T < 0.010 ng/mL (0.00-0.029) 01/04/21 22:49 C-Reactive Protein 1.70 mg/dL (0.00-1.30) H 01/04/21 20:32 NT-Pro-B Natriuret Pep 174.1 pg/mL (0-900) 01/04/21 19:40 Total Protein 7.3 g/dL (6.3-8.2) 01/04/21 17:11 Albumin 3.8 g/dL (3.9-5) L 01/04/21 17:11 Albumin/Globulin Ratio 1.1 % 01/04/21 17:11 Lipase 17 units/L (13-60) 01/04/21 17:11 Procalcitonin 0.59 ng/mL (<0.15) 01/04/21 20:32 Coronavirus (PCR) Positive (Negative) A 01/04/21 10:19 [place]/IV: Voiding Method Toilet Active Medications - Current Medications Current Medications: Generic Name Dose Route Start Last Admin Trade Name Freq PRN Reason Stop Dose Admin Acetaminophen 650 mg 01/04/21 22:33 Acetaminophen 325 Mg Tab PO Q4H PRN Pain MILD(1-3)/Fever >100.5/FINNEGAN Albuterol 2.5 mg 01/04/21 22:33 Albuterol 2.5 Mg/3 Ml Nebu IH Q4HRT PRN Shortness Of Breath Arformoterol Tartrate 15 mcg 01/05/21 08:00 01/06/21 09:41 Arformoterol 15 Mcg/2 Ml Nebu IH 15 mcg Q12HRT RICARDO Administration Aspirin 81 mg 01/05/21 10:00 01/06/21 09:17 Aspirin 81 Mg Tab Chew PO 81 mg QDAY RICARDO Administration Atorvastatin Calcium 20 mg 01/05/21 10:00 01/06/21 09:20 Atorvastatin 20 Mg Tab PO 20 mg QDAY RICARDO Administration Azithromycin 500 mg 01/05/21 22:00 01/05/21 21:15 Azithromycin 250 Mg Tab PO 01/08/21 22:01 500 mg QHS RICARDO Administration Budesonide 0.5 mg 01/05/21 08:00 01/06/21 09:41 Budesonide 0.5 Mg/2 Ml Nebu IH 0.5 mg Q12HRT RICARDO Administration Dexamethasone 6 mg 01/05/21 10:00 01/06/21 09:20 Dexamethasone 4 Mg/Ml Vial IV 01/13/21 10:01 6 mg DAILY RICARDO Administration Dextrose 0 ml 01/04/21 22:33 Dextrose 50% In Water (25gm) 50 Ml Syringe IV Q30MIN PRN Hypoglycemia Protocol Diltiazem HCl 90 mg 01/05/21 00:00 01/05/21 23:10 Diltiazem 90 Mg Tab PO 90 mg Q8H RICARDO Administration Docusate Sodium 100 mg 04/06/21 10:00 01/06/21 09:17 Docusate Sodium 100 Mg Cap PO 100 mg BID RICARDO Administration Heparin Sodium (Porcine) 5,000 unit 01/05/21 06:00 01/06/21 05:53 Heparin 5,000 Unit/1 Ml Vial SUB-Q 5,000 unit Q8HR RICARDO Administration Ceftriaxone Sodium 2 gm in 100 mls @ 200 mls/hr 01/04/21 23:00 01/06/21 09:20 Rocephin/Ns 2 Gm/100 Ml IV 200 mls/hr Q24HR RICARDO Administration Protocol Insulin Glargine 35 units 01/05/21 22:00 01/05/21 21:16 Insulin Glargine 100 Units/Ml SUB-Q 35 units QHS RICARDO Administration Insulin Human Lispro 6 unit 01/05/21 07:30 01/06/21 08:41 Insulin Lispro 100 Unit/Ml SUB-Q 6 unit AC RICARDO Administration Losartan Potassium 50 mg 01/05/21 10:00 01/06/21 09:19 Losartan 50 Mg Tab PO 50 mg QDAY RICARDO Administration Metoprolol Succinate 50 mg 01/05/21 08:00 01/06/21 09:19 Metoprolol Succinate Xl 50 Mg Tab PO 50 mg QDAY@0800 RICARDO Administration Ondansetron HCl 4 mg 01/04/21 22:33 Ondansetron 4 Mg/2 Ml Inj IV Q8H PRN Nausea And Vomiting Pantoprazole Sodium 40 mg 01/05/21 10:00 01/06/21 09:17 Pantoprazole 40 Mg Tab PO 40 mg BID RICARDO Administration Sertraline HCl 25 mg 01/05/21 10:00 01/06/21 09:20 Sertraline 25 Mg Tab PO 25 mg QDAY RICARDO Administration Sodium Chloride 10 ml 01/05/21 10:00 01/06/21 09:21 Sodium Chloride 0.9% 10 Ml Flush Syringe IV 10 ml BID RICARDO Administration Sodium Chloride 10 ml 01/04/21 22:33 Sodium Chloride 0.9% 10 Ml Flush Syringe IV PRN PRN LINE FLUSH Sucralfate 1 gm 01/05/21 07:30 01/06/21 08:42 Sucralfate 1 Gm Tab PO 1 gm ACHS RICARDO Administration
--- NOTE | 2021-01-06 13:30 | Consultation ---
History of Present Illness - Reason for Consult Consult date: 01/06/21 COVID Requesting physician: AUREA MEJÍA - History of Present Illness 70 years old male with history of COPD/emphysema, CHF, diabetes mellitus, CVA, DVT, GERD, CAD, hypertension, previous upper GI bleed, admitted on 01/04/2021 secondary to 3-day history of generalized fatigue, cough, nausea, vomiting and shortness of breath. Patient has been on home oxygen in the past. Patient did not receive Covid vaccination. On arrival, temperature 98.8, HR 67, RR 24, O2 sat 95%, BP 107/63. O2 sat dropped to 86%. Initial WBC 7.3. D-dimer 368. CRP 1.7. Ferritin 108. Procalcitonin 0.5. Creatinine 1.7. Chest x-ray with bilateral opacities. Review of Systems: positive in bold print General: fever, chills, malaise Cutaneous: rash, pruritus Head: headaches or injury Eyes: changes in vision, eye pain, double vision Ears: ear pain, ear discharge, ringing or hearing loss Nose: nose bleeding, stuffiness Mouth & throat: bleeding gums, horseness, no dental problems, or swollen glands Neck: no pain, node enlargement/lumps, tyroid enlargement or tenderness Respiratory: SOB, cough, SORIANO, wheezing, sputum, hemoptysis, pleuritic chest pain Cardiovascular: chest pain, leg edema, cyanosis, SORIANO, orthopnea Musculoskeletal: edema, deformities, pain Gastrointestinal: nausea, vomiting, hematemesis, diarrhea, constipation, melena, bright red blood in stools, fecal incontinence, jaundice Genitourinary/Reproductive: frequent urination, dysuria, hematuria, incontinence Neurogical: seizures, headaches, weakness, paresthesias, loss of speech or vision; memory loss, vertigo, tremors, numbness Psychiatric: stable mood; excessive anxiety, sadness or moodiness Past History Past Medical History: CAD, COPD, diabetes, DVT, GERD, heart failure, hypertension, stroke Medications and Allergies Allergies Allergy/AdvReac Type Severity Reaction Status Date / Time No Known Allergies Allergy Verified 01/04/21 15:54 Home Medications Medication Instructions Recorded Confirmed Last Taken Type Albuterol Sulfate [Proair 2 puff IH Q6HR 10/29/19 01/05/21 Unknown History Digihaler] AtorvaSTATin [Lipitor] 20 mg PO QDAY 10/29/19 01/05/21 Unknown History Fluticasone/Salmeterol(Nf) [Advair 2 puff IH BID 10/29/19 01/05/21 Unknown History HFA 115-21 mcg] Insulin Aspart (Nf) [NovoLOG 6 units SQ AC 10/29/19 01/05/21 Unknown History Flexpen] Insulin Glargine,Hum.rec.anlog 35 unit SQ QHS 10/29/19 01/05/21 Unknown History [Lantus Solostar] Olmesartan (Nf) [Benicar] 40 mg PO QDAY 10/29/19 01/05/21 Unknown History Sertraline [Zoloft] 25 mg PO QDAY 10/29/19 01/05/21 Unknown History dilTIAZem [Cardizem] 90 mg PO Q8H 10/29/19 01/05/21 Unknown History Metoprolol Xl [Metoprolol 50 mg PO QDAY 07/21/20 01/05/21 Unknown History SUCCINATE ER TAB] Sildenafil Citrate [Viagra] 25 mg PO DAILY 07/21/20 01/05/21 Unknown History Pantoprazole [Protonix TAB] 40 mg PO BID #60 tablet 07/23/20 01/05/21 Unknown Rx Sucralfate [Carafate] 1 gm PO ACHS #120 tablet 07/23/20 01/05/21 Unknown Rx Dexamethasone [Decadron] 6 mg PO DAILY #9 tablet 01/06/21 Unknown Rx levoFLOXacin [Levaquin TAB] 750 mg PO Q24HR #6 tablet 01/06/21 Unknown Rx Active Meds: Active Medications Acetaminophen (Acetaminophen 325 Mg Tab) 650 mg PO Q4H PRN PRN Reason: Pain MILD(1-3)/Fever >100.5/FINNEGAN Albuterol (Albuterol 2.5 Mg/3 Ml Nebu) 2.5 mg IH Q4HRT PRN PRN Reason: Shortness Of Breath Arformoterol Tartrate (Arformoterol 15 Mcg/2 Ml Nebu) 15 mcg IH Q12HRT [facility] Last Admin: 01/06/21 09:41 Dose: 15 mcg Documented by: Aspirin (Aspirin 81 Mg Tab Chew) 81 mg PO QDAY [facility] Last Admin: 01/06/21 09:17 Dose: 81 mg Documented by: Atorvastatin Calcium (Atorvastatin 20 Mg Tab) 20 mg PO QDAY [facility] Last Admin: 01/06/21 09:20 Dose: 20 mg Documented by: Azithromycin (Azithromycin 250 Mg Tab) 500 mg PO QHS [facility] Stop: 01/08/21 22:01 Last Admin: 01/05/21 21:15 Dose: 500 mg Documented by: Budesonide (Budesonide 0.5 Mg/2 Ml Nebu) 0.5 mg IH Q12HRT [facility] Last Admin: 01/06/21 09:41 Dose: 0.5 mg Documented by: Dexamethasone (Dexamethasone 4 Mg/Ml Vial) 6 mg IV DAILY [facility] Stop: 01/13/21 10:01 Last Admin: 01/06/21 09:20 Dose: 6 mg Documented by: Dextrose (Dextrose 50% In Water (25gm) 50 Ml Syringe) 0 ml IV Q30MIN PRN; Prot ocol PRN Reason: Hypoglycemia Diltiazem HCl (Diltiazem 90 Mg Tab) 90 mg PO Q8H [facility] Last Admin: 01/06/21 12:11 Dose: 90 mg Documented by: Docusate Sodium (Docusate Sodium 100 Mg Cap) 100 mg PO BID [facility] Last Admin: 01/06/21 09:17 Dose: 100 mg Documented by: Heparin Sodium (Porcine) (Heparin 5,000 Unit/1 Ml Vial) 5,000 unit SUB-Q Q8HR [facility] Last Admin: 01/06/21 13:06 Dose: 5,000 unit Documented by: Ceftriaxone Sodium (Rocephin/Ns 2 Gm/100 Ml) 2 gm in 100 mls @ 200 mls/hr IV Q24HR [facility]; Protocol Last Admin: 01/06/21 09:20 Dose: 200 mls/hr Documented by: Insulin Glargine (Insulin Glargine 100 Units/Ml) 35 units SUB-Q QHS [facility] Last Admin: 01/05/21 21:16 Dose: 35 units Documented by: Insulin Human Lispro (Insulin Lispro 100 Unit/Ml) 6 unit SUB-Q [facility] Last Admin: 01/06/21 12:12 Dose: 6 unit Documented by: Losartan Potassium (Losartan 50 Mg Tab) 50 mg PO QDAY [facility] Last Admin: 01/06/21 09:19 Dose: 50 mg Documented by: Metoprolol Succinate (Metoprolol Succinate Xl 50 Mg Tab) 50 mg PO QDAY@0800 [facility] Last Admin: 01/06/21 09:19 Dose: 50 mg Documented by: Ondansetron HCl (Ondansetron 4 Mg/2 Ml Inj) 4 mg IV Q8H PRN PRN Reason: Nausea And Vomiting Pantoprazole Sodium (Pantoprazole 40 Mg Tab) 40 mg PO BID [facility] Last Admin: 01/06/21 09:17 Dose: 40 mg Documented by: Sertraline HCl (Sertraline 25 Mg Tab) 25 mg PO QDAY [facility] Last Admin: 01/06/21 09:20 Dose: 25 mg Documented by: Sodium Chloride (Sodium Chloride 0.9% 10 Ml Flush Syringe) 10 ml IV BID [facility] Last Admin: 01/06/21 09:21 Dose: 10 ml Documented by: Sodium Chloride (Sodium Chloride 0.9% 10 Ml Flush Syringe) 10 ml IV PRN PRN PRN Reason: LINE FLUSH Sucralfate (Sucralfate 1 Gm Tab) 1 gm PO ACHS [facility] Last Admin: 01/06/21 12:12 Dose: 1 gm Documented by: Physical Examination - Physical Exam Narrative exam: General appearance: Alert in NAD pleasant Eyes: anicteric sclerae, moist conjunctivae; no lid-lag; PERRLA HENT: Normocephalic, Atraumatic; normal external ears, nares open, oropharynx clear with moist mucous membranes and no oral thrush Neck: supple, tracheal midline, no JVD Lungs: CTA, with normal respiratory effort and no intercostal retractions CV: RRR no murmur Abdomen: Soft, non-tender; no masses or hepatosplenomegaly Extremities: no edema, no cyanosis Skin: No rash. Psych: no agitated Neuro: alert and oriented x 3. Moving all extermities - Constitutional Vitals: Vital Signs Temp Pulse Resp BP Pulse Ox 98.7 F 64 18 129/65 94 01/06/21 06:56 01/06/21 06:56 01/06/21 06:56 01/06/21 09:19 01/06/21 06:56 Temperature -Last 24 Hours Temperature 98.7 F Temperature 97.8 F Temperature 98.5 F Results - Labs CBC & Chem 7: 01/05/21 04:57 01/05/21 04:57 Labs: Abnormal lab results 01/04/21 01/05/21 01/06/21 Range/Units 10:19 21:15 08:16 POC Glucose 170 H 145 H (70-105) mg/dL Coronavirus (PCR) Positive A (Negative) 01/06/21 Range/Units 11:41 POC Glucose 132 H (70-105) mg/dL Coronavirus (PCR) (Negative) Assessment and Plan Cultures SARS CoV2 PCR positive Assessment: 70 years old male with history of COPD/emphysema, CHF, diabetes mellitus, CVA, DVT, GERD, CAD, hypertension, previous upper GI bleed, admitted on 01/04/2021 secondary to 3-day history of generalized fatigue, cough, nausea, vomiting and shortness of breath: #COVID pneumonia: Patient with transient hypoxia down to 86% and 88%, currently on room air. Inflammatory markers mildly elevated, D-dimer 368, CRP 1.7, normal ferritin. Procalcitonin 0.5 in the setting of RACHEL. #COPD exacerbation #RACHEL: Possibly from COVID-19 infection. Creatinine improving from 1.7-->1.4. Recommendations: -Monitor overnight, recheck 6-minute walking test in the morning if he passes okay to discharge home with a home pulse oximeter to check O2 sats twice a day and return to the hospital if sats drop <94 -Patient with multiple risk factor for deterioration -Continue dexamethasone 6 mg IV/PO daily for 10 days -No candidate for remdesivir due to nonsustained hypoxia -Monitor inflammatory markers - ferritin, Ddimer, CRP, LDH, reordered today -Monitor liver function test on Remdesivir -Continue anticoagulation per System Protocol -Continue ceftriaxone for 5 days and azithromycin for 3 days, procalcitonin slightly elevated likely due to RACHEL. Will repeat procalcitonin. If patient is going home okay to complete therapy with Levaquin 500 g p.o. once a day total 5 days. All laboratory, cultures and imaging were reviewed. Discussed with attending. Will follow Tonie Mazariegos MD Infectious Diseases Archeology Faculty Member [facility] M [phone] O [phone]
[2021-01-06 18:00] LABS: C-Reactive Protein 0.4 mg/dL (0.00-1.30)
[2021-01-06] MEDS: INSULIN GLARGINE 100 UNITS/ML SUB-Q SCH (21:39)
[2021-01-06] MEDS: AZITHROMYCIN 250 MG TAB PO SCH (21:40)
[2021-01-07] MEDS: HEPARIN 5,000 UNIT/1 ML VIAL SUB-Q SCH (05:09)
[2021-01-07] MEDS: BUDESONIDE 0.5 MG/2 ML NEBU IH SCH (07:37)
[2021-01-07] MEDS: ARFORMOTEROL 15 MCG/2 ML NEBU IH SCH (07:37)
[2021-01-07] MEDS: SUCRALFATE 1 GM TAB PO SCH ×2 (08:50→12:52)
[2021-01-07] MEDS: INSULIN LISPRO 100 UNIT/ML SUB-Q SCH ×2 (08:50→12:53)
[2021-01-07] MEDS: DOCUSATE SODIUM 100 MG CAP PO SCH (09:01)
[2021-01-07] MEDS: PANTOPRAZOLE 40 MG TAB PO SCH (09:01)
[2021-01-07] MEDS: ASPIRIN 81 MG TAB CHEW PO SCH (09:01)
[2021-01-07] MEDS: SERTRALINE 25 MG TAB PO SCH (09:01)
[2021-01-07] MEDS: dexAMETHasone 4 MG/ML VIAL IV SCH (09:02)
[2021-01-07] MEDS: cefTRIAXone/NS 2 GM/100 ML 2 GM/100 ML BAG IV SCH (09:02)
[2021-01-07] MEDS: METOPROLOL SUCCINATE XL 50 MG TAB PO SCH (09:11)
[2021-01-07] MEDS: LOSARTAN 50 MG TAB PO SCH (09:15)
[2021-01-07 12:36] VITALS: BP 146/85
--- NOTE | 2021-01-07 12:48 | Progress Note ---
Assessment and Plan Cultures SARS CoV2 PCR positive Assessment: 70 years old male with history of COPD/emphysema, CHF, diabetes mellitus, CVA, DVT, GERD, CAD, hypertension, previous upper GI bleed, admitted on 01/04/2021 secondary to 3-day history of generalized fatigue, cough, nausea, vomiting and shortness of breath: #COVID pneumonia: Patient with transient hypoxia down to 86% and 88%, remains on room air. Inflammatory markers mildly elevated, D-dimer 368, CRP 1.7, normal ferritin. Markers better. Procalcitonin 0.5 in the setting of RACHEL. #COPD exacerbation #RACHEL: Possibly from COVID-19 infection. Creatinine improving from 1.7-->1.4. Recommendations: -recheck 6-minute walking test if he passes okay to discharge home with a home pulse oximeter to check O2 sats twice a day and return to the hospital if sats drop <94, educated -Continue dexamethasone 6 mg IV/PO daily for 10 days -No candidate for remdesivir due to nonsustained hypoxia -Okay to complete abx Levaquin 500 g p.o. once a day total 5 days till tomorrow Will follow Tonie Mazariegos MD Infectious Diseases Crew Leader [employer] [facility] M [phone] O [phone] Subjective Date of service: 01/07/21 Principal diagnosis: covid Interval history: Feels much better, no fever, no shortness of breath, minimal cough, no desaturation remains on room air. Objective - Exam Narrative Exam: Physical exam deferred to minimize COVID-19 transmission during pandemic. - Constitutional Vitals: Vital Signs Temp Pulse Resp BP Pulse Ox 98.7 F 58 L 22 146/85 96 01/07/21 11:31 01/07/21 11:31 01/07/21 11:31 01/07/21 11:31 01/07/21 11:31 Temperature -Last 24 Hours Temperature 98.7 F Temperature 98.0 F Temperature 97.6 F - Labs CBC & Chem 7: 01/05/21 04:57 01/05/21 04:57 Labs: Abnormal lab results 01/06/21 01/06/21 01/06/21 Range/Units 16:31 16:51 21:23 POC Glucose 162 H 134 H (70-105) mg/dL Lactate Dehydrogenase 263 H (91-180) units/L 01/07/21 Range/Units 07:41 POC Glucose 134 H (70-105) mg/dL Lactate Dehydrogenase (91-180) units/L
== END 2021-01-07 13:31 | disposition home or self-care (01) | DRG 177 ==
LOC: ED 15:50 → 3A 21:27 → OBSVTOIN 01-05 16:20
PROVIDERS: ADMIT Hospitalist; ATTEND Internal Medicine
DX: U07.1 COVID-19 (principal); J12.82 Pneumonia due to coronavirus disease 2019; N17.0 Acute kidney failure with tubular necrosis; J96.01 Acute respiratory failure with hypoxia; J44.1 Chronic obstructive pulmonary disease with (acute) exacerbation; J44.0 Chronic obstructive pulmonary disease with (acute) lower respiratory infection; I24.9 Acute ischemic heart disease, unspecified; I50.9 Heart failure, unspecified; I11.0 Hypertensive heart disease with heart failure; E78.5 Hyperlipidemia, unspecified; J45.909 Unspecified asthma, uncomplicated; E10.9 Type 1 diabetes mellitus without complications; K21.00 Gastro-esophageal reflux disease with esophagitis, without bleeding; I25.10 Atherosclerotic heart disease of native coronary artery without angina pectoris; Z86.73 Personal history of transient ischemic attack (TIA), and cerebral infarction without residual deficits; Z86.718 Personal history of other venous thrombosis and embolism; Z79.01 Long term (current) use of anticoagulants; Z79.899 Other long term (current) drug therapy; Z79.891 Long term (current) use of opiate analgesic; Z95.818 Presence of other cardiac implants and grafts; Z97.4 Presence of external hearing-aid
CPT/HCPCS: 36415; 71046; 80048; 80053; 82728; 82947; 82962; 83615; 83690; 83735; 83880; 84145; 84484; 85025; 85379; 85610; 85730; 86140; 93005; 94640; 94644; 96365; 96367; 96372; 96375; G0378; A9270-GY; J0456; J0696; J1100; J1644; J1815; J7512; U0003